=== PATIENT | female | born 1955 | race Caucasian/White ===

== ENCOUNTER 2018-05-02 13:49 | Outpatient (REF) | payer OTHER, SELFPAY ==
[2018-05-02 15:34] LABS: Hemoglobin A1C 9.4 % (4.5-6.2)
[2018-05-05 10:20] LABS: Hepatitis C Ab w Rflx HCV PCR Negative (NEGAT)
== END 2018-05-02 14:09 ==
LOC: NCHCN 13:49
PROVIDERS: PCP Nurse Practitioner Family; Visit Provider Family Medicine
DX: Z00.00 Encounter for general adult medical examination without abnormal findings (principal); E11.65 Type 2 diabetes mellitus with hyperglycemia; Z11.59 Encounter for screening for other viral diseases
CPT/HCPCS: 86803; 83036

== ENCOUNTER 2018-08-20 08:02 | Outpatient (REF) | payer OTHER, SELFPAY ==
[2018-08-20 13:00] LABS: HCT 35.5 % (36.0-46.0); HGB 11.5 g/dL (12.0-15.5); Mean Corp. HGB Concentration 32.4 g/dL (32.0-36.0); Mean Corpuscular Hemoglobin 25.6 pg (27.0-33.0); Mean Corpuscular Volume 79.1 fL (80-95); Platelet Count 196 x1000/uL (130-400); RBC 4.49 m/cumm (4.00-5.20); White Blood Cell Count 5.85 k/cumm (4.4-10.8)
[2018-08-20 13:07] LABS: BUN 20 mg/dL (7-18); CREATININE 0.89 mg/dL (0.55-1.02); Calcium 9.4 mg/dL (8.5-10.1); Chloride 101 mmol/L (98-107); Cholesterol 179 mg/dL (50-200); Glucose 246 mg/dL (70-100); HDL Cholesterol 45 mg/dL (40-60); LDL CHOLESTEROL 106 mg/dL (<100); Potassium 4.8 mmol/L (3.5-5.1); Sodium 138 mmol/L (136-145); Triglyceride 160 mg/dL (30-150)
[2018-08-20 13:17] LABS: Hemoglobin A1C 11.6 % (4.5-6.2)
== END 2018-08-20 08:22 ==
LOC: NCHCN 08:02
PROVIDERS: PCP Nurse Practitioner Family; Visit Provider Family Medicine
DX: E11.65 Type 2 diabetes mellitus with hyperglycemia (principal); I10 Essential (primary) hypertension; E78.5 Hyperlipidemia, unspecified
CPT/HCPCS: 80048; 80061; 83721; 85027; 83036

== ENCOUNTER 2018-09-26 17:22 | Outpatient (REF) | payer OTHER, SELFPAY ==
[2018-09-26 20:13] LABS: COMMENT (LAB VIEW ONLY) 158.93 mg/dL; Microalb ug/mg Crea 56.9 ug/mg Cr
== END 2018-09-26 17:42 ==
LOC: NCHCN 17:22
PROVIDERS: PCP Nurse Practitioner Family; Visit Provider Family Medicine
DX: E11.65 Type 2 diabetes mellitus with hyperglycemia (principal)
CPT/HCPCS: 82043; 82570

== ENCOUNTER 2018-11-13 01:49 | Outpatient (CLI) | payer OTHER, SELFPAY ==
--- NOTE | 2018-11-18 12:20 | DIABASSESS_ITS ---
DESCRIPTION: Vicki Botello presents for diabetes self management with a focus on getting blood sugars under better control and weight loss.? Last seen here 2014. MEDS:? 70/75 units AM/PM and insulin:carb at 5units cover 15 grams.She is injecting in her stomach. States she does have lumps where she injects. NUTRITION: Has given up pasta; seeking to add protein to her diet.? She has started writing down her food which has helped her in the past.? She is eating 60 grams carbohydrate servings at breakfast; and other meals.? She has not been eating vegetables. PHYSICAL ACTIVITY: She admits to limited physical activity secondary to cataplexy and narcolepsy with low energy. She also reports shortness of breath frequently. States she naps all day and does not sleep well at night.? She is working with the Sleep [facility].? CPAP helps her. MONITORING: States A1c 10ish and has been for some time.? States she monitors blood sugars 2-4 times a day. STRESS: admits to loneliness and possible depression.? Relates history at [facility] with sadness which she describes as ongoing, though recently better.? She also reports frustration with obtaining medication supplies. ASSESSMENT/INTERVENTION: Kelsey continues to have high blood sugars despite self- reported adherence to medication regimen. Discussed injection site and insulin administration. Discussed moving injection site to places she doesn't normally inject to increase effective absorption. Reviewed food record, portions, hunger/fullness. States she eats out of boredom. Discussed food options. Discussed CGM and link to insulin pump as a possible help for glycemic control and she voices enthusiasm.?? Discussed increasing activity.? She thinks linking a 10 minute walk after her meal may help her.? She reports feeling self conscious about exercising outside because of how people might tax investigator her.? In addition to walking after breakfast, discussed washing 1 thing after lunch as she is frustrated she is not doing any spring cleaning. She will be caring for a baby in 2 weeks and will be walking her then. PLAN: She will inject insulin in new abdominal areas with regular rotation increase physical activity after breakfast and lunch document food, insulin and blood sugars discuss with Dr. Kearns CGM/insulin pump consideration She is motivated to make changes.? We will f/u in 2 weeks. Individual MNT __2__ units billed TIME IN: 11 OUT: 1135 No DM group education series being offered at this time.
== END 2018-11-13 02:09 ==
PROVIDERS: PCP Nurse Practitioner Family; Visit Provider Dietitian, Registered
DX: E11.9 Type 2 diabetes mellitus without complications (principal); Z79.4 Long term (current) use of insulin; Z71.3 Dietary counseling and surveillance
CPT/HCPCS: 97802

== ENCOUNTER 2018-12-01 15:18 | Outpatient (CLI) | payer OTHER, SELFPAY ==
--- NOTE | 2018-12-03 09:57 | DIABASSESS_ITS ---
DESCRIPTION/ASSESSMENT: Vicki presents for diabetes self management with nutrition focus follow up. She has not been able to do the physical activity of walking 5 minutes a day and choosing one thing to clean a day. She states she did start the Keto diet as recommended by Monserrat Friend NP. Reviewed her food log and found she is eating sandwiches, pancakes, waffles, etc. The past few days she has been eating more salads, making her own high fat dressings, and is looking up 'keto' friendly main entree recipes. She admits she continues to sleep a lot. She gets up around 11:30-noon most days. She also has trouble walking unless it is even ground, however she can tip in her house. She does not do her basement stairs anymore for risk of falling. INTERVENTION: Reviewed food choices and carbohydrate intake in relation to insulin dosing and blood sugars. It is unclear if her basal insulin or her supper insulin dose is not effective causing hyperglycemia in the morning. It is evident she does need some insulin even if she is eating vegetables. Suggested she have 5 units mealtime insulin even if she does not have carbohydrate sources in her meal. In addition, suggested intensifying the insulin correction to 1 unit corrects 10mg/dl above 140mg/dl starting at 6 units at 140 as she has been doing. Discussed monitoring blood sugars at bedtime to see if supper dosing is effective. ACTION PLAN: Vicki will monitor blood sugars before bed x a few days and call results. She will use her new insulin correction scale and call if she becomes hypoglycemic. She wishes to follow up in 1 month. Individual MNT _2___ units billed TIME IN: 1300 OUT: 1340 for MNT and 10 minutes for insulin adjustment. No DM group education series being offered at this time.
== END 2018-12-01 15:38 ==
PROVIDERS: PCP Nurse Practitioner Family; Visit Provider Dietitian, Registered
DX: E11.9 Type 2 diabetes mellitus without complications (principal); Z79.4 Long term (current) use of insulin; Z71.3 Dietary counseling and surveillance
CPT/HCPCS: 97802

== ENCOUNTER 2018-12-31 12:08 | Outpatient (CLI) | payer OTHER, SELFPAY ==
--- NOTE | 2018-12-31 11:50 | DI.RAD_ITS ---
SYMPTOMS/DIAGNOSIS: PAIN, POPPING SENSATION RIGHT KNEE: Three views. Mild narrowing is seen in the medial femorotibial joint space. There is mild periarticular spurring present in the posterior patella and the medial femorotibial joint. There is an osseous density seen inferior to the patella, which may represent a loose body. There are vascular calcifications present in the soft tissues. IMPRESSION: 1. Mild degenerative changes of the right knee. 2. Question of a loose body.
== END 2018-12-31 12:28 ==
PROVIDERS: PCP Nurse Practitioner Family; Visit Provider Family Medicine
DX: M25.561 Pain in right knee (principal); M17.11 Unilateral primary osteoarthritis, right knee; M25.861 Other specified joint disorders, right knee
CPT/HCPCS: 73562

== ENCOUNTER → 2019-01-07 12:34 | Outpatient (BNVA) | payer OTHER, SELFPAY | PROVIDERS: PCP Nurse Practitioner Family; Referring Provider Family Medicine; Visit Provider Student in an Organized Health Care Education/Training Program | DX: M25.561 Pain in right knee (principal); M23.41 Loose body in knee, right knee; M25.461 Effusion, right knee | CPT/HCPCS: 20610; 99202; 99213; J1040 ==

== ENCOUNTER 2019-02-02 01:37 | Outpatient (CLI) | payer OTHER, SELFPAY ==
--- NOTE | 2019-02-02 12:04 | DI.MRI_ITS ---
SYMPTOMS/DIAGNOSIS: INTERNAL DERANGEMENT, RIGHT KNEE, M23.91, MEDIAL PAIN MRI OF THE RIGHT KNEE: Routine noncontrast examination was performed. The anterior cruciate and posterior cruciate ligaments are intact, as are both the medial and lateral collateral ligaments, extensor mechanism and medial and lateral retinaculum, in addition to the popliteus tendon. There is a tear of the posterior horn and body of the medial meniscus. The lateral meniscus is intact. There is thinning of the articular cartilage in the medial femorotibial joint space and the patellofemoral joint. Mild edema is seen in the proximal tibia. There is a linear area of decreased signal intensity paralleling the medial tibial plateau on the T2 weighted images. The findings raise the question of a nondisplaced fracture. Marrow signal is otherwise within normal limits. No findings to suggest avascular necrosis are seen. There is a small amount of fluid in the joint space. There is a 2.1 x 1.7 x 2.8 cm fluid collection in the posterior knee. There is mild edema seen in the soft tissues. The muscles show normal signal and size. IMPRESSION: 1. Findings of a tear of the body and posterior horn of the medial meniscus. 2. Findings suggestive of a nondisplaced fracture involving the medial aspect of the medial tibia. 3. Osteoarthritis of the knee.
== END 2019-02-02 01:57 ==
PROVIDERS: PCP Nurse Practitioner Family; Visit Provider Student in an Organized Health Care Education/Training Program
DX: M23.221 Derangement of posterior horn of medial meniscus due to old tear or injury, right knee (principal); M17.11 Unilateral primary osteoarthritis, right knee; R93.6 Abnormal findings on diagnostic imaging of limbs
CPT/HCPCS: 73721

== ENCOUNTER → 2019-02-18 12:39 | Outpatient (BNVA) | payer OTHER, SELFPAY | PROVIDERS: PCP Nurse Practitioner Family; Referring Provider Nurse Practitioner Family; Visit Provider Student in an Organized Health Care Education/Training Program | DX: S83.241D Other tear of medial meniscus, current injury, right knee, subsequent encounter (principal); X58.XXXD Exposure to other specified factors, subsequent encounter; E11.9 Type 2 diabetes mellitus without complications; I10 Essential (primary) hypertension; Z79.4 Long term (current) use of insulin | CPT/HCPCS: 99213 ==

== ENCOUNTER → 2019-03-04 08:56 | Outpatient (BNVA) | payer OTHER, SELFPAY | PROVIDERS: PCP Nurse Practitioner Family; Referring Provider Nurse Practitioner Family; Visit Provider Student in an Organized Health Care Education/Training Program | DX: S83.241A Other tear of medial meniscus, current injury, right knee, initial encounter (principal); X58.XXXA Exposure to other specified factors, initial encounter; E11.9 Type 2 diabetes mellitus without complications; Z79.4 Long term (current) use of insulin; I10 Essential (primary) hypertension | CPT/HCPCS: 99213; L1820 ==

== ENCOUNTER → 2019-04-03 08:10 | Outpatient (BNVA) | payer OTHER, SELFPAY | PROVIDERS: PCP Nurse Practitioner Family; Referring Provider Nurse Practitioner Family; Visit Provider Student in an Organized Health Care Education/Training Program | DX: S83.241A Other tear of medial meniscus, current injury, right knee, initial encounter (principal); X58.XXXA Exposure to other specified factors, initial encounter; M65.331 Trigger finger, right middle finger | CPT/HCPCS: 99214 ==

== ENCOUNTER 2019-05-21 00:49 | Outpatient (CLI) | payer OTHER, SELFPAY ==
--- NOTE | 2019-05-21 13:53 | DI.US_ITS ---
EXAM: US SOFT TISS ABD WALL/LOW BACK CLINICAL HISTORY: SWELLING OF BACK, R22.2, FIRM ASYMMETRIC SWELLING OF THE LEFT UPPER BACK,? LIPOMA. TECHNIQUE: Ultrasound performed using standard protocol. COMPARISON: No exams were available for comparison FINDINGS: Soft tissue ultrasound of the periscapular region was performed to evaluate a palpable mass. There is a large heterogeneous mass with internal apparent calcification and shadowing. Findings are indeterm inate, malignancy not excluded. Correlation with MRI recommended.
--- NOTE | 2019-05-21 14:40 | MERGE_ITS ---
*[facility]* *[facility]* [address] [place] [address] Date of study: 05/21/2019 Transthoracic Echocardiography M-mode, complete 2D, complete spectral Doppler, and color Doppler *STUDY CONCLUSIONS* Summary: 1. Left ventricle: The cavity size was normal. Systolic function was hyperdynamic. The estimated ejection fraction was 65-70%. Diastolic parameters were normal for age. There was no evidence of elevated ventricular filling pressure by Doppler parameters. 2. Mitral valve: There was mild regurgitation. 3. Right ventricle: The cavity size was normal. Wall thickness was normal. Systolic function was normal. 4. Atrial septum: No defect or patent foramen ovale was identified. 5. Pulmonary arteries: Pulmonary systolic pressure was in the range of 25mm Hg to 35mm Hg. 6. Inferior vena cava: The vessel was normal in size. The respirophasic diameter changes were in the normal range (greater than or equal to 50%), consistent with normal central venous pressure. *PATIENT PRESENTATION* Height: 162.6cm (64in ) S/D Pressure: 143 / 65 Weight: 86.6kg (190.6lb ) BSA: 2.01m^2 Test start time: 02:40 PM. Test stop time: 03:25 PM. CONSULTING Lorena Kearns Dana REFERRING Lorena Kearns PERFORMING [facility] [employer] Daphne Leslie *PROCEDURE DATA* Procedure information: This study was interpreted by [facility]. Pertinent images and digital data are archived for permanent storage and are available for subsequent review. Study status: Routine. Transthoracic echocardiography. M-mode, complete 2D, complete spectral Doppler, and color Doppler. A Transthoracic Echocardiogram was performed. Scanning was performed from the parasternal, apical, subcostal, and suprasternal notch acoustic windows. Images were obtained using an [employer] SC 2000 cardiac ultrasound machine. Image quality was good. Study completion: The patient tolerated the procedure well. History: PMH: Murmur. *CARDIAC ANATOMY* Left ventricle: The cavity size was normal. Systolic function was hyperdynamic. The estimated ejection fraction was 65-70%. The tissue Doppler parameters were abnormal. Diastolic parameters were normal for age. There was no evidence of elevated ventricular filling pressure by Doppler parameters. Aortic valve: Doppler: There was no stenosis. There was no significant regurgitation. VTI ratio of LVOT to aortic valve: 0.8. Valve area (VTI): 1.8cm^2. Indexed valve area (VTI): 0.9cm^2/m^2. Peak velocity ratio of LVOT to aortic valve: 0.74. Valve area (Vmax): 1.7cm^2. Indexed valve area (Vmax): 0.8cm^2/m^2. Mean velocity ratio of LVOT to aortic valve: 0.64. Valve area (Vmean): 1.5cm^2. Indexed valve area (Vmean): 0.7cm^2/m^2. Mean gradient (S): 10.1mm Hg. Peak gradient (S): 19.5mm Hg. Aorta: Aortic root: The aortic root was normal in size. Ascending aorta: The ascending aorta was normal in size. Mitral valve: Doppler: There was no evidence for stenosis. There was mild regurgitation. Valve area by pressure half-time: 2.6cm^2. Indexed valve area by pressure half-time: 1.3cm^2/m^2. Peak gradient (D): 3.4mm Hg. Left atrium: The atrium was normal in size. Atrial septum: No defect or patent foramen ovale was identified. Right ventricle: The cavity size was normal. Wall thickness was normal. Systolic function was normal. Pulmonic valve: Doppler: There was no evidence for stenosis. There was trivial regurgitation. Tricuspid valve: Doppler: There was mild regurgitation. Pulmonary artery: Poorly visualized. Pulmonary systolic pressure was in the range of 25mm Hg to 35mm Hg. Right atrium: The atrium was normal in size. Pericardium: There was no pericardial effusion. Systemic veins: Inferior vena cava: The vessel was normal in size. The respirophasic diameter changes were in the normal range (greater than or equal to 50%), consistent with normal central venous pressure. Measurements Left ventricle Value Reference LV ID, ED, PLAX 4.0 cm 3.5 - 6.0 LV ID, ES, PLAX 2.6 cm 2.1 - 4.0 LV PW thickness, ED, PLAX 1.1 cm LV end-diastolic volume, 1-p A2C 69 ml LV ejection fraction, 1-p A2C 69 % LV end-diastolic volume, 1-p A4C 80 ml LV ejection fraction, 1-p A4C 67 % LV e', lateral 0.089 m/sec LV E/e', lateral 10 LV e', medial 0.059 m/sec LV E/e', medial 16 LV e', average 0.074 m/sec LV E/e', average 12 Ventricular septum Value Reference IVS thickness, ED, PLAX 1.1 cm LVOT Value Reference LVOT ID, A-P 1.7 cm LVOT area 2.3 cm^2 LVOT peak velocity, S 1.64 m/sec LVOT mean velocity, S 0.96 m/sec LVOT VTI, S 35.0 cm LVOT peak gradient, S 10.7 mm Hg LVOT mean gradient, S 4.6 mm Hg Stroke volume (SV), LVOT DP 80 ml Stroke index (SV/bsa), LVOT DP 40 ml/m^2 Aortic valve Value Reference Aortic valve peak velocity, S 2.2 m/sec Aortic valve mean velocity, S 1.5 m/sec Aortic valve VTI, S 44.0 cm Aortic mean gradient, S 10.1 mm Hg Aortic peak gradient, S 19.5 mm Hg VTI ratio, LVOT/AV 0.8 Aortic valve area, VTI 1.8 cm^2 Velocity ratio, peak, LVOT/AV 0.74 Aortic valve area, peak velocity 1.7 cm^2 Velocity ratio, mean, LVOT/AV 0.64 Aortic valve area, mean velocity 1.5 cm^2 Aortic valve area/bsa, mean velocity 0.7 cm^2/m^2 Aorta Value Reference Aortic root ID, ED 2.5 cm Ascending aorta ID, A-P, S 2.9 cm Left atrium Value Reference LA ID, A-P, ES 4.3 cm LA ID/bsa, A-P 2.1 cm/m^2 <=2.2 LA volume, ES, 2-p 57 ml LA volume/bsa, ES, 2-p 28 ml/m^2 LA/aortic root ratio 1.75 Mitral valve Value Reference Mitral E-wave peak velocity 0.92 m/sec Mitral A-wave peak velocity 1.4 m/sec Mitral deceleration time (H) 289 ms 150 - 230 Mitral pressure half-time 84 ms Mitral peak gradient, D 3.4 mm Hg Mitral E/A ratio, peak 0.65 Mitral valve area, PHT, DP 2.6 cm^2 Tricuspid valve Value Reference Tricuspid regurg peak velocity 2.5 m/sec Tricuspid peak RV-RA gradient 25.6 mm Hg Right atrium Value Reference RA area, ES, A4C 13.9 cm^2 8.3 - 19.5 Legend: (L) and (H) marilynn values outside specified reference range. I have personally reviewed the images and have reviewed and edited the reported findings. Electronically signed by Chilango Kimble MD 05/21/2019 16:32
== END 2019-05-21 01:09 ==
PROVIDERS: PCP Family Medicine; Visit Provider Family Medicine
DX: R01.1 Cardiac murmur, unspecified (principal); I34.0 Nonrheumatic mitral (valve) insufficiency; R22.2 Localized swelling, mass and lump, trunk; I10 Essential (primary) hypertension
CPT/HCPCS: 93306; 76705

== ENCOUNTER 2019-06-04 00:57 | Outpatient (CLI) | payer OTHER, SELFPAY ==
[2019-06-04 09:20] LABS: CREATININE 0.97 mg/dL (0.55-1.02); Estimated GFR 58.19 (mL/min/1.73m2)
[2019-06-04] MEDS: Normal Saline Flush 10 ML SYR IVP (09:54)
[2019-06-04] MEDS: Gadoterate meglumine 20 ML VIAL 15 ML IVP (09:56)
--- NOTE | 2019-06-04 10:15 | DI.MRI_ITS ---
EXAM: MR CHEST WO/W CLINICAL HISTORY: LOCALIZED SWELLING OF BACK, R22.2. TECHNIQUE: Multiplanar multisequence MRI was performed. COMPARISON: No exams were available for comparison FINDINGS: MR examination was performed to evaluate palpable area of abnormality of the patient's left midthorac ic region posteriorly. Precontrast MRI multiplanar T1 and T2 fat sat show a rounded fairly well-circ umscribed predominantly lipomatous lesion measuring up to about 10 x 14 cm in diameter corresponding to the palpable abnormality. This lies in the subcutaneous fat. There is a central region of hetero geneous abnormal signal measuring up to about 7 x 2 cm in diameter on coronal imaging where it is mos t clearly seen. Postcontrast and pre contrast T1 fat sat imaging was also obtained and shows little or no enhancement of the lesion. The findings as described are consistent with a lipomatous mass of uncertain etiology, this could rep resent lipoma with area of cysts central necrosis but the possibility of liposarcoma would also have to be raised. A biopsy is recommended. No additional significant findings in the region surveyed. IMPRESSION: Predominantly lipomatous but indeterminate lesion of the left posterior thoracic subcutaneous fat, li avi with necrotic focus versus malignant neoplasm. Biopsy recommended for further evaluation.
== END 2019-06-04 01:17 ==
PROVIDERS: PCP Family Medicine; Visit Provider Family Medicine
DX: R22.2 Localized swelling, mass and lump, trunk (principal); D17.1 Benign lipomatous neoplasm of skin and subcutaneous tissue of trunk; Z13.89 Encounter for screening for other disorder
CPT/HCPCS: 71552; 82565

== ENCOUNTER 2019-06-08 01:02 | Outpatient (CLI) | payer OTHER, SELFPAY ==
--- NOTE | 2019-06-08 15:17 | DI.MAMMO_ITS ---
EXAM: MAMMO SCREENING CLINICAL HISTORY: SCREENING, Z12.31, PREVENTATIVE CARE, Z00.00 TECHNIQUE: Mammograms were interpreted according to the usual protocol including computer analysis w [employer] CAD system, tomosynthesis and C-view imaging. COMPARISON: Previous examinations including February 2018 FINDINGS: Breasts are of moderate density. There is asymmetric distribution of fibroglandular tissue with incr eased radiodensity in the upper outer quadrant of the left breast, unchanged from previous examinatio ns including February 2018. No new mass or clumped microcalcification seen. IMPRESSION: No specific evidence of malignancy at this time. Routine screening examinations are suggested at year ly intervals in this age group according to the ACS/ACR guidelines. Category 1, breast density catego ry B. BI-RADS Cat 1 - Negative Breast Density - Category B - Scattered areas of fibroglandular density
== END 2019-06-08 01:22 ==
PROVIDERS: PCP Family Medicine; Visit Provider Family Medicine
DX: Z12.31 Encounter for screening mammogram for malignant neoplasm of breast (principal)
CPT/HCPCS: 77063; 77067

== ENCOUNTER 2019-09-30 09:54 | Outpatient (REF) | payer OTHER, SELFPAY ==
[2019-09-30 19:31] LABS: HCT 34.2 % (36.0-46.0); HGB 10.8 g/dL (12.0-15.5); Mean Corp. HGB Concentration 31.6 g/dL (32.0-36.0); Mean Corpuscular Hemoglobin 25.8 pg (27.0-33.0); Mean Corpuscular Volume 81.6 fL (80-95); Mean Platelet Volume 12.6 fL (8.0-11.0); Platelet Count 261 x1000/uL (130-400); RBC 4.19 m/cumm (4.00-5.20); RBC Distribution Width 15.7 % (11.7-14.6); White Blood Cell Count 7.61 k/cumm (4.4-10.8)
[2019-09-30 19:49] LABS: Iron 70 ug/dL (50-170); Total Iron Binding Capacity 326 ug/dL (250-450); Transferrin Sat 21 % (15-50)
[2019-09-30 19:51] LABS: Hemoglobin A1C 8.7 % (3.8-5.6)
[2019-09-30 19:57] LABS: COMMENT (LAB VIEW ONLY) 124.37 mg/dL
[2019-09-30 19:59] LABS: Microalb ug/mg Crea 246.1 ug/mg Cr
[2019-09-30 20:01] LABS: ALT 42 U/L (14-59); AST 21 U/L (15-37); Albumin 3.9 g/dL (3.4-5.0); Alkaline Phosphatase 96 U/L (46-116); Anion Gap 13.9 mmol/L (3-11); BUN 33 mg/dL (7-18); Bilirubin, Total 0.6 mg/dL (0.2-1.0); CO2 21.1 mmol/L (21.0-32.0); CREATININE 1.19 mg/dL (0.55-1.02); Calcium 9.6 mg/dL (8.5-10.1); Chloride 105 mmol/L (98-107); Estimated GFR 45.96 (mL/min/1.73m2); Ferritin 33 ng/mL (8-252); Glucose 204 mg/dL (74-106); Potassium 4.5 mmol/L (3.5-5.1); Sodium 140 mmol/L (136-145); TSH (W/Ref FT4) 1.36 uIU/mL (0.36-3.74); Total Protein 7.6 g/dL (6.4-8.2)
[2019-10-02 13:02] LABS: IgA 307 mg/dL (85-499); Tissue Transglutaminase IgA <1.2 U/mL (<4.0)
== END 2019-09-30 10:14 ==
LOC: NCHCN 09:54
PROVIDERS: PCP Family Medicine; Visit Provider Family Medicine
DX: D50.9 Iron deficiency anemia, unspecified (principal); E11.65 Type 2 diabetes mellitus with hyperglycemia
CPT/HCPCS: 80053; 82784; 83516; 85027; 82043; 82570; 82728; 83036; 83540; 83550; 84443

== ENCOUNTER → 2019-10-02 09:26 | Outpatient (BNVA) | payer OTHER, SELFPAY | PROVIDERS: PCP Family Medicine; Referring Provider Family Medicine; Visit Provider Student in an Organized Health Care Education/Training Program | DX: S83.241D Other tear of medial meniscus, current injury, right knee, subsequent encounter (principal); X58.XXXD Exposure to other specified factors, subsequent encounter; M65.331 Trigger finger, right middle finger; E11.8 Type 2 diabetes mellitus with unspecified complications; Z79.4 Long term (current) use of insulin; I10 Essential (primary) hypertension | CPT/HCPCS: 99213 ==

== ENCOUNTER 2019-10-06 10:29 | Day surgery (SDC) | payer OTHER, SELFPAY ==
[2019-10-06] VITALS (7 sets, daily range): BP systolic 123–142; BP diastolic 41–74; PULSE 66–74; RESP 18–24; TEMP 36.1–36.6; O2SAT 95–100
--- NOTE | 2019-10-06 09:59 | W.PM.DSUDISC ---
Documented by User: Viridiana Hendricksxon 10/06/19 10:02 Discharge Plan Disposition Patient Disposition: HOME Condition: Good Discharge Details Reason For Visit: rt knee medial meniscus tear;rt MF trigger finger Attending Provider: Pk Melvin Primary Care Provider: Lorena Kearns Home Meds and New Rx's Prescriptions: New hydrocodone-acetaminophen 5-325 mg tablet 1 tab PO Q6H PRN (Reason: severe pain) Qty: 6 RF: 0 acetaminophen 500 mg tablet 500 mg PO Q6H PRN (Reason: pain) Qty: 60 RF: 2 ibuprofen 600 mg tablet 600 mg PO TID PRN (Reason: pain) Qty: 60 RF: 2 Continued metformin [Glucophage] 1,000 MG tablet 1,000 mg PO BID RF: 0 insulin aspart U-100 [Novolog Flexpen U-100 Insulin] 300 UNITS/3 ML insulin pen 20 units SQ TID RF: 0 rosuvastatin [Crestor] 40 MG tablet 40 mg PO QPM RF: 0 multivitamin [Daily Multi-Vitamin] 1 EACH tablet 1 tab PO DAILY AM RF: 0 citalopram [Celexa] 40 MG tablet 1 tab PO HS RF: 0 aspirin [Aspir-81] 81 MG tablet,delayed release (DR/EC) 81 mg PO HS RF: 0 Levemir Flexpen 100 UNIT/ML insulin pen 80 unit Sub-Q BID RF: 0 ibuprofen 200 MG capsule 600 mg PO TID PRN PRNRF: 0 esomeprazole magnesium [Nexium] 40 MG capsule,delayed release(DR/EC) 40 mg PO PRN PRNRF: 0 losartan 100 MG tablet 1 tab PO HS RF: 0 [place]-3S/Dha/Epa/Fish Oil [Fish Oil 1,000 mg Softgel] 1 EACH capsule 1 cap PO DAILY RF: 0 ibuprofen 600 MG tablet 600 mg PO Q6H PRN (Reason: Pain) Qty: 20 RF: 0 Discharge Instructions Stand Alone Forms: Olegario Knee Arthroscopy, Olegario Jefferson Finger Release Referrals: Pk Melvin MD [ [facility] STAFF PHYSICIAN] - Equipment/Supplies: Partial Weight Bearing Crutches Activity:: Elevate Remove Dressings/Wound Care:: 72 hours Shower/Bathe:: 72 hours Diet:: As Tolerated Discharge Orders Discharge Orders: Discharge Order (Routine); Ordered 10/06/19 Ordered By: Viridiana Hinds DS: Diagnosis Discharge Diagnosis (1) Tear of medial meniscus of right knee: Status: Acute (2) Trigger finger, right middle finger: Status: Chronic Documented by User: Pk Melvin MD 10/06/19 11:32 Discharge Plan Disposition Patient Disposition: HOME Condition: Good Discharge Details Reason For Visit: rt knee medial meniscus tear;rt MF trigger finger Attending Provider: Pk Melvin Primary Care Provider: Lorena Kearns Home Meds and New Rx's Prescriptions: New hydrocodone-acetaminophen 5-325 mg tablet 1 tab PO Q6H PRN (Reason: severe pain) Qty: 6 RF: 0 acetaminophen 500 mg tablet 500 mg PO Q6H PRN (Reason: pain) Qty: 60 RF: 2 ibuprofen 600 mg tablet 600 mg PO TID PRN (Reason: pain) Qty: 60 RF: 2 Continued metformin [Glucophage] 1,000 MG tablet 1,000 mg PO BID RF: 0 insulin aspart U-100 [Novolog Flexpen U-100 Insulin] 300 UNITS/3 ML insulin pen 20 units SQ TID RF: 0 rosuvastatin [Crestor] 40 MG tablet 40 mg PO QPM RF: 0 multivitamin [Daily Multi-Vitamin] 1 EACH tablet 1 tab PO DAILY AM RF: 0 citalopram [Celexa] 40 MG tablet 1 tab PO HS RF: 0 aspirin [Aspir-81] 81 MG tablet,delayed release (DR/EC) 81 mg PO HS RF: 0 Levemir Flexpen 100 UNIT/ML insulin pen 80 unit Sub-Q BID RF: 0 ibuprofen 200 MG capsule 600 mg PO TID PRN PRNRF: 0 esomeprazole magnesium [Nexium] 40 MG capsule,delayed release(DR/EC) 40 mg PO PRN PRNRF: 0 losartan 100 MG tablet 1 tab PO HS RF: 0 [place]-3S/Dha/Epa/Fish Oil [Fish Oil 1,000 mg Softgel] 1 EACH capsule 1 cap PO DAILY RF: 0 ibuprofen 600 MG tablet 600 mg PO Q6H PRN (Reason: Pain) Qty: 20 RF: 0 Discharge Instructions Stand Alone Forms: Olegario Knee Arthroscopy, Olegario Jefferson Finger Release Referrals: Pk Melvin MD [ [facility] STAFF PHYSICIAN] - Equipment/Supplies: Partial Weight Bearing Crutches Activity:: Elevate Remove Dressings/Wound Care:: 72 hours Shower/Bathe:: 72 hours Diet:: As Tolerated Discharge Orders Discharge Orders: Discharge Order (Routine); Ordered 10/06/19 Ordered By: Viridiana Hinds
[2019-10-06] MEDS: Lactated Ringers 1,000 ML 80 ML IV (11:33)
[2019-10-06] MEDS: ceFAZolin 2 GM/50 ML BAG IVPB (11:44)
[2019-10-06] MEDS: Sodium Bicarbonate 50 MEQ/50 ML VIAL (11:53)
[2019-10-06] MEDS: EPINEPHrine 30 MG/30 ML VIAL (12:10)
[2019-10-06] MEDS: Bupivacaine 0.5% Pres-Free 30 ML VIAL (12:30)
--- NOTE | 2019-10-06 14:45 | ROE_ITS ---
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 This was confirmed based on MRI and exam findings. Nonoperative measures were exhausted but disability and pain persisted. I discussed knee arthroscopy with meniscal intervention with the patient. I reviewed the risks of the procedure to include, but not limited to, bleeding, infection, pain, stiffness, damage to nerves or vessels, recurrence, blood clot. Despite these risks, the patient elected to proceed. Vicki has also has had a trigger finger of the middle finger. The catching, clicking, locking, and pain limited function. The diagnosis of trigger finger was evident. The symptoms had not responded to conservative measures. I discussed trigger finger release with Kelsey. I reviewed the risks of the procedure to include, but not limited to, bleeding, infection, pain, stiffness, incomplete release, damage to nerves or vessels, continued catching, recurrence. Despite these risks, the patient elected to proceed. Findings: The A1 ayan of the right middle finger was tightened and released. A diagnostic arthroscopy was performed with the following findings: Suprapatellar Pouch: Mild inflammatory changes, No loose bodies Medial Compartment: Complex medial meniscal tear, Intact meniscal root, significant signs of arthritis mostly of the femur with grade IV chondromalacia and grade I/II chondromalacia of the tibia, no loose bodies, peripheral osteophytes seen along the femur Notch: ACL and PCL were intact Lateral Compartment: No meniscal tear, intact meniscal root, no significant chondromalacia or signs of arthritis, no loose bodies Patellofemoral Compartment: Grade IV chondromalacia of the patella throughout its entirety, lateral patellar maltracking, loosely attached ossicle seen over the lateral aspect of the lateral patella Procedure Description: Kelsey was greeted in the preoperative holding area where the correct side was identified and marked. The consent was reviewed with the patient and signed. All questions were answered. Prophylactic antibiotics in the form of cefazolin were administered. She was taken back to the operating room. The patient was placed into the supine position on the operating room table with the right arm on an arm board. All bony prominences were well padded. No prophylactic antibiotics were administered since this was a clean, elective hand surgical case. The right arm was then prepped with Chloraprep and draped in a standard fashion with stockinette and extremity drape. A timeout to confirm correct identity, side and site, procedure, allergies, anesthesia, and medical concerns was performed. The surgical site was marked as a longitudinal incision directly over the A1 ayan of the involved digit. This was confirmed with palpation during finger flexion. This area, overlying the metacarpal head, was then anesthetized with 1% Lidocaine buffered with Sodium Bicarbonate. The patient tolerated this well and once the anesthetic had setup, the procedure began. A longitudinal incision was made through skin only, approximately 1cm. The deep tissues were dissected bluntly. Once the A1 ayan and flexor tendons were identified the soft tissue including neurovascular structures were retracted medially and laterally. There were no crossing structures over the A1 ayan. The proximal edge of the ayan was identified and the ayan was incised with tenotomy scissors. There was a release of the tendons once this was fully released. The tendons were then removed from the wound and inspected. Excess synovium was resected. The tendons were then returned and the patient was asked to move the finger into deep flexion and back to extension. There was no recreation of the pre- operative symptoms. The hand was then once more inspected for any A0 ayan or area of possible constriction. The wound was then irrigated and the skin was closed with a 4-0 Nylon. This was dressed with gauze and a Conform dressing. The back table was kept sterile and this draping was taken down. The right leg was then prepped with Chloraprep and draped in a standard fashion with stockinette and extremity drape. A timeout to confirm correct identity, side and site, procedure, allergies, anesthesia, and medical concerns was performed. The leg was placed into a pneumatic leg posadas, SPIDER2. A standard lateral portal was made at the lateral border of the patella tendon in line with the inferior pole of the patella, soft spot. The skin and deep tissue was incised sharply and the blunt trochar was inserted atraumatically. A diagnostic arthroscopy was performed and the findings are listed above. The suprapatellar pouch had no significant inflammatory change. The patellofemoral articulation showed severe arthritic change, grade IV chondromalacia of the patella, as well as lateral maltracking. There was also a loosely attached ossicle seen along the lateral retinaculum just lateral to the lateral border of the patella. The lateral gutter had no loose bodies but there was a peripheral osteophyte and the medial gutter had no loose bodies but a peripheral osteophyte of the femur. The knee was brought into some valgus stress in extension to open the medial compartment. A medial portal was made, localized by a spinal needle. The portal was created with an #11 blade through skin and capsule under direct visualization avoiding any meniscal injury. A probe was then inserted into the medial compartment. The medial compartment was fully inspected. The chondral surface of the tibia showed grade I/II chondromalacia and the surface of the femur showed grade IV chondromalacia. The medial meniscus had a complex tear at the level of the posterior horn extending towards the root with a large radial c omponent. After evaluation, the meniscus was debrided down to a stable base using a series of biters and arthroscopic lourdes. It was probed afterwards to confirm that the tear had been removed and the meniscus was stable. Cartilage surfaces were debrided of any flaps, leaving any intact fibers. The notch was then inspected which showed an intact ACL and an intact PCL. The leg was then brought into a figure of 4 position. The lateral compartment was fully inspected with the arthroscope and a probe. The chondral surface of the lateral femur showed no significant chondromalacia. The chondral surface of the lateral tibia showed no significant chondromalacia. The lateral meniscus had no meniscal tear. The arthroscope was brought back into the suprapatellar pouch and the leg was in full extension. The knee was thoroughly irrigated with the arthroscopic fluid on high flow and pressure. Inflow was stopped and excess fluid was removed. The wounds were closed with 4-0 Nylon. They were dressed with Xeroform, 4x4 gauze, ABD pad, Kerlix and an DEMETRIA wrap. A cryo-cuff was applied. The patient tolerated the procedure well and was returned to the Same Day Surgery area in a stable condition suffering no known complication.
== END 2019-10-06 14:35 | disposition home or self-care (01) ==
LOC: SUR 10:29
PROVIDERS: PCP Family Medicine; Visit Provider Student in an Organized Health Care Education/Training Program
PROC: (CPT 29870; principal; 2019-10-06 12:15)
PROC: (CPT 26055; 2019-10-06 12:15)
DX: S83.231A Complex tear of medial meniscus, current injury, right knee, initial encounter (principal); M65.331 Trigger finger, right middle finger; M94.261 Chondromalacia, right knee; M17.11 Unilateral primary osteoarthritis, right knee; E11.9 Type 2 diabetes mellitus without complications; I10 Essential (primary) hypertension; K21.9 Gastro-esophageal reflux disease without esophagitis; G47.33 Obstructive sleep apnea (adult) (pediatric); X58.XXXA Exposure to other specified factors, initial encounter
CPT/HCPCS: 29881; 26055; J0690; J1100; J1885; J2001; J2250; J2405; J2704

== ENCOUNTER 2019-10-07 02:45 | Outpatient (CLI) | payer OTHER, SELFPAY ==
--- NOTE | 2019-10-07 09:58 | PFT_ITS ---
PULMONARY FUNCTION TEST REPORT DATE OF SERVICE: October 07, 2019 REQUESTING PROVIDER: Lorena Kearns M.D. Spirometry shows no evidence of obstructive airways disease, no bronchodilator response. Lung volumes show no evidence of restriction. Diffusion capacity mildly reduced, even when corrected to alveolar volume, though it represents a slightly suboptimal patient effort. Airways resistance mildly elevated. IMPRESSION: No evidence of obstructive or restrictive lung disease, but there is mild diffusion defect. This represents a slightly suboptimal patient effort, but if it is true finding, underlying early developing interstitial lung disease or pulmonary hypertension should be further clinically investigated. When this study was compared to previous one from 06/07/06, the patient has a total of 560 cc's decline in FVC; FEV1 has declined by 490 cc's. Diffusion capacity also had a substantial decline. Clinical correlation therefore recommended. BREANNA/torrey D/
[2019-10-07] MEDS: Inhaler, Assist Device 1 EACH MC (13:59)
[2019-10-07] MEDS: Albuterol HFA 18 GM 200 PUFF INH IH (14:00)
== END 2019-10-07 03:05 ==
PROVIDERS: PCP Family Medicine; Visit Provider Family Medicine
DX: R06.00 Dyspnea, unspecified (principal); R05 Cough; Z87.891 Personal history of nicotine dependence
CPT/HCPCS: 94060; 94726; 94729

== ENCOUNTER 2019-10-09 03:37 | Outpatient (CLI) | payer OTHER, SELFPAY ==
--- NOTE | 2019-10-09 | DI.CT_ITS ---
EXAM: CT CHEST W CLINICAL HISTORY: DYSPNEA ON EXERTION R06.09, CHRONIC COUGH R05, TOBACCO USE, QUIT 2000 Z87.8 TECHNIQUE: Imaging Protocol: Axial computed tomography images with coronal and sagittal reformatted images were created and reviewed CONTRAST MATERIAL: Intravenous: Omnipaque 350 Contrast volume:70 mL contrast route:IV - COMPARISON: CHEST WITH CONTRAST from 12/16/2008 FINDINGS: Tracheobronchial tree: Patent where visualized. Mediastinum and Yamilex: No dominant adenopathy or fluid collection. Pulmonary parenchyma: No focal consolidation. Three noncalcified pulmonary nodules are present. The largest is in the left lower lobe anteriorly. It measures 0.5 cm in diameter (series 4, image 285). The other 2 lesions are seen on the right (series 4, image 185, and series 4, image 156). No archi tectural distortion. Pleura: No effusion or pneumothorax. Heart: The heart is not dilated. Moderate coronary artery calcifications are present. No significant pericardial effusion. Mitral valve calcification. Aorta: Thoracic aorta non-dilated. Atherosclerosis. Upper abdomen: Fatty infiltration of the liver. Lymph nodes: Within normal limits. Bones: Degenerative changes. IMPRESSION: 1. Three noncalcified pulmonary nodules less than 0.5 cm. Follow-up CT scan of the chest is recommen ded in 6-12 months at the least. Please correlate with patient's risk factors. 2. No acute pulmonary process. 3. Moderate coronary artery calcification. 4. Hepatic steatosis. DATA REPOSITORY: All CT scans at this facility are submitted to the National Radiology Data Registry (NRDR) Dose Index Registry (DIR) with the [employer] ([employer]). RADIATION OPTIMIZATION: All CT scans at this facility use at least one of these dose optimization te chniques: automated exposure control; mA and/or kV adjustment per patient size (includes targeted exa ms where dose is matched to clinical indication); or iterative reconstruction.
[2019-10-09] MEDS: Omnipaque 350 MG/ML 100 ML BTL IJ (10:03)
[2019-10-09] MEDS: Normal Saline - Diluent 50 ML VIAL IV (10:03)
== END 2019-10-09 03:57 ==
PROVIDERS: PCP Family Medicine; Visit Provider Family Medicine
DX: R06.00 Dyspnea, unspecified (principal); R05 Cough; Z87.891 Personal history of nicotine dependence; K76.0 Fatty (change of) liver, not elsewhere classified; R91.8 Other nonspecific abnormal finding of lung field
CPT/HCPCS: 71260; J3490

== ENCOUNTER 2019-10-09 08:49 | Outpatient (REF) | payer OTHER, SELFPAY ==
[2019-10-09 10:19] LABS: HCT 32.4 % (36.0-46.0); HGB 9.9 g/dL (12.0-15.5); Mean Corp. HGB Concentration 30.6 g/dL (32.0-36.0); Mean Corpuscular Hemoglobin 25.1 pg (27.0-33.0); Mean Platelet Volume 12.1 fL (8.0-11.0); Platelet Count 240 x1000/uL (130-400); RBC 3.95 m/cumm (4.00-5.20); RBC Distribution Width 15.6 % (11.7-14.6); White Blood Cell Count 6.12 k/cumm (4.4-10.8)
[2019-10-09 10:37] LABS: Anion Gap 14.1 mmol/L (3-11); BUN 28 mg/dL (7-18); CO2 20.9 mmol/L (21.0-32.0); CREATININE 1.03 mg/dL (0.55-1.02); Chloride 103 mmol/L (98-107); Ferritin 33 ng/mL (8-252); Glucose 179 mg/dL (74-106); Potassium 4.7 mmol/L (3.5-5.1); Sodium 138 mmol/L (136-145); Vitamin B12 357 pg/mL (193-986)
[2019-10-09 10:38] LABS: Folate > 20.0 ng/mL (8.6-20.0)
== END 2019-10-09 09:09 ==
LOC: NCHCN 08:49
PROVIDERS: PCP Family Medicine; Visit Provider Family Medicine
DX: D64.9 Anemia, unspecified (principal); E11.65 Type 2 diabetes mellitus with hyperglycemia
CPT/HCPCS: 80048; 85027; 82607; 82728; 82746

== ENCOUNTER 2019-10-15 00:27 | Outpatient (CLI) | payer OTHER, SELFPAY ==
--- NOTE | 2019-10-15 08:45 | DI.NM_ITS ---
APPROVED REPORT Exam: Pharmacologic Patient Location: Out-Patient Room/Bed: Stress Nurse: Jacki Kapadia RN BMI: 32.95 Baseline Rhythm: Sinus Rhythm Indications: Dyspnea. Medical History Medical History: Diabetes, Smoking, HTN, Hyperlipidemia, SOB, Obstructive sleep apnea, Obesity Cardiac Medications: Rosuvastatin/ Crestor, Aspirin, Allergies: Erythromycin. Cardiac Risk Factors: HTN, Hyperlipidemia, DM, FHX of CAD, SOB, Pretest Chest Pain Characteristics: Dyspnea Exercise History: Sedentary Physical Disabilities: Right knee pain. Recent right knee surgery. Lung Sounds: Clear to auscultation Heart Sounds: Regular Stress Test Details Test: Pharmacologic stress testing performed using 0.4 mg of regadenoson per 5 mL given IV over 10 s econds. Nuclear Acquisition: Rest Tc-99m/Stress Tc-99m 1 day Rest Isotope: Tc-99m Sestamibi. Dose: 11.5 Date: 10/15/2019 Injection Time: 0900 Stress Isotope: Tc-99m Sestamibi. Dose: 36.5 Date: 10/15/2019 Injection Time: 1020 HR Resting HR Supine: 71 bpm Max Heart Rate (APMHR): 158 bpm Target HR (85% APMHR): 134 bpm Max HR Achieved: 104 bpm % of APMHR: 65 Recovery HR: 89 bpm HR response to stress: Normal HR response to stress BP Resting BP Supine: 130/90 mmHg Max BP: 160/80 mmHg Recovery BP: 152/70 mmHg BP response to stress: Normal blood pressure response to stress. ECG Resting ECG: Sinus Rhythm Stress ECG: Sinus Rhythm ST Change: No significant ST segment changes Recovery ECG: Sinus Rhythm Recovery ST Change: No significant ST segment changes Clinical Stress Symptoms: SOB, nausea and chest pressure 2 minutes post lexiscan injection. Subsided by 5 megha cyn post lexiscan injection Exercise duration: 6 min33 sec Stress ECG Conclusion 1. The resting electrocardiogram was normal. Patient underwent pharmacologic stress 2. Blunted heart rate and blood pressure response to pharmacologic stress 3. Maximum heart rate was 65% of predicted heart rate for age 4. Electrocardiographically the test was nondiagnostic due to inadequate heart rate 5. No symptoms were elicited to suggest angina Protocol Used: Regadenoson Stress Test Summary STAGE HR BP Symptoms NOTES Supine 71 130/90 3 min post Lexiscan injection 94 160/80 6 min post Lexiscan injection 89 152/74 Symptoms subsided. 9 min post Lexiscan injection 12 min post Lexiscan injection 15 min post Lexiscan injection MPI Conclusion Normal myocardial perfusion, without evidence of prior infarction or additional ischemia Radiologist Interpretation Radiologist agrees with Operative Supervisor's Interpretation. Radiologist Interpretation by: Anna Macdonald MD Interpretation Date/Time: 10/16/2019 09:51:28
[2019-10-15] MEDS: Regadenoson 0.4 MG/5 ML SYR IVP (11:57)
== END 2019-10-15 00:47 ==
PROVIDERS: PCP Family Medicine; Visit Provider Family Medicine
DX: R06.09 Other forms of dyspnea (principal); I10 Essential (primary) hypertension; E11.9 Type 2 diabetes mellitus without complications; Z79.4 Long term (current) use of insulin; F17.210 Nicotine dependence, cigarettes, uncomplicated; G47.33 Obstructive sleep apnea (adult) (pediatric)
CPT/HCPCS: 78452; 93016; 93018; 93017; J2785

== ENCOUNTER → 2019-10-16 08:19 | Outpatient (BNVA) | payer OTHER, SELFPAY | PROVIDERS: PCP Family Medicine; Referring Provider Family Medicine; Visit Provider Student in an Organized Health Care Education/Training Program | DX: S83.241D Other tear of medial meniscus, current injury, right knee, subsequent encounter (principal); X58.XXXD Exposure to other specified factors, subsequent encounter; M65.331 Trigger finger, right middle finger; I10 Essential (primary) hypertension ==

== ENCOUNTER 2019-10-27 13:23 | Outpatient (REF) | payer OTHER, SELFPAY ==
[2019-10-27 14:15] LABS: HCT 35.7 % (36.0-46.0); Mean Corp. HGB Concentration 30.8 g/dL (32.0-36.0); Mean Corpuscular Hemoglobin 25.4 pg (27.0-33.0); Mean Corpuscular Volume 82.4 fL (80-95); Mean Platelet Volume 12.6 fL (8.0-11.0); Platelet Count 238 x1000/uL (130-400); RBC 4.33 m/cumm (4.00-5.20); RBC Distribution Width 15.4 % (11.7-14.6); White Blood Cell Count 6.09 k/cumm (4.4-10.8)
[2019-10-27 14:44] LABS: Ferritin 37 ng/mL (8-252); Vitamin B12 585 pg/mL (193-986)
== END 2019-10-27 13:43 ==
LOC: NCHCN 13:23
PROVIDERS: PCP Family Medicine; Visit Provider Family Medicine
DX: D64.9 Anemia, unspecified (principal)
CPT/HCPCS: 85027; 82607; 82728

== ENCOUNTER 2020-01-15 11:31 | Outpatient (REF) | payer OTHER, SELFPAY ==
[2020-01-15 18:32] LABS: HCT 37.8 % (36.0-46.0); HGB 11.8 g/dL (12.0-15.5); Mean Corp. HGB Concentration 31.2 g/dL (32.0-36.0); Mean Corpuscular Hemoglobin 25.5 pg (27.0-33.0); Mean Corpuscular Volume 81.8 fL (80-95); Mean Platelet Volume 12.7 fL (8.0-11.0); Platelet Count 256 x1000/uL (130-400); RBC 4.62 m/cumm (4.00-5.20); White Blood Cell Count 6.45 k/cumm (4.4-10.8)
[2020-01-15 18:54] LABS: Hemoglobin A1C 7.3 % (3.8-5.6)
[2020-01-15 18:56] LABS: Ferritin 38 ng/mL (8-252)
== END 2020-01-15 11:51 ==
LOC: NCHCN 11:31
PROVIDERS: PCP Family Medicine; Visit Provider Family Medicine
DX: D50.9 Iron deficiency anemia, unspecified (principal); I10 Essential (primary) hypertension; E11.65 Type 2 diabetes mellitus with hyperglycemia
CPT/HCPCS: 85027; 82728; 83036

== ENCOUNTER → 2020-02-22 08:44 | Outpatient (BNVA) | payer OTHER, SELFPAY | PROVIDERS: PCP Family Medicine; Referring Provider Family Medicine; Visit Provider Surgery | DX: K64.2 Third degree hemorrhoids (principal); E11.9 Type 2 diabetes mellitus without complications; Z79.4 Long term (current) use of insulin; I10 Essential (primary) hypertension | CPT/HCPCS: 99213 ==

== ENCOUNTER 2020-03-01 07:52 | Outpatient (CLI) | payer OTHER, SELFPAY ==
[2020-03-01 22:46] LABS: COVID-19 RT-PCR UVMMC Result Negative (Negative)
== END 2020-03-01 08:12 ==
PROVIDERS: PCP Family Medicine; Visit Provider Surgery
DX: Z03.818 Encounter for observation for suspected exposure to other biological agents ruled out (principal); Z01.818 Encounter for other preprocedural examination
CPT/HCPCS: U0003

== ENCOUNTER 2020-03-04 06:05 | Day surgery (SDC) | payer OTHER, SELFPAY ==
[2020-03-04 06:15] VITALS: BP 133/70; PULSE 69; RESP 22; TEMP 36.4; O2SAT 97
[2020-03-04] MEDS: Lactated Ringers 1,000 ML 80 ML IV (06:47)
--- NOTE | 2020-03-04 07:22 | W.PM.DSUDISC ---
Discharge Plan Disposition Patient Disposition: HOME Condition: Good Discharge Details Reason For Visit: Colonoscopy Attending Provider: Haley Orellana Primary Care Provider: Lorena Kearns Home Meds and New Rx's Prescriptions: Continued ferrous sulfate 325 mg (65 mg iron) tablet 325 mg PO BID RF: 0 cyanocobalamin (vitamin B-12) 1,000 mcg capsule 1,000 mcg PO DAILY RF: 0 Lantus Solostar U-100 Insulin 100 unit/mL (3 mL) insulin pen 80 unit SC BID RF: 0 Jardiance 10 mg tablet 10 mg PO DAILY RF: 0 valsartan 160 mg tablet 160 mg PO DAILY RF: 0 albuterol sulfate [ProAir HFA] 90 mcg/actuation HFA aerosol inhaler 2 puff IH Q6H PRNRF: 0 metformin [Glucophage] 1,000 MG tablet 1,000 mg PO BID RF: 0 insulin aspart U-100 [Novolog Flexpen U-100 Insulin] 300 UNITS/3 ML insulin pen 20 units SQ TID RF: 0 rosuvastatin [Crestor] 40 MG tablet 40 mg PO QPM RF: 0 multivitamin [Daily Multi-Vitamin] 1 EACH tablet 1 tab PO DAILY AM RF: 0 citalopram [Celexa] 40 MG tablet 1 tab PO HS RF: 0 aspirin [Aspir-81] 81 MG tablet,delayed release (DR/EC) 81 mg PO HS RF: 0 esomeprazole magnesium [Nexium] 40 MG capsule,delayed release(DR/EC) 40 mg PO PRN PRNRF: 0 losartan 100 MG tablet 1 tab PO HS RF: 0 acetaminophen 500 mg tablet 500 mg PO Q6H PRN (Reason: pain) Qty: 60 RF: 2 ibuprofen 600 mg tablet 600 mg PO TID PRN (Reason: pain) Qty: 60 RF: 2 Discharge Instructions Additional Instructions: Findings: One small polyp was removed. My office will contact you with biopsy results. Mild diverticulosis was present. Make sure to take in 30 grams of fiber daily. The tissue in the anal region is essentially a skin tag and could not be banded. This could be removed with a minor surgical procedure if desired. Follow up: Plan for a colonoscopy in 5 years. Please call if you develop: fevers >101.5 Nausea or Vomiting Abdominal pain that is not transient DAY SURGERY UNIT POST COLONOSCOPY INSTRUCTIONS 1. Because there will be medication in your system for the next 24 hours, you may feel a little sleepy. Your coordination will be affected. Therefore: a. Do not drive or operate dangerous equipment for 24 hours. b. Do not drink alcohol beverages for 24 hours (not even beer). c. Plan to go home and rest for the day. 2. Generally there are no restrictions on your activity after a day or so has gone by, but you may feel a bit fatigued for a few days. 3 After you arrive home you may have a light meal and return to a normal diet as you can tolerate it without feeling sick to your stomach. 4. After surgery, you may feel pain or discomfort. This should be only transient, but if it persists please contact your doctor. 5. If there are any questions regarding the findings of your procedure, please feel free to contact your doctor. 6. If you are unable to contact your doctor with a problem, contact the hospital at [phone]. 7. Continue all your regular medications unless directed otherwise. I understand the above instructions and have no questions. Signature of Patient or Responsible Adult Escort Date/Time Name of Responsible Adult Escort Signature of Nurse Date/Time Activity:: Activity as Tolerated Diet:: As Tolerated Discharge Orders Discharge Orders: Discharge Order (Routine); Ordered 03/04/20 Ordered By: Haley Orellana DS: Diagnosis Discharge Diagnosis (1) Colon polyp: Status: Acute (2) Diverticulosis: Status: Acute
--- NOTE | 2020-03-04 07:40 | BOWEL_PTH ---
PATIENT: Vicki Botello LOC: [facility] U#:[id number] AGE/SX: 64/F ROOM: RE03/04/[address]: Haley Orellana MD : [id number] BED: DIS: 03/04/2020 SPEC #: [id number] RECD: 03/04/20 12:20 STATUS: SIMBA REQ #: [id number] YESSICA: 03/04/20 07:[address]: Haley Orellana DEPT: Surgical Specimen RECD BY: Andria Pablo ENTERED: 03/04/20 12:20 SP TYPE: Bowel OTHR DR: Lorena Kearns Tissues: 1 - BIOPSY BOWEL Procedures: GROSS AND MICRO LEVEL 4 Comments: [id number]
--- NOTE | 2020-03-04 08:12 | W.COLOREPORT ---
Date of service: 03/04/20 Time of Service: 08:12 Colonoscopy Report Date of procedure: 03/04/20 Pre-op diagnosis general: Screening Post-op diagnosis procedure note: other (Hepatic flexure polyp, mild diverticulosis, perianal skin tag) Procedure: Colonoscopy with cold forceps polypectomy Surgeon: Haley Orellana Anesthesia proc note operative: MAC Disposition: same day Indications: Patient presents for routine screening colonoscopy. Her last one about 10 years ago was normal. She also has a possible prolapsing internal hemorrhoid. Procedure Description: The patient was placed in the left Gray position. Propofol was titrated to sedation. Digital rectal examination revealed an external hemorrhoidal skin tag that is not amenable to banding. There is also a large hypertrophied anal papilla. The scope was advanced to the cecum with some abdominal pressure required due to tortuosity. The ileocecal valve and appendiceal orifice were clearly identified. The prep was good. The scope was slowly withdrawn over the course of greater than 6 minutes with no abnormalities seen in the ascending colon. A diminutive polyp was removed with the cold forceps at the hepatic flexure. The transverse, descending, sigmoid colon or rectum were normal including on retroflexed view with the exception of mild sigmoid diverticulosis. The patient tolerated the procedure well and was stable to recovery. Plan for routine screening colonoscopy in 5 years or sooner if the polyp is adenomatous.
[2020-03-04 08:37] VITALS: BP 139/69; PULSE 57; RESP 18; TEMP 36.5; O2SAT 96
== END 2020-03-04 08:57 | disposition home or self-care (01) ==
PROVIDERS: PCP Family Medicine; Visit Provider Surgery
PROC: 0DJD8ZZ Inspection of Lower Intestinal Tract, Via Natural or Artificial Opening Endoscopic (ICD-10-PCS; CPT 45378; principal; 2020-03-04 07:30)
DX: Z12.11 Encounter for screening for malignant neoplasm of colon (principal); D12.3 Benign neoplasm of transverse colon; K57.30 Diverticulosis of large intestine without perforation or abscess without bleeding; K64.4 Residual hemorrhoidal skin tags; E11.9 Type 2 diabetes mellitus without complications; Z79.4 Long term (current) use of insulin; K21.9 Gastro-esophageal reflux disease without esophagitis; I10 Essential (primary) hypertension; G47.33 Obstructive sleep apnea (adult) (pediatric)
CPT/HCPCS: 45380; 88305; J2001; J2704

== ENCOUNTER 2020-07-07 10:10 | Outpatient (REF) | payer OTHER, SELFPAY ==
[2020-07-07 18:13] LABS: HCT 38.9 % (36.0-46.0); MCH 26.1 pg (27.0-33.0); MCHC 30.8 % (32.0-36.0); MCV 84.6 fL (80-95); MPV 12.4 fL (8.0-11.0); Platelet Count 244 10^3/uL (130-400); RDW 14.2 % (11.7-14.6); RDW-SD 43.5 fL; WBC 6.22 10^3/uL (4.4-10.8)
[2020-07-07 18:49] LABS: ALT 78 U/L (14-59); AST 41 U/L (15-37); Albumin 4.1 g/dL (3.4-5.0); Alkaline Phosphatase 85 U/L (46-116); BUN 22 mg/dL (7-18); Bilirubin, Total 0.5 mg/dL (0.2-1.0); CREATININE 0.93 mg/dL (0.55-1.02); Calcium 9.2 mg/dL (8.5-10.1); Calculated LDL 75 mg/dL (<100); Chloride 105 mmol/L (98-107); Cholesterol 157 mg/dL (<200); Ferritin 61 ng/mL (8-252); Glucose 132 mg/dL (74-106); HDL Cholesterol 42 mg/dL (40-60); Sodium 140 mmol/L (136-145); Total Protein 7.5 g/dL (6.4-8.2); Triglyceride 202 mg/dL (<150)
== END 2020-07-07 10:30 ==
LOC: NCHCN 10:10
PROVIDERS: PCP Family Medicine; Visit Provider Family Medicine
DX: E11.65 Type 2 diabetes mellitus with hyperglycemia (principal); E78.5 Hyperlipidemia, unspecified; D50.9 Iron deficiency anemia, unspecified; E53.8 Deficiency of other specified B group vitamins
CPT/HCPCS: 80053; 80061; 85027; 82728

== ENCOUNTER 2020-07-18 01:31 | Outpatient (CLI) | payer OTHER, SELFPAY ==
--- NOTE | 2020-07-18 | DI.MRI_ITS ---
EXAM: MR BRAIN WO CLINICAL HISTORY: ATAXIA,R27.0,UNEXPLAINED RECURRENT FALLS,R29.6. TECHNIQUE: Multiplanar multisequence MRI of the brain was performed. CONTRAST MATERIAL: IV Contrast: Noncontrast COMPARISON: CT HEAD WITHOUT CONTRAST from 10/27/2015 FINDINGS: VENTRICLES AND EXTRA AXIAL SPACES: Normal in size and morphology for the patient's age. HEMORRHAGE: None. CEREBRAL PARENCHYMA: No focus of restricted diffusion to suggest acute infarct. No space-occupying le harmeet identified. No white matter lesions. MIDLINE SHIFT: None. BRAINSTEM/CEREBELLUM: Normal. CALVARIUM: Normal. ENHANCEMENT: No suspicious enhancement identified. VISUALIZED PARANASAL SINUSES/MASTOIDS: Clear. OTHER FINDINGS: Orbits and pituitary unremarkable. Intact vascular flow voids. IMPRESSION: Unremarkable MRI of the brain. DATA REPOSITORY:
== END 2020-07-18 01:51 ==
PROVIDERS: PCP Family Medicine; Visit Provider Family Medicine
DX: R27.0 Ataxia, unspecified (principal); R29.6 Repeated falls
CPT/HCPCS: 70551

== ENCOUNTER 2020-08-02 10:48 | Outpatient (REF) | payer OTHER, SELFPAY ==
[2020-08-02 18:10] LABS: ALT 100 U/L (14-59); AST 59 U/L (15-37); Alkaline Phosphatase 86 U/L (46-116); Bilirubin, Direct 0.16 mg/dL (0.00-0.20); Bilirubin, Total 0.8 mg/dL (0.2-1.0); Total Protein 7.4 g/dL (6.4-8.2)
[2020-08-02 19:47] LABS: Vitamin B12 1138 pg/mL (193-986)
== END 2020-08-02 11:08 ==
LOC: NCHCN 10:48
PROVIDERS: PCP Family Medicine; Visit Provider Family Medicine
DX: E78.5 Hyperlipidemia, unspecified (principal)
CPT/HCPCS: 80076; 82607

== ENCOUNTER 2020-08-08 19:25 | Outpatient (REF) | payer OTHER, SELFPAY ==
[2020-08-10 09:00] LABS: HBs Antibody, Quant 17.1 mIU/mL (See Note); Hepatitis B Surface Ab Positive (See Note)
[2020-08-10 09:14] LABS: Hepatitis B Surface Ag Negative (Negative)
[2020-08-10 09:37] LABS: Hepatitis C Ab w Rflx HCV PCR Negative (Negative)
[2020-08-10 10:01] LABS: Hep B Core Antibody Negative (Negative)
[2020-08-10 10:36] LABS: Hep A Total Ab w Rflx IgM Positive (Negative)
[2020-08-10 11:44] LABS: Hep A Antibody IgM Negative (Negative)
== END 2020-08-08 19:45 ==
LOC: NCHCN 19:25
PROVIDERS: PCP Family Medicine; Visit Provider Family Medicine
DX: R79.89 Other specified abnormal findings of blood chemistry (principal); K76.0 Fatty (change of) liver, not elsewhere classified
CPT/HCPCS: 86704; 86706; 86709; 86803; 87340

== ENCOUNTER 2020-08-22 01:28 | Outpatient (CLI) | payer OTHER, SELFPAY ==
--- NOTE | 2020-08-22 14:15 | DI.MAMMO_ITS ---
EXAM: MG MAMMO SCREENING CLINICAL HISTORY: SCREENING, Z12.31. TECHNIQUE: Bilateral full field digital CC and MLO mammographic images were obtained with 3D tomosyn thesis and utilizing computer aided detection (CAD). COMPARISON: Prior mammograms dating back to 2010, the most recent being May 2019. FINDINGS: Small benign-appearing nodule laterally in the right breast is unchanged from prior studies and has t he appearance of benign lymph node. There are no spiculated masses nor malignant appearing microcalcification groups. Benign micro and ma crocalcifications are again noted in both breast. There is no significant architectural distortion n or skin thickening-retraction. IMPRESSION: Stable benign findings. No radiographic evidence of malignancy. BI-RADS Category 2 - Benign Findings Breast Density - Category B - Scattered areas of fibroglandular density Breast density Category C or D implies that the patient has dense breast tissue. Dense breast tissue can make it harder to find cancer on a mammogram. Dense breast tissue is also associated with an incr eased risk of breast cancer. This information about the result of the mammogram report was provided to the patient to raise their awareness. Use this report when you speak with the patient about their risks for breast cancer, which includes their family history. At that time, you may recommend additional screening tests (Ultrasoun d or MRI) as these tests may add significant information. A negative radiographic report should not delay biopsy if a dominant or clinically suspicious mass is present. Up to ten percent of cancers are not identified on mammography. A negative report may reinforce clinical impression. Adenosis and dense breasts may obscure an underlying neoplasm. False positive reports average 6 to 10%. Patient will receive a letter notifying them of these results.
== END 2020-08-22 01:48 ==
PROVIDERS: PCP Family Medicine; Visit Provider Family Medicine
DX: Z12.31 Encounter for screening mammogram for malignant neoplasm of breast (principal); R92.8 Other abnormal and inconclusive findings on diagnostic imaging of breast; R92.0 Mammographic microcalcification found on diagnostic imaging of breast; R92.1 Mammographic calcification found on diagnostic imaging of breast
CPT/HCPCS: 77063; 77067

== ENCOUNTER 2020-09-07 01:17 | Outpatient (CLI) | payer OTHER, SELFPAY ==
--- NOTE | 2020-09-07 | DI.US_ITS ---
EXAM: US ABDOMEN CLINICAL HISTORY: ELEVATED LFT'S,R79.89 TECHNIQUE: Ultrasound of complete upper abdomen performed using standard protocol. COMPARISON: US US SOFT TISS ABD WALL/LOW BACK from 05/21/[address] scan 10/09/2019 was reviewed FINDINGS: There is no ascites evident. LIVER: Liver is hyperechoic indicating steatosis. No discrete focal hepatic lesions identified. GALLBLADDER/BILIARY: There are no gallstones. No gallbladder wall edema nor pericholecystic fluid. The common hepatic duct isnot dilated, measuring 3-4mm at the level of donavan hepatis. PANCREAS: Pancreatic head and neck appear unremarkable as does the uncinate process. Part of the bod y and tail are not able to be seen due to overlying bowel gas. SPLEEN: The spleen is not enlarged and there are no intrasplenic lesions evident. KIDNEYS:Kidneys exhibit normal size with no evidence of solid mass, calculus, nor hydronephrosis. No cortical cysts evident. ABDOMINAL AORTA: There is no evidence of abdominal aortic aneurysm. IVC: Normal diameter where visualized. IMPRESSION: 1. No evidence of cholelithiasis nor dilatation of the biliary tree. 2. Hepatic steatosis. Correlation with appropriate hepatic blood work recommended. 3. There is no ascites. DATA REPOSITORY:
== END 2020-09-07 01:37 ==
PROVIDERS: PCP Family Medicine; Visit Provider Family Medicine
DX: K76.0 Fatty (change of) liver, not elsewhere classified (principal); R79.89 Other specified abnormal findings of blood chemistry
CPT/HCPCS: 76700

== ENCOUNTER 2020-09-22 21:10 | Outpatient (REF) | payer OTHER, SELFPAY ==
[2020-09-24 17:13] LABS: COVID-19 RT-PCR Result NEGATIVE (Negative)
== END 2020-09-22 21:30 ==
LOC: NCHCN 21:10
PROVIDERS: PCP Family Medicine; Visit Provider Physician Assistant Medical
DX: J06.9 Acute upper respiratory infection, unspecified (principal)
CPT/HCPCS: U0003

== ENCOUNTER 2020-09-30 19:52 | Outpatient (REF) | payer OTHER, SELFPAY ==
[2020-09-30 19:03] LABS: COMMENT (LAB VIEW ONLY) 40.67 mg/dL
== END 2020-09-30 19:53 | disposition home or self-care (01) ==
LOC: NCHCN 19:52
PROVIDERS: PCP Family Medicine; Visit Provider Family Medicine
DX: E11.9 Type 2 diabetes mellitus without complications (principal)
CPT/HCPCS: 82043; 82570

== ENCOUNTER 2020-12-30 17:47 | Outpatient (REF) | payer OTHER, SELFPAY ==
[2020-12-30 16:20] LABS: Hemoglobin A1C 7.1 % (<5.7)
== END 2020-12-30 17:48 | disposition home or self-care (01) ==
LOC: NCHCN 17:47
PROVIDERS: PCP Family Medicine; Visit Provider Family Medicine
DX: E11.9 Type 2 diabetes mellitus without complications (principal)
CPT/HCPCS: 83036

== ENCOUNTER 2021-02-08 16:27 | Outpatient (REF) | payer OTHER, SELFPAY ==
[2021-02-08 13:38] LABS: HCT 39.9 % (36.0-46.0); HGB 12.1 g/dL (11.2-15.7); MCH 24.9 pg (27.0-33.0); MCHC 30.3 % (32.0-36.0); MCV 82.3 fL (80-95); MPV 12.4 fL (8.0-11.0); Platelet Count 303 10^3/uL (130-400); RBC 4.85 10^6/uL (3.93-5.22); RDW 14.5 % (11.7-14.6); RDW-SD 43.8 fL; WBC 8.46 10^3/uL (4.4-10.8)
[2021-02-08 14:33] LABS: ALT 37 U/L (14-59); AST 23 U/L (15-37); Albumin 4.1 g/dL (3.4-5.0); Alkaline Phosphatase 88 U/L (46-116); Anion Gap 11.5 mmol/L (3-11); BUN 28 mg/dL (7-18); Bilirubin, Total 0.9 mg/dL (0.2-1.0); CO2 26.5 mmol/L (21.0-32.0); CREATININE 1.2 mg/dL (0.55-1.02); Calcium 9.8 mg/dL (8.5-10.1); Chloride 102 mmol/L (98-107); Estimated GFR 45.37 (mL/min/1.73m2); Ferritin 25 ng/mL (8-252); Glucose 202 mg/dL (74-106); Potassium 4.8 mmol/L (3.5-5.1); Sodium 140 mmol/L (136-145); TSH (W/Ref FT4) 1.28 uIU/mL (0.36-3.74); Total Protein 7.9 g/dL (6.4-8.2); Vitamin B12 1446 pg/mL (193-986)
== END 2021-02-08 16:28 | disposition home or self-care (01) ==
LOC: NCHCN 16:27
PROVIDERS: PCP Family Medicine; Visit Provider Family Medicine
DX: D50.9 Iron deficiency anemia, unspecified (principal); E53.8 Deficiency of other specified B group vitamins; R53.83 Other fatigue
CPT/HCPCS: 80053; 85027; 82607; 82728; 84443

== ENCOUNTER 2021-03-27 09:11 | Outpatient (REF) | payer OTHER, SELFPAY ==
[2021-03-27 22:39] LABS: Anion Gap 14.1 mmol/L (3-11); BUN 22 mg/dL (7-18); CO2 23.9 mmol/L (21.0-32.0); CREATININE 0.9 mg/dL (0.55-1.02); Calcium 9.5 mg/dL (8.5-10.1); Chloride 103 mmol/L (98-107); Ferritin 26 ng/mL (8-252); Glucose 153 mg/dL (74-106); Potassium 5.1 mmol/L (3.5-5.1); Sodium 141 mmol/L (136-145)
== END 2021-03-27 09:12 | disposition home or self-care (01) ==
LOC: NCHCN 09:11
PROVIDERS: PCP Family Medicine; Visit Provider Family Medicine
DX: I10 Essential (primary) hypertension (principal); D50.9 Iron deficiency anemia, unspecified
CPT/HCPCS: 80048; 82728

== ENCOUNTER 2021-05-03 17:15 | Outpatient (REF) | payer OTHER, SELFPAY ==
[2021-05-05 11:13] LABS: COVID-19 RT-PCR UVMMC Result Negative (Negative)
== END 2021-05-03 17:16 | disposition home or self-care (01) ==
LOC: NCHCN 17:15
PROVIDERS: PCP Family Medicine; Visit Provider Family Medicine
DX: Z20.822 Contact with and (suspected) exposure to COVID-19 (principal); R06.00 Dyspnea, unspecified; R53.83 Other fatigue
CPT/HCPCS: U0003

== ENCOUNTER 2021-05-10 01:34 | Outpatient (CLI) | payer OTHER, SELFPAY ==
--- NOTE | 2021-05-10 10:49 | DI.RAD_ITS ---
Exam(s) XR CHEST 2V PA LATERAL EXAM: XR CHEST 2V PA LATERAL CLINICAL HISTORY: DYSPNEA ON EXERTION, R06.09, FATIGUE, R53.83 TECHNIQUE: 2D digital imaging was performed. COMPARISON: CR CHEST 2 VIEWS PA,LAT from 08/05/2017 CR CHEST 2 VIEWS PA,LAT from 08/05/2017 FINDINGS: MEDIASTINUM: Normal. HEART: Normal. PULMONARY VASCULATURE: Normal. LUNGS: Clear. PLEURAL SPACE: No pleural effusion or pneumothorax. BONE:Within normal limits for the patient's age. OTHER FINDINGS:There is elevation of the right hemidiaphragm. IMPRESSION: No acute pulmonary findings. DATA REPOSITORY: RADIATION DOSE DELIVERED:
== END 2021-05-10 01:54 ==
PROVIDERS: PCP Family Medicine; Visit Provider Family Medicine
DX: R06.09 Other forms of dyspnea (principal); R53.83 Other fatigue
CPT/HCPCS: 71046

== ENCOUNTER 2021-05-10 11:11 | Outpatient (REF) | payer OTHER, SELFPAY ==
[2021-05-10 14:31] LABS: HCT 37.9 % (36.0-46.0); HGB 11.5 g/dL (11.2-15.7); MCH 24.8 pg (27.0-33.0); MCHC 30.3 % (32.0-36.0); MCV 81.7 fL (80-95); MPV 12.5 fL (8.0-11.0); Platelet Count 239 10^3/uL (130-400); RBC 4.64 10^6/uL (3.93-5.22); RDW 16.3 % (11.7-14.6); RDW-SD 48.1 fL; WBC 6.52 10^3/uL (4.4-10.8)
[2021-05-10 14:55] LABS: Ferritin 25 ng/mL (8-252)
== END 2021-05-10 11:12 | disposition home or self-care (01) ==
LOC: NCHCN 11:11
PROVIDERS: PCP Family Medicine; Visit Provider Family Medicine
DX: R06.09 Other forms of dyspnea (principal); R53.83 Other fatigue; D50.9 Iron deficiency anemia, unspecified
CPT/HCPCS: 85027; 82728

== ENCOUNTER 2021-05-10 11:48 | Outpatient (CLI) | payer OTHER, SELFPAY ==
--- NOTE | 2021-05-17 | DI.RAD_ITS ---
Exam(s) XR FOOT RT COMPLETE EXAM: XR FOOT RT COMPLETE CLINICAL HISTORY: RT FOOT PAIN M79.671, FELL TWISTED RT FOOT, PAIN OVER 5TH TOE. TECHNIQUE: 2D digital imaging was performed. COMPARISON: No exams were available for comparison FINDINGS: Hallux valgus noted. There is no evidence of obvious fracture or diastasis of the Lisfranc joint. However, there is a melchor y subtle transverse line in the base of the 5th metatarsal seen on the AP view only. This is not andrew dent on the oblique view. Possibly representing a very subtle nondisplaced fracture. No radiopaque foreign body. No osseous lesions nor erosions. Moderate size inferior calcaneal spur is noted. No lytic osseous lesions. IMPRESSION: Hallux valgus Very subtle transverse line seen in the base of the 5th metatarsal on 1 image only. Correlation with site of tenderness is recommended. This may indicate a very subtle nondisplaced transverse fracture at this level. DATA REPOSITORY: RADIATION DOSE DELIVERED:
== END 2021-05-10 12:08 ==
PROVIDERS: PCP Family Medicine; Visit Provider Family Medicine
DX: M79.671 Pain in right foot (principal); R93.6 Abnormal findings on diagnostic imaging of limbs
CPT/HCPCS: 73630

== ENCOUNTER 2021-06-08 01:35 | Outpatient (CLI) | payer MEDICARE, SELFPAY ==
--- NOTE | 2021-06-08 | DI.US_ITS ---
APPROVED REPORT EXAM: Comprehensive 2D, Doppler, and color-flow Echocardiogram Patient Location: Out-Patient Hand Touch Up Painter: Daphne Leslie RDCS (AE) Indications: BRAND, Fatigue Other Information Study Quality: Adequate Conclusion Normal left ventricular wall thickness and chamber size. Estimated ejection fraction is 55 to 60%. There are no segmental wall motion abnormalities Normal right ventricular size and systolic function Both atria are normal in size Aortic valve is sclerotic and trileaflet without stenosis or regurgitation Moderate mitral annular calcification. Trace mitral regurgitation Normal tricuspid valve with trace regurgitation. Normal estimated right ventricular systolic pressur e 24.5 mmHg Normal pulmonic valve with trace regurgitation Wall motion Left Ventricle The left ventricle is normal size. The left ventricular systolic function is normal. The left ventric ular ejection fraction is within the normal range. There is normal left ventricular wall thickness. T here is normal LV segmental wall motion. There is no ventricular septal defect visualized. LVEF is 55 -60%. Right Ventricle The right ventricle is normal size. The right ventricular systolic function is normal. The RVSP is 24 .5 mmHg. Atria The left atrium size is normal. The right atrium size is normal. The interatrial septum is intact wit h no evidence for an atrial septal defect. Aortic Valve Aortic valve is calcified. The Aortic valve is sclerotic. Aortic valve is trileaflet. No hemodynamica lly significant valvular aortic stenosis. No aortic regurgitation is present. Mitral Valve Moderate mitral annular calcification. No evidence of mitral valve stenosis. Trace mitral regurgitati on. Tricuspid Valve The tricuspid valve is normal in structure. There is no tricuspid valve stenosis. Trace tricuspid reg urgitation. Pulmonic Valve The pulmonary valve is normal in structure. There is no pulmonic valvular stenosis. Trace pulmonic re gurgitation. Great Vessels The aortic root is normal in size. The ascending aorta is normal in size. Aortic arch is not well vis ualized. IVC is normal in size and collapses >50% with inspiration. Pericardium There is no pericardial effusion. 2D Dimensions IVSD d PLAX 1.08 cm F: 0.6-1.0 LV Vol A2C d MOD 83.9 mL LVPW d PLAX 1.02 cm F: 0.6 - 1.0 LV Vol A4C d MOD 84.2 mL LVID d PLAX 4.61 cm F: 3.8 - 5.2 LA vol/ BSA A2C s A-L 25.5 mL/m2 LVDs 3.05 cm F: 2.2 - 3.5 LA vol/ BSA A4C s A-L 32.1 mL/m2 Ao Root d 2.43 cm F: 2.7 - 3.3 LA Vol/ BSA Biplane s A-L 29.7 mL/m2 RA Area A4C 12.21 cm2 LA Area A4C s MOD 19.58 cm2 RA Vol/ BSA A4C s A-L 14.1 mL/m2 LA Area A2C s MOD 18.15 cm2 Ao Asc Diam d 3.18 cm F: 2.3 - 3.1 LV EF A4C MOD 58.1 % LV EF Teichholz 61.5 % LV EF A2C MOD 59.3 % LVEF (Charles's) 58.46 % F: 54 - 74 LV EF Biplane MOD 58.5 % LV Volume 65.19 mL F: 46 - 106 SV 49.86 mL LV Volume Index 34.49 mL/m2 F: 29 - 61 SV Index 26.35 mL/m2 LV Vol Biplane MOD 85.3 mL FS 32.90 % M-Mode TAPSE 1.44 cm (M/F) >1.7 LV Diastology MV E' medial 0.066 (>0.07 m/s) E/A Ratio 0.7 LV E/e MED 13.30 (<14) MV E Vmax 0.89 (0.4-1.3 m/s) MV E' lateral 0.076 (>0.1 m/s) MV A Vmax 1.35 (0.4-1.3 m/s) LV E/e LAT 11.60 (<14) MV E/A Ratio 0.65 MV E/E' medial 13.33 MV E/E' lateral 11.62 Aortic Valve LVOT Area 2.98 cm2 AoV Area Vmax 1.87 cm2 LVOT Vmax 1.25 m/s AoV Area/ BSA (Vmax) 0.99 cm2/m2 LVOT Mean Lokesh. 0.77 m/s AYAKA Mean Lokesh. 1.81 cm2 LVOT Peak Grad 6.2 mmHg AYAKA Mean Lokesh. Index 0.96 cm2/m2 LVOT Mean Grad 2.8 mmHg LVOT VTI 0.266 m LVOT Diam s 1.90 cm AoV Vmax 1.99 m/s Velocity Ratio 0.62 AoV Mean Lokesh. 1.26 m/s AoV Peak Grad 15.8 mmHg LVOT SV 79.25 mL AoV Mean Grad 7.6 mmHg AoV VTI 0.379 m AoV Area VTI 2.09 cm2 AoV Area/ BSA (VTI) 1.10 cm/m2 Mitral Valve MV DT 370 (160-240 msec) MV PHT 107 msec MV Area PHT 2.05 cm2 MV VTI 0.356 m MV Area VTI 2.22 (4.0-6.0 cm2) Pulmonary Valve PV Vmax 1.23 (0.5-1.5 m/s) RVOT Peak Gr. 2.63 mmHg PV Peak Grad 6.0 mmHg RVOT Mean Gr. 1.20 mmHg PV Mean Grad 3.0 mmHg RVOT VTI 0.154 m PV VTI 0.228 m RVOT Vmax 0.81 m/s Tricuspid Valve TR Peak Grad 21.4 mmHg TR Vmax 2.32 m/s RA Pressure 3.00 mmHg RVSP (TR) 24.5 mmHg
== END 2021-06-08 01:55 ==
PROVIDERS: PCP Family Medicine; Visit Provider Family Medicine
DX: R06.09 Other forms of dyspnea (principal); R53.83 Other fatigue; I35.8 Other nonrheumatic aortic valve disorders
CPT/HCPCS: 93306

== ENCOUNTER 2021-06-16 16:03 | Emergency (ER) | payer MEDICARE, SELFPAY ==
[2021-06-16] VITALS (37 sets, daily range): BP systolic 114–150; BP diastolic 51–69; PULSE 79–104; RESP 16–31; TEMP 36.7; O2SAT 95–98
--- NOTE | 2021-06-16 16:00 | RT.EKG_ITS ---
APPROVED REPORT Exam: Resting ECG Reason for Exam: chest discomfort Patient Location: E HR:83 bpm ECG Measurements Heart Rate 83 AXIS AL 145 P 51 QRSd 87 QRS 33 QT 377 T 43 QTc 443 Conclusion Sinus rhythm...normal P axis, V-rate 60- 99
--- NOTE | 2021-06-16 16:30 | DI.CT_ITS ---
Exam(s) CT CHEST PE CTA EXAM: CT CHEST PE CTA CLINICAL HISTORY: cp/sob. TECHNIQUE: Imaging Protocol: Axial CT angiography was performed with multi-slice acquisition and mu lti-planar and/or 3D reconstructions. CONTRAST MATERIAL: Intravenous: Omnipaque 350 Contrast volume:80 ml COMPARISON: CR XR CHEST 2V PA LATERAL from 05/10/2021 CR XR CHEST 2V PA LATERAL from 05/10/2021 FINDINGS: Pulmonary Arteries: No evidence of filling defect to suggest pulmonary emboli. Tracheobronchial tree: Patent where visualized. Mediastinum and Yamilex: No dominant adenopathy or fluid collection. Pulmonary parenchyma: No consolidation or dominant measurable mass. Mild dependent changes. Pleura: No effusion or pneumothorax. Heart: The heart is not dilated. coronary artery calcifications are seen. Aorta: Thoracic aorta non-dilated. Mild atherosclerotic changes. Upper abdomen: Fatty liver. Bones: Unremarkable for age. IMPRESSION: No evidence of pulmonary embolism or other acute abnormality. RADIATION DOSE DELIVERED: 442.17mGy.cm Total DLP DATA REPOSITORY: All CT scans at this facility are submitted to the National Radiology Data Registry (NRDR) Dose Index Registry (DIR) with the [employer] (A[employer]). RADIATION OPTIMIZATION: All CT scans at this facility use at least one of these dose optimization te chniques: automated exposure control; mA and/or kV adjustment per patient size (includes targeted exa ms where dose is matched to clinical indication); or iterative reconstruction.
--- NOTE | 2021-06-16 16:33 | ED.GENADUL_ITS ---
Discharge Plan Disposition Patient Disposition: HOME Condition: Stable Discharge Details Clinical Impression: Chest pain, Dyspnea Primary Care Provider: Lorena Kearns ED Provider: Rusty Jackson Home Meds and New Rx's Prescriptions: Continued ferrous sulfate 325 mg (65 mg iron) tablet 325 mg PO BID RF: 0 cyanocobalamin (vitamin B-12) 1,000 mcg capsule 1,000 mcg PO DAILY RF: 0 Jardiance 10 mg tablet 10 mg PO DAILY RF: 0 valsartan 160 mg tablet 160 mg PO DAILY RF: 0 metformin [Glucophage] 1,000 MG tablet 1,000 mg PO BID RF: 0 insulin aspart U-100 [Novolog Flexpen U-100 Insulin] 300 UNITS/3 ML insulin pen 20 units SQ TID RF: 0 rosuvastatin [Crestor] 40 MG tablet 40 mg PO QPM RF: 0 multivitamin [Daily Multi-Vitamin] 1 EACH tablet 1 tab PO DAILY AM RF: 0 citalopram [Celexa] 40 MG tablet 1 tab PO HS RF: 0 aspirin [Aspir-81] 81 MG tablet,delayed release (DR/EC) 81 mg PO HS RF: 0 esomeprazole magnesium [Nexium] 40 MG capsule,delayed release(DR/EC) 40 mg PO DAILY RF: 0 losartan 100 MG tablet 1 tab PO HS RF: 0 valacyclovir 1 gram tablet 1,000 mg PO TID RF: 0 Levemir FlexTouch U-100 Insuln 100 unit/mL (3 mL) insulin pen 80 unit SUBCUT BID RF: 0 Victoza 3-Betito 0.6 mg/0.1 mL (18 mg/3 mL) pen injector 1.8 mg SUBCUT HS RF: 0 acetaminophen 500 mg tablet 500 mg PO Q6H PRN (Reason: pain) Qty: 60 RF: 2 ibuprofen 600 mg tablet 600 mg PO TID PRN (Reason: pain) Qty: 60 RF: 2 Discharge Instructions Instructions: Chest Pain (ED), Dyspnea (ED) Additional Instructions: Work-up in the ER does not reveal any obvious emergent process. It is unclear where your symptoms are coming from. For this reason, I cannot stress the importance of contacting your primary care provider on Saturday to discuss your ongoing symptoms and need for outpatient reevaluation, potential referral to cardiology and/or GI for further evaluation. Please watch for new or worsening symptoms and return to the ER for any concern Discharge Data Discharge Date/Time-TO BE ENTERED AT DEPARTURE: 06/16/21 20:59 Medical Decision Making This is a 66 year-old with a past medical history of hypertension, anxiety, depression, GERD, diabetes, presented to the ER today with URI-like symptoms for the past 4 days, cough, shortness of breath, sternal chest discomfort. Clinically she appears well, nontoxic, afebrile, lungs clear to auscultation, O2 sats 97% on room air. Will obtain cardiac work-up. Patient tells me she recently had a chest x-ray and echo, because of this I will obtain a chest CTA as opposed to obtaining D-dimer or chest x-ray. Patient is comfortable with this plan and has no additional questions or concerns at this time. Laboratory values reveal a white blood cell count of 7.29 hemoglobin 10.8 hematocrit 35.1 platelet count 229. Electrolytes unremarkable, creatinine 1.1 with a GFR of 50.01. Troponin less than 0.05, BNP 40 Initial laboratory values are abnormal process patient remains hemodynamic stable. Agreeable to awaiting her CTA and a delta troponin. CTA does not reveal any pulmonary embolus. Minimal dependent atelectasis present. Repeat troponin remains less than 0.05. Patient remains hemodynamically stable under my care. She appears well, toxic, speaking in full sentences, O2 sats are in the high 90s on room air, lungs are clear to auscultation. Rapid cardiac rule out unremarkable here in the ER and her CTA does not reveal any PE or pneumonia. Covid negative as well. Patient will treat her symptoms with [id number] medication and contact her primary care provider for her ongoing symptoms. Strict discharge and return precautions were provided. This documentation was generated using [employer] system, please disregard any oddities of phrase or misspellings. Medical Records Medical records reviewed: Yes I reviewed the patient's medical records. Imaging Data Radiologic Study: Attestation: I personally reviewed and interpreted this imaging study as follows: Imaging: CT Scan Radiologist's impression: PROCEDURE INFORMATION: Exam: CTA Chest With Contrast Exam date and time: 06/16/2021 16:43 Age: 66 years old Clinical indication: Other: Chest pain, SOB, TECHNIQUE: Imaging protocol: Computed tomographic angiography of the chest with contrast. 3D rendering (Not supervised by radiologist): MIP and/or 3D reconstructed images were created by the technologist. Radiation optimization: All CT scans at this facility use at least one of these dose optimization techniques: automated exposure control; mA and/or kV adjustment per patient size (includes targeted exams where dose is matched to clinical indication); or iterative reconstructi on. Contrast material: OMNIPAQUE 350; Contrast volume: 100 ml; Contrast route: INTRAVENOUS (IV); COMPARISON: CT CHEST W 10/09/2019 09:45 FINDINGS: Pulmonary arteries: No pulmonary emboli. Aorta: No aortic aneurysm. No aortic dissection. Lungs: A few scattered small pulmonary nodules are statistically benign. Follow- up as per institutional protocol. No airspace consolidation. Minimal dependent subs egmental atelectasis. Pleural spaces: No pneumothorax. No pleural effusion. Heart: Question mild enlargement of the left atrium similar to prior. Lymph nodes: No enlarged lymph nodes. Bones/joints: No acute fracture. Soft tissues: No suspicious lesions. ASHLEY KEEN Preliminary Radiology Report [employer] (QA) DISCREPANCY? If there is a discrepancy between the preliminary and final interpretation, please notify [facility] via [email or web address]. If you do not have access to our QA portal, call our QA team at [phone] CONFIDENTIALITY STATEMENT This report is intended only for the use of the referring physician, and only in accordance with law, If you received this in error, call [phone] Page 2 of 2 IMPRESSION: 1. No pulmonary emboli are seen. 2. Minimal dependent subsegmental atelectasis. 3. Incidental findings as described. Thank you for allowing us to participate in the care of your patient. Lab Data Lab results reviewed: Yes I reviewed the patient's lab results. Labs: Laboratory Tests Range/Units 06/16/21 06/16/21 06/16/21 16:25 16:25 16:44 WBC (4.4-10.8) 10^3/uL 7.29 RBC (3.93-5.22) 10^6/uL 4.31 Hgb (11.2-15.7) g/dL 10.8 L Hct (36.0-46.0) % 35.1 L MCV (80-95) fL 81.4 MCH (27.0-33.0) pg 25.1 L MCHC (32.0-36.0) % 30.8 L RDW (11.7-14.6) % 15.9 H Plt Count (130-400) 10^3/uL 229 MPV (8.0-11.0) fL 11.4 H Immature Gran % 0.4 Neutrophils % 60.5 Lymphocytes % 27.2 Monocytes % 9.7 Eosinophils % 1.8 Basophils % 0.4 Nucleated RBC % % 0 Absolute Neutrophils (1.2-6.7) 10^3/uL 4.41 Absolute Lymphocytes (1.2-3.4) 10^3/uL 1.98 Absolute Monocytes (0.1-0.8) 10^3/uL 0.71 Absolute Eosinophils (0.0-0.7) 10^3/uL 0.13 Absolute Basophils (0.0-0.2) 10^3/uL 0.03 Sodium (136-145) mmol/L 139 Potassium (3.5-5.1) mmol/L 4.4 Chloride (98-107) mmol/L 103 Carbon Dioxide (21.0-32.0) mmol/L 26.1 Anion Gap (3-11) mmol/L 9.9 BUN (7-18) mg/dL 24 H Creatinine (0.55-1.02) mg/dL 1.1 H Estimated GFR/1.73 m2 (mL/min/1.73m2) 50.01 Glucose (74-106) mg/dL 192 H Calcium (8.5-10.1) mg/dL 9.4 Magnesium (1.8-2.4) mg/dL 2.1 Total Bilirubin (0.2-1.0) mg/dL 0.6 AST (15-37) U/L 32 ALT (14-59) U/L 54 Alkaline Phosphatase (46-116) U/L 93 Troponin I (<0.06) ng/mL < 0.05 NT-Pro-B Natriuret Pep (<300) pg/mL 40 Total Protein (6.4-8.2) g/dL 8.0 Albumin (3.4-5.0) g/dL 3.9 COVID-19 Source Nasal/Nares SARS-CoV-2 (PCR) (Negative) Negative Range/Units 06/16/21 19:40 WBC (4.4-10.8) 10^3/uL RBC (3.93-5.22) 10^6/uL Hgb (11.2-15.7) g/dL Hct (36.0-46.0) % MCV (80-95) fL MCH (27.0-33.0) pg MCHC (32.0-36.0) % RDW (11.7-14.6) % Plt Count (130-400) 10^3/uL MPV (8.0-11.0) fL Immature Gran % Neutrophils % Lymphocytes % Monocytes % Eosinophils % Basophils % Nucleated RBC % % Absolute Neutrophils (1.2-6.7) 10^3/uL Absolute Lymphocytes (1.2-3.4) 10^3/uL Absolute Monocytes (0.1-0.8) 10^3/uL Absolute Eosinophils (0.0-0.7) 10^3/uL Absolute Basophils (0.0-0.2) 10^3/uL Sodium (136-145) mmol/L Potassium (3.5-5.1) mmol/L Chloride (98-107) mmol/L Carbon Dioxide (21.0-32.0) mmol/L Anion Gap (3-11) mmol/L BUN (7-18) mg/dL Creatinine (0.55-1.02) mg/dL Estimated GFR/1.73 m2 (mL/min/1.73m2) Glucose (74-106) mg/dL Calcium (8.5-10.1) mg/dL Magnesium (1.8-2.4) mg/dL Total Bilirubin (0.2-1.0) mg/dL AST (15-37) U/L ALT (14-59) U/L Alkaline Phosphatase (46-116) U/L Troponin I (<0.06) ng/mL < 0.05 NT-Pro-B Natriuret Pep (<300) pg/mL Total Protein (6.4-8.2) g/dL Albumin (3.4-5.0) g/dL COVID-19 Source SARS-CoV-2 (PCR) (Negative) ECG Data Attestation: I personally reviewed and interpreted this ECG (s) as follows: Interpretation: Please see official report by Dr. Cecy, sinus rhythm, ventricu lar rate of 83, no STEMI. HPI General Mode of arrival: ambulatory . Date/Time Provider Initiated Documentation: 06/16/21 16:32 . Limitations to Documentation: no limitations . Information obtained by: patient . HPI Narrative: Reports that she was diagnosed with shingles to her left chest wall last week, also developed chest congestion, shortness of breath, dry cough over the past 4 days. She has not been patient states that she was pulled back she states a couple of days ago she developed midsternal chest pain that is worse with coughing or palpation. She has a past history of hypertension, anxiety depression, diabetes, GERD. She is a former smoker. Patient later tells me that she has had worsening and ongoing shortness of breath over the past year or so, has been seen by her primary care provider, but has not had any clear source of why she is feeling the way she is she denies she is illness or contact other than her symptoms 4 days ago. Denies headache, neck pain, visual changes, radiation of the chest, abdominal pain nausea, vomiting change in bowel bladder function, pain or swelling in her legs. She has not taken any nosi-eho-jmvjnko medications. Related Data Home Medications Medication Instructions Recorded Confirmed aspirin [Aspir-81] 81 mg PO HS 11/18/12 06/16/21 citalopram [Celexa] 1 tab PO HS 11/18/12 06/16/21 insulin aspart U-100 [Novolog 20 units SQ TID 11/18/12 06/16/21 Flexpen U-100 Insulin] metformin [Glucophage] 1,000 mg PO BID 11/18/12 06/16/21 multivitamin [Daily Multi-Vitamin] 1 tab PO DAILY AM 11/18/12 06/16/21 rosuvastatin [Crestor] 40 mg PO QPM 11/18/12 06/16/21 esomeprazole magnesium [Nexium] 40 mg PO DAILY 09/03/16 06/16/21 losartan 1 tab PO HS 12/11/17 06/16/21 acetaminophen 500 mg PO Q6H PRN #60 tab 10/06/19 06/16/21 ibuprofen 600 mg PO TID PRN #60 tab 10/06/19 06/16/21 cyanocobalamin (vitamin B-12) 1,000 mcg PO DAILY 10/16/19 06/16/21 1,000 mcg capsule ferrous sulfate 325 mg (65 mg 325 mg PO BID 10/16/19 06/16/21 iron) tablet empagliflozin 10 mg tablet 10 mg PO DAILY 01/29/20 06/16/21 valsartan 160 mg tablet 160 mg PO DAILY 01/29/20 06/16/21 Levemir FlexTouch U-100 Insuln 80 unit SUBCUT BID 06/16/21 06/16/21 Victoza 3-Betito 1.8 mg SUBCUT HS 06/16/21 06/16/21 valacyclovir 1,000 mg PO TID 06/16/21 06/16/21 Previous Rx's Medication Instructions Recorded acetaminophen 500 mg PO Q6H PRN #60 tab 10/06/19 ibuprofen 600 mg PO TID PRN #60 tab 10/06/19 Allergies Allergy/AdvReac Type Severity Reaction Status Date / Time azithromycin Allergy Intermediate Tongue Unverified 03/04/20 06:16 swelling General Stated Complaint: Chest Pain KAMLESH: 2 Review of Systems Constitutional Constitutional: Denies fatigue, Denies fever(s) and Denies headache(s) Eyes Eyes: Denies change in vision ENT Ears, Nose, Mouth, and Throat: Denies headache(s) and Denies neck pain Cardiovascular Cardiovascular: Reports chest pain and Reports dyspnea Respiratory Respiratory: Reports cough and Reports dyspnea Gastrointestinal Gastrointestinal: Denies abdominal pain, Denies nausea and Denies vomiting Genitourinary Genitourinary: Denies dysuria Musculoskeletal Musculoskeletal: Denies back pain and Denies neck pain Integumentary/Breasts Skin/Breast: Denies rash Neurologic Neurologic: Denies headache(s) Endocrine Endocrine: Denies fatigue Hematologic/Lymphatic Hematologic/Lymphatic: Denies easy bleeding and Denies easy bruising [facility] Medical History Benign hypertension Chronic anxiety Depression Diabetes mellitus Gastroesophageal reflux disease Hyperlipidemia Hypertension Narcolepsy PTSD (post-traumatic stress disorder) Pt. denies this dx Retinopathy Sleep apnea does not use CPAP machine recently, due to ill-fitting mask Tubular adenoma of colon Surgical History History of carpal tunnel release History of esophagogastroduodenoscopy (EGD) History of hysterectomy Hx of arthroscopy of right knee Hx of laparoscopy Removed left ovary. Per pt, was to check for endometriosis. Hx of tubal ligation S/P excision of lipoma excision of lipoma on back Trigger Finger release LMF, LRF Social History Smoking/Tobacco Use Status: Former Tobacco Use Quit Date: 08/26/00 Smoking risk assessment performed?: Yes Alcohol Intake: current Alcohol Intake frequency: holidays/special occasions only Drug use: Never Substance use type: does not use Current gender identity: female Do you feel safe at home: Yes Do you feel safe in your relationship?: Yes Exam Const General: cooperative, healthy appearing, comfortable and no acute distress Orientation: alert, awake and oriented x3 HENMT Head: normal to inspection, normocephalic and atraumatic Face and sinus: normal facial exam Mouth: moist mucous membranes Eyes General: appearance normal, both eyes and all related structures Conjunctivae: conjunctivae normal Neck Neck: normal visual inspection, full ROM, trachea midline and supple Chest Chest: normal inspection of the chest Chest/axillae images: 1. Diffuse mild palpation without erythema ecchymosis or crepitus. Resp Effort & Inspection: normal respiratory effort and able to speak in complete sentences Auscultation: clear to auscultation bilaterally Cardio Rate: regular rate Rhythm: regular rhythm GI Palpation: soft, not firm, no guarding, no pulsatile masses and nontender Back/Spine/Pelvis Back: No back tenderness Skin Other: Shingles-like rash just below her dermatomal distribution. No secondary infection. Neuro General: patient alert, patient awake, moves all extremities and no focal motor deficits Cognition: normal cognition Speech: speech normal Gait: normal gait Sensory Exam: no sensory deficits noted Extrem General: normal to inspection, full ROM, capillary refill normal, no pedal edema and no calf tenderness Psych Appearance: grossly normal Mental Status: mental status grossly normal Course Vital Signs Vital signs: Vital Signs Temperature 36.7 C 06/16/21 16:14 Pulse 83 06/16/21 16:14 Respiratory Rate 20 06/16/21 16:14 Blood Pressure 114/64 06/16/21 16:14 Pulse Oximetry 97 06/16/21 16:14 Temperature 36.7 C 06/16/21 16:14 Temperature Source Skin 06/16/21 16:14 Pulse 83 06/16/21 16:14 Respiratory Rate 20 06/16/21 16:14 Blood Pressure 114/64 06/16/21 16:14 Blood Pressure Position Sitting 06/16/21 16:14 Pulse Oximetry 97 06/16/21 16:14 Oxygen Delivery Method Room Air 06/16/21 16:14 Oxygen Flow Rate 0 06/16/21 16:14 Pain Level 4 06/16/21 16:14
[2021-06-16 16:51] LABS: Source Nasal/Nares
[2021-06-16 17:04] LABS: Abs Immature Grans 0.03 10^3/uL (0.0-0.06); Absolute Basophil Count 0.03 10^3/uL (0.0-0.2); Absolute Eosinophil Count 0.13 10^3/uL (0.0-0.7); Absolute Lymphocyte Count 1.98 10^3/uL (1.2-3.4); Absolute Monocyte Count 0.71 10^3/uL (0.1-0.8); Absolute Neutrophil Count 4.41 10^3/uL (1.2-6.7); Basophils % 0.4; Eosinophils % 1.8; HCT 35.1 % (36.0-46.0); HGB 10.8 g/dL (11.2-15.7); Immature Grans % 0.4; Lymphocytes % 27.2; MCH 25.1 pg (27.0-33.0); MCHC 30.8 % (32.0-36.0); MCV 81.4 fL (80-95); MPV 11.4 fL (8.0-11.0); Monocytes % 9.7; Neutrophils % 60.5; Nucleated RBC 0 %; Platelet Count 229 10^3/uL (130-400); RBC 4.31 10^6/uL (3.93-5.22); RDW 15.9 % (11.7-14.6); RDW-SD 46.8 fL; WBC 7.29 10^3/uL (4.4-10.8)
[2021-06-16 17:28] LABS: ALT 54 U/L (14-59); AST 32 U/L (15-37); Albumin 3.9 g/dL (3.4-5.0); Alkaline Phosphatase 93 U/L (46-116); Anion Gap 9.9 mmol/L (3-11); BUN 24 mg/dL (7-18); Bilirubin, Total 0.6 mg/dL (0.2-1.0); CO2 26.1 mmol/L (21.0-32.0); CREATININE 1.1 mg/dL (0.55-1.02); Calcium 9.4 mg/dL (8.5-10.1); Chloride 103 mmol/L (98-107); Estimated GFR 50.01 (mL/min/1.73m2); Glucose 192 mg/dL (74-106); Magnesium 2.1 mg/dL (1.8-2.4); NT-proBNP 40 pg/mL (<300); Potassium 4.4 mmol/L (3.5-5.1); Sodium 139 mmol/L (136-145)
[2021-06-16 17:30] LABS: Troponin I < 0.05 ng/mL (<0.06)
[2021-06-16] MEDS: Omnipaque 350 MG/ML 100 ML BTL IJ (17:44)
[2021-06-16 17:58] LABS: COVID-19 PCR Negative (Negative)
[2021-06-16] MEDS: Normal Saline Flush 10 ML SYR IVP (17:59)
[2021-06-16] MEDS: Normal Saline - Diluent 50 ML VIAL IV (17:59)
--- NOTE | 2021-06-16 18:31 | DI.VRAD_ITS ---
PROCEDURE INFORMATION: Exam: CTA Chest With Contrast Exam date and time: 06/16/2021 16:43 Age: 66 years old Clinical indication: Other: Chest pain, SOB, TECHNIQUE: Imaging protocol: Computed tomographic angiography of the chest with contrast. 3D rendering (Not supervised by radiologist): MIP and/or 3D reconstructed images were created by the technologist. Radiation optimization: All CT scans at this facility use at least one of these dose optimization techniques: automated exposure control; mA and/or kV adjustment per patient size (includes targeted exams where dose is matched to clinical indication); or iterative reconstruction. Contrast material: OMNIPAQUE 350; Contrast volume: 100 ml; Contrast route: INTRAVENOUS (IV); COMPARISON: CT CHEST W 10/09/2019 09:45 FINDINGS: Pulmonary arteries: No pulmonary emboli. Aorta: No aortic aneurysm. No aortic dissection. Lungs: A few scattered small pulmonary nodules are statistically benign. Follow-up as per institutional protocol. No airspace consolidation. Minimal dependent subsegmental atelectasis. Pleural spaces: No pneumothorax. No pleural effusion. Heart: Question mild enlargement of the left atrium similar to prior. Lymph nodes: No enlarged lymph nodes. Bones/joints: No acute fracture. Soft tissues: No suspicious lesions. IMPRESSION: 1. No pulmonary emboli are seen. 2. Minimal dependent subsegmental atelectasis. 3. Incidental findings as described. Dictated and Authenticated by: Tatianna Law MD. Ordering:WIN Ojeda MD
[2021-06-16 20:09] LABS: Troponin I < 0.05 ng/mL (<0.06)
== END 2021-06-16 20:59 | disposition home or self-care (01) ==
PROVIDERS: Emergency Provider Physician Assistant; PCP Family Medicine
DX: R07.9 Chest pain, unspecified (principal); R06.00 Dyspnea, unspecified; R06.02 Shortness of breath; Z20.822 Contact with and (suspected) exposure to COVID-19
CPT/HCPCS: 36415; 71275; 80053; 87635; 93005; 99285; 83735; 83880; 84484; 85025; 93010; 99284; J3490

== ENCOUNTER → 2021-06-29 08:21 | Outpatient (BNVA) | payer MEDICARE, SELFPAY ==
--- NOTE | 2021-06-29 11:24 | W.ANESCON ---
General Date of Service Date of Service: 06/29/21 Reason for Consult Requesting Provider: Doris Foote How Consult Conducted:: Chart Review Reason for Consult:: Recurrent chest pain and dyspnea Consult Recommendation after Review:: Patient may proceed with her EGD here. Meds Allergies and Home Medications Allergies Allergy/AdvReac Type Severity Reaction Status Date / Time azithromycin Allergy Intermediate Tongue Unverified 06/29/21 08:22 swelling Home Medication Medication Instructions Recorded aspirin [Aspir-81] 81 mg PO HS 11/18/12 metformin [Glucophage] 1,000 mg PO BID 11/18/12 multivitamin [Daily Multi-Vitamin] 1 tab PO DAILY AM 11/18/12 rosuvastatin [Crestor] 40 mg PO QPM 11/18/12 esomeprazole magnesium [Nexium] 40 mg PO DAILY 09/03/16 acetaminophen 500 mg PO Q6H PRN #60 tab 10/06/19 ibuprofen 600 mg PO TID PRN #60 tab 10/06/19 cyanocobalamin (vitamin B-12) 1,000 mcg PO DAILY 10/16/19 1,000 mcg capsule ferrous sulfate 325 mg (65 mg 325 mg PO BID 10/16/19 iron) tablet valsartan 160 mg tablet 160 mg PO DAILY 01/29/20 Levemir FlexTouch U-100 Insuln 80 unit SUBCUT BID 06/16/21 Victoza 3-Betito 1.8 mg SUBCUT HS 06/16/21 valacyclovir 1,000 mg PO TID 06/16/21 ascorbic acid (vitamin C) 500 mg 500 mg PO cap 06/28/21 capsule citalopram 20 mg tablet 20 mg PO DAILY 06/28/21 empagliflozin 25 mg tablet 25 mg PO DAILY 06/28/21 insulin aspart U-100 100 unit/mL 8 - 12 unit SUBCUT TID ml 06/28/21 (3 mL) subcutaneous pen albuterol sulfate 90 mcg/actuation 2 puff INHALATION Q6H PRN 06/29/21 aerosol inhaler triamcinolone acetonide 0.1 % 1 applic TOPICAL DAILY 06/29/21 topical cream PFSH Active Problems Active Problems: Problem Status Onset Code Internal hemorrhoid K64.8 Colon polyp K63.5 Dyspnea R06.00 Diverticulosis K57.90 Chest pain R07.9 Screening for colon cancer Z12.11 Tear of medial meniscus of right knee S83.241A Trigger finger, right middle finger M65.331 Medical History Medical History (Updated 06/28/21 @ 12:46 by Radha Kessler RN) Anemia, iron deficiency Ataxia Benign hypertension Chest pain Chronic anxiety Colon polyp Depression Diabetes mellitus Diabetes mellitus, type II, insulin dependent Diabetic retinopathy Diverticulosis Dyspnea Dyspnea on exertion Fatigue Fatty infiltration of liver Foot pain, right Gastroesophageal reflux disease Hyperlipidemia Hypertension Internal hemorrhoid Microalbuminuria Narcolepsy YARELIS on CPAP PTSD (post-traumatic stress disorder) Pt. denies this dx Recurrent falls Retinopathy Shingles Sleep apnea does not use CPAP machine recently, due to ill-fitting mask Tubular adenoma of colon Urinary incontinence, mixed Vitamin B12 deficiency Surgical History Surgical History History of carpal tunnel release History of esophagogastroduodenoscopy (EGD) History of hysterectomy Hx of arthroscopy of right knee Hx of laparoscopy Removed left ovary. Per pt, was to check for endometriosis. Hx of tubal ligation S/P excision of lipoma excision of lipoma on back Trigger Finger release LMF, LRF Tobacco Smoking/Tobacco Use Status: Former Tobacco Use Alcohol Alcohol Intake: current Alcohol intake frequency: holidays/special occasions only Substance Use Substance use: Never Substance use type: does not use Vital Signs & Lab Results Point of Care Results Nursing Point of Care Results: No Data to Display Lab Results Blood Type / Crossmatch: No Data to Display Complete Blood Count: White Blood Count 7.29 10^3/uL (4.4-10.8) 06/16/21 16:25 06/16/21 Red Blood Count 4.31 10^6/uL (3.93-5.22) 06/16/21 16:25 06/16/21 Hemoglobin 10.8 g/dL (11.2-15.7) L 06/16/21 16:25 06/16/21 Hematocrit 35.1 % (36.0-46.0) L 06/16/21 16:25 06/16/21 Platelet Count 229 10^3/uL (130-400) 06/16/21 16:25 06/16/21 Complete Metabolic Panel: Sodium Level 139 mmol/L (136-145) 06/16/21 16:25 06/16/21 Potassium Level 4.4 mmol/L (3.5-5.1) 06/16/21 16:25 06/16/21 Chloride Level 103 mmol/L (98-107) 06/16/21 16:25 06/16/21 Carbon Dioxide Level 26.1 mmol/L (21.0-32.0) 06/16/21 16:25 06/16/21 Blood Urea Nitrogen 24 mg/dL (7-18) H 06/16/21 16:25 06/16/21 Creatinine 1.1 mg/dL (0.55-1.02) H 06/16/21 16:25 06/16/21 Estimated GFR/1.73 m2 50.01 (mL/min/1.73m2) 06/16/21 16:25 06/16/21 Magnesium Level 2.1 mg/dL (1.8-2.4) 06/16/21 16:25 06/16/21 Calcium Level 9.4 mg/dL (8.5-10.1) 06/16/21 16:25 06/16/21 Albumin 3.9 g/dL (3.4-5.0) 06/16/21 16:25 06/16/21 Glucose Level 192 mg/dL (74-106) H 06/16/21 16:25 06/16/21 Liver Function Panel: Alanine Aminotransferase (ALT/SGPT) 54 U/L (14-59) 06/16/21 16:25 06/16/21 Aspartate Amino Transf (AST/SGOT) 32 U/L (15-37) 06/16/21 16:25 06/16/21 Coagulation Panel: No Data to Display Cardiac Panel: Troponin I < 0.05 ng/mL (<0.06) 06/16/21 19:40 06/16/21 HN-Xyy-M-Type Natriuretic Peptide 40 pg/mL (<300) 06/16/21 16:25 06/16/21 Arterial Blood Gas: No Data to Display Venous Blood Gas: No Data to Display Pancreas Panel: No Data to Display Thyroid Panel: No Data to Display Infectious Disease: Coronavirus (COVID-19)(PCR) Negative (Negative) 06/16/21 16:44 06/16/21 Coronavirus 2019 Source Nasal/Nares 06/16/21 16:44 06/16/21 Blood Cultures: No Data to Display Toxicology Panel: No Data to Display Imaging and Studies Imaging and Studies EKG Summary: Conclusion Sinus rhythm...normal P axis, V-rate 60- 99 Stress Test Summary: Stress ECG Conclusion 1. The resting electrocardiogram was normal. Patient underwent pharmacologic stress 2. Blunted heart rate and blood pressure response to pharmacologic stress 3. Maximum heart rate was 65% of predicted heart rate for age 4. Electrocardiographically the test was nondiagnostic due to inadequate heart rate 5. No symptoms were elicited to suggest angina Echocardiogram Summary: Conclusion Normal left ventricular wall thickness and chamber size. Estimated ejection fraction is 55 to 60%. There are no segmental wall motion abnormalities Normal right ventricular size and systolic function Both atria are normal in size Aortic valve is sclerotic and trileaflet without stenosis or regurgitation Moderate mitral annular calcification. Trace mitral regurgitation Normal tricuspid valve with trace regurgitation. Normal estimated right ventricular systolic pressure 24.5 mmHg Normal pulmonic valve with trace regurgitation Pulmonary Function Summary: IMPRESSION: No evidence of obstructive or restrictive lung disease, but there is mild diffusion defect. This represents a slightly suboptimal patient effort, but if it is true finding, underlying early developing interstitial lung disease or pulmonary hypertension should be further clinically investigated. When this study was compared to previous one from 06/07/06, the patient has a total of 560 cc's decline in FVC; FEV1 has declined by 490 cc's. Diffusion capacity also had a substantial decline. Clinical correlation therefore recommended.
== END ==
PROVIDERS: PCP Family Medicine; Referring Provider Family Medicine; Visit Provider Physical Therapy Assistant
DX: K21.9 Gastro-esophageal reflux disease without esophagitis (principal); R06.02 Shortness of breath; E11.9 Type 2 diabetes mellitus without complications; I10 Essential (primary) hypertension
CPT/HCPCS: 99214

== ENCOUNTER 2021-06-29 13:58 | Outpatient (REF) | payer MEDICARE, SELFPAY ==
[2021-06-29 15:59] LABS: Anion Gap 14.1 mmol/L (3-11); BUN 22 mg/dL (7-18); CO2 23.9 mmol/L (21.0-32.0); CREATININE 0.9 mg/dL (0.55-1.02); Calcium 9.6 mg/dL (8.5-10.1); Chloride 103 mmol/L (98-107); Ferritin 32 ng/mL (8-252); Glucose 124 mg/dL (74-106); Potassium 4.4 mmol/L (3.5-5.1); Sodium 141 mmol/L (136-145)
[2021-06-29 19:07] LABS: Microalb ug/mg Crea 114.7 ug/mg Cr
[2021-06-30 14:25] LABS: HIV-1/2 Ag & Ab Screen Negative (Negative)
[2021-07-03 11:35] LABS: IgA 345 mg/dL (85-499); Interpretation (See Note); Tissue Transglutaminase IgA <1.2 U/mL (<4.0)
== END 2021-06-29 13:59 | disposition home or self-care (01) ==
LOC: NCHCN 13:58
PROVIDERS: PCP Family Medicine; Visit Provider Family Medicine
DX: R53.83 Other fatigue (principal); K21.9 Gastro-esophageal reflux disease without esophagitis; R06.09 Other forms of dyspnea; D50.9 Iron deficiency anemia, unspecified; Z11.4 Encounter for screening for human immunodeficiency virus [HIV]
CPT/HCPCS: 80048; 82784; 83516; 87389; 82043; 82570; 82728

== ENCOUNTER 2021-07-21 00:48 | Outpatient (RCR) | payer MEDICARE, SELFPAY ==
[2021-07-06] MEDS: Normal Saline Flush 10 ML SYR IVP (11:13)
[2021-07-06] MEDS: IRON SUCROSE COMPLEX 300 MG in Normal Saline 250 ML 176.667 MG IVPB (11:13)
[2021-07-13] MEDS: Normal Saline Flush 10 ML SYR IVP (10:58)
[2021-07-13] MEDS: IRON SUCROSE COMPLEX 300 MG in Normal Saline 250 ML 176.667 MG IVPB (11:11)
[2021-07-21] MEDS: Normal Saline Flush 10 ML SYR IVP (10:56)
[2021-07-21] MEDS: IRON SUCROSE COMPLEX 300 MG in Normal Saline 250 ML 176.667 MG IVPB (11:06)
== END 2021-07-25 23:59 | disposition home or self-care (01) ==
LOC: INF 00:48
PROVIDERS: PCP Family Medicine; Visit Provider Nurse Practitioner Acute Care
DX: D50.9 Iron deficiency anemia, unspecified (principal)
CPT/HCPCS: 96365; 96366; J1756

== ENCOUNTER 2021-08-23 00:04 | Outpatient (CLI) | payer MEDICARE, SELFPAY ==
--- NOTE | 2021-08-23 09:17 | DI.MAMMO_ITS ---
Exam(s) MAMMO SCREENING EXAM: MAMMO SCREENING CLINICAL HISTORY: SCREENING MAMMO FOR BREAST CANCER Z12.31. TECHNIQUE: Bilateral full field digital CC and MLO mammographic images were obtained with 3D tomosyn thesis and utilizing computer aided detection (CAD). COMPARISON: Prior mammograms dating back to 2011, the most recent being July 2020. FINDINGS: Asymmetric tissue seen posterolaterally in the left breast is unchanged from prior studies. There are no new spiculated masses nor malignant appearing microcalcification groups. There is no significant architectural distortion nor skin thickening-retraction. IMPRESSION: No radiographic evidence of malignancy. BI-RADS Category 1 - Negative Breast Density - Category B - Scattered areas of fibroglandular density Breast density Category C or D implies that the patient has dense breast tissue. Dense breast tissue can make it harder to find cancer on a mammogram. Dense breast tissue is also associated with an incr eased risk of breast cancer. This information about the result of the mammogram report was provided to the patient to raise their awareness. Use this report when you speak with the patient about their risks for breast cancer, which includes their family history. At that time, you may recommend additional screening tests (Ultrasoun d or MRI) as these tests may add significant information. A negative radiographic report should not delay biopsy if a dominant or clinically suspicious mass is present. Up to ten percent of cancers are not identified on mammography. A negative report may reinforce clinical impression. Adenosis and dense breasts may obscure an underlying neoplasm. False positive reports average 6 to 10%. Patient will receive a letter notifying them of these results.
== END 2021-08-23 00:24 ==
PROVIDERS: PCP Family Medicine; Visit Provider Family Medicine
DX: Z12.31 Encounter for screening mammogram for malignant neoplasm of breast (principal)
CPT/HCPCS: 77063; 77067

== ENCOUNTER 2021-08-30 16:16 | Outpatient (REF) | payer MEDICARE, SELFPAY ==
[2021-08-30 21:35] LABS: ESR 28 mm/hr (0-30)
[2021-09-01 14:16] LABS: ANA Interpretation Positive (Negative); ANA Titer Pattern 1:160 Speckled
[2021-09-05 13:17] LABS: dsDNA Ab, IgG <12.3 IU/mL (<30.0)
== END 2021-08-30 16:17 | disposition home or self-care (01) ==
LOC: LBN 16:16
PROVIDERS: PCP Family Medicine; Visit Provider Student in an Organized Health Care Education/Training Program
DX: R06.02 Shortness of breath (principal)
CPT/HCPCS: 85652; 86038; 86140; 86225

== ENCOUNTER 2021-09-04 04:47 | Outpatient (CLI) | payer MEDICARE, SELFPAY ==
[2021-09-04] MEDS: Albuterol HFA 18 GM 200 PUFF INH IH (15:17)
[2021-09-04] MEDS: Methacholine 100 MG VIAL IH (15:17)
[2021-09-04] MEDS: Inhaler, Assist Device 1 EACH MC (15:17)
--- NOTE | 2021-09-04 16:06 | W.PFT ---
Date of service: 09/04/21 Time of Service: 12:59 Pulmonary Function Test Result Requesting Provider Duchene Indications: Dyspnea Interpretation Spirometry: There is no airflow limitation. There is a reduced MIP and MEP Lung Volumes: Lung volumes are normal Diffusion Capacity: The diffusion is normal. Airway Pressure: Airways resistance is normal. Impression Reduced muscle pressures but otherwise normal PFT's. Note: When compared to 10/07/19, the spirometry is unchanged, however the TLC is increased, as is the diffusion. Clinical Correlation therefore is recommended.
--- NOTE | 2021-09-05 11:21 | W.PFT ---
Date of service: 09/04/21 Time of Service: 12:59 Pulmonary Function Test Result Requesting Provider Wesley Indications: Dyspnea Interpretation Spirometry: No airflow limitation at baseline. No significant reduction in FEV1 with administration of methacholine. Impression Negative methacholine challenge Clinical Correlation therefore is recommended.
== END 2021-09-04 04:48 | disposition home or self-care (01) ==
LOC: RT 04:47
PROVIDERS: PCP Family Medicine; Visit Provider Student in an Organized Health Care Education/Training Program
DX: R06.09 Other forms of dyspnea (principal); R94.2 Abnormal results of pulmonary function studies
CPT/HCPCS: 94060; 94070; 94726; 94729; 94010; J7674

== ENCOUNTER 2021-09-04 10:56 | Outpatient (REF) | payer MEDICARE, SELFPAY ==
[2021-09-04 15:07] LABS: HCT 40.4 % (36.0-46.0); HGB 12.6 g/dL (11.2-15.7); MCH 25.8 pg (27.0-33.0); MCHC 31.2 % (32.0-36.0); MCV 82.8 fL (80-95); MPV 11.6 fL (8.0-11.0); Platelet Count 277 10^3/uL (130-400); RBC 4.88 10^6/uL (3.93-5.22); RDW 15.5 % (11.7-14.6); RDW-SD 46.8 fL; WBC 7.51 10^3/uL (4.4-10.8)
[2021-09-04 17:37] LABS: Ferritin 210 ng/mL (8-252)
== END 2021-09-04 10:57 | disposition home or self-care (01) ==
LOC: NCHCN 10:56
PROVIDERS: PCP Family Medicine; Visit Provider Family Medicine
DX: D50.8 Other iron deficiency anemias (principal)
CPT/HCPCS: 85027; 82728

== ENCOUNTER 2021-09-08 15:22 | Outpatient (REF) | payer MEDICARE, SELFPAY ==
--- OUTSIDE RECORDS SUMMARY | 2021-09-08 15:25 | XMS_ITS ---
:1955 Author Care Team Providers Name Role Phone [facility] OTHER [phone] [facility] OTHER [phone] UMESH STEPHENS Primary Care Provider [phone] Allergies Code Code System Name Reaction Severity Status Onset 4053 RxNorm Erythromycin Base ? ? Active ? Medications Name Status Start Date Stop Date ? ? Adderall 20 mg tablet Completed 11/26/2014 12/26/2014 1 Tablet: tid - three times a day Byetta 10 mcg/dose(250 mcg/mL)2.4 mL subcutaneous pen injector C ompleted ? 04/11/2020 Inject 2.4 mL twice a day by subcutaneous route. Celexa Active ? Not available 40mg at bedtime Celexa 40 mg tablet Completed 06/26/2012 04/05/2017 1 Tablet: qhs - at bedtime Crestor Active ? Not available 40mg at bedtime Glucophage Active ? Not available 1000mg BID hydrochlorothiazide 25 mg tablet Completed 06/26/2012 01/14/2017 1 Tablet: qd - daily Lantus Solostar U-100 Insulin Active ? No t available Levemir FlexTouch U-100 Insuln Completed ? 0 04/11/2020 42units in AM, 65units in PM metformin 1,000 mg tablet Completed 06/26/20122016 1 Tablet: bid - twice daily methylphenidate 20 mg tablet Completed ? 1 (one) Tablet: qam & q afternoon modafinil 200 mg tablet Completed 12/04/2013 12/05/19 14 1 (one) Tablet: QAM & QNOON Nexium Active ? Not available 40mg daily Novolog Flexpen U-100 Insulin Active ? No t available 5units/sliding scale Nuvigil 250 mg tablet Completed 12/04/2013 12/09/2014 1 (one) Tablet: qam - every morning protriptyline 10 mg tablet Completed 10/26/201312/09 1 Tablet: bid - twice daily ramipril 10 mg capsule Completed 06/26/2012 7 1 Capsule: qd - daily Silenor 3 mg tablet Completed ? 05/07/2019 Take 1 PO QHS Vyvanse 70 mg capsule Completed 11/02/2013 11/02/2013 1 Capsule: qam - every morning zaleplon 10 mg capsule Completed ? 9 Take 1 PO QHS PRN Problems Name Status Onset Date Source ? Insomnia Active 05/01/2018 ? Type 2 Diabetes Mellitus without Active ? History Complication Depressive Disorder Active ? History Obstructive Sleep Apnea Syndrome Active ? History Cataplexy and Narcolepsy Active ? History Hypertensive Disorder Active ? History Gastroesophageal Reflux Disease Active ? History Hypersomnia with Sleep Apnea Active ? His tory Dyspnea Active ? History Falls Active ? History Procedures None recorded. Results Lab Results None recorded. Past Encounters 04/11/2020 Obstructive Sleep Apnea Syndrome; Insomn ia Riya Salgado [employer]: [address] [place] [id number], Ph. Social History Tobacco Smoking Status Former Smoker Notes: quit 18 years ago Vaccine List None recorded. Plan of Care Reminders Provider Appointments None ? ? recorded. Lab None ? ? recorded. Referral None ? ? recorded. Procedures None ? ? recorded. Surgeries None ? ? recorded. Imaging None ? ? recorded. Vitals 04/11/2020 09:30AM Office 30 Height Weight BMI Blood Pressure 163.83 cm 120/64 mm[Hg] 05/07/2019 01:15PM Office 30 Height Weight BMI Blood Pressure 163.83 cm 88.27 kg 32.9 kg/m2 118/74 mm[Hg] 11/03/2018 02:45PM Office 30 Height Weight BMI Blood Pressure 163.83 cm 88.27 kg 32.9 kg/m2 128/82 mm[Hg] 08/05/2018 01:15PM Office 30 Height Weight BMI Blood Pressure 163.83 cm 89.18 kg 33.2 kg/m2 148/80 mm[Hg] 06/02/2018 08:30AM Office 30 Height Weight BMI Blood Pressure 163.83 cm 88 kg 32.8 kg/m2 142/84 mm[Hg] 05/01/2018 11:30AM Office 30 Height Weight BMI Blood Pressure 163.83 cm 86.64 kg 32.3 kg/m2 124/62 mm[Hg] 04/05/2017 Height Weight Blood Pressure 162.56 cm 87.09 kg 140/60 mm[Hg] 01/14/2017 Height Weight Blood Pressure 162.56 cm 86.64 kg 140/78 mm[Hg] 07/26/2016 Height Weight Blood Pressure 162.56 cm 86.7 kg 128/72 mm[Hg] 06/07/2016 Height Weight Blood Pressure 162.56 cm 86.75 kg 128/72 mm[Hg] 12/15/2015 Height Weight Blood Pressure 162.56 cm 86.78 kg 126/76 mm[Hg] 10/28/2015 Height Weight Blood Pressure 162.56 cm 85.79 kg 124/72 mm[Hg] 12/09/2014 Height Weight Blood Pressure 162.56 cm 82.1 kg 128/60 mm[Hg] 07/07/2013 Height Weight Blood Pressure 162.56 cm 86.3 kg 122/74 mm[Hg]
--- OUTSIDE RECORDS SUMMARY | 2021-09-08 15:25 | XMS_ITS ---
:1955 Author Care Team Providers Name Role Phone SUE ESTEPHANIE Primary Care Provider [phone] SUE ESTEPHANIE Referring Provider [phone] Allergies Code Code System Name Reaction Severity Status Onset RxNorm Azithromycin ? ? Active ? Medications Name Status Start Date Stop Date ? ? Byetta Active ? Not available inject twice daily Celexa 40 mg tablet Active ? Not availabl e Take 1 tablet every day by oral route. Crestor 40 mg tablet Active ? Not availab le Take 1 tablet every day by oral route. Fish Oil 1,000 mg (120 mg-180 mg) capsule Active ? Not available Take 1 capsule every day by oral route. Glucophage 1,000 mg tablet Active ? Not a vailable Take 1 tablet twice a day by oral route. ibuprofen 200 mg tablet Active ? Not avai lable Take 3 tablets 3 times a day by oral route as needed. Levemir FlexTouch U-100 Insulin 100 unit/mL (3 mL) subcutaneous pen Active ? Not available 80 units every morning 65 units every evening losartan 100 mg tablet Active ? Not avail able Take 1 tablet every day by oral route. magnesium 400 mg (as magnesium oxide) capsule Active ? Not available Take 1 capsule twice a day by oral route. multivitamin Active ? Not available once daily Nexium 40 mg capsule,delayed release Active ? Not available Take 1 capsule every day by oral route. Novolog Flexpen U-100 Insulin aspart 100 unit/mL (3 mL) subcutan eous Active ? Not available Inject 12 units 3 times a day by subcutaneous route with meals. OneTouch Ultra Blue Test Strip Active ? N ot available test three times daily ProAir HFA 90 mcg/actuation aerosol inhaler Active ? Not available Inhale 2 puffs every 4 hours by inhalation route as needed. Problems Name Status Onset Date Source ? Type 2 Diabetes Mellitus Active 09/16/2018 ? Hyperlipidemia Active 09/16/2018 ? Iron Deficiency Anemia Active 09/16/2018 ? Chronic Anxiety Active 09/16/2018 ? Posttraumatic Stress Disorder Active 09/16/2018 ? Depressive Disorder Active 09/16/2018 ? Obstructive Sleep Apnea Syndrome Active 09/16/2018 ? Narcolepsy Active 09/16/2018 ? Hypertensive Disorder Active 09/16/2018 ? Gastroesophageal Reflux Disease Active 09/16/2018 ? Plantar Fasciitis Active 09/16/2018 ? Pain in Lower Limb Active 09/16/2018 ? Mixed Urinary Incontinence Active 09/16/2018 ? Pain in Right Heel Active 09/16/2018 ? Pain of Right Shoulder Joint Active 09/16/2018 ? Procedures Date Name Performed by ? ? Hysterectomy Information not avai lable Results Lab Results None recorded. Past Encounters None recorded. Social History Tobacco Smoking Status Former Smoker Vaccine List Vaccine Type Tdap 07/20/2015 Plan of Care Reminders Provider Appointments None ? ? recorded. Lab None ? ? recorded. Referral None ? ? recorded. Procedures None ? ? recorded. Surgeries None ? ? recorded. Imaging None ? ? recorded. Vitals Height Weight BMI Blood Pressure 162.56 cm 88.45 kg 33.5 kg/m2 140/60 mm[Hg]
[2021-09-22 17:09] LABS: Anti-EJ Ab Negative (Negative); Anti-Jo-1 Ab <20 Units (<20); Anti-Ku Ab Negative (Negative); Anti-MDA-5 Ab (CADM-140) <20 Units (<20); Anti-Mi-2-Ab Negative (Negative); Anti-NXP-2 (P140) Ab <20 Units (<20); Anti-OJ Ab Negative (Negative); Anti-PL-12 Ab Negative (Negative); Anti-PL-7 Ab Negative (Negative); Anti-PM/Scl-100 Ab <20 Units (<20); Anti-SRP Ab Negative (Negative); Anti-SS-A 52kD Ab, IgG <20 Units (<20); Anti-TIF-1gamma Ab <20 Units (<20); Anti-U1 RNP Ab <20 Units (<20); Anti-U2 RNP Ab Negative (Negative); Anti-U3 RNP (Fibrillarin) Negative (Negative)
== END 2021-09-08 15:23 | disposition home or self-care (01) ==
LOC: LBN 15:22
PROVIDERS: PCP Family Medicine; Visit Provider Student in an Organized Health Care Education/Training Program
DX: R06.02 Shortness of breath (principal)
CPT/HCPCS: 83516; 86235

== ENCOUNTER → 2021-09-19 13:47 | Outpatient (BNVA) | payer MEDICARE, SELFPAY | PROVIDERS: PCP Family Medicine; Referring Provider Student in an Organized Health Care Education/Training Program; Visit Provider Psychiatry & Neurology Neurology | DX: M62.81 Muscle weakness (generalized) (principal); G70.9 Myoneural disorder, unspecified; J99 Respiratory disorders in diseases classified elsewhere; I10 Essential (primary) hypertension; E11.9 Type 2 diabetes mellitus without complications | CPT/HCPCS: 99214 ==

== ENCOUNTER 2021-10-11 16:19 | Outpatient (REF) | payer MEDICARE, SELFPAY ==
[2021-10-11 18:02] LABS: Creatine Kinase 78 U/L (26-192)
== END 2021-10-11 16:20 | disposition home or self-care (01) ==
LOC: LBN 16:19
PROVIDERS: PCP Family Medicine; Visit Provider Psychiatry & Neurology Neurology
DX: G70.9 Myoneural disorder, unspecified (principal); J99 Respiratory disorders in diseases classified elsewhere; M62.81 Muscle weakness (generalized)
CPT/HCPCS: 82550; 83519

== ENCOUNTER 2021-11-30 13:49 | Emergency (ER) | payer MEDICARE, SELFPAY ==
[2021-11-30] VITALS (21 sets, daily range): BP systolic 96–122; BP diastolic 50–68; PULSE 63–81; RESP 16–25; TEMP 36.1; O2SAT 94–100
--- NOTE | 2021-11-30 14:15 | RT.EKG_ITS ---
APPROVED REPORT Exam: Resting ECG Reason for Exam: nausea Patient Location: E HR:69 bpm ECG Measurements Heart Rate 69 AXIS MA 141 P 56 QRSd 86 QRS 32 QT 394 T 47 QTc 423 Conclusion Sinus rhythm...normal P axis, V-rate 60- 99. Sinus. Normal axis. No STEMI. I have reviewed and interpreted ECG and agree with software generated interpretation.
[2021-11-30 14:39] LABS: Abs Immature Grans 0.02 10^3/uL (0.0-0.06); Absolute Basophil Count 0.01 10^3/uL (0.0-0.2); Absolute Eosinophil Count 0.08 10^3/uL (0.0-0.7); Absolute Monocyte Count 0.45 10^3/uL (0.1-0.8); Absolute Neutrophil Count 2.42 10^3/uL (1.2-6.7); BE (Venous) 1 mmol/L (-2-3); Basophils % 0.3; HCO3 (Venous) 27 mmol/L (23-28); HCT 38.4 % (36.0-46.0); HGB 11.8 g/dL (11.2-15.7); Immature Grans % 0.5; Lymphocytes % 25.1; MCHC 30.7 % (32.0-36.0); MCV 81.4 fL (80-95); MPV 11.3 fL (8.0-11.0); Monocytes % 11.3; Neutrophils % 60.8; Nucleated RBC 0 %; O2 Sat (Venous) 39 %; Platelet Count 244 10^3/uL (130-400); RBC 4.72 10^6/uL (3.93-5.22); RDW 14.7 % (11.7-14.6); RDW-SD 43.8 fL; TCO2 (Venous) 25 mmol/L (24-29); WBC 3.98 10^3/uL (4.4-10.8); pCO2 (Venous) 48 mmHg (41-51); pH (Venous) 7.35 (7.31-7.41); pO2 (Venous) 25 mmHg
[2021-11-30] MEDS: Normal Saline 1,000 ML 1000 ML IV (14:54)
[2021-11-30] MEDS: Ondansetron 4 MG/2 ML VIAL (14:55)
[2021-11-30 15:05] LABS: ALT 81 U/L (14-59); AST 68 U/L (15-37); Albumin 3.8 g/dL (3.4-5.0); Alkaline Phosphatase 86 U/L (46-116); Anion Gap 9.5 mmol/L (3-11); BUN 26 mg/dL (7-18); Bilirubin, Total 0.9 mg/dL (0.2-1.0); CO2 26.5 mmol/L (21.0-32.0); CREATININE 1.2 mg/dL (0.55-1.02); Calcium 9.6 mg/dL (8.5-10.1); Chloride 99 mmol/L (98-107); Estimated GFR 45.23 (mL/min/1.73m2); Glucose 171 mg/dL (74-106); Lipase 324 U/L (73-393); Magnesium 2.2 mg/dL (1.8-2.4); Potassium 4.3 mmol/L (3.5-5.1); Sodium 135 mmol/L (136-145); Total Protein 8.3 g/dL (6.4-8.2); Troponin I < 50 ng/L (<or=60)
--- NOTE | 2021-11-30 15:40 | ED.GENADUL_ITS ---
Discharge Plan Disposition Patient Disposition: HOME Condition: Stable Discharge Details Clinical Impression: Nausea and vomiting Primary Care Provider: Lorena Kearns ED Provider: Andria Rodrigues Home Meds and New Rx's Prescriptions: Continued cyanocobalamin (vitamin B-12) 1,000 mcg capsule 1,000 mcg PO DAILY 0RF zinc 50 mg tablet 50 mg PO DAILY 0RF magnesium oxide 400 mg magnesium tablet 400 mg PO DAILY 0RF valsartan 160 mg tablet 160 mg PO DAILY 0RF insulin aspart U-100 [Novolog Flexpen U-100 Insulin] 100 unit/mL (3 mL) insulin pen 8 - 12 unit subcut TID 0RF Jardiance 25 mg tablet 25 mg PO DAILY 0RF citalopram 20 mg tablet 20 mg PO DAILY 0RF ascorbic acid (vitamin C) 500 mg capsule 500 mg PO 0RF metformin [Glucophage] 1,000 MG tablet 1,000 mg PO BID 0RF rosuvastatin [Crestor] 40 MG tablet 40 mg PO QPM 0RF multivitamin [Daily Multi-Vitamin] 1 EACH tablet 1 tab PO DAILY AM 0RF aspirin [Aspir-81] 81 MG tablet,delayed release (DR/EC) 81 mg PO HS 0RF esomeprazole magnesium [Nexium] 40 MG capsule,delayed release(DR/EC) 40 mg PO DAILY 0RF valacyclovir 1 gram tablet 1,000 mg PO TID 0RF Levemir FlexTouch U-100 Insuln 100 unit/mL (3 mL) insulin pen 80 unit SUBCUT BID 0RF Victoza 3-Betito 0.6 mg/0.1 mL (18 mg/3 mL) pen injector 1.8 mg SUBCUT HS 0RF acetaminophen 500 mg tablet 500 mg PO Q6H PRN (Reason: pain) Qty: 60 2RF ibuprofen 600 mg tablet 600 mg PO TID PRN (Reason: pain) Qty: 60 2RF Discharge Instructions Instructions: Acute Nausea and Vomiting (ED) Additional Instructions: Take Zofran as needed for nausea and vomiting do not take longer for more than 3 days Please return with persistent vomiting, chest pain, shortness of breath, abdominal pain Clear liquid diet tonight and bland diet tomorrow as tolerated Discharge Data Discharge Date/Time-TO BE ENTERED AT DEPARTURE: 11/30/21 17:19 Medical Decision Making Patient does have a history of insulin-dependent diabetes, she is fully alert, oriented, and of decisional capacity She is feeling very much symptomatically improved and able to tolerate p.o. She does feel comfortable with discharge home and I think that this is reasonable She is alert, oriented, of decisional capacity, her diagnostic labs are reassuring and there is no evidence of diabetic ketoacidosis Her symptoms may be viral, there is a possibility she could be having a reaction to the shingles vaccine although this is less likely There is no evidence of anaphylaxis certainly on my assessment today She will have very low threshold to return to [facility] worsening complaints I did give her several tablets of ODT Zofran should she need this at home Medical Records Medical records reviewed: Yes I reviewed the patient's medical records. Lab Data Lab results reviewed: Yes I reviewed the patient's lab results. ECG Data Prior ECG tracings: available for review HPI General Date/Time Provider Initiated Documentation: 11/30/21 14:15 . HPI Narrative: This 66-year-old female with past medical history of depression, diabetes presents with report of nausea and vomiting. The started on Saturday. She received her shingles vaccine on Saturday she denies any prior reactions in the past. She did eat out on Saturday but denies known spoiled food exposure. She denies any known sick contacts. She denies any chest pain or cough. She denies any fever or chills. She denies any blood in her vomit vomitus. She states she has vomited approximately 19 times. She denies any associated diarrhea. She denies any abdominal tenderness. She denies any urinary symptoms. She denies any fever or chills. Related Data Home Medications Medication Instructions Recorded Confirmed aspirin 81 mg tablet,delayed 81 mg PO HS 11/18/12 11/30/21 release (Aspir-) metformin 1,000 mg tablet 1,000 mg PO BID 11/18/12 11/30/21 (Glucophage) multivitamin (Daily Multi-Vitamin) 1 tab PO DAILY AM 11/18/12 11/30/21 rosuvastatin 40 mg tablet (Crestor) 40 mg PO QPM 11/18/12 11/30/21 esomeprazole magnesium 40 mg 40 mg PO DAILY 09/03/16 11/30/21 capsule,delayed release (Nexium) acetaminophen 500 mg tablet 500 mg PO Q6H PRN #60 tab 10/06/19 11/30/21 ibuprofen 600 mg tablet 600 mg PO TID PRN #60 tab 10/06/19 11/30/21 cyanocobalamin (vitamin B-12) 1,000 mcg PO DAILY 10/16/19 11/30/21 1,000 mcg capsule valsartan 160 mg tablet 160 mg PO DAILY 01/29/20 11/30/21 insulin detemir U-100 100 unit/mL 80 unit SUBCUT BID 06/16/21 11/30/21 (3 mL) subcutaneous pen (Levemir FlexTouch U-100 Insulin) liraglutide 0.6 mg/0.1 mL (18 mg/3 1.8 mg SUBCUT HS 06/16/21 11/30/21 mL) subcutaneous pen injector (Victoza 3-Betito) valacyclovir 1 gram tablet 1,000 mg PO TID 06/16/21 11/30/21 ascorbic acid (vitamin C) 500 mg 500 mg PO cap 06/28/21 10/11/21 capsule citalopram 20 mg tablet 20 mg PO DAILY 06/28/21 11/30/21 empagliflozin 25 mg tablet 25 mg PO DAILY 06/28/21 11/30/21 (Jardiance) insulin aspart U-100 100 unit/mL 8 - 12 unit SUBCUT TID ml 06/28/21 11/30/21 (3 mL) subcutaneous pen (Novolog Flexpen U-100 Insulin aspart) magnesium oxide 400 mg PO DAILY 10/11/21 11/30/21 zinc 50 mg tablet 50 mg PO DAILY 10/11/21 11/30/21 Previous Rx's Medication Instructions Recorded acetaminophen 500 mg tablet 500 mg PO Q6H PRN #60 tab 10/06/19 ibuprofen 600 mg tablet 600 mg PO TID PRN #60 tab 10/06/19 Allergies Allergy/AdvReac Type Severity Reaction Status Date / Time azithromycin Allergy Intermediate Tongue Unverified 11/30/21 14:00 swelling General Stated Complaint: Nausea/Vomit/Diar KAMLESH: 3 Review of Systems All systems reviewed & are unremarkable except as noted in HPI and below PFSH All Active Problems (Updated 11/30/21 @ 16:17 by JENNIFER Eugene) Nausea and vomiting (Acute) Muscle weakness (Acute) Balance problem (Acute) Shortness of breath (Acute) Internal hemorrhoid (Acute) Colon polyp (Acute) Dyspnea (Acute) Diverticulosis (Acute) Chest pain (Acute) Screening for colon cancer (Acute) Tear of medial meniscus of right knee (Acute) Injected 01/07/2019 Trigger finger, right middle finger (Chronic) Medical History Anemia, iron deficiency Ataxia Benign hypertension Chronic anxiety Depression Diabetes mellitus Diabetes mellitus, type II, insulin dependent Diabetic retinopathy Dyspnea on exertion Fatigue Fatty infiltration of liver Foot pain, right Gastroesophageal reflux disease Hyperlipidemia Hypertension Microalbuminuria Narcolepsy YARELIS on CPAP PTSD (post-traumatic stress disorder) Pt. denies this dx Recurrent falls Retinopathy Shingles Sleep apnea does not use CPAP machine recently, due to ill-fitting mask Tubular adenoma of colon Urinary incontinence, mixed Vitamin B12 deficiency Surgical History History of carpal tunnel release History of esophagogastroduodenoscopy (EGD) History of hysterectomy Hx of arthroscopy of right knee Hx of laparoscopy Removed left ovary. Per pt, was to check for endometriosis. Hx of tubal ligation S/P excision of lipoma excision of lipoma on back Trigger Finger release LMF, LRF Family History Sister Cancer colon cancer age 74. Mother Heart disease Social History Smoking/Tobacco Use Status: Former Tobacco Use Quit Date: 08/26/00 Smoking risk assessment performed?: Yes Alcohol Intake: current Alcohol Intake frequency: holidays/special occasions only Drug use: Never Substance use type: does not use Number of Children: 2 current occupation: Disabled Current gender identity: female Do you feel safe at home: Yes Do you feel safe in your relationship?: Yes Exam Const General: cooperative, comfortable and no acute distress Orientation: alert and oriented x3 Eyes Sclera: sclerae normal Resp Effort & Inspection: normal respiratory effort Auscultation: clear to auscultation bilaterally Cardio Rate: regular rate Rhythm: regular rhythm GI Inspection: normal to inspection Other: No abdominal tenderness No CVA tenderness Skin General skin exam: no rashes or lesions noted Neuro General: patient alert and patient oriented x3 Extrem General: normal to inspection Course Vital Signs Vital signs: Vital Signs Temperature 36.1 C L 11/30/21 13:56 Pulse 77 11/30/21 13:56 Respiratory Rate 16 11/30/21 13:56 Blood Pressure 122/58 L 11/30/21 13:56 Pulse Oximetry 96 11/30/21 13:56 Temperature 36.1 C L 11/30/21 13:56 Temperature Source Temporal Artery Scan 11/30/21 13:56 Pulse 77 11/30/21 13:56 Respiratory Rate 16 11/30/21 13:56 Respiratory Effort 11/30/21 13:56 Blood Pressure 122/58 L 11/30/21 13:56 Blood Pressure Position Sitting 11/30/21 13:56 Pulse Oximetry 96 11/30/21 13:56 Oxygen Delivery Method Room Air 11/30/21 13:56 Oxygen Flow Rate 0 11/30/21 13:56 Pain Level 0 11/30/21 13:56 Lab/Test Results Lab/Test Results: Laboratory Tests Range/Units 11/30/21 11/30/21 11/30/21 14:18 14:30 14:30 WBC (4.4-10.8) 10^3/uL 3.98 L RBC (3.93-5.22) 10^6/uL 4.72 Hgb (11.2-15.7) g/dL 11.8 Hct (36.0-46.0) % 38.4 MCV (80-95) fL 81.4 MCH (27.0-33.0) pg 25.0 L MCHC (32.0-36.0) % 30.7 L RDW (11.7-14.6) % 14.7 H Plt Count (130-400) 10^3/uL 244 MPV (8.0-11.0) fL 11.3 H Immature Gran % 0.5 Neutrophils % 60.8 Lymphocytes % 25.1 Monocytes % 11.3 Eosinophils % 2.0 Basophils % 0.3 Nucleated RBC % % 0 Absolute Neutrophils (1.2-6.7) 10^3/uL 2.42 Absolute Lymphocytes (1.2-3.4) 10^3/uL 1.00 L Absolute Monocytes (0.1-0.8) 10^3/uL 0.45 Absolute Eosinophils (0.0-0.7) 10^3/uL 0.08 Absolute Basophils (0.0-0.2) 10^3/uL 0.01 VBG pH (7.31-7.41) 7.35 VBG pCO2 (41-51) mmHg 48 VBG pO2 mmHg 25 VBG HCO3 (23-28) mmol/L 27 VBG Total CO2 (24-29) mmol/L 25 VBG O2 Saturation % 39 VBG Base Excess (-2-3) mmol/L 1 Sodium (136-145) mmol/L 135 L Potassium (3.5-5.1) mmol/L 4.3 Chloride (98-107) mmol/L 99 Carbon Dioxide (21.0-32.0) mmol/L 26.5 Anion Gap (3-11) mmol/L 9.5 BUN (7-18) mg/dL 26 H Creatinine (0.55-1.02) mg/dL 1.2 H Estimated GFR/1.73 m2 (mL/min/1.73m2) 45.23 Glucose (74-106) mg/dL 171 H Calcium (8.5-10.1) mg/dL 9.6 Magnesium (1.8-2.4) mg/dL 2.2 Total Bilirubin (0.2-1.0) mg/dL 0.9 AST (15-37) U/L 68 H ALT (14-59) U/L 81 H Alkaline Phosphatase (46-116) U/L 86 Troponin I (<or=60) ng/L < 50 Total Protein (6.4-8.2) g/dL 8.3 H Albumin (3.4-5.0) g/dL 3.8 Lipase (73-393) U/L 324
[2021-11-30 16:08] LABS: Bilirubin Negative (Negative); Blood Negative (Negative); Clarity Clear (Clear); Glucose >=1000 mg/dL (Negative); Ketones Trace mg/dL (Negative); Leukocyte Esterase Negative (Negative); Nitrite Negative (Negative); Specific Gravity >= 1.030 (1.005-1.025); Urobilinogen 0.2 EU/dL (Up TO 0.2)
[2021-11-30 16:19] LABS: Bacteria Many HPF (Negative); C & S Indicated? No/Sq. Contamination; Casts Negative LPF (Negative); Crystals Negative HPF (Negative); Epithelial Cells Many HPF (Negative); Mucus Negative (Negative)
== END 2021-11-30 17:19 | disposition home or self-care (01) ==
PROVIDERS: Emergency Provider Physician Assistant; PCP Family Medicine
DX: R11.2 Nausea with vomiting, unspecified (principal)
CPT/HCPCS: 80053; 82805; 83690; 93005; 96361; 96374; 99284; 81003; 81015; 83735; 84484; 85025; 93010; 99283; J2405

== ENCOUNTER 2021-12-07 15:49 | Outpatient (REF) | payer MEDICARE, SELFPAY ==
[2021-12-07 18:38] LABS: ALT 46 U/L (14-59); AST 27 U/L (15-37); Albumin 3.9 g/dL (3.4-5.0); Alkaline Phosphatase 86 U/L (46-116); Anion Gap 10.6 mmol/L (3-11); BUN 19 mg/dL (7-18); Bilirubin, Total 0.6 mg/dL (0.2-1.0); CO2 26.4 mmol/L (21.0-32.0); CREATININE 0.9 mg/dL (0.55-1.02); Calcium 9.6 mg/dL (8.5-10.1); Chloride 105 mmol/L (98-107); Glucose 112 mg/dL (74-106); Potassium 4.7 mmol/L (3.5-5.1); Sodium 142 mmol/L (136-145); Total Protein 7.6 g/dL (6.4-8.2)
[2021-12-07 18:48] LABS: Abs Immature Grans 0.11 10^3/uL (0.0-0.06); Absolute Basophil Count 0.03 10^3/uL (0.0-0.2); Absolute Eosinophil Count 0.22 10^3/uL (0.0-0.7); Absolute Lymphocyte Count 2.34 10^3/uL (1.2-3.4); Absolute Monocyte Count 0.49 10^3/uL (0.1-0.8); Absolute Neutrophil Count 5.04 10^3/uL (1.2-6.7); Basophils % 0.4; Eosinophils % 2.7; HCT 36.4 % (36.0-46.0); HGB 10.7 g/dL (11.2-15.7); Immature Grans % 1.3; Lymphocytes % 28.4; MCH 24.4 pg (27.0-33.0); MCHC 29.4 % (32.0-36.0); MCV 83.1 fL (80-95); MPV 11.8 fL (8.0-11.0); Neutrophils % 61.2; Platelet Count 340 10^3/uL (130-400); RBC 4.38 10^6/uL (3.93-5.22); RDW 14.8 % (11.7-14.6); RDW-SD 44.9 fL; WBC 8.23 10^3/uL (4.4-10.8)
[2021-12-09 10:51] LABS: COVID-19 RT-PCR UVMMC Result Negative (Negative)
== END 2021-12-07 15:50 | disposition home or self-care (01) ==
LOC: LBN 15:49
PROVIDERS: PCP Family Medicine; Visit Provider Physician Assistant Medical
DX: B34.9 Viral infection, unspecified (principal); Z20.822 Contact with and (suspected) exposure to COVID-19
CPT/HCPCS: 80053; U0003; 85025

== ENCOUNTER 2021-12-15 10:44 | Outpatient (REF) | payer MEDICARE, SELFPAY ==
[2021-12-18 17:38] LABS: Calprotectin <50.0 mcg/g
== END 2021-12-15 10:45 | disposition home or self-care (01) ==
LOC: NCHCN 10:44
PROVIDERS: PCP Family Medicine; Visit Provider Family Medicine
DX: R19.7 Diarrhea, unspecified (principal)
CPT/HCPCS: 87329; 87493; 83993

== ENCOUNTER → 2022-01-08 08:28 | Outpatient (BNVA) | payer MEDICARE, SELFPAY | PROVIDERS: PCP Family Medicine; Referring Provider Family Medicine; Visit Provider Psychiatry & Neurology Neurology | DX: M62.81 Muscle weakness (generalized) (principal); E11.40 Type 2 diabetes mellitus with diabetic neuropathy, unspecified | CPT/HCPCS: 95885; 95910; 99214 ==

== ENCOUNTER 2022-05-01 14:11 | Emergency (ER) | payer MEDICARE, SELFPAY ==
[2022-05-01] VITALS (14 sets, daily range): BP systolic 98–137; BP diastolic 22–93; PULSE 69–88; RESP 14–23; TEMP 36.7; O2SAT 94–98
--- NOTE | 2022-05-01 14:15 | RT.EKG_ITS ---
APPROVED REPORT Exam: Resting ECG Reason for Exam: vertigo Patient Location: E HR:71 bpm ECG Measurements Heart Rate 71 AXIS NJ 142 P 58 QRSd 85 QRS 44 QT 383 T 58 QTc 416 Conclusion Sinus rhythm...normal P axis, V-rate 60- 99. Sinus. Normal axis. No STEMI. I have reviewed and interpreted ECG and agree with software generated interpretation.
--- NOTE | 2022-05-01 15:00 | ED.GENADUL_ITS ---
Discharge Plan Disposition Patient Disposition: HOME Condition: Serious Discharge Details Clinical Impression: Ataxic gait, Anemia Primary Care Provider: Lorena Kearns ED Provider: Andria Rodrigues Home Meds and New Rx's Prescriptions: Continued cyanocobalamin (vitamin B-12) 1,000 mcg capsule 1,000 mcg PO DAILY zinc 50 mg tablet 50 mg PO DAILY magnesium oxide 400 mg magnesium tablet 400 mg PO DAILY valsartan 160 mg tablet 160 mg PO DAILY insulin aspart U-100 [Novolog Flexpen U-100 Insulin] 100 unit/mL (3 mL) insulin pen 8 - 12 unit subcut TID Jardiance 25 mg tablet 25 mg PO DAILY citalopram 20 mg tablet 20 mg PO DAILY ascorbic acid (vitamin C) 500 mg capsule 500 mg PO metformin [Glucophage] 1,000 MG tablet 1,000 mg PO BID rosuvastatin [Crestor] 40 MG tablet 40 mg PO QPM multivitamin [Daily Multi-Vitamin] 1 EACH tablet 1 tab PO DAILY AM aspirin [Aspir-81] 81 MG tablet,delayed release (DR/EC) 81 mg PO HS esomeprazole magnesium [Nexium] 40 MG capsule,delayed release(DR/EC) 40 mg PO DAILY valacyclovir 1 gram tablet 1,000 mg PO TID Levemir FlexTouch U-100 Insuln 100 unit/mL (3 mL) insulin pen 80 unit SUBCUT BID acetaminophen 500 mg tablet 500 mg PO Q6H PRN (Reason: pain) Qty: 60 2RF ibuprofen 600 mg tablet 600 mg PO TID PRN (Reason: pain) Qty: 60 2RF Discharge Instructions Instructions: Anemia (ED) Additional Instructions: please follow-up with your doctor tomorrow im concerned that you need an MRI and should have this scheduled as soon as possible should your symptoms worsen or persistent, please return immediately Referrals: Lorena Kearns MD [Primary Care Provider] - Discharge Data Discharge Date/Time-TO BE ENTERED AT DEPARTURE: 05/01/22 21:02 Medical Decision Making <Jinny Elaine NP - Last Filed: 05/01/22 15:47> 66-year-old female presents to the ER with chief complaint of vertigo dizziness with staggering gait. Patient reports that she gets this frequently. She reports that she does take meclizine at home and she did take meclizine at 6 AM and 2 PM with little to no relief. She reports nausea no vomiting. Denies any recent head injuries denies any neck pain no chest pain shortness of breath no vomiting or diarrhea. Work-up ordered including CT of the head, labs urinalysis. 1 mg liter normal saline, Zofran and 0.5 of Ativan given. Care is to be handed off to oncoming provider JENNIFER Eugene pending labs and CT results. Medical Records Medical records reviewed: Yes I reviewed the patient's medical records. <JENNIFER Eugene - Last Filed: 05/01/22 23:37> 66-year-old female presents to the ER with chief complaint of vertigo dizziness with staggering gait. Patient reports that she gets this frequently. She reports that she does take meclizine at home and she did take meclizine at 6 AM and 2 PM with little to no relief. She reports nausea no vomiting. Denies any recent head injuries denies any neck pain no chest pain shortness of breath no vomiting or diarrhea. Work-up ordered including CT of the head, labs urinalysis. 1 mg liter normal saline, Zofran and 0.5 of Ativan given. Care is to be handed off to oncoming provider JENNIFER Eugene pending labs and CT results. Patient have ataxic/unsteady gait She has negative CTA and CT scan This was reviewed with hospitalist with request for admission, concern for cerebellar stroke, hospitalist discussed admission versus discharge home with close outpatient follow-up with patient and she at this time request outpatient assessment follow-up given she had symptoms for the past week. Her felt comfortable ambulating with her at home She will need outpatient MRI She is placed for follow-up within the next 24 hours and will need close outpatient MRI and reassessment Please see the hospitalist documentation HPI <Jinny Elaine NP - Last Filed: 05/01/22 15:47> General Mode of arrival: ambulatory . Date/Time Provider Initiated Documentation: 05/01/22 14:12 . Limitations to Documentation: no limitations . Information obtained by: patient, RN notes reviewed and old records reviewed . HPI Narrative: 66-year-old female presents to the ER with chief complaint of vertigo dizziness with staggering gait. Patient reports that she gets this frequently. She reports that she does take meclizine at home and she did take meclizine at 6 AM and 2 PM with little to no relief. She reports nausea no vomiting. Denies any recent head injuries denies any neck pain no chest pain shortness of breath no vomiting or diarrhea. Denies any dysuria or problems urinating. She does have a past medical history of narcolepsy, vitamin B12 deficiency, LEEP apnea, shingles, PTSD, hypertension, hyperlipidemia, GERD, type 2 diabetes Related Data Home Medications Medication Instructions Recorded Confirmed aspirin 81 mg tablet,delayed 81 mg PO HS 11/18/12 04/13/22 release (Aspir-) metformin 1,000 mg tablet 1,000 mg PO BID 11/18/12 04/13/22 (Glucophage) multivitamin (Daily Multi-Vitamin 1 tab PO DAILY AM 11/18/12 04/13/22 tablet) rosuvastatin 40 mg tablet (Crestor) 40 mg PO QPM 11/18/12 04/13/22 esomeprazole magnesium 40 mg 40 mg PO DAILY 09/03/16 04/13/22 capsule,delayed release (Nexium) acetaminophen 500 mg tablet 500 mg PO Q6H PRN pain #60 tabs 10/06/19 04/13/22 ibuprofen 600 mg tablet 600 mg PO TID PRN pain #60 tabs 10/06/19 04/13/22 cyanocobalamin (vitamin B-12) 1,000 mcg PO DAILY 10/16/19 04/13/22 1,000 mcg capsule valsartan 160 mg tablet 160 mg PO DAILY 01/29/20 04/13/22 insulin detemir U-100 100 unit/mL 80 unit subcut BID 06/16/21 04/13/22 (3 mL) subcutaneous pen (Levemir FlexTouch U-100 Insulin) valacyclovir 1 gram tablet 1,000 mg PO TID 06/16/21 04/13/22 ascorbic acid (vitamin C) 500 mg 500 mg PO 06/28/21 04/13/22 capsule citalopram 20 mg tablet 20 mg PO DAILY 06/28/21 04/13/22 empagliflozin 25 mg tablet 25 mg PO DAILY 06/28/21 04/13/22 (Jardiance) insulin aspart U-100 100 unit/mL 8 - 12 unit subcut TID 06/28/21 04/13/22 (3 mL) subcutaneous pen (Novolog Flexpen U-100 Insulin aspart) magnesium oxide 400 mg PO DAILY 10/11/21 04/13/22 zinc 50 mg tablet 50 mg PO DAILY 10/11/21 04/13/22 Previous Rx's Medication Instructions Recorded acetaminophen 500 mg tablet 500 mg PO Q6H PRN pain #60 tabs 10/06/19 ibuprofen 600 mg tablet 600 mg PO TID PRN pain #60 tabs 10/06/19 Allergies Allergy/AdvReac Type Severity Reaction Status Date / Time azithromycin Allergy Intermediate Tongue Verified 04/13/22 14:31 swelling General Stated Complaint: Dizzy/Sync KAMLESH: 3 Review of Systems <Jinny Elaine NP - Last Filed: 05/01/22 15:47> All systems reviewed & are unremarkable except as noted in HPI and below ENT Ears, Nose, Mouth, and Throat: Reports vertigo and Reports dizziness Musculoskeletal Musculoskeletal: Denies numbness Neurologic Neurologic: Reports vertigo, Reports dizziness and Denies numbness PFSH <Jinny Elaine NP - Last Filed: 05/01/22 15:47> All Active Problems (Updated 05/01/22 @ 20:10 by JENNIFER Eugene) Ataxic gait (Acute) Anemia (Chronic) Diabetic neuropathy (Acute) Muscle weakness (Acute) Balance problem (Acute) Shortness of breath (Acute) Internal hemorrhoid (Acute) Colon polyp (Acute) Dyspnea (Acute) Diverticulosis (Acute) Chest pain (Acute) Screening for colon cancer (Acute) Tear of medial meniscus of right knee (Acute) Injected 01/07/2019 Trigger finger, right middle finger (Chronic) Medical History Anemia, iron deficiency Ataxia Benign hypertension Chronic anxiety Depression Diabetes mellitus Diabetes mellitus, type II, insulin dependent Diabetic retinopathy Dyspnea on exertion Fatigue Fatty infiltration of liver Foot pain, right Gastroesophageal reflux disease Hyperlipidemia Hypertension Microalbuminuria Narcolepsy YARELIS on CPAP PTSD (post-traumatic stress disorder) Pt. denies this dx Recurrent falls Retinopathy Shingles Sleep apnea does not use CPAP machine recently, due to ill-fitting mask Tubular adenoma of colon Urinary incontinence, mixed Vitamin B12 deficiency Surgical History History of carpal tunnel release History of esophagogastroduodenoscopy (EGD) History of hysterectomy Hx of arthroscopy of right knee Hx of laparoscopy Removed left ovary. Per pt, was to check for endometriosis. Hx of tubal ligation S/P excision of lipoma excision of lipoma on back Trigger Finger release LMF, LRF Family History Sister Cancer colon cancer age 74. Mother Heart disease Social History Smoking/Tobacco Use Status: Former Tobacco Use Quit Date: 08/26/00 Smoking risk assessment performed?: Yes Alcohol Intake: current Alcohol Intake frequency: holidays/special occasions only Drug use: Never Substance use type: does not use Number of Children: 2 current occupation: Disabled Current gender identity: female Do you feel safe at home: Yes Do you feel safe in your relationship?: Yes Exam <Jinny Elaine NP - Last Filed: 05/01/22 15:47> Narrative Exam Narrative: Constitutional: Alert and oriented x3. Appears stated age. Normal body habitus. Head: Normocephalic, no trauma. Eyes: Pupils PERRL, Red reflex noted, EOM's intact. Eyelids symmetrical without lesions, discharge, or swelling. ENT: Left TM within normal limits, right TM cloudy external ear normal to inspection, no mastoid TTP, swelling, or erythema, Nasal turbinates WNL, no nasal discharge. Normal dentition, Posterior pharynx WNL, no exudate. Chest: RRR, Normal S1, S2, distal pulses intact. Resp: Lungs clear to auscultation bilaterally, no wheezes, rales, or rhonchi. Abdomen: Soft, non-distended, Normoactive bowel sounds all 4 quads. Musculoskeletal: Normal gait, 5/5 strength to all four extremities. Skin: No suspicious rashes or lesions. Capillary refill less than 2 sec. Neurologic: Cranial nerves II-XII intact. Alert and oriented x 3. Motor: No deficits noted. Sensory: Intact bilaterally all 4 extremities. Reflexes: DTR's intact bilaterally.. No pronator drift no facial droop shearing machine tender equal bilaterally. Hematologic/Lymphatic: No ecchymosis, no lymphadenopathy. <JENNIFER Eugene - Last Filed: 05/01/22 23:37> Const General: cooperative and comfortable Orientation: alert and oriented x3 Eyes Pupils: PERRL Other: Horizontal nystagmus Neck Other: no carotid bruit Resp Effort & Inspection: normal respiratory effort Auscultation: clear to auscultation bilaterally Cardio Rate: regular rate Rhythm: regular rhythm Other: distal pulses intact Skin General skin exam: no rashes or lesions noted Neuro General: patient alert and patient oriented x3 Cranial Nerves: CN's II-XI intact bilaterally and tongue midline Cognition: normal cognition Speech: speech normal Gait: wide-based Motor: strength 5/5 throughout and no pronator drift Sensory Exam: no sensory deficits noted Course <Jinny Elaine NP - Last Filed: 05/01/22 15:47> Vital Signs Vital signs: Vital Signs Temperature 36.7 C 05/01/22 14:31 Pulse 78 05/01/22 14:31 Respiratory Rate 18 05/01/22 14:31 Blood Pressure 114/55 L 05/01/22 14:31 Pulse Oximetry 98 05/01/22 14:31 Temperature 36.7 C 05/01/22 14:31 Temperature Source Oral 05/01/22 14:31 Pulse 78 05/01/22 14:31 Respiratory Rate 20 05/01/22 14:43 Respiratory Effort Non-Labored 05/01/22 14:43 Respiratory Depth Normal 05/01/22 14:43 Respiratory Pattern Normal 05/01/22 14:43 Blood Pressure 114/55 L 05/01/22 14:31 Blood Pressure Position Sitting 05/01/22 14:31 Pulse Oximetry 98 05/01/22 14:31 Oxygen Delivery Method Room Air 05/01/22 14:31 Oxygen Flow Rate 0 05/01/22 14:31 Pain Level 0 05/01/22 14:31 Sign Out <Jinny Elaine NP - Last Filed: 05/01/22 15:47> Sign Out Data: Sign Out Comment: Pending labs, CT head and re-evaluation. Hx of recurrent ve rtigo, Meclizine at home not working. Last updated by Jinny Elaine NP at 05/01/22 15:29 PAWSS <Jinny Elaine NP - Last Filed: 05/01/22 15:47> Have you Been Recently Intoxicated or Drunk Within the Last 30 days?: No Have you Ever Experienced Previous Episodes of Alcohol Withdrawal?: No Have you ever Experienced Withdrawal Seizures?: No Have you ever Experienced Delirium Tremens(DT)s?: No Have you ever undergone Alcohol Rehabilitation Treatment (i.e, inpt ot outpatient treatment programs)?: No Have you ever Experienced Blackouts?: No Have you ever Combined Alcohol with other Downers within the last 90 days?: No Have you ever Combined Alcohol with any other Substance of Abuse during the last 90 days?: No Evidence of Increased Autonomic Activity (i.e. HR>120, tremor, sweating, agitation, nausea)?: No Result: 0 <JENNIFER Eugene - Last Filed: 05/01/22 23:37> Result: 0
--- NOTE | 2022-05-01 15:00 | DI.CT_ITS ---
Exam(s) CT HEAD WO EXAM: CT HEAD WO CLINICAL HISTORY: Dizziness. TECHNIQUE: Imaging Protocol: Axial computed tomography images with coronal and sagittal reformatted images were created and reviewed COMPARISON: CT HEAD WITHOUT CONTRAST from 10/27/2015 FINDINGS: Ventricles and Extra axial spaces: Normal in size and morphology for the patient's age. Hemorrhage: None. Cerebral parenchyma: Normal. Midline shift: None. Brainstem/Cerebellum: Normal. Calvarium: Normal. Visualized Paranasal sinuses/Mastoids: Clear. Soft Tissues: Unremarkable. IMPRESSION: 1. No acute intracranial process. 2. Results of this exam have been verbally communicated with provider. RADIATION DOSE DELIVERED: 642.26mGy.cm Total DLP DATA REPOSITORY: All CT scans at this facility are submitted to the National Radiology Data Registry (NRDR) Dose Index Registry (DIR) with the [employer] ([employer]). RADIATION OPTIMIZATION: All CT scans at this facility use at least one of these dose optimization te chniques: automated exposure control; mA and/or kV adjustment per patient size (includes targeted exa ms where dose is matched to clinical indication); or iterative reconstruction.
[2022-05-01 15:31] LABS: Bilirubin Negative (Negative); Blood Trace-lysed (Negative); Clarity Clear (Clear); Glucose 500 mg/dL (Negative); Ketones Negative (Negative); Leukocyte Esterase Negative (Negative); Nitrite Negative (Negative); Urobilinogen 0.2 EU/dL (Up TO 0.2); pH 5.5 (5-8)
[2022-05-01 15:31] LABS: Abs Immature Grans 0.04 10^3/uL (0.0-0.06); Absolute Basophil Count 0.03 10^3/uL (0.0-0.2); Absolute Eosinophil Count 0.21 10^3/uL (0.0-0.7); Absolute Lymphocyte Count 2.43 10^3/uL (1.2-3.4); Absolute Monocyte Count 0.51 10^3/uL (0.1-0.8); Absolute Neutrophil Count 3.72 10^3/uL (1.2-6.7); Basophils % 0.4; HCT 28.4 % (36.0-46.0); HGB 8.4 g/dL (11.2-15.7); Immature Grans % 0.6; MCH 21.1 pg (27.0-33.0); MCHC 29.6 % (32.0-36.0); MCV 71 fL (80-95); MPV 12.1 fL (8.0-11.0); Monocytes % 7.3; Neutrophils % 53.7; Platelet Count 279 10^3/uL (130-400); RBC 3.99 10^6/uL (3.93-5.22); RDW 16.1 % (11.7-14.6); RDW-SD 41.5 fL; WBC 6.94 10^3/uL (4.4-10.8)
[2022-05-01] MEDS: Ondansetron 4 MG/2 ML VIAL IVP (15:32)
[2022-05-01] MEDS: LORazepam 20 MG/10 ML VIAL IVP (15:33)
[2022-05-01] MEDS: Normal Saline 1,000 ML 1000 ML IV (15:35)
[2022-05-01 15:45] LABS: Bacteria Few HPF (Negative); C & S Indicated? Yes; Casts 0-2 Hyaline LPF (Negative); Crystals Negative HPF (Negative); Epithelial Cells Moderate HPF (Negative); Mucus Negative (Negative); Other Cells Few Transitional (Negative); RBC 0-2 HPF (0-2)
[2022-05-01 15:57] LABS: ALT 23 U/L (14-59); AST 16 U/L (15-37); Albumin 3.7 g/dL (3.4-5.0); Alkaline Phosphatase 91 U/L (46-116); Anion Gap 10.8 mmol/L (3-11); BUN 29 mg/dL (7-18); Bilirubin, Total 0.6 mg/dL (0.2-1.0); CO2 23.2 mmol/L (21.0-32.0); CREATININE 1.2 mg/dL (0.55-1.02); Calcium 9.4 mg/dL (8.5-10.1); Chloride 107 mmol/L (98-107); Estimated GFR 50.55 (mL/min/1.73m2); Glucose 127 mg/dL (74-106); Magnesium 1.9 mg/dL (1.8-2.4); Potassium 4.4 mmol/L (3.5-5.1); Sodium 141 mmol/L (136-145); Troponin I < 50 ng/L (<or=60)
[2022-05-01 16:08] LABS: Anisocytosis 1+; Diff Comment RBC Morph Reviewed; Hypochromasia 2+; Microcytosis 3+; Polychromasia Present
[2022-05-01 16:09] LABS: Poikilocytes 1+
--- NOTE | 2022-05-01 17:45 | DI.CT_ITS ---
Exam(s) CT BRAIN NECK CTA EXAM: CT BRAIN NECK CTA CLINICAL HISTORY: dizziness, gait ataxia. TECHNIQUE: Imaging Protocol: Axial CT angiography was performed with multi-slice acquisition and mu lti-planar and/or 3D reconstructions. CONTRAST MATERIAL: Intravenous: Omnipaque 350 contrast volume:85 mL COMPARISON: CT HEAD WITHOUT CONTRAST from 10/27/[address] CHEST PE CTA from 06/16/[address] HEAD WO from 05/01/2022 FINDINGS: CT head w: Ventricles and Extra axial spaces: Normal in size and morphology for the patient's age. Hemorrhage: None. Cerebral parenchyma: No evidence of an acute territorial infarct. Midline shift: None. Brainstem/Cerebellum: Normal. Calvarium: Normal. Visualized Paranasal sinuses/Mastoids: Clear. Soft Tissues: Unremarkable. Enhancement: Unremarkable. CTA Neck W: Common Carotid: Right: No dissection, occlusion or significant stenosis. Left: No dissection, occlusion or significant stenosis. External Carotid: Right: No occlusion or significant stenosis. Left: No occlusion or significant stenosis. Internal Carotid: Right: No dissection, occlusion or significant stenosis. Left: No dissection, occlusion or significant stenosis. Vertebral Artery: Right: No dissection, occlusion or significant stenosis. Left: No dissection, occlusion or significant stenosis. Lung Apices: There is a 4 mm noncalcified pulmonary nodule in the right upper lobe. Bones: Within normal limits for the patient's age. There are degenerative changes seen in the cervica l and upper thoracic spine. Soft Tissues: Normal. Thyroid gland: Unremarkable. CTA Brain W: Internal Carotid Arteries: Mild atherosclerosis seen in the supraclinoid portion of the left internal carotid artery. Anterior Cerebral Arteries: Right: No aneurysm, occlusion or significant stenosis. Left: No aneurysm, occlusion or significant stenosis. Middle Cerebral Arteries: Right: No aneurysm, occlusion or significant stenosis. Left: No aneurysm, occlusion or significant stenosis. Posterior Cerebral Arteries: Right: No aneurysm, occlusion or significant stenosis. Left: No aneurysm, occlusion or significant stenosis. Vertebral Arteries: Right: No aneurysm, occlusion or significant stenosis. Left: No aneurysm, occlusion or significant stenosis. Basilar Artery: No aneurysm, occlusion or significant stenosis. IMPRESSION: 1. No large vessel occlusion or significant stenosis on the CT angiography of the head. 2. No acute intracranial process. 3. 4 mm noncalcified pulmonary nodule in the right upper lobe. For low risk patients, no routine fol low-up is required. For high risk patients, (history of smoking or other risk factors), a follow-up examination in 12 months may be warranted. (Alyse et al, 2017. Guidelines for Management of incid ental pulmonary nodules detected on CT images: From the Fleischner society). 4. No occlusion or significant stenosis on the CT angiography of the neck. RADIATION DOSE DELIVERED: 1,166.03mGy.cm Total DLP DATA REPOSITORY: All CT scans at this facility are submitted to the National Radiology Data Registry (NRDR) Dose Index Registry (DIR) with the [employer] (A[employer]). RADIATION OPTIMIZATION: All CT scans at this facility use at least one of these dose optimization te chniques: automated exposure control; mA and/or kV adjustment per patient size (includes targeted exa ms where dose is matched to clinical indication); or iterative reconstruction.
[2022-05-01 18:10] LABS: Iron 34 ug/dL (50-170); Total Iron Binding Capacity 363 ug/dL (250-450); Transferrin Sat 9 % (15-50)
[2022-05-01 18:13] LABS: Troponin I < 50 ng/L (<or=60)
[2022-05-01 18:24] LABS: Ferritin 6 ng/mL (8-252)
[2022-05-01] MEDS: Omnipaque 350 MG/ML 100 ML BTL IV (18:47)
[2022-05-01] MEDS: Normal Saline Flush 10 ML SYR IVP (18:48)
--- NOTE | 2022-05-01 19:10 | DI.VRAD_ITS ---
PROCEDURE INFORMATION: Exam: CTA Head With Contrast, Arteriography Exam date and time: 05/01/2022 6:38 PM Age: 66 years old Clinical indication: Other: Dizziness, gait ataxia TECHNIQUE: Imaging protocol: Computed tomographic angiography of the head with contrast. Exam focused on the arteries. 3D rendering (Not supervised by radiologist): MIP and/or 3D reconstructed images were created by the technologist. Radiation optimization: All CT scans at this facility use at least one of these dose optimization techniques: automated exposure control; mA and/or kV adjustment per patient size (includes targeted exams where dose is matched to clinical indication); or iterative reconstruction. Contrast material: OMNIPAQUE 350; Contrast volume: 85 ml; Contrast route: INTRAVENOUS (IV); COMPARISON: CT HEAD WO 05/01/2022 4:13 PM FINDINGS: ANTERIOR CIRCULATION: Right internal carotid artery: Unremarkable. Intracranial segment is patent with no significant stenosis. No aneurysm. Right middle cerebral artery: Unremarkable. No occlusion or significant stenosis. No aneurysm. Right anterior cerebral artery: Unremarkable. No occlusion or significant stenosis. No aneurysm. Left internal carotid artery: Unremarkable. Intracranial segment is patent with no significant stenosis. No aneurysm. Left middle cerebral artery: Unremarkable. No occlusion or significant stenosis. No aneurysm. Left anterior cerebral artery: Unremarkable. No occlusion or significant stenosis. No aneurysm. POSTERIOR CIRCULATION: Right vertebral artery: Unremarkable. No occlusion or significant stenosis. No aneurysm. Left vertebral artery: Unremarkable. No occlusion or significant stenosis. No aneurysm. Basilar artery: Unremarkable. No occlusion or significant stenosis. No aneurysm. Right posterior cerebral artery: Unremarkable. No occlusion or significant stenosis. No aneurysm. Left posterior cerebral artery: Unremarkable. No occlusion or significant stenosis. No aneurysm. IMPRESSION: No large vessel stenosis or occlusion detected involving the major branches of the anterior or posterior intracranial circulation. PROCEDURE INFORMATION: Exam: CTA Neck With Contrast Exam date and time: 05/01/2022 6:38 PM Age: 66 years old Clinical indication: Other: Dizziness, gait ataxia TECHNIQUE: Imaging protocol: Computed tomographic angiography of the neck with contrast. 3D rendering (Not supervised by radiologist): MIP and/or 3D reconstructed images were created by the technologist. Radiation optimization: All CT scans at this facility use at least one of these dose optimization techniques: automated exposure control; mA and/or kV adjustment per patient size (includes targeted exams where dose is matched to clinical indication); or iterative reconstruction. Contrast material: OMNIPAQUE 350; Contrast volume: 85 ml; Contrast route: INTRAVENOUS (IV); COMPARISON: CT CHEST PE CTA 06/16/2021 5:54 PM FINDINGS: Right common carotid artery: No stenosis. No dissection or occlusion. Right internal carotid artery: No stenosis of the extracranial segment. No dissection or occlusion. Right external carotid artery: No occlusion or stenosis of the origin. Left common carotid artery: No stenosis. No dissection or occlusion. Left internal carotid artery: No stenosis of the extracranial segment. No dissection or occlusion. Left external carotid artery: No occlusion or stenosis of the origin. Right vertebral artery: No stenosis. No dissection or occlusion. Left vertebral artery: No stenosis. No dissection or occlusion. Soft tissues: Normal. No significant soft tissue swelling. Bones/joints: No acute fracture. IMPRESSION: No evidence of 50% or greater stenosis involving the cervical segments of the right or left internal carotid arteries by NASCET criteria. REFERENCES: NASCET CRITERIA. The degree of stenosis in the cervical segment of the internal carotid artery is based on NASCET criteria. Normal is no stenosis. Mild is less than 50% stenosis. Moderate is 50-69% stenosis. Severe is 70% to 99% stenosis. Total occlusion is no detectable patent lumen. Dictated and Authenticated by: Son Negro MD. Ordering:ANUEL Ayers MD
[2022-05-01] MEDS: Meclizine 25 MG TAB PO (19:31)
[2022-05-01 19:37] LABS: Source Nasal/Nares
--- NOTE | 2022-05-01 20:06 | MCONE_ITS ---
Date of service: 05/01/22 Time of Service: 20:07 Assessment and Plan Assessment and plan (1) Ataxic gait: Status: Acute Assessment and plan: Vertigo. I think this is flare of her chronic vertigo, but cannot rule out central lesion (viz, small cerebellar stroke). A negative CT one week out is reassuring to a degree but MRI would be more sensitive. Given that the symptoms are a week old at this point and stable I think outpatient followup would be reasonable, and states he is confident he can manage as is. Patient is already on ASA, but I would not add second antiplatelet agent at this point given that I believe the relative preponderance of evidence is that this is flare of her chronic vertigo, as well as the issues regarding iron deficiency (see below). Would advise prompt f/u with PCP to arrange MRI. Regarding the iron deficiency anemia: GI bleed to be ruled out (note again heme negative per ER). ASA possible culprit but already on PPI. Would advise she continue this regimen for now given relative value of antiplatelet agent in setting of possible stroke, but should maintain PPI gastroprotection and have f/u for EGD/colo. I have communicated my findings and recommendations to ER. History of Present Illness History of Present Illness Chief Complaint: vertigo Narrative: 66 female with h/o intermittent vertigo, usually self treats with prn Meclizine and/or home Jorge maneuver. States she has been having a low grade spell of vertigo for past week, but unresponsive to above measures so she came in for evaluation. In ER findings of note for iron deficiency anemia with stool heme negative; negative head CT and head/neck CTA. Patient given Meclizine and Valium without effect and I was asked to evaluate for possible admission. COVID is negative. Again patient states she has been having spinning sensation, random and unrelated to position, with corresponding difficulty with balance, but no falling. Has a degree of chronic NESS but this is unchanged. No focal weakness or sensory changes, no visual changes or speech disturbance. No ear pain or D/C, no recent URI. Review of Systems Narrative: per HPI PFSH All Active Problems (Updated 05/01/22 @ 20:10 by JENNIFER Eugene) Ataxic gait (Acute) Anemia (Chronic) Diabetic neuropathy (Acute) Muscle weakness (Acute) Balance problem (Acute) Shortness of breath (Acute) Internal hemorrhoid (Acute) Colon polyp (Acute) Dyspnea (Acute) Diverticulosis (Acute) Chest pain (Acute) Screening for colon cancer (Acute) Tear of medial meniscus of right knee (Acute) Injected 01/07/2019 Trigger finger, right middle finger (Chronic) Medical History Anemia, iron deficiency Ataxia Benign hypertension Chronic anxiety Depression Diabetes mellitus Diabetes mellitus, type II, insulin dependent Diabetic retinopathy Dyspnea on exertion Fatigue Fatty infiltration of liver Foot pain, right Gastroesophageal reflux disease Hyperlipidemia Hypertension Microalbuminuria Narcolepsy YARELIS on CPAP PTSD (post-traumatic stress disorder) Pt. denies this dx Recurrent falls Retinopathy Shingles Sleep apnea does not use CPAP machine recently, due to ill-fitting mask Tubular adenoma of colon Urinary incontinence, mixed Vitamin B12 deficiency Surgical History History of carpal tunnel release History of esophagogastroduodenoscopy (EGD) History of hysterectomy Hx of arthroscopy of right knee Hx of laparoscopy Removed left ovary. Per pt, was to check for endometriosis. Hx of tubal ligation S/P excision of lipoma excision of lipoma on back Trigger Finger release LMF, LRF Family History Sister Cancer colon cancer age 74. Mother Heart disease Social History Smoking/Tobacco Use Status: Former Tobacco Use Quit Date: 08/26/00 Smoking risk assessment performed?: Yes Alcohol Intake: current Alcohol Intake frequency: holidays/special occasions only Drug use: Never Substance use type: does not use Number of Children: 2 current occupation: Disabled Current gender identity: female Do you feel safe at home: Yes Do you feel safe in your relationship?: Yes Exam Narrative Exam Narrative: 134/56, 67 (supine), 129/53, 82 standing, 36.7, 21, 98% RA. HEENT atraumatic, TM negative AU, Barany's negative AU; neck supple; lungs clear; heart RRR; abdomen soft and NT; extremities w/o edema; neuro Ox3, lucid, EOMI, PERRL, acuna full, no facial asymettry, tongue mid-line; motor 5/5, sensory intact light touch, FTN/HTS WNL, gait slightly wide based, slight unsteady but does not lurch or lean to either side Results Last Vital Signs Temp 36.7 C 05/01/22 14:31 Pulse 72 05/01/22 18:01 Resp 21 05/01/22 18:01 BP 109/93 H 05/01/22 18:01 Pulse Ox 98 05/01/22 18:01 Labs Result diagrams: 05/01/22 14:45 05/01/22 14:45 Labs: Laboratory Results - last 24 hr 05/01/22 05/01/22 05/01/22 14:45 14:45 14:45 WBC 6.94 RBC 3.99 Hgb 8.4 L Hct 28.4 L MCV 71 L MCH 21.1 L MCHC 29.6 L RDW 16.1 H Plt Count 279 MPV 12.1 H Immature Gran % 0.6 Neutrophils % 53.7 Lymphocytes % 35.0 Monocytes % 7.3 Eosinophils % 3.0 Basophils % 0.4 Nucleated RBC % 0.0 Absolute Neutrophils 3.72 Absolute Lymphocytes 2.43 Absolute Monocytes 0.51 Absolute Eosinophils 0.21 Absolute Basophils 0.03 RBC Morphology See Below Polychromasia Present Hypochromasia 2+ Poikilocytosis 1+ Anisocytosis 1+ Microcytosis 3+ Sodium 141 Potassium 4.4 Chloride 107 Carbon Dioxide 23.2 Anion Gap 10.8 BUN 29 H Creatinine 1.2 H Est GFR (CKD-EPI 2020) 50.55 Glucose 127 H Calcium 9.4 Magnesium 1.9 Iron TIBC Transferrin % Sat Ferritin 6 L Total Bilirubin 0.6 AST 16 ALT 23 Alkaline Phosphatase 91 Troponin I < 50 Total Protein 8.0 Albumin 3.7 Urine Color Urine Clarity Urine pH Ur Specific [place] Urine Protein Urine Ketones Urine Blood Urine Nitrite Urine Bilirubin Urine Urobilinogen Ur Leukocyte Esterase Urine RBC Urine WBC Ur Epithelial Cells Urine Crystals Urine Bacteria Urine Casts Urine Mucus Urine Other Ur Culture Indicated? Urine Glucose COVID-19 Source 05/01/22 05/01/22 05/01/22 14:45 15:17 17:30 WBC RBC Hgb Hct MCV MCH MCHC RDW Plt Count MPV Immature Gran % Neutrophils % Lymphocytes % Monocytes % Eosinophils % Basophils % Nucleated RBC % Absolute Neutrophils Absolute Lymphocytes Absolute Monocytes Absolute Eosinophils Absolute Basophils RBC Morphology Polychromasia Hypochromasia Poikilocytosis Anisocytosis Microcytosis Sodium Potassium Chloride Carbon Dioxide Anion Gap BUN Creatinine Est GFR (CKD-EPI 2020) Glucose Calcium Magnesium Iron 34 L TIBC 363 Transferrin % Sat 9 L Ferritin Total Bilirubin AST ALT Alkaline Phosphatase Troponin I < 50 Total Protein Albumin Urine Color Yellow Urine Clarity Clear Urine pH 5.5 Ur Specific [place] 1.020 Urine Protein 30 H Urine Ketones Negative Urine Blood Trace-lysed H Urine Nitrite Negative Urine Bilirubin Negative Urine Urobilinogen 0.2 Ur Leukocyte Esterase Negative Urine RBC 0-2 Urine WBC 10-20 H Ur Epithelial Cells Moderate Urine Crystals Negative Urine Bacteria Few Urine Casts 0-2 Hyaline Urine Mucus Negative Urine Other Few Transitional Ur Culture Indicated? Yes Urine Glucose 500 H COVID-19 Source 05/01/22 19:35 WBC RBC Hgb Hct MCV MCH MCHC RDW Plt Count MPV Immature Gran % Neutrophils % Lymphocytes % Monocytes % Eosinophils % Basophils % Nucleated RBC % Absolute Neutrophils Absolute Lymphocytes Absolute Monocytes Absolute Eosinophils Absolute Basophils RBC Morphology Polychromasia Hypochromasia Poikilocytosis Anisocytosis Microcytosis Sodium Potassium Chloride Carbon Dioxide Anion Gap BUN Creatinine Est GFR (CKD-EPI 2020) Glucose Calcium Magnesium Iron TIBC Transferrin % Sat Ferritin Total Bilirubin AST ALT Alkaline Phosphatase Troponin I Total Protein Albumin Urine Color Urine Clarity Urine pH Ur Specific [place] Urine Protein Urine Ketones Urine Blood Urine Nitrite Urine Bilirubin Urine Urobilinogen Ur Leukocyte Esterase Urine RBC Urine WBC Ur Epithelial Cells Urine Crystals Urine Bacteria Urine Casts Urine Mucus Urine Other Ur Culture Indicated? Urine Glucose COVID-19 Source Nasal/Nares
[2022-05-01 20:09] LABS: COVID-19 PCR Negative (Negative)
--- NOTE | 2022-05-02 08:58 | PDOC.ERCMACT ---
- If Service Date Differs Date of service: 05/02/22 Time of Service: 08:58 Care Management Activity Note Vicki is seen in the ED for anemia and an ataxic gait. At the request of ED provider, CM contacts Vicki's PCP's office ([facility]) to ensure Vicki has a scheduled follow up appointment. KARIN is advised by switchboard receptionist staff that Vicki has a follow up appointment to her ED visit scheduled on 05/09/2022.
== END 2022-05-01 21:02 | disposition home or self-care (01) ==
PROVIDERS: Registered Nurse Emergency; Emergency Provider Physician Assistant; PCP Family Medicine
DX: R26.0 Ataxic gait (principal); D64.9 Anemia, unspecified; R42 Dizziness and giddiness; I10 Essential (primary) hypertension; E11.9 Type 2 diabetes mellitus without complications; Z79.84 Long term (current) use of oral hypoglycemic drugs; Z79.82 Long term (current) use of aspirin; Z79.4 Long term (current) use of insulin; Z87.891 Personal history of nicotine dependence; Z20.822 Contact with and (suspected) exposure to COVID-19
CPT/HCPCS: 36415; 70496; 70498; 80053; 87077; 87635; 93005; 96361; 96374; 96375; 99283; 99285; 70450; 81003; 81015; 82728; 83540; 83550; 83735; 84484; 85025; 87086; 87186; 93010; J2405; J3490

== ENCOUNTER 2022-05-03 13:43 | Emergency (ER) | payer MEDICARE, SELFPAY ==
[2022-05-03 13:47] VITALS: BP 146/57; PULSE 71; RESP 20; TEMP 36.9; O2SAT 97
--- NOTE | 2022-05-03 14:00 | DI.MRI_ITS ---
Exam(s) MR BRAIN WO EXAM: MR BRAIN WO CLINICAL HISTORY: ataxia, vertigo TECHNIQUE: Multiplanar multisequence MRI of the brain was performed. COMPARISON: MR MR BRAIN WO from 07/18/[address] BRAIN NECK CTA from 05/01/2022 FINDINGS: VENTRICLES AND EXTRA AXIAL SPACES: Normal in size and morphology for the patient's age. MIDLINE SHIFT: None. CEREBRAL PARENCHYMA: No focus of restricted diffusion to suggest acute infarct. No space-occupying le harmeet identified. HEMORRHAGE: None. BRAINSTEM/CEREBELLUM: Normal. CALVARIUM: Normal. VISUALIZED PARANASAL SINUSES/MASTOIDS:Clear. [place]: Normal flow void. [place]: Unremarkable. OTHER FINDINGS: None. IMPRESSION: 1. Unremarkable MRI of the brain. 2. Results of this exam have been verbally communicated with provider. DATA REPOSITORY:
[2022-05-03 14:04] VITALS: RESP 16
--- NOTE | 2022-05-03 14:14 | ED.GENADUL_ITS ---
Discharge Plan Disposition Patient Disposition: STILL A PATIENT Condition: Stable Discharge Details Clinical Impression: Anemia, Ataxia Primary Care Provider: Lorena Kearns ED Provider: Rusty Jackson Home Meds and New Rx's Prescriptions: No Action cyanocobalamin (vitamin B-12) 1,000 mcg capsule 1,000 mcg PO DAILY zinc 50 mg tablet 50 mg PO DAILY magnesium oxide 400 mg magnesium tablet 400 mg PO DAILY valsartan 160 mg tablet 160 mg PO DAILY insulin aspart U-100 [Novolog Flexpen U-100 Insulin] 100 unit/mL (3 mL) insulin pen 8 - 12 unit subcut TID Jardiance 25 mg tablet 25 mg PO DAILY citalopram 20 mg tablet 20 mg PO DAILY ascorbic acid (vitamin C) 500 mg capsule 500 mg PO DAILY metformin [Glucophage] 1,000 MG tablet 1,000 mg PO BID rosuvastatin [Crestor] 40 MG tablet 40 mg PO QPM multivitamin [Daily Multi-Vitamin] 1 EACH tablet 1 tab PO DAILY AM aspirin [Aspir-81] 81 MG tablet,delayed release (DR/EC) 81 mg PO HS esomeprazole magnesium [Nexium] 40 MG capsule,delayed release(DR/EC) 40 mg PO DAILY valacyclovir 1 gram tablet 1,000 mg PO TID Levemir FlexTouch U-100 Insuln 100 unit/mL (3 mL) insulin pen 80 unit SUBCUT BID acetaminophen 500 mg tablet 500 mg PO Q6H PRN (Reason: pain) Qty: 60 2RF ibuprofen 600 mg tablet 600 mg PO TID PRN (Reason: pain) Qty: 60 2RF Medical Decision Making 66-year-old female who reports nearly 2-week history of ongoing vertigo-like sensation, room spinning sensation, feeling off balance, who was seen in our ER 2 days ago, initially recommended for admission and follow-up MRI, then subsequently discharged home with hopes of getting an MRI as an outpatient in the near future presents for ongoing similar symptoms and inability to obtain outpatient MRI. Clinically she appears well, nontoxic, neurologically intact. No glaring focal weaknesses. Patient was able to ambulate into exam room 8 on her own accord. She appears well, nontoxic, neurologically intact and hemodynamically stable. Will obtain routine screening laboratories and I have contacted MRI and we are able to get an MRI between 3 and 3:30 PM to hopefully rule out posterior CVA. Patient and are agreeable to the plan and have no additional questions or concerns. She does state she may have a hard time in the MRI machine. We will provide IV fluid, IV Valium, and p.o. meclizine White blood cell count of 6.64 hemoglobin 7.7 hematocrit 27.0, slightly decreased from her recent visit. Heme-negative rectal exam platelet count 259. Electrolytes unremarkable. BUN 23 creatinine 1.1 with a GFR of 56.11. LFTs unremarkable. Urinalysis unremarkable for infection Awaiting MRI Medical Records Medical records reviewed: Yes I reviewed the patient's medical records. Lab Data Lab results reviewed: Yes I reviewed the patient's lab results. Labs: Laboratory Tests Range/Units 05/03/22 05/03/22 05/03/22 14:20 14:20 14:59 WBC (4.4-10.8) 10^3/uL 6.64 RBC (3.93-5.22) 10^6/uL 3.71 L Hgb (11.2-15.7) g/dL 7.7 L Hct (36.0-46.0) % 27.0 L MCV (80-95) fL 73 L MCH (27.0-33.0) pg 20.8 L MCHC (32.0-36.0) % 28.5 L RDW (11.7-14.6) % 16.1 H Plt Count (130-400) 10^3/uL 259 MPV (8.0-11.0) fL 11.5 H Immature Gran % 0.9 Neutrophils % 58.4 Lymphocytes % 29.4 Monocytes % 7.4 Eosinophils % 3.3 Basophils % 0.6 Nucleated RBC % (0.0-0.3) % 0.0 Absolute Neutrophils (1.2-6.7) 10^3/uL 3.88 Absolute Lymphocytes (1.2-3.4) 10^3/uL 1.95 Absolute Monocytes (0.1-0.8) 10^3/uL 0.49 Absolute Eosinophils (0.0-0.7) 10^3/uL 0.22 Absolute Basophils (0.0-0.2) 10^3/uL 0.04 RBC Morphology See Below Microcytosis 2+ Sodium (136-145) mmol/L 139 Potassium (3.5-5.1) mmol/L 4.2 Chloride (98-107) mmol/L 104 Carbon Dioxide (21.0-32.0) mmol/L 24.1 Anion Gap (3-11) mmol/L 10.9 BUN (7-18) mg/dL 23 H Creatinine (0.55-1.02) mg/dL 1.1 H Est GFR (CKD-EPI 2020) (mL/min/1.73m2) 56.11 Glucose (74-106) mg/dL 192 H Calcium (8.5-10.1) mg/dL 9.3 Total Bilirubin (0.2-1.0) mg/dL 0.6 AST (15-37) U/L 17 ALT (14-59) U/L 23 Alkaline Phosphatase (46-116) U/L 86 Total Protein (6.4-8.2) g/dL 8.0 Albumin (3.4-5.0) g/dL 3.7 Urine Color (Yellow) Yellow Urine Clarity (Clear) Clear Urine pH (5-8) 5.5 Ur Specific [place] (1.005-1.025) 1.015 Urine Protein (Negative) mg/dL 30 H Urine Ketones (Negative) mg/dL Negative Urine Blood (Negative) Trace-intact H Urine Nitrite (Negative) Negative Urine Bilirubin (Negative) Negative Urine Urobilinogen (Up TO 0.2) EU/dL 0.2 Ur Leukocyte Esterase (Negative) Negative Urine Glucose (Negative) mg/dL 500 H HPI General Mode of arrival: ambulatory . Date/Time Provider Initiated Documentation: 05/03/22 13:44 . Limitations to Documentation: no limitations . Information obtained by: patient and family . HPI Narrative: This is a 66-year-old female, past medical history that includes iron deficiency anemia, ataxia, hypertension, anxiety, depression, diabetes, vertigo, who was seen in our ER on Saturday, negative CT CTA of the head, recommended admission, subsequently discharged pending outpatient MRI, presenting to the ER for ongoing vertigo-like symptoms that been going on for almost 2 weeks consistently. Patient states that she does have vertigo at baseline but this is worse and not improving with her meclizine. She denies headache, visual changes, chest pain, shortness of breath, abdominal pain, nausea, vomiting, numbness, tingling, weakness. Patient states that she is able to ambulate but feels off balance. She contacted the radiology department but was unable to help a MRI as an outpatient and unfortunately her PCP is out of the office. Related Data Home Medications Medication Instructions Recorded Confirmed aspirin 81 mg tablet,delayed 81 mg PO HS 11/18/12 05/03/22 release (Aspir-) metformin 1,000 mg tablet 1,000 mg PO BID 11/18/12 05/03/22 (Glucophage) multivitamin (Daily Multi-Vitamin 1 tab PO DAILY AM 11/18/12 05/03/22 tablet) rosuvastatin 40 mg tablet (Crestor) 40 mg PO QPM 11/18/12 05/03/22 esomeprazole magnesium 40 mg 40 mg PO DAILY 09/03/16 05/03/22 capsule,delayed release (Nexium) acetaminophen 500 mg tablet 500 mg PO Q6H PRN pain #60 tabs 10/06/19 05/03/22 ibuprofen 600 mg tablet 600 mg PO TID PRN pain #60 tabs 10/06/19 05/03/22 cyanocobalamin (vitamin B-12) 1,000 mcg PO DAILY 10/16/19 05/03/22 1,000 mcg capsule valsartan 160 mg tablet 160 mg PO DAILY 01/29/20 05/03/22 insulin detemir U-100 100 unit/mL 80 unit subcut BID 06/16/21 05/03/22 (3 mL) subcutaneous pen (Levemir FlexTouch U-100 Insulin) valacyclovir 1 gram tablet 1,000 mg PO TID 06/16/21 05/03/22 ascorbic acid (vitamin C) 500 mg 500 mg PO DAILY 06/28/21 05/03/22 capsule citalopram 20 mg tablet 20 mg PO DAILY 06/28/21 05/03/22 empagliflozin 25 mg tablet 25 mg PO DAILY 06/28/21 05/03/22 (Jardiance) insulin aspart U-100 100 unit/mL 8 - 12 unit subcut TID 06/28/21 05/03/22 (3 mL) subcutaneous pen (Novolog Flexpen U-100 Insulin aspart) magnesium oxide 400 mg PO DAILY 10/11/21 05/03/22 zinc 50 mg tablet 50 mg PO DAILY 10/11/21 05/03/22 Previous Rx's Medication Instructions Recorded acetaminophen 500 mg tablet 500 mg PO Q6H PRN pain #60 tabs 10/06/19 ibuprofen 600 mg tablet 600 mg PO TID PRN pain #60 tabs 10/06/19 Allergies Allergy/AdvReac Type Severity Reaction Status Date / Time azithromycin Allergy Intermediate Tongue Verified 05/03/22 13:50 swelling General Stated Complaint: Dizzy/Sync KAMLESH: 3 Review of Systems Constitutional Constitutional: Denies fever(s), Denies headache(s) and Denies weakness Eyes Eyes: Denies change in vision ENT Ears, Nose, Mouth, and Throat: Denies headache(s) and Denies neck pain Cardiovascular Cardiovascular: Denies chest pain and Denies dyspnea Respiratory Respiratory: Denies cough and Denies dyspnea Gastrointestinal Gastrointestinal: Denies abdominal pain, Reports nausea and Denies vomiting Genitourinary Genitourinary: Denies dysuria Musculoskeletal Musculoskeletal: Denies neck pain, Denies numbness, Denies stiffness and Denies tingling Integumentary/Breasts Skin/Breast: Denies rash Neurologic Neurologic: Denies headache(s), Denies numbness, Denies tingling and Denies weakness Hematologic/Lymphatic Hematologic/Lymphatic: Denies easy bleeding and Denies easy bruising PFSH All Active Problems (Updated 05/03/22 @ 15:02 by JENNIFER Capps) Anemia (Chronic) Ataxia (Acute) Ataxic gait (Acute) Anemia (Chronic) Diabetic neuropathy (Acute) Muscle weakness (Acute) Balance problem (Acute) Shortness of breath (Acute) Internal hemorrhoid (Acute) Colon polyp (Acute) Dyspnea (Acute) Diverticulosis (Acute) Chest pain (Acute) Screening for colon cancer (Acute) Tear of medial meniscus of right knee (Acute) Injected 01/07/2019 Trigger finger, right middle finger (Chronic) Medical History Anemia, iron deficiency Ataxia Benign hypertension Chronic anxiety Depression Diabetes mellitus Diabetes mellitus, type II, insulin dependent Diabetic retinopathy Dyspnea on exertion Fatigue Fatty infiltration of liver Foot pain, right Gastroesophageal reflux disease Hyperlipidemia Hypertension Microalbuminuria Narcolepsy YARELIS on CPAP PTSD (post-traumatic stress disorder) Pt. denies this dx Recurrent falls Retinopathy Shingles Sleep apnea does not use CPAP machine recently, due to ill-fitting mask Tubular adenoma of colon Urinary incontinence, mixed Vitamin B12 deficiency Surgical History History of carpal tunnel release History of esophagogastroduodenoscopy (EGD) History of hysterectomy Hx of arthroscopy of right knee Hx of laparoscopy Removed left ovary. Per pt, was to check for endometriosis. Hx of tubal ligation S/P excision of lipoma excision of lipoma on back Trigger Finger release LMF, LRF Family History Sister Cancer colon cancer age 74. Mother Heart disease Social History Smoking/Tobacco Use Status: Former Tobacco Use Quit Date: 08/26/00 Smoking risk assessment performed?: Yes Alcohol Intake: current Alcohol Intake frequency: holidays/special occasions only Drug use: Never Substance use type: does not use Number of Children: 2 current occupation: Disabled Current gender identity: female Do you feel safe at home: Yes Do you feel safe in your relationship?: Yes Exam Const General: cooperative, healthy appearing, comfortable and no acute distress Orientation: alert, awake and oriented x3 HENMT Head: normal to inspection, normocephalic and atraumatic Face and sinus: normal facial exam Mouth: moist mucous membranes Throat: posterior oropharynx normal Eyes General: appearance normal, both eyes and all related structures Conjunctivae: conjunctivae normal Other: Mild horizontal nystagmus Neck Neck: normal visual inspection, full ROM, trachea midline and supple Resp Effort & Inspection: normal respiratory effort and able to speak in complete sentences Auscultation: clear to auscultation bilaterally Cardio Rate: regular rate Rhythm: regular rhythm GI Palpation: soft and nontender Rectal Exam - female: normal sphincter tone, heme negative stool, hemorrhoids (External, nontender) and other (Female RN in room for examination) Skin General skin exam: no rashes or lesions noted Neuro General: patient alert, patient awake, patient oriented x3, moves all extremities and no focal motor deficits Cranial Nerves: CN's II-XI intact bilaterally Cognition: normal cognition Speech: speech normal Gait: ataxic (Minimally) Motor: muscle tone normal throughout, no movement abnormalities noted and no fasciculations Sensory Exam: no sensory deficits noted Extrem General: normal to inspection, full ROM and capillary refill normal Psych Appearance: grossly normal Mental Status: mental status grossly normal Course Vital Signs Vital signs: Vital Signs Temperature 36.9 C 05/03/22 13:47 Pulse 71 05/03/22 13:47 Respiratory Rate 20 05/03/22 13:47 Blood Pressure 146/57 H 05/03/22 13:47 Pulse Oximetry 97 05/03/22 13:47 Temperature 36.9 C 05/03/22 13:47 Temperature Source Temporal Artery Scan 05/03/22 13:47 Pulse 71 05/03/22 13:47 Respiratory Rate 16 05/03/22 14:04 Respiratory Effort Non-Labored 05/03/22 14:04 Respiratory Depth Normal 05/03/22 14:04 Respiratory Pattern Normal 05/03/22 14:04 Blood Pressure 146/57 H 05/03/22 13:47 Blood Pressure Position Sitting 05/03/22 13:47 Pulse Oximetry 97 05/03/22 13:47 Oxygen Delivery Method Room Air 05/03/22 13:47 Oxygen Flow Rate 0 05/03/22 13:47 Pain Level 0 05/03/22 13:47
[2022-05-03 14:27] LABS: Abs Immature Grans 0.06 10^3/uL (0.0-0.06); Absolute Basophil Count 0.04 10^3/uL (0.0-0.2); Absolute Eosinophil Count 0.22 10^3/uL (0.0-0.7); Absolute Lymphocyte Count 1.95 10^3/uL (1.2-3.4); Absolute Monocyte Count 0.49 10^3/uL (0.1-0.8); Absolute Neutrophil Count 3.88 10^3/uL (1.2-6.7); Basophils % 0.6; Eosinophils % 3.3; HGB 7.7 g/dL (11.2-15.7); Immature Grans % 0.9; Lymphocytes % 29.4; MCH 20.8 pg (27.0-33.0); MCHC 28.5 % (32.0-36.0); MCV 73 fL (80-95); MPV 11.5 fL (8.0-11.0); Monocytes % 7.4; Neutrophils % 58.4; Platelet Count 259 10^3/uL (130-400); RBC 3.71 10^6/uL (3.93-5.22); RDW 16.1 % (11.7-14.6); RDW-SD 41.8 fL; WBC 6.64 10^3/uL (4.4-10.8)
[2022-05-03] MEDS: diazePAM 10 MG/2 ML SYR 5 MG IVP (14:39)
[2022-05-03] MEDS: Meclizine 25 MG TAB PO (14:40)
[2022-05-03] MEDS: Normal Saline 1,000 ML 1000 ML IV (14:40)
[2022-05-03 14:42] LABS: ALT 23 U/L (14-59); AST 17 U/L (15-37); Albumin 3.7 g/dL (3.4-5.0); Alkaline Phosphatase 86 U/L (46-116); Anion Gap 10.9 mmol/L (3-11); BUN 23 mg/dL (7-18); Bilirubin, Total 0.6 mg/dL (0.2-1.0); CO2 24.1 mmol/L (21.0-32.0); CREATININE 1.1 mg/dL (0.55-1.02); Calcium 9.3 mg/dL (8.5-10.1); Chloride 104 mmol/L (98-107); Estimated GFR 56.11 (mL/min/1.73m2); Glucose 192 mg/dL (74-106); Potassium 4.2 mmol/L (3.5-5.1); Sodium 139 mmol/L (136-145)
[2022-05-03 14:45] LABS: Diff Comment RBC Morph Reviewed; Microcytosis 2+
--- NOTE | 2022-05-03 15:09 | NUR.NOTE ---
Nursing Note: Provider did rectal exam; hemoccult negative.
[2022-05-03 15:11] LABS: Bilirubin Negative (Negative); Blood Trace-intact (Negative); Clarity Clear (Clear); Glucose 500 mg/dL (Negative); Ketones Negative (Negative); Leukocyte Esterase Negative (Negative); Nitrite Negative (Negative); Specific Gravity 1.015 (1.005-1.025); Urobilinogen 0.2 EU/dL (Up TO 0.2); pH 5.5 (5-8)
[2022-05-03 15:21] LABS: Epithelial Cells Few HPF (Negative); RBC 0-2 HPF (0-2)
[2022-05-03 15:22] LABS: Bacteria Few HPF (Negative); C & S Indicated? Yes; Casts 0-2 Hyaline LPF (Negative); Crystals Negative HPF (Negative); Mucus Negative (Negative)
--- NOTE | 2022-05-03 17:05 | ED.PROG_ITS ---
Date of service: 05/03/22 Time of Service: 16:30 Medical Decision Making Care transition myself from Roly Jackson PA-C. Please see his initial note regarding history, presentation and exam. In brief, patient is a pleasant 66-year-old female, accompanied by her , with concern for intermittent, b rief vertigo as well as ataxia that began approximately 1 week ago. At the time I assumed care, labs had returned showing anemia with a hemoglobin of 7.7. Patient reports that she does have a history of iron deficiency anemia and last received iron transfusion in September. Has not been taking any further iron or any oral iron supplementation since then. However, she is not endorsing any lightheadedness or orthostatic symptoms. She has had an MRI for ataxia historically in 2019 and reports that her gait was similar at that time. States that she was evaluated by Dr. Vera Ricci at [facility] neurology who was concerned that she had weakness in her trunk. I not have access to these notes. Patient was seen here 2 days ago for the same. At that time, CT/CTA were normal. Both the at that time as well today, patient guaiac was negative. She does report that she has a sister who had colon cancer with similar presentation. Patient's last colonoscopy was in 2019. At the time I assumed care, MRI to evaluate for potential CVA or mass was pending. MRI reviewed by radiologist: VENTRICLES AND EXTRA AXIAL SPACES: Normal in size and morphology for the patient's age. MIDLINE SHIFT: None. CEREBRAL PARENCHYMA: No focus of restricted diffusion to suggest acute infarct. No space-occupying lesion identified. HEMORRHAGE: None. BRAINSTEM/CEREBELLUM: Normal. CALVARIUM: Normal.? VISUALIZED PARANASAL SINUSES/MASTOIDS:Clear. [place]: Normal flow void. PIT[place]ARY GL[place]: Unremarkable. OTHER FINDINGS: None. IMPRESSION: 1. Unremarkable MRI of the brain. 2. Results of this exam have been verbally communicated with provider. I ambulated the patient and she did stumble initially to the left tuner walking away from the patient's room, away from me and then returned back and went back towards her room, she was stumbling towards the right. Patient reported initially that her ataxia was only towards the left. She has not fallen at all with this, is able to catch herself or furniture walks. She reports that the vertigo she is experienced is not correlated with the ataxia and she did not have any episodes of this while we were walking. Patient denies any worsening paresthesias, she does have a history of diabetic neuropathy but reports that this has been stable. States that her A1c has been stable around 7. I did consider that anemia may be associated with a B12 def iciency in conjunction with her known iron deficiency anemia which could cause a neurologic manifestation. We will add on a B12 level. We will also tick and Lyme panel. I did discuss admission for her ataxia and patient prefers to be able to stay at home and feels safe doing so. Patient is ready to go home. She feels safe at home and her seems very supportive and able to help her. We did discuss general safety in the home. She is not taking stork stairs and stair doors are being shot. I did advise that she not drive. I advised that she begin the oral iron as she had been prev iously recommended, with colace. PT referral for her ataxia and previously diagnosed weakness. I encouraged hydration. As the patient's symptoms seem somewhat inconsistent, also considered conversion disorder although organic pathology certainly needs to be ruled out. See correlation with the patient's ataxic gait and her anemia, these seem to be 2 separate issues. I do feel that she needs further evaluation of her anemia although some of this may be associated with her cessation of her iron supplementation. We will call her back with B12 level as patient does not wish to stay for admission. I did encourage that she call her primary care in the morning for prompt follow-up, further recommendations and to schedule repeat laboratory evaluation. Strict return precautions were discussed. Patient is aware that she may return anytime for continued management and admission if indicated at that time. All of her questions and concerns were addressed and she is in agreement this plan. Call the patient and let her know B12 was within normal limits. Sign Out Sign Out Data: Sign Out Comment: Vertigo-like symptoms and anemia. Heme-negative rectal exam. Awaiting MRI. Last updated by Rusty Jackson PA at 05/03/22 15:21 Discharge Plan Disposition Patient Disposition: HOME Condition: Stable Discharge Details Clinical Impression: Anemia, Ataxia Primary Care Provider: Lorena Kearns ED Provider: Tashia Harkins Home Meds and New Rx's Prescriptions: Continued cyanocobalamin (vitamin B-12) 1,000 mcg capsule 1,000 mcg PO DAILY zinc 50 mg tablet 50 mg PO DAILY magnesium oxide 400 mg magnesium tablet 400 mg PO DAILY valsartan 160 mg tablet 160 mg PO DAILY insulin aspart U-100 [Novolog Flexpen U-100 Insulin] 100 unit/mL (3 mL) insulin pen 8 - 12 unit subcut TID Jardiance 25 mg tablet 25 mg PO DAILY citalopram 20 mg tablet 20 mg PO DAILY ascorbic acid (vitamin C) 500 mg capsule 500 mg PO DAILY metformin [Glucophage] 1,000 MG tablet 1,000 mg PO BID rosuvastatin [Crestor] 40 MG tablet 40 mg PO QPM multivitamin [Daily Multi-Vitamin] 1 EACH tablet 1 tab PO DAILY AM aspirin [Aspir-81] 81 MG tablet,delayed release (DR/EC) 81 mg PO HS esomeprazole magnesium [Nexium] 40 MG capsule,delayed release(DR/EC) 40 mg PO DAILY valacyclovir 1 gram tablet 1,000 mg PO TID Levemir FlexTouch U-100 Insuln 100 unit/mL (3 mL) insulin pen 80 unit SUBCUT BID acetaminophen 500 mg tablet 500 mg PO Q6H PRN (Reason: pain) Qty: 60 2RF ibuprofen 600 mg tablet 600 mg PO TID PRN (Reason: pain) Qty: 60 2RF Discharge Instructions Instructions: Anemia (ED) Additional Instructions: As we discussed, your MRI was reassuring here today with no evidence of stroke or mass. Your B12 level is pending. I will call you with the result this evening. Your tick and Lyme panel are pending, be sure to return 5 days. We will call you with any positive results. I am concerned with your difficulty walking and potential to fall. Please keep doors shut that go to stairs. Please continue with your furniture walking and ask for assistance when needed. As we discussed, you may always return if you are unsafe and need hospitalization. I have referred you to physical therapy to help with your gait and strengthening. I would also like for you to follow-up with neurology again, please call Dr. Kendall to schedule follow-up appointment, number listed below. Please do not drive with your difficulty walking and spinning sensation. Your anemia has gotten worse, please begin taking your iron supplementation again. You may also want to use stool softener such as Colace with this to help prevent any constipation. Please encourage hydration. If you develop fever/chills, worsening symptoms, feel unsafe at home or develop other new/worsening symptoms please seek care urgently once again. Otherwise, please call your primary care tomorrow to schedule follow-up soon as possible, you will need a repeat lab assessment. Stand Alone Forms: Physical Therapy Referral Referrals: Lorena Kearns MD [Primary Care Provider] - Azul Kendall MD [ [facility] STAFF PHYSICIAN] -
[2022-05-03 17:48] LABS: Vitamin B12 599 pg/mL (193-986)
[2022-05-07 10:43] LABS: Lyme Ab w Rflx to Lyme Confirm Negative (Negative)
[2022-05-07 17:33] LABS: Anaplasma phagocytophilum Negative (Negative); B. miyamotoi PCR Negative (Negative); Babesia divergens/MO-1 Negative (Negative); Babesia duncani Negative (Negative); Babesia microti Negative (Negative); Ehrlichia chaffeensis Negative (Negative); Ehrlichia ewingii/canis Negative (Negative); Ehrlichia muris eauclairensis Negative (Negative)
== END 2022-05-03 17:58 | disposition home or self-care (01) ==
PROVIDERS: Physician Assistant; Emergency Provider Physician Assistant; PCP Family Medicine
DX: D64.9 Anemia, unspecified (principal); R27.0 Ataxia, unspecified; I10 Essential (primary) hypertension; E11.9 Type 2 diabetes mellitus without complications; Z79.84 Long term (current) use of oral hypoglycemic drugs; Z79.82 Long term (current) use of aspirin; Z79.4 Long term (current) use of insulin; Z87.891 Personal history of nicotine dependence
CPT/HCPCS: 36415; 36416; 80053; 82962; 87077; 87798; 96361; 96374; 99284; 70551; 81003; 81015; 82607; 85025; 86618; 87086; 87186; J3360

== ENCOUNTER → 2022-05-09 13:06 | Outpatient (BNVA) | payer MEDICARE, SELFPAY | PROVIDERS: PCP Family Medicine; Referring Provider Family Medicine; Visit Provider Surgery | DX: K21.9 Gastro-esophageal reflux disease without esophagitis (principal); Z86.010 Personal history of colon polyps; Z98.890 Other specified postprocedural states; D64.9 Anemia, unspecified | CPT/HCPCS: 99215 ==

== ENCOUNTER 2022-05-24 10:45 | Outpatient (RCR) | payer MEDICARE, SELFPAY ==
[2022-05-09 10:43] LABS: Abs Immature Grans 0.07 10^3/uL (0.0-0.06); Absolute Basophil Count 0.03 10^3/uL (0.0-0.2); Absolute Eosinophil Count 0.24 10^3/uL (0.0-0.7); Absolute Lymphocyte Count 2.01 10^3/uL (1.2-3.4); Absolute Monocyte Count 0.52 10^3/uL (0.1-0.8); Basophils % 0.4; HCT 27.1 % (36.0-46.0); HGB 7.7 g/dL (11.2-15.7); Immature Grans % 0.9; Lymphocytes % 25.5; MCHC 28.4 % (32.0-36.0); MCV 74 fL (80-95); MPV 11.5 fL (8.0-11.0); Monocytes % 6.6; Neutrophils % 63.6; Platelet Count 316 10^3/uL (130-400); RBC 3.66 10^6/uL (3.93-5.22); RDW 17.9 % (11.7-14.6); RDW-SD 43.9 fL; WBC 7.87 10^3/uL (4.4-10.8)
[2022-05-09 10:56] LABS: Diff Comment RBC Morph Reviewed; Microcytosis 2+
[2022-05-09] MEDS: Normal Saline Flush 10 ML SYR IVP (11:09)
[2022-05-09] MEDS: IRON SUCROSE COMPLEX 300 MG in Normal Saline 250 ML 176.667 MG IVPB (11:09)
[2022-05-09 11:23] LABS: Ferritin 9 ng/mL (8-252)
[2022-05-10 16:08] LABS: Fructosamine 314 mcmol/L (200 - 285)
[2022-05-17] MEDS: IRON SUCROSE COMPLEX 300 MG in Normal Saline 250 ML 176.667 MG IVPB (10:53)
[2022-05-17] MEDS: Normal Saline Flush 10 ML SYR IVP (12:56)
[2022-05-24] MEDS: Normal Saline Flush 10 ML SYR IVP (10:28)
[2022-05-24] MEDS: IRON SUCROSE COMPLEX 300 MG in Normal Saline 250 ML 176.667 MG IVPB (10:32)
[2022-05-24 10:37] LABS: HCT 31.4 % (36.0-46.0); MCH 23.3 pg (27.0-33.0); MCHC 28.7 % (32.0-36.0); MCV 81 fL (80-95); MPV 11.5 fL (8.0-11.0); RBC 3.86 10^6/uL (3.93-5.22); RDW-SD 70.1 fL; WBC 6.75 10^3/uL (4.4-10.8)
[2022-05-24 10:57] LABS: Hemoglobin A1C 6.6 % (<5.7)
[2022-05-24 11:00] LABS: Platelet Count 326 10^3/uL (130-400); RDW 24.8 % (11.7-14.6)
[2022-05-24 11:12] LABS: Ferritin 150 ng/mL (8-252); Magnesium 1.9 mg/dL (1.8-2.4)
[2022-05-26 12:54] LABS: Fructosamine 307 mcmol/L (200 - 285)
== END 2022-05-25 23:59 | disposition home or self-care (01) ==
LOC: INF 10:45
PROVIDERS: PCP Family Medicine; Visit Provider Internal Medicine
DX: E11.9 Type 2 diabetes mellitus without complications (principal); R11.0 Nausea; R06.09 Other forms of dyspnea; D50.9 Iron deficiency anemia, unspecified; R53.83 Other fatigue
CPT/HCPCS: 36415; 85027; 96365; 96366; 99215; 82728; 82985; 83036; 83735; 85025; J1756

== ENCOUNTER → 2022-05-28 10:14 | Outpatient (BNVA) | payer MEDICARE, SELFPAY | PROVIDERS: PCP Family Medicine; Referring Provider Family Medicine; Visit Provider Psychiatry & Neurology Neurology | DX: M62.81 Muscle weakness (generalized) (principal); E11.40 Type 2 diabetes mellitus with diabetic neuropathy, unspecified; R26.89 Other abnormalities of gait and mobility | CPT/HCPCS: 99214 ==

== ENCOUNTER 2022-05-31 13:50 | Outpatient (REF) | payer MEDICARE, SELFPAY ==
[2022-06-02 10:46] LABS: COVID-19 RT-PCR UVMMC Result Negative (Negative)
== END 2022-05-31 13:51 | disposition home or self-care (01) ==
LOC: LBN 13:50
PROVIDERS: PCP Family Medicine; Visit Provider Family Medicine
DX: Z20.822 Contact with and (suspected) exposure to COVID-19 (principal); J06.9 Acute upper respiratory infection, unspecified
CPT/HCPCS: U0003

== ENCOUNTER 2022-06-08 16:11 | Outpatient (REF) | payer MEDICARE, SELFPAY ==
[2022-06-08 19:45] LABS: Iron 32 ug/dL (50-170); Total Iron Binding Capacity 289 ug/dL (250-450); Transferrin Sat 11 % (15-50)
[2022-06-08 19:53] LABS: HCT 30.2 % (36.0-46.0); HGB 8.8 g/dL (11.2-15.7); MCH 23.9 pg (27.0-33.0); MCHC 29.1 % (32.0-36.0); MCV 82 fL (80-95); MPV 12.2 fL (8.0-11.0); Platelet Count 333 10^3/uL (130-400); RBC 3.68 10^6/uL (3.93-5.22); RDW 23.3 % (11.7-14.6); RDW-SD 68.3 fL; WBC 11.43 10^3/uL (4.4-10.8)
[2022-06-08 19:57] LABS: Ferritin 110 ng/mL (8-252)
== END 2022-06-08 16:12 | disposition home or self-care (01) ==
LOC: NCHCN 16:11
PROVIDERS: PCP Family Medicine; Visit Provider Family Medicine
DX: D50.9 Iron deficiency anemia, unspecified (principal)
CPT/HCPCS: 85027; 82728; 83540; 83550

== ENCOUNTER → 2022-06-18 13:01 | Outpatient (CLI) | payer MEDICARE, SELFPAY ==
--- NOTE | 2022-06-18 14:34 | DI.RAD_ITS ---
Exam(s) XR CHEST 2V PA LATERAL EXAM: XR CHEST 2V PA LATERAL CLINICAL HISTORY: COUGH, R05.8 TECHNIQUE: 2D digital imaging was performed. COMPARISON: No exams were available for comparison FINDINGS: HEART: Normal size. Aorta: PULMONARY VASCULATURE: Normal. LUNGS: Clear. PLEURAL SPACE: No pleural effusion or pneumothorax. BONE:Unremarkable for age. IMPRESSION: No acute abnormality. DATA REPOSITORY: RADIATION DOSE DELIVERED:
== END ==
PROVIDERS: PCP Family Medicine; Visit Provider Family Medicine
DX: R05.8 Other specified cough (principal)
CPT/HCPCS: 71046

== ENCOUNTER 2022-06-29 16:38 | Outpatient (REF) | payer MEDICARE, SELFPAY ==
[2022-06-29 16:37] LABS: HCT 30.2 % (36.0-46.0); HGB 8.9 g/dL (11.2-15.7); MCH 24.7 pg (27.0-33.0); MCHC 29.5 % (32.0-36.0); MCV 84 fL (80-95); MPV 12.7 fL (8.0-11.0); Platelet Count 337 10^3/uL (130-400); RBC 3.61 10^6/uL (3.93-5.22); RDW 20.5 % (11.7-14.6); RDW-SD 63.1 fL; WBC 6.74 10^3/uL (4.4-10.8)
[2022-06-29 16:51] LABS: Hemoglobin A1C 6.3 % (<5.7)
[2022-06-29 17:17] LABS: Ferritin 45 ng/mL (8-252)
[2022-07-03 14:54] LABS: Fructosamine 297 mcmol/L (200 - 285)
== END 2022-06-29 16:39 | disposition home or self-care (01) ==
LOC: NCHCN 16:38
PROVIDERS: PCP Family Medicine; Visit Provider Family Medicine
DX: D50.9 Iron deficiency anemia, unspecified (principal)
CPT/HCPCS: 85027; 82728; 82985; 83036

== ENCOUNTER 2022-07-05 18:24 | Outpatient (REF) | payer MEDICARE, SELFPAY | END 2022-07-05 18:25 | disposition home or self-care (01) | LOC: NCHCN 18:24 | PROVIDERS: PCP Family Medicine; Visit Provider Family Medicine | DX: R05.8 Other specified cough (principal) | CPT/HCPCS: 87070; 87205 ==

== ENCOUNTER 2022-07-25 15:32 | Outpatient (REF) | payer MEDICARE, SELFPAY ==
[2022-07-25 16:09] LABS: HCT 33.6 % (36.0-46.0); HGB 9.8 g/dL (11.2-15.7); MCH 24.3 pg (27.0-33.0); MCHC 29.2 % (32.0-36.0); MCV 83 fL (80-95); MPV 12.3 fL (8.0-11.0); Platelet Count 290 10^3/uL (130-400); RBC 4.03 10^6/uL (3.93-5.22); RDW 16.7 % (11.7-14.6); RDW-SD 49.7 fL; WBC 7.06 10^3/uL (4.4-10.8)
[2022-07-25 16:34] LABS: Anion Gap 10.3 mmol/L (3-11); BUN 29 mg/dL (7-18); CO2 24.7 mmol/L (21.0-32.0); CREATININE 0.9 mg/dL (0.55-1.02); Calcium 9.7 mg/dL (8.5-10.1); Chloride 102 mmol/L (98-107); Estimated GFR 70.95 (mL/min/1.73m2); Ferritin 28 ng/mL (8-252); Glucose 180 mg/dL (74-106); Potassium 4.4 mmol/L (3.5-5.1); Sodium 137 mmol/L (136-145)
== END 2022-07-25 15:33 | disposition home or self-care (01) ==
LOC: NCHCN 15:32
PROVIDERS: PCP Family Medicine; Visit Provider Family Medicine
DX: D50.9 Iron deficiency anemia, unspecified (principal)
CPT/HCPCS: 80048; 85027; 82728

== ENCOUNTER 2022-07-31 06:14 | Day surgery (SDC) | payer MEDICARE, SELFPAY ==
--- NOTE | 2022-07-30 21:29 | W.PM.DSUDISC ---
Date of service: 07/31/22 Time of Service: 07:46 Discharge Plan Disposition Patient Disposition: HOME Condition: Good Discharge Details Reason For Visit: EGD Attending Provider: Vin Gonzalez Primary Care Provider: Lorena Kearns Home Meds and New Rx's Prescriptions: Continued zinc 50 mg tablet 50 mg PO DAILY polyethylene glycol 3350 17 gram/dose powder 238 g PO ONCE Qty: 238 0RF Rx Instructions: take per colonoscopy instructions bisacodyl [Dulcolax (bisacodyl)] 5 mg tablet,delayed release (DR/EC) 5 mg PO ONCE Qty: 4 0RF Rx Instructions: take per colonoscopy instructions [place] Saline 0.65 % aerosol,spray 2 spray intranasal QHS PRN (Reason: dry nasal passages) Qty: 50 12RF valsartan 160 mg tablet 160 mg PO HS insulin aspart U-100 [Novolog Flexpen U-100 Insulin] 100 unit/mL (3 mL) insulin pen 8 - 12 unit subcut TID Jardiance 25 mg tablet 25 mg PO DAILY citalopram 20 mg tablet 20 mg PO HS ascorbic acid (vitamin C) 500 mg capsule 500 mg PO DAILY ondansetron 4 mg tablet,disintegrating 4 mg PO Q4H albuterol sulfate [ProAir HFA] 90 mcg/actuation HFA aerosol inhaler 2 puff inhalation Q6H PRN ferrous sulfate 325 mg (65 mg iron) tablet 325 mg PO BID triamcinolone acetonide 0.1 % cream 1 applic topical BID metformin [Glucophage] 1,000 MG tablet 1,000 mg PO BID rosuvastatin [Crestor] 40 MG tablet 40 mg PO QPM aspirin [Aspir-81] 81 MG tablet,delayed release (DR/EC) 81 mg PO HS esomeprazole magnesium [Nexium] 40 MG capsule,delayed release(DR/EC) 40 mg PO DAILY Levemir FlexTouch U-100 Insuln 100 unit/mL (3 mL) insulin pen 80 unit SUBCUT BID acetaminophen 500 mg tablet 500 mg PO Q6H PRN (Reason: pain) Qty: 60 2RF ibuprofen 600 mg tablet 600 mg PO TID PRN (Reason: pain) Qty: 60 2RF Discharge Instructions Instructions: Upper Endoscopy (GEN) Additional Instructions: 1. If tolerated, consume a soft, low fiber diet for 1-2 days. [address] Do not drive, drink alcohol, operate machinery, make critical decisions, or do activities that require coordination or balance for 24 hours. 3. You may experience a sore throat for 24 to 48 hours. You may use throat lozenges or gargle with warm salt water to relieve the discomfort. 4. Because air was put into your stomach during the procedure, you may experience some belching. 5. Go directly to the emergency room if you notice any of the following: Develop chills (warm to touch), or if you have a thermometer and your temperature is above 101 Difficulty breathing or difficultly swallowing Persistent vomiting Severe abdominal pain, other than gas cramps Severe chest pain Black, tarry stools Any bleeding ? exceeding one tablespoon 6. Call your physician if the site where your intravenous was started becomes red, swollen, painful, and warm to touch. 7. Your physician has reviewed your pre-procedure medications. Please continue to take those medications as previously ordered. You will be given specific information/education regarding any changes to your medications before leaving. Activity:: Activity as Tolerated Activity:: Activity as Tolerated DS: Diagnosis Discharge Diagnosis (1) Anemia, iron deficiency: Asessment and Plan: There is no source of upper gastrointestinal hemorrhage on your EGD.
--- NOTE | 2022-07-30 21:31 | W.PREOPHP ---
Assessment and Plan Assessment and plan (1) Anemia, iron deficiency: Assessment and plan: EGD today History of Present Illness History of Present Illness Chief Complaint: Anemia Narrative: She is 66 years old and was first diagnosed with an iron deficiency anemia approximately 2 years ago.? At that time, she underwent a colonoscopy that revealed an adenomatous polyp.? Otherwise, the colonoscopy was negative.? Subsequently, she was recommended to follow-up with an EGD.? Although she was seen in consultation for that, and plans were made to proceed with EGD, it appears that that test never occurred.? She is unable to recall the details of that, and why she never went through with the upper endoscopy.? She does seem to recall having undergone 1 in the distant past, but no records of that are available to me at this time.? Otherwise, her review of systems is most significant for fatigue, shortness of breath, and difficulty with walking.? I suspect the fatigue and shortness of breath are related to her anemia, as she has no other real compelling source of pulmonary dysfunction.? Furthermore, she tells me that the symptoms seem to be exacerbated by her recent recrudescence of the anemia.? She denies melena or hematochezia.? She tells me that she does have a family history of colorectal disease.? She believes that her sister might have a colon cancer.? She tells me she underwent surgery with removal of 4 inches of her large intestine. Since her visit to the office, her anemia has improved a little bit, but she still remains iron deficient. PFSH All Active Problems Cough (Acute) Diabetic neuropathy (Acute) Muscle weakness (Acute) Balance problem (Acute) Shortness of breath (Acute) Internal hemorrhoid (Acute) Colon polyp (Acute) Dyspnea (Acute) Diverticulosis (Acute) Chest pain (Acute) Screening for colon cancer (Acute) Tear of medial meniscus of right knee (Acute) Injected 01/07/2019 Trigger finger, right middle finger (Chronic) Medical History Anemia, iron deficiency Ataxia Benign hypertension Chronic anxiety Depression Diabetes mellitus Diabetes mellitus, type II, insulin dependent Diabetic retinopathy Dyspnea on exertion Fatigue Fatty infiltration of liver Foot pain, right Gastroesophageal reflux disease Hyperlipidemia Hypertension Microalbuminuria Narcolepsy Nausea YARELIS on CPAP PTSD (post-traumatic stress disorder) Pt. denies this dx Recurrent falls Retinopathy Shingles Sleep apnea does not use CPAP machine recently, due to ill-fitting mask Tension headache Tubular adenoma of colon Urinary incontinence, mixed Vitamin B12 deficiency Surgical History History of carpal tunnel release History of esophagogastroduodenoscopy (EGD) History of hysterectomy Hx of arthroscopy of right knee Hx of laparoscopy Removed left ovary. Per pt, was to check for endometriosis. Hx of tubal ligation S/P excision of lipoma excision of lipoma on back Trigger Finger release LMF, LRF Family History Sister Cancer colon cancer age 74. Abdominal aortic aneurysm Mother Heart disease Social History Smoking/Tobacco Use Status: Former Tobacco Use Quit Date: 08/26/00 Smoking risk assessment performed?: Yes Alcohol Intake: current Alcohol Intake frequency: holidays/special occasions only Drug use: Never Substance use type: does not use Number of Children: 2 current occupation: Disabled Current gender identity: female Do you feel safe at home: Yes Do you feel safe in your relationship?: Yes Meds Allergies and Home Medications Allergies Allergy/AdvReac Type Severity Reaction Status Date / Time azithromycin Allergy Intermediate Tongue Verified 07/31/22 06:49 swelling Home Medications Medication Instructions Recorded Confirmed Type aspirin 81 mg tablet,delayed 81 mg PO HS 11/18/12 07/31/22 History release (Aspir-) metformin 1,000 mg tablet 1,000 mg PO BID 11/18/12 07/31/22 History (Glucophage) rosuvastatin 40 mg tablet (Crestor) 40 mg PO QPM 11/18/12 07/31/22 History esomeprazole magnesium 40 mg 40 mg PO DAILY 09/03/16 07/31/22 History capsule,delayed release (Nexium) acetaminophen 500 mg tablet 500 mg PO Q6H PRN pain #60 tabs 10/06/19 07/31/22 Rx ibuprofen 600 mg tablet 600 mg PO TID PRN pain #60 tabs 10/06/19 07/31/22 Rx valsartan 160 mg tablet 160 mg PO HS 01/29/20 07/31/22 History insulin detemir U-100 100 unit/mL 80 unit subcut BID 06/16/21 07/31/22 History (3 mL) subcutaneous pen (Levemir FlexTouch U-100 Insulin) ascorbic acid (vitamin C) 500 mg 500 mg PO DAILY 06/28/21 07/31/22 History capsule citalopram 20 mg tablet 20 mg PO HS 06/28/21 07/31/22 History empagliflozin 25 mg tablet 25 mg PO DAILY 06/28/21 07/31/22 History (Jardiance) insulin aspart U-100 100 unit/mL 8 - 12 unit subcut TID 06/28/21 07/31/22 History (3 mL) subcutaneous pen (Novolog Flexpen U-100 Insulin aspart) zinc 50 mg tablet 50 mg PO DAILY 10/11/21 07/31/22 History bisacodyl 5 mg tablet,delayed 5 mg PO ONCE colonscopy bowel prep 05/09/22 07/25/22 Rx release (Dulcolax (bisacodyl)) #4 tabs polyethylene glycol 3350 17 238 g PO ONCE colonoscopy prep 05/09/22 07/25/22 Rx gram/dose oral powder #238 grams albuterol sulfate 90 mcg/actuation 2 puff inhalation Q6H PRN 05/24/22 07/31/22 History aerosol inhaler (ProAir HFA) ferrous sulfate 325 mg (65 mg 325 mg PO BID 05/24/22 07/31/22 History iron) tablet ondansetron 4 mg disintegrating 4 mg PO Q4H 05/24/22 07/31/22 History tablet triamcinolone acetonide 0.1 % 1 applic topical BID 05/24/22 07/31/22 History topical cream sodium chloride 0.65 % nasal spray 2 spray intranasal QHS PRN dry 07/25/22 07/31/22 Rx aerosol ([place] Saline) nasal passages #50 mL Exam Const General: cooperative, healthy appearing and comfortable Orientation: awake and oriented x3 Eyes General: appearance normal, both eyes and all related structures Conjunctivae: conjunctivae normal Sclera: sclerae normal Resp Effort & Inspection: normal respiratory effort and able to speak in complete sentences Auscultation: clear to auscultation bilaterally Cardio Jugular venous pressure: no JVD Rate: regular rate Rhythm: regular rhythm Heart Sounds: S1 normal and S2 normal GI Inspection: non-distended Palpation: soft, no guarding, no hernias and nontender Auscultation: normal bowel sounds Skin General skin exam: normal turgor Neuro General: patient alert, patient awake and patient oriented x3 Cognition: normal cognition Extrem Right lower extremity: no edema Left lower extremity: no edema
--- NOTE | 2022-07-30 21:34 | ENDO_ITS ---
Date of service: 07/31/22 Time of Service: 07:47 Endoscopy Report DATE OF PROCEDURE: 07/31/22 PRE-OP DIAGNOSIS: Iron deficiency anemia POST-OP DIAGNOSIS: same PROCEDURE: EGD SURGEON: Vin Gonzalez ANESTHESIA TYPE: General:No Airway ESTIMATED BLOOD LOSS: 10 PATHOLOGY: other (Duodenum, gastric antrum, gastric body, esophagus) COMPLICATIONS: None DISPOSITION: same day INDICATIONS: Jacki is a 67-year-old woman with iron deficiency anemia. PROCEDURE START TIME: 07:27 PROCEDURE END TIME: 07:36 FINDINGS: Normal esophagus, stomach, and duodenum PROCEDURE DESCRIPTION: After the initiation of monitored anesthetic care, and with the assistance of a bite block, I advanced a standard gastroscope through the mouth past the hypopharynx and into the esophagus.? Under the direct vision of the scope, I advanced down the esophagus into the stomach.? Once I entered the stomach, I per formed a brief inspection, followed by retroflexion towards the gastric cardia.? This appeared normal.? After that, I gently advanced the scope around the incisura angularis and examined the pylorus.? This also appeared normal.? Next, I advanced the scope through the pylorus into the duodenum.? The mucosa was pink and healthy appearing.? There were no abnormalities.? I was able to visualize bile draining into the duodenum through the ampulla Vater. I perform random biopsies of the duodenum. ?Next, I began retracting the endoscope.? Once the scope was back in the stomach, I examined all the portions of the stomach once again. It all appeared normal. I did random biopsies of the gastric antrum and body. Next, I desufflated the stomach and brought the scope up into the esophagus. The GE junction was normal-appearing. This was at 38 cm. ?Finally, I withdrew the scope along the length of the esophagus taking great care to examine the entirety of the mucosa.? I did not appreciate any abnormalities.
--- NOTE | 2022-07-31 06:25 | ANES.PREOP_ITS ---
General Info Date of Service Date Performed: 07/31/22 Height: 5 ft 4 in Weight: 87.99 kg Body Mass Index (BMI): 33.3 Surgical Procedure: Operation Date: 07/31/22 07:35 Proposed Procedure Side Surgeon p Gastroscopy Vin Gonzalez MD Meds Allergies and Home Medications Allergies Allergy/AdvReac Type Severity Reaction Status Date / Time azithromycin Allergy Intermediate Tongue Verified 07/31/22 06:49 swelling Home Medication Medication Instructions Recorded aspirin 81 mg tablet,delayed 81 mg PO HS 11/18/12 release (Aspir-) metformin 1,000 mg tablet 1,000 mg PO BID 11/18/12 (Glucophage) rosuvastatin 40 mg tablet (Crestor) 40 mg PO QPM 11/18/12 esomeprazole magnesium 40 mg 40 mg PO DAILY 09/03/16 capsule,delayed release (Nexium) acetaminophen 500 mg tablet 500 mg PO Q6H PRN pain #60 tabs 10/06/19 ibuprofen 600 mg tablet 600 mg PO TID PRN pain #60 tabs 10/06/19 valsartan 160 mg tablet 160 mg PO HS 01/29/20 insulin detemir U-100 100 unit/mL 80 unit subcut BID 06/16/21 (3 mL) subcutaneous pen (Levemir FlexTouch U-100 Insulin) ascorbic acid (vitamin C) 500 mg 500 mg PO DAILY 06/28/21 capsule citalopram 20 mg tablet 20 mg PO HS 06/28/21 empagliflozin 25 mg tablet 25 mg PO DAILY 06/28/21 (Jardiance) insulin aspart U-100 100 unit/mL 8 - 12 unit subcut TID 06/28/21 (3 mL) subcutaneous pen (Novolog Flexpen U-100 Insulin aspart) zinc 50 mg tablet 50 mg PO DAILY 10/11/21 bisacodyl 5 mg tablet,delayed 5 mg PO ONCE colonscopy bowel prep 05/09/22 release (Dulcolax (bisacodyl)) #4 tabs polyethylene glycol 3350 17 238 g PO ONCE colonoscopy prep 05/09/22 gram/dose oral powder #238 grams albuterol sulfate 90 mcg/actuation 2 puff inhalation Q6H PRN 05/24/22 aerosol inhaler (ProAir HFA) ferrous sulfate 325 mg (65 mg 325 mg PO BID 05/24/22 iron) tablet ondansetron 4 mg disintegrating 4 mg PO Q4H 05/24/22 tablet triamcinolone acetonide 0.1 % 1 applic topical BID 05/24/22 topical cream sodium chloride 0.65 % nasal spray 2 spray intranasal QHS PRN dry 07/25/22 aerosol ([place] Saline) nasal passages #50 mL Current Visit Medications: Current Medications Generic Name Dose Route Start Last Admin Trade Name Freq PRN Reason Stop Dose Admin Hyoscyamine Sulfate 0.125 mg 07/30/22 21:34 Hyoscyamine 0.125 Mg Sl/Oral/Chew SL DIRECTED PRN Ringer's Solution 1,000 mls @ 80 mls/hr 07/31/22 06:00 IV 08/29/22 23:59 [facility] IV Miscellaneous Supplies 1 each 07/31/22 06:00 Iv Access IV 08/29/22 23:59 DIRECTED VERO Ondansetron HCl 4 mg 07/30/22 21:34 Ondansetron 4 Mg/2 Ml Vial IVP Q4H PRN PRN Nausea / Vomiting Sodium Chloride 0 ml 07/31/22 06:00 Normal Saline Flush 10 Ml Syr IV 08/29/22 23:59 PRN PRN Sodium Chloride 0 ml 07/31/22 06:00 Normal Saline 10 Ml Vial IJ 08/29/22 23:59 DIRECTED PRN Sterile Water 0 ml 07/31/22 06:00 Water,Injection,Sterile 10 Ml Vial IJ 08/29/22 23:59 DIRECTED PRN PFSH Active Problems Active Problems: Problem Status Onset Code Cough R05.9 Diabetic neuropathy E11.40 Muscle weakness M62.81 Balance problem R26.89 Shortness of breath R06.02 Internal hemorrhoid K64.8 Colon polyp K63.5 Dyspnea R06.00 Diverticulosis K57.90 Chest pain R07.9 Screening for colon cancer Z12.11 Tear of medial meniscus of right knee S83.241A Trigger finger, right middle finger M65.331 Medical History Medical History Anemia, iron deficiency Ataxia Benign hypertension Chronic anxiety Depression Diabetes mellitus Diabetes mellitus, type II, insulin dependent Diabetic retinopathy Dyspnea on exertion Fatigue Fatty infiltration of liver Foot pain, right Gastroesophageal reflux disease Hyperlipidemia Hypertension Microalbuminuria Narcolepsy Nausea YARELIS on CPAP PTSD (post-traumatic stress disorder) Pt. denies this dx Recurrent falls Retinopathy Shingles Sleep apnea does not use CPAP machine recently, due to ill-fitting mask Tension headache Tubular adenoma of colon Urinary incontinence, mixed Vitamin B12 deficiency Medical History Comments:: postnasal drip at night causes coughing in morning Surgical History Surgical History History of carpal tunnel release History of esophagogastroduodenoscopy (EGD) History of hysterectomy Hx of arthroscopy of right knee Hx of laparoscopy Removed left ovary. Per pt, was to check for endometriosis. Hx of tubal ligation S/P excision of lipoma excision of lipoma on back Trigger Finger release LMF, LRF Tobacco Smoking/Tobacco Use Status: Former Tobacco Use Alcohol Alcohol Intake: current Alcohol intake frequency: holidays/special occasions onl y Substance Use Substance use: Never Substance use type: does not use Vital Signs and Lab Results Vital Signs Most Recent Vital Signs in EMR: Temp Pulse Resp BP Pulse Ox 36.7 C 76 18 131/70 98 07/31/22 06:49 07/31/22 06:49 07/31/22 06:49 07/31/22 06:49 07/31/22 06:49 Lab Results Blood Type / Crossmatch: No Data to Display Complete Blood Count: White Blood Count 7.06 10^3/uL (4.4-10.8) 07/25/22 12:10 Red Blood Count 4.03 10^6/uL (3.93-5.22) 07/25/22 12:10 Hemoglobin 9.8 g/dL (11.2-15.7) L 07/25/22 12:10 Hematocrit 33.6 % (36.0-46.0) L 07/25/22 12:10 Platelet Count 290 10^3/uL (130-400) 07/25/22 12:10 Complete Metabolic Panel: Sodium 137 mmol/L (136-145) 07/25/22 12:10 Potassium 4.4 mmol/L (3.5-5.1) 07/25/22 12:10 Chloride 102 mmol/L (98-107) 07/25/22 12:10 Carbon Dioxide 24.7 mmol/L (21.0-32.0) 07/25/22 12:10 BUN 29 mg/dL (7-18) H 07/25/22 12:10 Creatinine 0.9 mg/dL (0.55-1.02) 07/25/22 12:10 Est GFR (CKD-EPI 2020) 70.95 (mL/min/1.73m2) 07/25/22 12:10 Calcium 9.7 mg/dL (8.5-10.1) 07/25/22 12:10 Glucose 180 mg/dL (74-106) H 07/25/22 12:10 Liver Function Panel: No Data to Display Coagulation Panel: No Data to Display Cardiac Panel: No Data to Display Arterial Blood Gas: No Data to Display Venous Blood Gas: No Data to Display Pancreas Panel: No Data to Display Thyroid Panel: No Data to Display Infectious Disease: No Data to Display Blood Cultures: No Data to Display Toxicology Panel: No Data to Display Imaging and Studies Imaging and Studies Study information below may be from another EMR and interpreted by another provider. Please see original notes in EMR for more complete details. EKG Summary: 05/17: Sinus rhythm Stress Test Summary: 2020: 1. The resting electrocardiogram was normal. Patient underwent pharmacologic stress 2. Blunted heart rate and blood pressure response to pharmacologic stress 3. Maximum heart rate was 65% of predicted heart rate for age 4. Electrocardiographically the test was nondiagnostic due to inadequate heart rate 5. No symptoms were elicited to suggest angina Echocardiogram Summary: 06/15: Normal left ventricular wall thickness and chamber size. Estimated ejection fraction is 55 to 60%. There are no segmental wall motion abnormalities Normal right ventricular size and systolic function Both atria are normal in size Aortic valve is sclerotic and trileaflet without stenosis or regurgitation Moderate mitral annular calcification. Trace mitral regurgitation Normal tricuspid valve with trace regurgitation. Normal estimated right ventricular systolic pressure 24.5 mmHg Normal pulmonic valve with trace regurgitation Pulmonary Function Summary: 09/16: no evidence of obstructive or restrictive lung disease, but there is mild diffusion defect. This represents a slightly suboptimal patient effort, but if it is true finding, underlying early developing interstitial lung disease or pulmonary hypertension should be further clinically investigated. When this study was compared to previous one from 06/07/06, the patient has a total of 560 cc's decline in FVC; FEV1 has declined by 490 cc's. Diffusion capacity also had a substantial decline. Clinical correlation therefore recommended. Anesthesia Assessment and Plan Anesthesia History Personal History: No History of Anesthesia Complications Family History: No Family History of Anesthesia Complications Exercise Tolerance Exercise Tolerance: Metabolic Equivalents>4 Cardiac & Pulmonary Exam Cardiac Exam: Normal S1/S2 Heart Sounds Pulmonary Exam: Clear Bilateral Breath Sounds Implantable Cardiac Device Does patient have a Pacemaker or an ICD?: No Airway Exam Known Difficult Airway: No Mallampati Class: 2 Mouth Opening: Narrow (< 3cm) Thyromental Distance: Greater than 3 cm Neck Range of Motion: Full ROM Neck Circumference: Normal Teeth Condition: Edentulous ASA Classification ASA Score: ASA 3 Emergency Case?: No NPO Status NPO Status: NPO Clears >2 hours, Solids >8 hours Anesthesia Plan Resuscitation Status: Full Code Anesthesia Technique: General Anesthesia Airway Planned: Natural Airway Monitors Used: Standard Monitors Preoperative Comments:: 67 yo female for EGD. Sig PMHx: dizzyness/nausea, anemia, neuropathy, DM, YARELIS, anxiety/depression, HTN, GERD Previous Anes: mac 3 grade 1, easy mask - after poorly sealing LMA4. last colo, prop, no issues.
[2022-07-31 06:49] VITALS: BP 131/70; PULSE 76; RESP 18; TEMP 36.7; O2SAT 98
[2022-07-31] MEDS: Lactated Ringers 1,000 ML 80 ML IV (07:00)
[2022-07-31 07:06] VITALS: BMI 33.3
--- NOTE | 2022-07-31 07:30 | STOM_PTH ---
PATIENT: Vicki Botello LOC: [facility] U#:[id number] AGE/SX: 67/F ROOM: RE07/31/[address]: Vin Gonzalez MD : 1955 BED: DIS: 07/31/2022 SPEC #: [id number] RECD: 07/31/22 12:35 STATUS: SIMBA REQ #: [id number] YESSICA: 07/31/22 07:[address]: Vin Gonzalez DEPT: Surgical Specimen RECD BY: Andria Pablo ENTERED: 07/31/22 12:36 SP TYPE: STOMACH OTHR DR: Lorena Kearns Tissues: 1 - BIOPSY BOWEL 2 - STOMACH BIOPSY 3 - STOMACH BIOPSY 4 - ESOPHAGUS BIOPSY Procedures: GROSS AND MICRO LEVEL 4 Comments: [id number]
[2022-07-31 07:43] VITALS: BP 105/59; PULSE 84; RESP 18; TEMP 36.8; O2SAT 98
--- NOTE | 2022-07-31 07:54 | W.ANESPOSTOP ---
Postoperative Evaluation Date, Time and Location Date Performed: 07/31/22 Time Performed: 07:54 Patient Location: Day Surgery Unit Vital Signs Most Recent Imported Vital Signs: Most Recent Vital Signs Temp Pulse Resp BP Pulse Ox 36.8 C 84 18 105/59 L 98 07/31/22 07:43 07/31/22 07:43 07/31/22 07:43 07/31/22 07:43 07/31/22 07:43 Pain Score Most Recent Pain Score: Most Recent Pain Score Pain Level 0 07/31/22 07:43 Assessment Mental Status: Awake (Alert & Oriented to Patient Baseline) Airway and Respiratory Function: Patent airway with normal (patient baseline) respiratory exam Cardiovascular Function: Hemodynamically Stable Hydration Status: Adequately Hydrated Nausea & Vomiting: No Nausea or Vomiting Pain: Pt. Denies Any Pain Peripheral Nerve Block: Patient did not receive a nerve block
[2022-07-31 08:18] VITALS: BP 131/64; PULSE 67; RESP 18; TEMP 36.1; O2SAT 98
== END 2022-07-31 08:34 | disposition home or self-care (01) ==
LOC: SUR 06:14
PROVIDERS: PCP Family Medicine; Visit Provider Surgery
PROC: 0DJ68ZZ Inspection of Stomach, Via Natural or Artificial Opening Endoscopic (ICD-10-PCS; CPT 43235; principal; 2022-07-31 07:30)
DX: D50.9 Iron deficiency anemia, unspecified (principal); K22.89 Other specified disease of esophagus
CPT/HCPCS: 43239; 88305

== ENCOUNTER 2022-08-22 02:09 | Outpatient (RCR) | payer MEDICARE, SELFPAY ==
[2022-08-08] MEDS: Normal Saline Flush 10 ML SYR IVP (10:34)
[2022-08-08] MEDS: IRON SUCROSE COMPLEX 300 MG in Normal Saline 250 ML 176.667 MG IVPB (10:41)
[2022-08-15] MEDS: Normal Saline Flush 10 ML SYR IVP (10:49)
[2022-08-15] MEDS: IRON SUCROSE COMPLEX 300 MG in Normal Saline 250 ML 176.667 MG IVPB (10:55)
[2022-08-22] MEDS: Normal Saline Flush 10 ML SYR IVP (10:49)
[2022-08-22] MEDS: IRON SUCROSE COMPLEX 300 MG in Normal Saline 250 ML 176.667 MG IVPB (10:49)
== END 2022-08-25 23:59 | disposition home or self-care (01) ==
LOC: INF 02:09
PROVIDERS: PCP Family Medicine; Visit Provider Internal Medicine
DX: D50.9 Iron deficiency anemia, unspecified (principal)
CPT/HCPCS: 96365; 96366; J1756

== ENCOUNTER 2022-09-18 19:39 | Outpatient (REF) | payer MEDICARE, SELFPAY ==
[2022-09-18 17:48] LABS: HCT 34.3 % (36.0-46.0); HGB 10.1 g/dL (11.2-15.7); MCH 24.8 pg (27.0-33.0); MCHC 29.4 % (32.0-36.0); MCV 84 fL (80-95); MPV 13.4 fL (8.0-11.0); Platelet Count 405 10^3/uL (130-400); RBC 4.08 10^6/uL (3.93-5.22); RDW 16.8 % (11.7-14.6); WBC 14.57 10^3/uL (4.4-10.8)
[2022-09-18 18:46] LABS: Ferritin 110 ng/mL (8-252)
[2022-09-18 20:49] LABS: Hemoglobin A1C 7.5 % (<5.7)
== END 2022-09-18 19:40 | disposition home or self-care (01) ==
LOC: NCHCN 19:39
PROVIDERS: PCP Family Medicine; Visit Provider Family Medicine
DX: D50.9 Iron deficiency anemia, unspecified (principal); E11.9 Type 2 diabetes mellitus without complications
CPT/HCPCS: 85027; 82728; 83036

== ENCOUNTER 2022-09-21 00:41 | Outpatient (CLI) | payer MEDICARE, SELFPAY ==
--- NOTE | 2022-09-21 08:30 | DI.MAMMO_ITS ---
Exam(s) MAMMO SCREENING EXAM: MAMMO SCREENING CLINICAL HISTORY: SCREENING, Z12.31 TECHNIQUE: Bilateral full field digital CC and MLO mammographic images were obtained with 3D tomosyn thesis and utilizing computer aided detection (CAD). COMPARISON: Available for comparison. FINDINGS: Masses/Architectural Distortion: None seen. There has been no change in the asymmetric breast tissue in the upper outer quadrant of the left breast. Microcalcifications: No suspicious pleomorphic-type are seen. Skin Thickening/Nipple Retraction: None. IMPRESSION: 1. No significant interval change with no specific features of malignancy noted. 2. Unless there is more urgent need, screening mammography is recommended, as per [employer] guidelines. BI-RADS Category 2 - Benign Findings Breast Density - Category B - Scattered areas of fibroglandular density Breast density category C or D implies that the patient has dense breast tissue. Dense breast tissue is very common and is not abnormal but dense breast tissue can make it harder to find cancer on a ma mmogram. Also, dense breast tissue may increase their breast cancer risk. This information about the result of the mammogram report was provided to the patient to raise their awareness. Use this report when you speak with the patient about their risks for breast cancer, which includes their family hist ory. At that time, you may recommend for more screening tests (Ultrasound or MRI) as they might be us eful based on their risk. A negative radiographic report should not delay biopsy if a dominant or clinically suspicious mass is present. Up to ten percent of cancers are not identified on mammography. A negative report may reinforce clinical impression. Adenosis and dense breasts may obscure an underlying neoplasm. False positive reports average 6 to 10%. Patient will receive a letter notifying them of these results.
== END 2022-09-21 01:01 ==
LOC: DI 00:41
PROVIDERS: PCP Family Medicine; Visit Provider Family Medicine
DX: Z12.31 Encounter for screening mammogram for malignant neoplasm of breast (principal)
CPT/HCPCS: 77063; 77067

== ENCOUNTER 2022-09-21 16:43 | Outpatient (REF) | payer MEDICARE, SELFPAY ==
[2022-09-21 18:45] LABS: COMMENT (LAB VIEW ONLY) 53.13 mg/dL; Microalb ug/mg Crea 316.4 ug/mg Cr
== END 2022-09-21 16:44 | disposition home or self-care (01) ==
LOC: NCHCN 16:43
PROVIDERS: PCP Family Medicine; Visit Provider Family Medicine
DX: E11.9 Type 2 diabetes mellitus without complications (principal)
CPT/HCPCS: 82043; 82570

== ENCOUNTER 2022-09-28 00:35 | Outpatient (CLI) | payer MEDICARE, SELFPAY ==
--- NOTE | 2022-09-28 10:55 | DI.DEXA_ITS ---
Exam(s) XR DEXA BONE DENSITY W/WO INGRID EXAM: XR DEXA BONE DENSITY W/WO INGRID CLINICAL HISTORY: MENOPAUSAL, Z78.0 TECHNIQUE: Routine DEXA evaluation of the lumbar spine, hip, or forearm. COMPARISON: No exams were available for comparison FINDINGS: Performed on a Hologic unit. Lateral image: No compression fracture evident. Lumbar Spine total T-score: -0.5 Hip total T-score:1.3 Independent reading at the level of the femoral neck yields T-score of 1.5 Forearm total T-score: -0.1 IMPRESSION: Bone mineral density measures in the normal range. Fracture risk is low. Note: Any spine fracture indicates 5x risk for subsequent spine fracture and 2x risk for subsequent h ip fracture. World Health Organization criteria for BMD interpretation classify patients: Normal...... T- Score at or above -1.0 Osteopenic... T- Score between -1.0 and -2.5 Osteoporosis... T-Score at or below -2.5
== END 2022-09-28 00:55 ==
LOC: DI 00:36
PROVIDERS: PCP Family Medicine; Visit Provider Family Medicine
DX: Z78.0 Asymptomatic menopausal state (principal); Z13.820 Encounter for screening for osteoporosis
CPT/HCPCS: 77080

== ENCOUNTER 2022-10-02 02:25 | Outpatient (CLI) | payer MEDICARE, SELFPAY ==
--- NOTE | 2022-10-02 14:00 | DI.US_ITS ---
APPROVED REPORT EXAM: Comprehensive 2D, Doppler, and color-flow Echocardiogram Patient Location: Out-Patient Senior Quality Control Inspector: Daphne Leslie RDCS (AE) Indications: Systolic heart murmur, dyspnea on exertion Other Information Study Quality: Adequate Conclusion Normal left ventricular wall thickness and chamber size. Estimated ejection fraction is 65%. Wall m otion is normal Normal right ventricular size and systolic function Both atria are normal in size The aortic valve is mildly sclerotic without stenosis or regurgitation Moderate mitral annular calcification. Mild mitral regurgitation Normal tricuspid valve with mild regurgitation. Estimated right ventricular systolic pressure is 20 mmHg Wall motion Left Ventricle The left ventricle is normal size. The left ventricular systolic function is normal. The left ventric ular ejection fraction is within the normal range. There is normal left ventricular wall thickness. T here is normal LV segmental wall motion. There is no ventricular septal defect visualized. LVEF is 65 %. Right Ventricle The right ventricle is normal size. The right ventricular systolic function is normal. The RVSP is 19 .9 mmHg. Atria The left atrium size is normal. The right atrium size is normal. The interatrial septum is intact wit h no evidence for an atrial septal defect. Aortic Valve The Aortic valve is mildly sclerotic. There is no aortic valvular stenosis. No aortic regurgitation i s present. Mitral Valve Moderate mitral annular calcification. No evidence of mitral valve stenosis. Mild mitral regurgitatio n. Tricuspid Valve The tricuspid valve is normal in structure. There is no tricuspid valve stenosis. Mild tricuspid regu rgitation. Pulmonic Valve The pulmonary valve is normal in structure. There is no pulmonic valvular stenosis. Trace to mild pul karolyn regurgitation. Great Vessels The aortic root is normal in size. The ascending aorta is normal in size. Aortic arch is not well vis ualized. IVC is normal in size and collapses >50% with inspiration. Pericardium There is no pericardial effusion. 2D Dimensions IVSD d PLAX 1.08 cm F: 0.6-1.0 LV Vol A2C d MOD 80.0 mL LVPW d PLAX 1.05 cm F: 0.6 - 1.0 LV Vol A4C d MOD 99.1 mL LVID d PLAX 4.24 cm F: 3.8 - 5.2 LA vol/ BSA A2C s A-L 31.7 mL/m2 LVDs 2.75 cm F: 2.2 - 3.5 LA vol/ BSA A4C s A-L 26.6 mL/m2 Ao Root d 2.60 cm F: 2.7 - 3.3 LA Vol/ BSA Biplane s A-L 29.9 mL/m2 RA Area A4C 10.47 cm2 LA Area A4C s MOD 18.42 cm2 RA Vol/ BSA A4C s A-L 11.2 mL/m2 LA Area A2C s MOD 20.70 cm2 Ao Asc Diam d 2.92 cm F: 2.3 - 3.1 LV EF A4C MOD 65.5 % LV EF Teichholz 63.9 % LV EF A2C MOD 68.4 % LVEF (Charles's) 67.27 % F: 54 - 74 LV EF Biplane MOD 67.3 % LV Volume 69.45 mL F: 46 - 106 SV 61.13 mL LV Volume Index 36.74 mL/m2 F: 29 - 61 SV Index 32.30 mL/m2 LV Vol Biplane MOD 90.9 mL FS 34.40 % M-Mode TAPSE 1.84 cm (M/F) >1.7 LV Diastology MV E' medial 0.050 (>0.07 m/s) E/A Ratio 0.5 LV E/e MED 16.10 (<14) MV E Vmax 0.80 (0.4-1.3 m/s) MV E' lateral 0.093 (>0.1 m/s) MV A Vmax 1.50 (0.4-1.3 m/s) LV E/e LAT 8.65 (<14) MV E/A Ratio 0.54 MV E/E' medial 16.14 MV E/E' lateral 8.66 Aortic Valve LVOT Area 3.31 cm2 AoV Area Vmax 2.11 cm2 LVOT Vmax 1.60 m/s AoV Area/ BSA (Vmax) 1.11 cm2/m2 LVOT Mean Lokesh. 0.98 m/s AYAKA Mean Lokesh. 1.96 cm2 LVOT Peak Grad 10.3 mmHg AYAKA Mean Lokesh. Index 1.03 cm2/m2 LVOT Mean Grad 4.8 mmHg LVOT VTI 0.306 m LVOT Diam s 2.05 cm AoV Vmax 2.52 m/s Velocity Ratio 0.63 AoV Mean Lokesh. 1.66 m/s AoV Peak Grad 25.3 mmHg LVOT SV 101.00 mL AoV Mean Grad 12.7 mmHg AoV VTI 0.460 m AoV Area VTI 2.20 cm2 AoV Area/ BSA (VTI) 1.16 cm/m2 Mitral Valve MV DT 385 (160-240 msec) MV PHT 112 msec MV Area PHT 1.97 cm2 MV VTI 0.423 m MV Area VTI 2.39 (4.0-6.0 cm2) Pulmonary Valve PV Vmax 1.30 (0.5-1.5 m/s) RVOT Peak Gr. 4.20 mmHg PV Peak Grad 6.7 mmHg RVOT Mean Gr. 1.90 mmHg PV Mean Grad 3.5 mmHg RVOT VTI 0.184 m PV VTI 0.261 m RVOT Vmax 1.02 m/s Tricuspid Valve TR Peak Grad 16.8 mmHg TR Vmax 2.05 m/s RA Pressure 3.00 mmHg RVSP (TR) 19.9 mmHg
== END 2022-10-02 02:45 ==
LOC: DI 02:25
PROVIDERS: PCP Family Medicine; Visit Provider Family Medicine
DX: R06.09 Other forms of dyspnea (principal)
CPT/HCPCS: 93306

== ENCOUNTER 2022-12-06 10:41 | Emergency (ER) | payer MEDICARE, SELFPAY ==
[2022-12-06 11:02] VITALS: BP 97/57; PULSE 79; RESP 16; TEMP 36.9; O2SAT 96
--- NOTE | 2022-12-06 11:16 | DI.CT_ITS ---
Exam(s) CT ABDOMEN PELVIS W EXAM: CT ABDOMEN PELVIS W CLINICAL HISTORY: RLQ abd Pain. TECHNIQUE: Imaging Protocol: Axial computed tomography images with coronal and sagittal reformatted images were created and reviewed CONTRAST MATERIAL: Intravenous: Omnipaque 350 Contrast volume:100 ml Oral: no COMPARISON: CT CT BRAIN NECK CTA from 05/01/2022 FINDINGS: Exam mildly limited by patient motion. ABDOMEN: Lung Bases: Normal where visualized. Mitral annular calcifications. Liver: Normal density. No measurable mass. Gallbladder and biliary tract: No radiodense calculus or dilation. Pancreas: Normal density, no abnormal calcifications or inflammatory process. Spleen: Normal. Kidneys: Normal size, contour and axis. No radiodense stones or obstructive uropathy. No suspicious m asses seen. Adrenal glands: No masses seen. Abdominal Aorta: Severe atherosclerotic changes with narrowing of the luminal diameter of the lower a bdominal aorta hands proximal iliac arteries. Soft tissues: Anterior abdominal wall edema likely injection sites. PELVIS: Bladder: Nearly empty. No gross wall thickening. No calculi.No focal mass. Bowel: Mild sigmoid diverticulosis. No evidence of diverticulitis. No obstruction. No bowel wall thickening. Appendix normal. Peritoneal cavity: No ascites, collection or mesenteric inflammatory response. Bones: Within normal limits for age. Reproductive organs: Within normal limits. Lymph nodes: Unremarkable. Impression: No acute abnormality in the abdomen and pelvis. RADIATION DOSE DELIVERED: 994.61mGy.cm Total DLP DATA REPOSITORY: All CT scans at this facility are submitted to the National Radiology Data Registry (NRDR) Dose Index Registry (DIR) with the [employer] (ACR). RADIATION OPTIMIZATION: All CT scans at this facility use at least one of these dose optimization te chniques: automated exposure control; mA and/or kV adjustment per patient size (includes targeted exa ms where dose is matched to clinical indication); or iterative reconstruction.
--- NOTE | 2022-12-06 11:17 | ED.GENADUL_ITS ---
Discharge Plan Disposition Patient Disposition: Home Discharge Details Clinical Impression: Abdominal pain Primary Care Provider: Lorena Kearns ED Provider: Jinny Elaine Home Meds and New Rx's Prescriptions: Continued zinc 50 mg tablet 50 mg PO DAILY polyethylene glycol 3350 17 gram/dose powder 238 g PO ONCE Qty: 238 0RF Rx Instructions: take per colonoscopy instructions bisacodyl [Dulcolax (bisacodyl)] 5 mg tablet,delayed release (DR/EC) 5 mg PO ONCE Qty: 4 0RF Rx Instructions: take per colonoscopy instructions [place] Saline 0.65 % aerosol,spray 2 spray intranasal QHS PRN (Reason: dry nasal passages) Qty: 50 12RF valsartan 160 mg tablet 160 mg PO HS insulin aspart U-100 [Novolog FlexPen U-100 Insulin] 100 unit/mL (3 mL) insulin pen 8 - 12 unit subcut TID Jardiance 25 mg tablet 25 mg PO DAILY citalopram 20 mg tablet 20 mg PO HS ascorbic acid (vitamin C) 500 mg capsule 500 mg PO DAILY ondansetron 4 mg tablet,disintegrating 4 mg PO Q4H albuterol sulfate [ProAir HFA] 90 mcg/actuation HFA aerosol inhaler 2 puff inhalation Q6H PRN ferrous sulfate 325 mg (65 mg iron) tablet 325 mg PO BID triamcinolone acetonide 0.1 % cream 1 applic topical BID metformin [Glucophage] 1,000 MG tablet 1,000 mg PO BID rosuvastatin [Crestor] 40 MG tablet 40 mg PO QPM aspirin [Aspir-81] 81 MG tablet,delayed release (DR/EC) 81 mg PO HS esomeprazole magnesium [Nexium] 40 MG capsule,delayed release(DR/EC) 40 mg PO DAILY Levemir FlexTouch U-100 Insuln 100 unit/mL (3 mL) insulin pen 80 unit SUBCUT BID acetaminophen 500 mg tablet 500 mg PO Q6H PRN (Reason: pain) Qty: 60 2RF ibuprofen 600 mg tablet 600 mg PO TID PRN (Reason: pain) Qty: 60 2RF Discharge Instructions Instructions: Abdominal Pain (ED) Additional Instructions: You may take some MiraLAX when you get home to see if this improves her pain. At this time the CT does not show any evidence of appendicitis or infection. No evidence of kidney stones or urinary tract infection. Follow up with primary care provider in 3-5 days. Return to ED sooner if any worsening or concerns. Increase oral fluids. Referrals: Lorena Kearns MD [Primary Care Provider] - 5 days Discharge Data Discharge Date/Time-TO BE ENTERED AT DEPARTURE: 12/06/22 14:45 Medical Decision Making 67-year-old female presents to the ER with a chief complaint of right lower quadrant abdominal pain that began last night. She describes the pain as sharp stabbing associated with nausea vomiting. She was sent here from urgent care for further eval. She was given 4 mg of Zofran ODT prior to arrival. She does have a past surgical history of a total hysterectomy, denies any diarrhea or problems urinating Work-up ordered including CBC CMP, lipase urinalysis CT abdomen pelvis rule out appendectomy versus kidney stone. CBC largely within normal limits, no leukocytosis or left shift, BUN 26 cr eatinine 1.2 GFR is 50 glucose 121 lipase within normal limits, urine protein 100 urine glucose 500. No evidence of UTI. CT shows no evidence of appendicitis. There is some diverticulosis but no evidence of diverticulitis. She does have some severe atherosclerotic changes of the lower abdominal aorta. Will discuss CT results with patient and strict return instructions. This text was generated using [employer] dictation system, please disregard any oddities of phrase or misspellings. Imaging Data Radiologic Study: Imaging: CT Scan Radiologist's impression: COMPARISON: CT CT BRAIN NECK CTA from 05/01/2022 FINDINGS: Exam mildly limited by patient motion. ABDOMEN: Lung Bases: Normal where visualized. Mitral annular calcifications. Liver: Normal density. No measurable mass. Gallbladder and biliary tract: No radiodense calculus or dilation. Pancreas: Normal density, no abnormal calcifications or inflammatory process. Spleen: Normal. Kidneys: Normal size, contour and axis. No radiodense stones or obstructive uropathy. No suspicious masses seen. Adrenal glands: No masses seen. Abdominal Aorta: Severe atherosclerotic changes with narrowing of the luminal diameter of the lower abdominal aorta hands proximal iliac arteries. Soft tissues: Anterior abdominal wall edema likely injection sites. PELVIS: Bladder: Nearly empty. No gross wall thickening. No calculi.No focal mass. Bowel: Mild sigmoid diverticulosis. No evidence of diverticulitis. No obstruction. No bowel wall thickening. Appendix normal. Peritoneal cavity: No ascites, collection or mesenteric inflammatory response. Bones: Within normal limits for age. Reproductive organs: Within normal limits. Lymph nodes: Unremarkable. Impression: No acute abnormality in the abdomen and pelvis. HPI General Mode of arrival: ambulatory . Date/Time Provider Initiated Documentation: 12/06/22 11:14 . Limitations to Documentation: no limitations . Information obtained by: patient, RN/MD, RN notes reviewed and old records reviewed . HPI Narrative: 67-year-old female presents to the ER with a chief complaint of right lower quadrant abdominal pain that began last night. She describes the pain as sharp stabbing associated with nausea vomiting. She was sent here from urgent care for further eval. She was given 4 mg of Zofran ODT prior to arrival. She does have a past surgical history of a total hysterectomy, denies any diarrhea or pr oblems urinating. She is also type II diabetic, anemia, diverticulosis, colon polyp GERD, hyperlipidemia hypertension Related Data Home Medications Medication Instructions Recorded Confirmed aspirin 81 mg tablet,delayed 81 mg PO HS 11/18/12 07/31/22 release (Aspir-) metformin 1,000 mg tablet 1,000 mg PO BID 11/18/12 07/31/22 (Glucophage) rosuvastatin 40 mg tablet (Crestor) 40 mg PO QPM 11/18/12 07/31/22 esomeprazole magnesium 40 mg 40 mg PO DAILY 09/03/16 07/31/22 capsule,delayed release (Nexium) acetaminophen 500 mg tablet 500 mg PO Q6H PRN pain #60 tabs 10/06/19 07/31/22 ibuprofen 600 mg tablet 600 mg PO TID PRN pain #60 tabs 10/06/19 07/31/22 valsartan 160 mg tablet 160 mg PO HS 01/29/20 07/31/22 insulin detemir U-100 100 unit/mL 80 unit subcut BID 06/16/21 07/31/22 (3 mL) subcutaneous pen (Levemir FlexTouch U-100 Insulin) ascorbic acid (vitamin C) 500 mg 500 mg PO DAILY 06/28/21 07/31/22 capsule citalopram 20 mg tablet 20 mg PO HS 06/28/21 07/31/22 empagliflozin 25 mg tablet 25 mg PO DAILY 06/28/21 07/31/22 (Jardiance) insulin aspart U-100 100 unit/mL 8 - 12 unit subcut TID 06/28/21 07/31/22 (3 mL) subcutaneous pen (Novolog FlexPen U-100 Insulin aspart) zinc 50 mg tablet 50 mg PO DAILY 10/11/21 07/31/22 bisacodyl 5 mg tablet,delayed 5 mg PO ONCE colonscopy bowel prep 05/09/22 07/25/22 release (Dulcolax (bisacodyl)) #4 tabs polyethylene glycol 3350 17 238 g PO ONCE colonoscopy prep 05/09/22 07/25/22 gram/dose oral powder #238 grams albuterol sulfate 90 mcg/actuation 2 puff inhalation Q6H PRN 05/24/22 07/31/22 aerosol inhaler (ProAir HFA) ferrous sulfate 325 mg (65 mg 325 mg PO BID 05/24/22 07/31/22 iron) tablet ondansetron 4 mg disintegrating 4 mg PO Q4H 05/24/22 07/31/22 tablet triamcinolone acetonide 0.1 % 1 applic topical BID 05/24/22 07/31/22 topical cream sodium chloride 0.65 % nasal spray 2 spray intranasal QHS PRN dry 07/25/22 07/31/22 aerosol ([place] Saline) nasal passages #50 mL Previous Rx's Medication Instructions Recorded acetaminophen 500 mg tablet 500 mg PO Q6H PRN pain #60 tabs 10/06/19 ibuprofen 600 mg tablet 600 mg PO TID PRN pain #60 tabs 10/06/19 bisacodyl 5 mg tablet,delayed 5 mg PO ONCE colonscopy bowel prep 05/09/22 release (Dulcolax (bisacodyl)) #4 tabs polyethylene glycol 3350 17 238 g PO ONCE colonoscopy prep 05/09/22 gram/dose oral powder #238 grams sodium chloride 0.65 % nasal spray 2 spray intranasal QHS PRN dry 07/25/22 aerosol ([place] Saline) nasal passages #50 mL Allergies Allergy/AdvReac Type Severity Reaction Status Date / Time azithromycin Allergy Intermediate Tongue Verified 07/31/22 06:49 swelling General Stated Complaint: Abd Prob KAMLESH: 3 Review of Systems All systems reviewed & are unremarkable except as noted in HPI and below Gastrointestinal Gastrointestinal: Reports abdominal pain, Reports nausea and Reports vomiting PFSH All Active Problems (Updated 12/06/22 @ 14:19 by Jinny Elaine NP) Abdominal pain (Acute) Cough (Acute) Diabetic neuropathy (Acute) Muscle weakness (Acute) Balance problem (Acute) Shortness of breath (Acute) Internal hemorrhoid (Acute) Colon polyp (Acute) Dyspnea (Acute) Diverticulosis (Acute) Chest pain (Acute) Screening for colon cancer (Acute) Tear of medial meniscus of right knee (Acute) Injected 01/07/2019 Trigger finger, right middle finger (Chronic) Medical History Anemia, iron deficiency Ataxia Benign hypertension Chronic anxiety Depression Diabetes mellitus Diabetes mellitus, type II, insulin dependent Diabetic retinopathy Dyspnea on exertion Fatigue Fatty infiltration of liver Foot pain, right Gastroesophageal reflux disease Hyperlipidemia Hypertension Microalbuminuria Narcolepsy Nausea YARELIS on CPAP PTSD (post-traumatic stress disorder) Pt. denies this dx Recurrent falls Retinopathy Shingles Sleep apnea does not use CPAP machine recently, due to ill-fitting mask Tension headache Tubular adenoma of colon Urinary incontinence, mixed Vitamin B12 deficiency Surgical History History of carpal tunnel release History of esophagogastroduodenoscopy (EGD) History of hysterectomy Hx of arthroscopy of right knee Hx of laparoscopy Removed left ovary. Per pt, was to check for endometriosis. Hx of tubal ligation S/P excision of lipoma excision of lipoma on back Trigger Finger release LMF, LRF Family History Sister Cancer colon cancer age 74. Abdominal aortic aneurysm Mother Heart disease Social History Smoking/Tobacco Use Status: Former Tobacco Use Quit Date: 08/26/00 Smoking risk assessment performed?: Yes Alcohol Intake: current Alcohol Intake frequency: holidays/special occasions only Drug use: Never Substance use type: does not use Number of Children: 2 current occupation: Disabled Current gender identity: female Do you feel safe at home: Yes Do you feel safe in your relationship?: Yes Exam Narrative Exam Narrative: Constitutional: Alert and oriented x3. Appears stated age. Normal body habitus. Head: Normocephalic, no trauma. Eyes: Pupils PERRL, Red reflex noted, EOM's intact. Eyelids symmetrical without lesions, discharge, or swelling. ENT: Bilateral TM's WNL, External ear normal to inspection, no mastoid TTP, swelling, or erythema, Nasal turbinates WNL, no nasal discharge. Normal dentition, Posterior pharynx WNL, no exudate. Chest: RRR, Normal S1, S2, distal pulses intact. Resp: Lungs clear to auscultation bilaterally, no wheezes, rales, or rhonchi. Abdomen: Soft, non-distended, Normoactive bowel sounds all 4 quads. Musculoskeletal: Normal gait, 5/5 strength to all four extremities. Skin: No suspicious rashes or lesions. Capillary refill less than 2 sec. Neurologic: Cranial nerves II-XII intact. Alert and oriented x 3. Motor: No deficits noted. Sensory: Intact bilaterally all 4 extremities. Reflexes: DTR's intact bilaterally.. Hematologic/Lymphatic: No ecchymosis, no lymphadenopathy. Course Vital Signs Vital signs: Vital Signs Temperature 36.9 C 12/06/22 11:02 Pulse 79 12/06/22 11:02 Respiratory Rate 16 12/06/22 11:02 Blood Pressure 97/57 L 12/06/22 11:02 Pulse Oximetry 96 12/06/22 11:02 Temperature 36.9 C 12/06/22 11:02 Temperature Source Skin 12/06/22 11:02 Pulse 79 12/06/22 11:02 Respiratory Rate 16 12/06/22 11:02 Blood Pressure 97/57 L 12/06/22 11:02 Blood Pressure Position Sitting 12/06/22 11:02 Pulse Oximetry 96 12/06/22 11:02 Oxygen Delivery Method Room Air 12/06/22 11:02 Oxygen Flow Rate 0 12/06/22 11:02 Pain Level 0 12/06/22 11:02 Comment feels sleepy - denies dizziness/lightheadedness 12/06/22 11:02
[2022-12-06 12:04] VITALS: BP 101/54; PULSE 72; O2SAT 95
[2022-12-06 12:10] LABS: Abs Immature Grans 0.03 10^3/uL (0.0-0.06); Absolute Basophil Count 0.04 10^3/uL (0.0-0.2); Absolute Lymphocyte Count 1.53 10^3/uL (1.2-3.4); Absolute Monocyte Count 0.46 10^3/uL (0.1-0.8); Absolute Neutrophil Count 5.44 10^3/uL (1.2-6.7); Basophils % 0.5; Eosinophils % 1.3; HCT 34.7 % (36.0-46.0); HGB 10.7 g/dL (11.2-15.7); Immature Grans % 0.4; Lymphocytes % 20.1; MCH 24.9 pg (27.0-33.0); MCHC 30.8 % (32.0-36.0); MCV 81 fL (80-95); MPV 11.8 fL (8.0-11.0); Monocytes % 6.1; Neutrophils % 71.6; Platelet Count 302 10^3/uL (130-400); RBC 4.29 10^6/uL (3.93-5.22); RDW 15.2 % (11.7-14.6); RDW-SD 44.5 fL
[2022-12-06 12:25] LABS: ALT 27 U/L (14-59); AST 16 U/L (15-37); Alkaline Phosphatase 72 U/L (46-116); Anion Gap 5.8 mmol/L (3-11); BUN 26 mg/dL (7-18); Bilirubin, Total 0.7 mg/dL (0.2-1.0); CO2 26.2 mmol/L (21.0-32.0); CREATININE 1.2 mg/dL (0.55-1.02); Calcium 9.9 mg/dL (8.5-10.1); Chloride 107 mmol/L (98-107); Estimated GFR 50.23 (mL/min/1.73m2); Glucose 121 mg/dL (74-106); Lipase 69 U/L (16-77); Magnesium 2.4 mg/dL (1.8-2.4); Potassium 4.8 mmol/L (3.5-5.1); Sodium 139 mmol/L (136-145); Total Protein 8.1 g/dL (6.4-8.2)
[2022-12-06 12:31] VITALS: BP 102/38; PULSE 72; O2SAT 95
[2022-12-06 13:01] VITALS: BP 108/49; PULSE 78; O2SAT 95
[2022-12-06 13:52] LABS: Bilirubin Negative (Negative); Blood Negative (Negative); Clarity Clear (Clear); Glucose 500 mg/dL (Negative); Ketones Negative (Negative); Leukocyte Esterase Negative (Negative); Nitrite Negative (Negative); Specific Gravity 1.025 (1.005-1.025); Urobilinogen 0.2 mg/dL (Up to 0.2)
[2022-12-06] MEDS: Normal Saline - Diluent 50 ML VIAL IJ (13:52)
[2022-12-06] MEDS: Omnipaque 350 MG/ML 500 ML BTL-Imaging package 100 ML IJ (13:53)
[2022-12-06 14:00] LABS: Epithelial Cells Rare HPF (Negative); Other Cells Negative (Negative); RBC Negative HPF (0-2)
[2022-12-06 14:01] LABS: Bacteria Few HPF (Negative); C & S Indicated? No; Casts Negative LPF (Negative); Crystals Negative HPF (Negative); Mucus Trace (Negative)
[2022-12-06] MEDS: Normal Saline 1,000 ML 1000 ML IV (14:11)
== END 2022-12-06 14:45 | disposition home or self-care (01) ==
PROVIDERS: Emergency Provider Registered Nurse Emergency; PCP Family Medicine
DX: K57.30 Diverticulosis of large intestine without perforation or abscess without bleeding (principal); I70.0 Atherosclerosis of aorta; E11.319 Type 2 diabetes mellitus with unspecified diabetic retinopathy without macular edema; I10 Essential (primary) hypertension; Z90.710 Acquired absence of both cervix and uterus; Z79.84 Long term (current) use of oral hypoglycemic drugs; Z79.82 Long term (current) use of aspirin; Z79.4 Long term (current) use of insulin
CPT/HCPCS: 80053; 83690; 96360; 99285; 74177; 81003; 81015; 83735; 85025; 99284

== ENCOUNTER 2022-12-10 14:09 | Outpatient (REF) | payer MEDICARE, SELFPAY ==
[2022-12-10 19:59] LABS: Hemoglobin A1C 7.4 % (<5.7)
[2022-12-10 20:20] LABS: Ferritin 32 ng/mL (8-252); TSH (W/Ref FT4) 0.83 uIU/mL (0.36-3.74)
== END 2022-12-10 14:10 | disposition home or self-care (01) ==
LOC: NCHCN 14:09
PROVIDERS: PCP Family Medicine; Visit Provider Family Medicine
DX: D50.9 Iron deficiency anemia, unspecified (principal); E11.9 Type 2 diabetes mellitus without complications; R11.0 Nausea; Z79.4 Long term (current) use of insulin
CPT/HCPCS: 82728; 83036; 84443

== ENCOUNTER → 2023-01-02 10:28 | Outpatient (BNVA) | payer MEDICARE, SELFPAY | PROVIDERS: PCP Family Medicine; Referring Provider Family Medicine; Visit Provider Physical Therapy Assistant | DX: D64.9 Anemia, unspecified (principal) | CPT/HCPCS: 99213 ==

== ENCOUNTER 2023-01-07 08:44 | Day surgery (SDC) | payer MEDICARE, SELFPAY ==
--- NOTE | 2023-01-06 20:18 | W.PM.DSUDISC ---
Date of service: 01/07/23 Time of Service: 11:38 Discharge Plan Disposition Patient Disposition: Home Condition: Good Discharge Details Reason For Visit: Colonoscopy Attending Provider: Vin Gonzalez Primary Care Provider: Lorena Kearns Home Meds and New Rx's Prescriptions: Continued zinc 50 mg tablet 50 mg PO DAILY [place] Saline 0.65 % aerosol,spray 2 spray intranasal QHS PRN (Reason: dry nasal passages) Qty: 50 12RF citalopram 20 mg tablet 20 mg PO HS ascorbic acid (vitamin C) 500 mg capsule 500 mg PO DAILY ondansetron 4 mg tablet,disintegrating 4 mg PO Q4H albuterol sulfate [ProAir HFA] 90 mcg/actuation HFA aerosol inhaler 2 puff inhalation Q6H PRN ferrous sulfate 325 mg (65 mg iron) tablet 325 mg PO BID triamcinolone acetonide 0.1 % cream 1 applic topical BID bupropion HCl [Wellbutrin SR] 100 mg tablet sustained-release 12 hr 100 mg PO BID Patient Comments: 01/04/23 Pt has not started Ozempic 0.25 mg or 0.5 mg(2 mg/1.5 mL) pen injector 1 mg subcut QWEEK Rx Instructions: for 4 weeks valsartan 160 mg tablet 320 mg PO HS prednisone 10 mg tablet 10 mg PO DAILY Rx Instructions: for 5 dyas Humalog U-100 Insulin 100 unit/mL cartridge See Rx Instructions .ROUTE .COMPLEX Rx Instructions: 8-12 units TID Jardiance 25 mg tablet 25 mg PO DAILY Dulera 200-5 mcg/actuation HFA aerosol inhaler 2 puff inhalation BID PRN multivitamin Tablet 1 tab PO DAILY vitamin B complex [B Complex-Vitamin B12] Tablet 1 tab PO DAILY metformin [Glucophage] 1,000 MG tablet 1,000 mg PO BID rosuvastatin [Crestor] 40 MG tablet 40 mg PO QPM aspirin [Aspir-81] 81 MG tablet,delayed release (DR/EC) 81 mg PO HS esomeprazole magnesium [Nexium] 40 MG capsule,delayed release(DR/EC) 40 mg PO DAILY Levemir FlexTouch U100 Insulin 100 unit/mL (3 mL) insulin pen 45 unit SUBCUT BID acetaminophen 500 mg tablet 500 mg PO Q6H PRN (Reason: pain) Qty: 60 2RF ibuprofen 600 mg tablet 600 mg PO TID PRN (Reason: pain) Qty: 60 2RF Discharge Instructions Additional Instructions: Jacki, I was able to complete your colonoscopy today without any difficulty. You do have some diverticulosis, which can be a source of blood loss. I did not see any obvious bleeding, or signs of recent bleeding during the colonoscopy. I also found a mass right at the top of your anal canal, and the beginning of your rectum. It in an area that would be most consistent with a hemorrhoid, although the appearance of it is a little out of the ordinary for simple hemorrhoid. I did remove this. And I will send it to the pathologist to see exactly what it is. I will be in touch when I have the results. If you experience any anal discomfort over the next day or so, I would encourage you to try some [id number] treatments for hemorrhoids for the next few days. 1. If tolerated, consume a soft, low fiber diet for 1-2 days. 2[address] Do not drive, drink alcohol, operate machinery, make critical decisions, or do activities that require coordination or balance for 24 hours. 3. Because air was put into your colon during the procedure, expelling air from your rectum (passing gas or farting) is normal. 4. You may not have a bowel movement for 1-3 days because of the colonoscopy prep. This is normal. 5. Go directly to the emergency room if you notice any of the following: Develop chills (warm to touch), or if you have a thermometer and your temperature is above 101 Difficulty breathing or difficultly swallowing Persistent vomiting Severe abdominal pain, other than gas cramps Severe chest pain Black, tarry stools Any bleeding ? exceeding one tablespoon 6. Call your physician if the site where your intravenous was started becomes red, swollen, painful, and warm to touch. 7. Your physician has reviewed your pre-procedure medications. Please continue to take those medications as previously ordered. You will be given specific information/education regarding any changes to your medications before leaving. Activity:: Activity as Tolerated Diet:: As Tolerated Discharge Orders Discharge Orders: Discharge Order (Routine); Ordered 01/06/23 Ordered By: Vin Gonzalez DS: Diagnosis Discharge Diagnosis (1) Anemia: Status: Inactive Asessment and Plan: Follow-up on pathology report
--- NOTE | 2023-01-06 20:20 | COLE_ITS ---
Date of service: 01/07/23 Time of Service: 11:37 Colonoscopy Report Date of procedure: 01/07/23 Pre-op diagnosis general: Iron deficiency anemia Post-op diagnosis procedure note: other (Diverticulosis, rectal mass) Procedure: Colonoscopy with rectal polyp removal Surgeon: Vin Gonzalez Anesthesia Type: General:No Airway Estimated blood loss (mL): 5 Pathology: other (Rectal mass, biopsies of rectal mass) Complications: None Disposition: same day Indications: Vicki is a 67 year old woman with iron deficiency anemia. Prep: Miralax/Dulcolax Procedure Start Time: 10:56 Procedure End Time: 11:29 Retraction Time: 19 Findings: Rectal mass Procedure Description: After the induction of monitored anesthetic care, and with the patient in left lateral decubitus position, I began by performing an external anorectal exam.? Perineum and skin were normal, as was the anal verge.? There is a fibrosed external skin tag that was present on the previous exam..? Next, I performed a digital rectal exam.? there is a palpable mass at the uppermost portion of the anal column.? Next, I advanced a colonoscope into the rectal vault.? I performed retroflexion.? The mass is seen arising from the top of the anal column, right at the base of the rectum. It is approximately 2.5 cm in its greatest dimension.? Based on the location, I would expect it to be an internal hemorrhoid, however the color and character of are a little out of the ordinary. I attempted snare polypectomy, but the base of it seemed to thick to pass a cauterized snare. Therefore, I performed cold forceps biopsies. There was minimal bleeding. using insufflation, I then advanced the colonoscope beyond the rectal folds and into the sigmoid colon before advancing towards the cecum.? The quality of the prep was excellent. There was some occasional sigmoid divertic ulosis. There was no stigmata of recent bleeding.? The scope was noted to be in the cecum by identification of the ileocecal valve and appendiceal orifice.? I then began withdrawing the colonoscope using repeated irrigation as necessary for full evaluation of the colonic mucosa. ?Once the scope was withdrawn to the level of the rectum, great care was taken to examine portions of the rectal folds.? I then withdrew the colonoscope, and used a lit anoscope to examine the previously mentioned rectal mass. It was arising from the right anal sidewall, above the dentate line. I was able to prolapse this externally. Again, the base did seem consistent with a hemorrhoid, but the overlying mucosa was smooth and well demarcated and defined. There was no ulceration. Using a combination of energized snare, as well as sharp excision with a scalpel, I divided the base of the lesion, and labeled with this a rectal polyp. the findings and instructions were shared with the patient prior to discharge.
[2023-01-07 09:15] VITALS: BP 127/82; PULSE 67; RESP 16; TEMP 35.5; O2SAT 98
[2023-01-07] MEDS: Lactated Ringers 1,000 ML 80 ML IV (09:52)
--- NOTE | 2023-01-07 10:18 | W.ANESPRE ---
General Info Date of Service Date Performed: 01/07/23 Height: 5 ft 4 in Weight: 80.6 kg Body Mass Index (BMI): 30.4 Surgical Procedure: Operation Date: 01/07/23 10:50 Proposed Procedure Side Surgeon kasey Gonzalez MD Meds Allergies and Home Medications Allergies Allergy/AdvReac Type Severity Reaction Status Date / Time azithromycin Allergy Intermediate Tongue Verified 01/07/23 09:20 swelling Home Medication Medication Instructions Recorded aspirin 81 mg tablet,delayed 81 mg PO HS 11/18/12 release (Aspir-) metformin 1,000 mg tablet 1,000 mg PO BID 11/18/12 (Glucophage) rosuvastatin 40 mg tablet (Crestor) 40 mg PO QPM 11/18/12 esomeprazole magnesium 40 mg 40 mg PO DAILY 09/03/16 capsule,delayed release (Nexium) acetaminophen 500 mg tablet 500 mg PO Q6H PRN pain #60 tabs 10/06/19 ibuprofen 600 mg tablet 600 mg PO TID PRN pain #60 tabs 10/06/19 insulin detemir U-100 100 unit/mL 45 unit subcut BID 06/16/21 (3 mL) subcutaneous pen (Levemir FlexTouch U-100 Insulin) ascorbic acid (vitamin C) 500 mg 500 mg PO DAILY 06/28/21 capsule citalopram 20 mg tablet 20 mg PO HS 06/28/21 zinc 50 mg tablet 50 mg PO DAILY 10/11/21 albuterol sulfate 90 mcg/actuation 2 puff inhalation Q6H PRN 05/24/22 aerosol inhaler (ProAir HFA) ferrous sulfate 325 mg (65 mg 325 mg PO BID 05/24/22 iron) tablet ondansetron 4 mg disintegrating 4 mg PO Q4H 05/24/22 tablet triamcinolone acetonide 0.1 % 1 applic topical BID 05/24/22 topical cream sodium chloride 0.65 % nasal spray 2 spray intranasal QHS PRN dry 07/25/22 aerosol ([place] Saline) nasal passages #50 mL bupropion HCl 100 mg tablet,12 hr 100 mg PO BID 12/28/22 sustained-release (Wellbutrin SR) empagliflozin 25 mg tablet 25 mg PO DAILY 12/28/22 (Jardiance) insulin lispro 100 unit/mL See Rx Instructions .Route .COMPLEX 12/28/22 subcutaneous cartridge (Humalog U-100 Insulin) mometasone-formoterol HFA 200 2 puff inhalation BID PRN 12/28/22 mcg-5 mcg/actuation aerosol inhaler (Dulera) multivitamin 1 tab PO DAILY 12/28/22 prednisone 10 mg tablet 10 mg PO DAILY 12/28/22 semaglutide 0.25 mg or 0.5 mg (2 1 mg subcut QWEEK 12/28/22 mg/1.5 mL) subcutaneous pen injector (Ozempic) valsartan 160 mg tablet 320 mg PO HS 12/28/22 vitamin B complex (B 1 tab PO DAILY 12/28/22 Complex-Vitamin B12 tablet) Current Visit Medications: Current Medications Generic Name Dose Route Start Last Admin Trade Name Freq PRN Reason Stop Dose Admin Hyoscyamine Sulfate 0.125 mg 01/06/23 20:21 Hyoscyamine 0.125 Mg Sl/Oral/Chew SL 02/05/23 20:20 DIRECTED PRN Ringer's Solution 1,000 mls @ 80 mls/hr 01/07/23 06:00 01/07/23 09:52 IV 02/03/23 23:59 80 mls/hr INFUSION VERO Administration IV Miscellaneous Supplies 1 each 01/07/23 06:00 Iv Access IV 02/03/23 23:59 DIRECTED VERO Ondansetron HCl 4 mg 01/06/23 20:21 Ondansetron 4 Mg/2 Ml Vial IVP 02/05/23 20:20 Q4H PRN PRN Nausea / Vomiting Sodium Chloride 0 ml 01/07/23 06:00 Normal Saline Flush 10 Ml Syr IV 02/03/23 23:59 PRN PRN Sodium Chloride 0 ml 01/07/23 06:00 Normal Saline 10 Ml Vial IJ 02/03/23 23:59 DIRECTED PRN Sterile Water 0 ml 01/07/23 06:00 Water,Injection,Sterile 10 Ml Vial IJ 02/03/23 23:59 DIRECTED PRN PFSH Active Problems Active Problems: Problem Status Onset Code Vomiting R11.10 Iron deficiency E61.1 Cough R05.9 Diabetic neuropathy E11.40 Muscle weakness M62.81 Balance problem R26.89 Shortness of breath R06.02 Internal hemorrhoid K64.8 Colon polyp K63.5 Dyspnea R06.00 Diverticulosis K57.90 Chest pain R07.9 Screening for colon cancer Z12.11 Tear of medial meniscus of right knee S83.241A Trigger finger, right middle finger M65.331 Medical History Medical History Anemia, iron deficiency Ataxia Benign hypertension Chronic anxiety Depression Diabetes mellitus Diabetes mellitus, type II, insulin dependent Diabetic retinopathy Dyspnea on exertion Family history of colon cancer sister age 74 Fatigue Fatty infiltration of liver Foot pain, right Gastroesophageal reflux disease Hyperlipidemia Hypertension Microalbuminuria Mitral valve regurgitation Per Dr. Kearns note mild present since 2009 Narcolepsy Nausea YARELIS on CPAP PTSD (post-traumatic stress disorder) Pt. denies this dx Recurrent falls Retinopathy Shingles Sleep apnea does not use CPAP machine recently, due to ill-fitting mask Tension headache Tubular adenoma of colon Urinary incontinence, mixed Vitamin B12 deficiency Medical History Comments:: postnasal drip at night causes coughing in morning Surgical History Surgical History History of carpal tunnel release History of esophagogastroduodenoscopy (EGD) History of hysterectomy Hx of arthroscopy of right knee Hx of laparoscopy Removed left ovary. Per pt, was to check for endometriosis. Hx of tubal ligation S/P excision of lipoma excision of lipoma on back Trigger Finger release LMF, LRF Tobacco Smoking/Tobacco Use Status: Former Tobacco Use Alcohol Alcohol Intake: current Alcohol intake frequency: holidays/special occasions only Substance Use Substance use: Never Substance use type: does not use Vital Signs and Lab Results Vital Signs Most Recent Vital Signs in EMR: Most Recent Vital Signs Temp Pulse Resp BP Pulse Ox 35.5 C L 67 16 127/82 98 01/07/23 09:15 01/07/23 09:15 01/07/23 09:15 01/07/23 09:15 01/07/23 09:15 Lab Results Blood Type / Crossmatch: No Data to Display Complete Blood Count: No Data to Display Complete Metabolic Panel: Hemoglobin A1c 7.4 % (<5.7) H 12/10/22 13:58 Liver Function Panel: No Data to Display Coagulation Panel: No Data to Display Cardiac Panel: No Data to Display Arterial Blood Gas: No Data to Display Venous Blood Gas: No Data to Display Pancreas Panel: No Data to Display Thyroid Panel: Thyroid Stimulating Hormone (TSH) 0.83 uIU/mL (0.36-3.74) 12/10/22 13:58 Infectious Disease: No Data to Display Blood Cultures: No Data to Display Toxicology Panel: No Data to Display Imaging and Studies Imaging and Studies Study information below may be from another EMR and interpreted by another provider. Please see original notes in EMR for more complete details. EKG Summary: 05/17: Sinus rhythm Stress Test Summary: 2020: 1. The resting electrocardiogram was normal. Patient underwent pharmacologic stress 2. Blunted heart rate and blood pressure response to pharmacologic stress 3. Maximum heart rate was 65% of predicted heart rate for age 4. Electrocardiographically the test was nondiagnostic due to inadequate heart rate 5. No symptoms were elicited to suggest angina Echocardiogram Summary: 06/15: Normal left ventricular wall thickness and chamber size. Estimated ejection fraction is 55 to 60%. There are no segmental wall motion abnormalities Normal right ventricular size and systolic function Both atria are normal in size Aortic valve is sclerotic and trileaflet without stenosis or regurgitation Moderate mitral annular calcification. Trace mitral regurgitation Normal tricuspid valve with trace regurgitation. Normal estimated right ventricular systolic pressure 24.5 mmHg Normal pulmonic valve with trace regurgitation Pulmonary Function Summary: 09/16: no evidence of obstructive or restrictive lung disease, but there is mild diffusion defect. This represents a slightly suboptimal patient effort, but if it is true finding, underlying early developing interstitial lung disease or pulmonary hypertension should be further clinically investigated. When this study was compared to previous one from 06/07/06, the patient has a total of 560 cc's decline in FVC; FEV1 has declined by 490 cc's. Diffusion capacity also had a substantial decline. Clinical correlation therefore recommended. Anesthesia Assessment and Plan Anesthesia History Personal History: No History of Anesthesia Complications Family History: No Family History of Anesthesia Complications Exercise Tolerance Exercise Tolerance: Metabolic Equivalents>4 Pertinent Negatives Pertinent Negatives: No Symptoms of GERD, No Major Cardiovascular Symptoms or Complaints and No Major Pulmonary Symptoms or Complaints Cardiac & Pulmonary Exam Cardiac Exam: Normal S1/S2 Heart Sounds Pulmonary Exam: Clear Bilateral Breath Sounds Implantable Cardiac Device Does patient have a Pacemaker or an ICD?: No Airway Exam Known Difficult Airway: No Mallampati Class: 2 Mouth Opening: Narrow (< 3cm) Thyromental Distance: Greater than 3 cm Neck Range of Motion: Full ROM Neck Circumference: Normal Teeth Condition: Removable Dentures/Plates Upper, Removable Dentures/Plates Lower and Edentulous ASA Classification ASA Score: ASA 3 Emergency Case?: No NPO Status NPO Status: NPO Clears >2 hours, Solids >8 hours Anesthesia Plan Resuscitation Status: Full Code Anesthesia Technique: General Anesthesia Airway Planned: Natural Airway Monitors Used: Standard Monitors
[2023-01-07 10:50] VITALS: BMI 30.4
--- NOTE | 2023-01-07 11:00 | BOWEL_PTH ---
PATIENT: Vicki Botello LOC: [facility] U#:[id number] AGE/SX: 67/F ROOM: RE01/07/[address]: Vin Gonzalez MD : [id number] BED: DIS: 01/07/2023 SPEC #: [id number] RECD: 01/07/23 13:12 STATUS: SIMBA REQ #: [id number] YESSICA: 01/07/23 11:[address]: Vin Gonzalez DEPT: Surgical Specimen RECD BY: Andria Pablo ENTERED: 01/07/23 13:13 SP TYPE: Bowel OTHR DR: Lorena Kearns Tissues: 1 - BIOPSY BOWEL Procedures: GROSS AND MICRO LEVEL 4 Comments: [id number]
[2023-01-07 11:35] VITALS: BP 90/51; PULSE 76; RESP 16; TEMP 36.5; O2SAT 97
[2023-01-07 11:48] VITALS: BP 95/54; PULSE 65; RESP 18; TEMP 36.6; O2SAT 96
[2023-01-07 12:06] VITALS: BP 111/49; PULSE 64; RESP 18; TEMP 36.6; O2SAT 98
--- NOTE | 2023-01-07 12:55 | W.ANESPOSTOP ---
Postoperative Evaluation Date, Time and Location Date Performed: 01/07/23 Time Performed: 12:05 Patient Location: Day Surgery Unit Vital Signs Most Recent Imported Vital Signs: Most Recent Vital Signs Temp Pulse Resp BP Pulse Ox 36.6 C 64 18 111/49 L 98 01/07/23 12:06 01/07/23 12:06 01/07/23 12:06 01/07/23 12:06 01/07/23 12:06 Pain Score Most Recent Pain Score: Most Recent Pain Score Pain Level 0 01/07/23 12:06 Assessment Mental Status: Awake (Alert & Oriented to Patient Baseline) Airway and Respiratory Function: Patent airway with normal (patient baseline) respiratory exam Cardiovascular Function: Hemodynamically Stable Hydration Status: Adequately Hydrated Nausea & Vomiting: No Nausea or Vomiting Pain: Pt. Denies Any Pain Peripheral Nerve Block: Patient did not receive a nerve block
== END 2023-01-07 12:17 | disposition home or self-care (01) ==
PROVIDERS: PCP Family Medicine; Visit Provider Surgery
PROC: 0DJD8ZZ Inspection of Lower Intestinal Tract, Via Natural or Artificial Opening Endoscopic (ICD-10-PCS; CPT 45378; principal; 2023-01-07 10:45)
DX: D50.9 Iron deficiency anemia, unspecified (principal); K62.89 Other specified diseases of anus and rectum; K57.30 Diverticulosis of large intestine without perforation or abscess without bleeding; I10 Essential (primary) hypertension; E11.9 Type 2 diabetes mellitus without complications; Z79.4 Long term (current) use of insulin
CPT/HCPCS: 45385; 88305; J2704

== ENCOUNTER → 2023-01-08 10:16 | Outpatient (BNVA) | payer MEDICARE, SELFPAY | PROVIDERS: PCP Family Medicine; Referring Provider Family Medicine; Visit Provider Physical Therapy Assistant | DX: K64.8 Other hemorrhoids (principal); K63.5 Polyp of colon | CPT/HCPCS: 99214 ==

== ENCOUNTER 2023-02-01 12:37 | Outpatient (REF) | payer MEDICARE, SELFPAY ==
[2023-02-01 15:28] LABS: HCT 35.5 % (36.0-46.0); HGB 10.7 g/dL (11.2-15.7); MCH 24.4 pg (27.0-33.0); MCHC 30.1 % (32.0-36.0); MCV 81 fL (80-95); MPV 12.5 fL (8.0-11.0); Platelet Count 253 10^3/uL (130-400); RBC 4.38 10^6/uL (3.93-5.22); RDW 15.8 % (11.7-14.6); RDW-SD 46.2 fL; WBC 5.43 10^3/uL (4.4-10.8)
[2023-02-01 16:00] LABS: Hemoglobin A1C 7.5 % (<5.7)
[2023-02-01 16:03] LABS: Anion Gap 7.1 mmol/L (3-11); BUN 29 mg/dL (7-18); CO2 27.9 mmol/L (21.0-32.0); CREATININE 0.9 mg/dL (0.55-1.02); Calcium 9.3 mg/dL (8.5-10.1); Chloride 107 mmol/L (98-107); Estimated GFR 70.95 (mL/min/1.73m2); Ferritin 22 ng/mL (8-252); Glucose 151 mg/dL (74-106); Potassium 4.9 mmol/L (3.5-5.1); Sodium 142 mmol/L (136-145)
== END 2023-02-01 12:38 | disposition home or self-care (01) ==
LOC: NCHCN 12:37
PROVIDERS: PCP Family Medicine; Visit Provider Family Medicine
DX: E11.9 Type 2 diabetes mellitus without complications (principal); K76.0 Fatty (change of) liver, not elsewhere classified; D50.9 Iron deficiency anemia, unspecified
CPT/HCPCS: 80048; 85027; 82728; 83036

== ENCOUNTER 2023-03-13 10:44 | Outpatient (REF) | payer MEDICARE, SELFPAY ==
[2023-03-13 16:47] LABS: HCT 34.1 % (36.0-46.0); HGB 10.7 g/dL (11.2-15.7); MCH 25.1 pg (27.0-33.0); MCHC 31.4 % (32.0-36.0); MCV 80 fL (80-95); MPV 12.6 fL (8.0-11.0); Platelet Count 267 10^3/uL (130-400); RBC 4.26 10^6/uL (3.93-5.22); RDW 16.8 % (11.7-14.6); RDW-SD 48.1 fL
[2023-03-13 17:18] LABS: Ferritin 22 ng/mL (8-252)
== END 2023-03-13 10:45 | disposition home or self-care (01) ==
LOC: NCHCN 10:44
PROVIDERS: PCP Family Medicine; Visit Provider Family Medicine
DX: D50.9 Iron deficiency anemia, unspecified (principal)
CPT/HCPCS: 85027; 82728

== ENCOUNTER 2023-04-15 15:41 | Outpatient (CLI) | payer MEDICARE, SELFPAY ==
--- NOTE | 2023-04-15 15:30 | DI.RAD_ITS ---
Exam(s) XR KNEE RT 3V AP,LAT,SHASTA EXAM: XR KNEE RT 3V AP,LAT,SHASTA CLINICAL HISTORY: L knee pain. TECHNIQUE: 2D digital imaging was performed. COMPARISON: No exams were available for comparison FINDINGS: 3 views No evidence of fracture although there does appear to be a moderate size joint effusion in the suprap atellar bursa, seen on the lateral view. There are moderate-advanced degenerative changes in the medial compartment with advanced narrowing an d marginal osteophytes of the medial compartment noted. Relative preservation of height of the later al compartment is noted. Moderate degenerative change in the patellofemoral compartment noted. IMPRESSION: Degenerative changes in the medial patellofemoral compartments. Joint effusion. There is also a calcified loose body in the posterior aspect of the intercondylar fo ssa, best seen on the AP view.. DATA REPOSITORY: RADIATION DOSE DELIVERED:
== END 2023-04-15 15:42 | disposition home or self-care (01) ==
LOC: DIORS 15:41
PROVIDERS: PCP Family Medicine; Referring Provider Family Medicine; Visit Provider Student in an Organized Health Care Education/Training Program
DX: M17.11 Unilateral primary osteoarthritis, right knee
CPT/HCPCS: 20610; 73562; 99213; J1040

== ENCOUNTER 2023-04-17 18:25 | Outpatient (REF) | payer MEDICARE, SELFPAY ==
[2023-04-17 21:40] LABS: HCT 32.2 % (36.0-46.0); MCH 25.5 pg (27.0-33.0); MCHC 31.1 % (32.0-36.0); MCV 82 fL (80-95); Platelet Count 290 10^3/uL (130-400); RBC 3.92 10^6/uL (3.93-5.22); RDW 16.5 % (11.7-14.6); RDW-SD 49.1 fL; WBC 11.37 10^3/uL (4.4-10.8)
[2023-04-17 21:52] LABS: Hemoglobin A1C 7.4 % (<5.7)
[2023-04-17 22:05] LABS: Ferritin 17 ng/mL (8-252)
== END 2023-04-17 18:26 | disposition home or self-care (01) ==
LOC: NCHCN 18:25
PROVIDERS: PCP Family Medicine; Visit Provider Family Medicine
DX: D50.9 Iron deficiency anemia, unspecified (principal); E11.9 Type 2 diabetes mellitus without complications
CPT/HCPCS: 85027; 82728; 83036

== ENCOUNTER 2023-04-25 01:24 | Outpatient (RCR) | payer MEDICARE, SELFPAY ==
[2023-04-25] MEDS: Normal Saline Flush 10 ML SYR IVP (09:21)
[2023-04-25] MEDS: IRON SUCROSE COMPLEX 300 MG in Normal Saline 250 ML 176.667 MG IVPB (09:35)
== END 2023-04-25 23:59 | disposition home or self-care (01) ==
LOC: INF 01:24
PROVIDERS: PCP Family Medicine; Visit Provider Nurse Practitioner Family
DX: D64.9 Anemia, unspecified (principal)
CPT/HCPCS: 96365; 96366; J1756

== ENCOUNTER 2023-05-08 02:41 | Outpatient (RCR) | payer MEDICARE, SELFPAY ==
[2023-05-02] MEDS: Normal Saline Flush 10 ML SYR IVP (09:28)
[2023-05-02] MEDS: IRON SUCROSE COMPLEX 300 MG in Normal Saline 250 ML 176.667 MG IVPB (09:28)
[2023-05-08] MEDS: Normal Saline Flush 10 ML SYR IVP (09:27)
[2023-05-08] MEDS: IRON SUCROSE COMPLEX 300 MG in Normal Saline 250 ML 176.667 MG IVPB (09:27)
== END 2023-05-25 23:59 | disposition home or self-care (01) ==
LOC: INF 02:41
PROVIDERS: PCP Family Medicine; Visit Provider Nurse Practitioner Family
DX: D50.9 Iron deficiency anemia, unspecified (principal)
CPT/HCPCS: 96365; 96366; J1756

== ENCOUNTER → 2023-06-10 14:51 | Outpatient (BNVA) | payer MEDICARE, SELFPAY | PROVIDERS: PCP Family Medicine; Referring Provider Family Medicine; Visit Provider Student in an Organized Health Care Education/Training Program | DX: M17.11 Unilateral primary osteoarthritis, right knee (principal); M76.892 Other specified enthesopathies of left lower limb, excluding foot; M76.891 Other specified enthesopathies of right lower limb, excluding foot | CPT/HCPCS: 99213 ==

== ENCOUNTER 2023-06-14 18:43 | Outpatient (REF) | payer MEDICARE, SELFPAY ==
[2023-06-14 16:13] LABS: MCH 26.2 pg (27.0-33.0); MCHC 31.4 % (32.0-36.0); MCV 83 fL (80-95); MPV 12.7 fL (8.0-11.0); Platelet Count 266 10^3/uL (130-400); RDW-SD 45.8 fL; WBC 5.71 10^3/uL (4.4-10.8)
[2023-06-14 16:41] LABS: Ferritin 109 ng/mL (8-252)
[2023-06-14 16:50] LABS: Iron 62 ug/dL (50-170); Total Iron Binding Capacity 298 ug/dL (250-450); Transferrin Sat 21 % (15-50)
== END 2023-06-14 18:44 | disposition home or self-care (01) ==
LOC: NCHCN 18:43
PROVIDERS: PCP Family Medicine; Visit Provider Family Medicine
DX: K92.2 Gastrointestinal hemorrhage, unspecified (principal)
CPT/HCPCS: 85027; 82728; 83540; 83550

== ENCOUNTER 2023-06-26 21:15 | Outpatient (REF) | payer MEDICARE, SELFPAY ==
[2023-06-26 20:52] LABS: Source Nasal/Nares
[2023-06-26 22:20] LABS: COVID-19 PCR POSITIVE (Negative)
== END 2023-06-26 21:16 | disposition home or self-care (01) ==
LOC: LBN 21:15
PROVIDERS: PCP Family Medicine; Visit Provider Physician Assistant Medical
DX: J02.9 Acute pharyngitis, unspecified (principal); Z11.52 Encounter for screening for COVID-19
CPT/HCPCS: 87635; 87070

== ENCOUNTER → 2023-07-15 13:50 | Outpatient (BNVA) | payer MEDICARE, SELFPAY | PROVIDERS: PCP Family Medicine; Referring Provider Family Medicine; Visit Provider Student in an Organized Health Care Education/Training Program | DX: M17.11 Unilateral primary osteoarthritis, right knee (principal) | CPT/HCPCS: 99213 ==

== ENCOUNTER 2023-07-24 14:23 | Outpatient (REF) | payer MEDICARE, SELFPAY ==
[2023-07-24 14:57] LABS: Abs Immature Grans 0.04 10^3/uL (0.0-0.06); Absolute Basophil Count 0.04 10^3/uL (0.0-0.2); Absolute Eosinophil Count 0.22 10^3/uL (0.0-0.7); Absolute Lymphocyte Count 2.25 10^3/uL (1.2-3.4); Absolute Monocyte Count 0.48 10^3/uL (0.1-0.8); Absolute Neutrophil Count 4.04 10^3/uL (1.2-6.7); Basophils % 0.6; Eosinophils % 3.1; HCT 35.2 % (36.0-46.0); HGB 10.9 g/dL (11.2-15.7); Immature Grans % 0.6; Lymphocytes % 31.8; MCH 25.3 pg (27.0-33.0); MCV 82 fL (80-95); MPV 11.7 fL (8.0-11.0); Monocytes % 6.8; Neutrophils % 57.1; Platelet Count 298 10^3/uL (130-400); RBC 4.31 10^6/uL (3.93-5.22); RDW 15.4 % (11.7-14.6); RDW-SD 45.2 fL; WBC 7.07 10^3/uL (4.4-10.8)
[2023-07-24 15:20] LABS: TSH (W/Ref FT4) 0.96 uIU/mL (0.36-3.74)
== END 2023-07-24 14:24 | disposition home or self-care (01) ==
LOC: LBN 14:23
PROVIDERS: PCP Family Medicine; Visit Provider Physician Assistant Medical
DX: R53.83 Other fatigue (principal)
CPT/HCPCS: 84443; 85025

== ENCOUNTER 2023-09-06 19:05 | Outpatient (REF) | payer MEDICARE, SELFPAY ==
[2023-09-06 19:42] LABS: HCT 35.1 % (36.0-46.0); HGB 10.5 g/dL (11.2-15.7); MCH 24.9 pg (27.0-33.0); MCHC 29.9 % (32.0-36.0); MCV 83 fL (80-95); MPV 12.4 fL (8.0-11.0); Platelet Count 286 10^3/uL (130-400); RBC 4.21 10^6/uL (3.93-5.22); RDW 15.3 % (11.7-14.6); RDW-SD 46.3 fL; WBC 4.24 10^3/uL (4.4-10.8)
[2023-09-06 21:33] LABS: Hemoglobin A1C 6.7 % (<5.7)
== END 2023-09-06 19:06 | disposition home or self-care (01) ==
LOC: NCHCN 19:05
PROVIDERS: PCP Family Medicine; Visit Provider Family Medicine
DX: D50.9 Iron deficiency anemia, unspecified (principal); E11.9 Type 2 diabetes mellitus without complications
CPT/HCPCS: 85027; 82728; 83036; 83540; 83550

== ENCOUNTER 2023-09-16 16:17 | Outpatient (REF) | payer MEDICARE, SELFPAY ==
[2023-09-16 18:21] LABS: Iron 34 ug/dL (50-170); Total Iron Binding Capacity 293 ug/dL (250-450); Transferrin Sat 12 % (15-50)
[2023-09-16 18:33] LABS: Ferritin 33 ng/mL (8-252)
== END 2023-09-16 16:18 | disposition home or self-care (01) ==
LOC: NCHCN 16:17
PROVIDERS: PCP Family Medicine; Visit Provider Family Medicine
DX: D50.9 Iron deficiency anemia, unspecified (principal)
CPT/HCPCS: 82728; 83540; 83550

== ENCOUNTER 2023-09-19 11:51 | Emergency (ER) | payer MEDICARE, SELFPAY ==
[2023-09-19] VITALS (87 sets, daily range): BP systolic 105–145; BP diastolic 43–98; PULSE 64–87; RESP 13–28; TEMP 36.4; O2SAT 85–99
--- NOTE | 2023-09-19 11:45 | RT.EKG_ITS ---
APPROVED REPORT Exam: Resting ECG Reason for Exam: chest pain Patient Location: E HR:65 bpm ECG Measurements Heart Rate 65 AXIS KS 145 P 68 QRSd 83 QRS 55 QT 404 T 48 QTc 420 Conclusion Sinus rhythm...normal P axis, V-rate 60- 99
--- NOTE | 2023-09-19 12:18 | ED.GENADUL_ITS ---
HPI General Mode of arrival: ambulatory . Date/Time Provider Initiated Documentation: 09/19/23 11:59 . Limitations to Documentation: no limitations . Information obtained by: patient . HPI Narrative: 68yo female with multiple medical problems including diabetes, hypertension, hyperlipidemia, family history of heart disease, presents with chief complaint of chest discomfort. Patient notes dull chest discomfort that has been coming in waves intermittently since onset last night around 3 AM. Pain is localized to her left chest and left axilla. She has associated nausea and associated dizziness. No leg swelling or calf pain. Related Data Home Medications Medication Instructions Recorded Confirmed metformin 1,000 mg tablet 1,000 mg PO BID 11/18/12 09/19/23 (Glucophage) rosuvastatin 40 mg tablet (Crestor) 40 mg PO QPM 11/18/12 09/19/23 esomeprazole magnesium 40 mg 40 mg PO DAILY 09/03/16 09/19/23 capsule,delayed release (Nexium) ascorbic acid (vitamin C) 500 mg 500 mg PO DAILY 06/28/21 09/19/23 capsule citalopram 20 mg tablet 20 mg PO HS 06/28/21 09/19/23 zinc 50 mg tablet 50 mg PO DAILY 10/11/21 09/19/23 ferrous sulfate 325 mg (65 mg 325 mg PO BID 05/24/22 09/19/23 iron) tablet ondansetron 4 mg disintegrating 4 mg PO Q4H 05/24/22 09/19/23 tablet sodium chloride 0.65 % nasal spray 2 spray intranasal QHS PRN dry 07/25/22 09/19/23 aerosol (Dinosaur Saline) nasal passages #50 mL semaglutide 0.25 mg or 0.5 mg (2 1 mg subcut QWEEK 12/28/22 09/19/23 mg/1.5 mL) subcutaneous pen injector (Ozempic) valsartan 160 mg tablet 320 mg PO HS 12/28/22 09/19/23 vitamin B complex (B 1 tab PO DAILY 12/28/22 09/19/23 Complex-Vitamin B12 tablet) psyllium husk 0.4 gram capsule 0.4 g PO BID constipation #28 caps 01/11/23 09/19/23 (Fiber (psyllium husk)) insulin detemir U-100 100 unit/mL 75 unit subcut BID 06/10/23 07/15/23 (3 mL) subcutaneous pen (Levemir FlexTouch U-100 Insulin) canagliflozin 100 mg tablet 100 mg PO DAILY 07/15/23 09/19/23 (Invokana) albuterol sulfate 90 mcg/actuation 2 puff inhalation Q4H PRN 09/19/23 09/19/23 aerosol inhaler insulin degludec 200 unit/mL (3 150 unit subcut DAILY 09/19/23 09/19/23 mL) subcutaneous pen (Tresiba FlexTouch U-200 insulin) insulin lispro 100 unit/mL subcut 09/19/23 subcutaneous pen (Humalog KwikPen (U-100) Insulin) Previous Rx's Medication Instructions Recorded sodium chloride 0.65 % nasal spray 2 spray intranasal QHS PRN dry 07/25/22 aerosol (Dinosaur Saline) nasal passages #50 mL psyllium husk 0.4 gram capsule 0.4 g PO BID constipation #28 caps 01/11/23 (Fiber (psyllium husk)) Allergies Allergy/AdvReac Type Severity Reaction Status Date / Time azithromycin Allergy Intermediate Tongue Verified 09/19/23 12:53 swelling General Stated Complaint: Chest Pain KAMLESH: 3 Review of Systems All systems reviewed & are unremarkable except as noted in HPI and below Constitutional Constitutional: Denies fever(s) Cardiovascular Cardiovascular: Reports chest pain Exam Const General: cooperative and no acute distress HENMT Mouth: moist mucous membranes Eyes Conjunctivae: normal conjunctivae Sclera: normal sclerae Neck Neck: trachea midline and supple Resp Auscultation: clear to auscultation bilaterally, no rales, no rhonchi and no wheezes Cardio Rate: regular rate and not tachycardic Rhythm: regular rhythm GI Palpation: soft, not firm, no guarding, no masses, not rigid and nontender Skin General skin exam: no rashes or lesions noted Neuro General: patient alert, patient awake, patient oriented x3 and tone normal Extrem General: no calf tenderness and no edema Psych Appearance: grossly normal Mental Status: mental status grossly normal Speech and Movement: speech and movement normal Course Vital Signs Vital signs: Vital Signs Temperature 36.4 C 09/19/23 11:54 Pulse 69 09/19/23 11:54 Respiratory Rate 18 09/19/23 11:54 Blood Pressure 134/76 09/19/23 11:54 Pulse Oximetry 94 09/19/23 11:54 Temperature 36.4 C 09/19/23 11:54 Temperature Source Oral 09/19/23 11:54 Pulse 69 09/19/23 11:54 Respiratory Rate 18 09/19/23 11:54 Respiratory Effort Normal, Non-Labored 09/19/23 12:09 Blood Pressure 134/76 09/19/23 11:54 Blood Pressure Position Sitting 09/19/23 11:54 Pulse Oximetry 94 09/19/23 11:54 Oxygen Delivery Method Room Air 09/19/23 11:54 Oxygen Flow Rate 0 09/19/23 11:54 Medical Decision Making 1220 --68-year-old female with history of hypertension, diabetes, hyperlipidemia, family history for heart disease, here with intermittent chest pain since onset at 3 AM. Concern for ACS. EKG was reviewed and interpreted by me: Please report, sinus rhythm, no STEMI. -- Initial labs reviewed and troponin negative. Patient has stable anemia with hemoglobin 10.4. Electrolytes within normal limits. Patient is low risk for pulmonary embolism and D-dimer negative. 1630 --patient reassessed: She notes continued intermittent discomfort left chest to axilla. There is no rash in the area. No axillary lymphadenopathy. Delta troponin negative. Chest x-ray was reviewed and interpreted radiology: No acute findings. All results were discussed with the patient. We discussed treatment recommendations at this point including hospitalization given risk factors for serial enzymes versus discharge with close outpatient follow-up and patient provided informed refusal of hospitalization. She request discharge and understands importance of timely follow-up. Disposition decision was made weighing the risks and benefits of hospitalization versus outpatient treatment, the risk for further decompensation, and the patient's wishes. The patient was stable and requested discharge. Prior to discharge, my usual and customary return precautions were reviewed with the patient - this included follow-up instructions and reason to return to the emergency department if condition worsens, does not improve as expected, or other new concerns arise. Quality:SDOH Health Related Social Needs: No Data to Display PFSH All Active Problems (Updated 09/19/23 @ 16:09 by Kwaku Denton MD) Chest pain (Acute) Post-acute sequelae of COVID-19 (PASC) (Acute) Hip abductor tendinitis (Acute) Primary osteoarthritis of right knee (Acute) Steroid injection: 04/15/2023 Vomiting (Acute) Iron deficiency (Acute) Cough (Acute) Diabetic neuropathy (Acute) Muscle weakness (Acute) Balance problem (Acute) Shortness of breath (Acute) Internal hemorrhoid (Acute) Colon polyp (Acute) Dyspnea (Acute) Diverticulosis (Acute) Chest pain (Acute) Screening for colon cancer (Acute) Tear of medial meniscus of right knee (Acute) Injected 01/07/2019 Trigger finger, right middle finger (Chronic) Medical History Fibroepithelial polyp (~12/2022) Family history of colon cancer sister age 74 Mitral valve regurgitation Per Dr. Kearns note mild present since 2009 Tension headache Nausea Urinary incontinence, mixed YARELIS on CPAP Vitamin B12 deficiency Diabetic retinopathy Microalbuminuria Diabetes mellitus, type II, insulin dependent Recurrent falls Ataxia Fatty infiltration of liver Fatigue Dyspnea on exertion Foot pain, right Shingles Anemia, iron deficiency Tubular adenoma of colon Chronic anxiety PTSD (post-traumatic stress disorder) Pt. denies this dx Hypertension Sleep apnea does not use CPAP machine recently, due to ill-fitting mask Gastroesophageal reflux disease Retinopathy Hyperlipidemia Depression Benign hypertension Diabetes mellitus Narcolepsy Surgical History History of colonoscopy (~12/2022) Hx of arthroscopy of right knee Hx of laparoscopy Removed left ovary. Per pt, was to check for endometriosis. Hx of tubal ligation History of esophagogastroduodenoscopy (EGD) S/P excision of lipoma excision of lipoma on back History of hysterectomy History of carpal tunnel release Trigger Finger release LMF, LRF Family History Sister Cancer colon cancer age 74. Abdominal aortic aneurysm Mother Heart disease Social History Smoking/Tobacco Use Status: Former Tobacco Use Quit Date: 08/26/00 Smoking risk assessment performed?: Yes Alcohol Intake: current Alcohol Intake frequency: holidays/special occasions only Drug use: Never Substance use type: does not use Number of Children: 2 current occupation: Disabled Current gender identity: female Do you feel safe at home: Yes Do you feel safe in your relationship?: Yes Discharge Plan Disposition Patient Disposition: Home Condition: Stable Discharge Details Clinical Impression: Chest pain Primary Care Provider: Lorena Kearns ED Provider: Kwaku Denton Home Meds and New Rx's Prescriptions: Continued zinc 50 mg tablet 50 mg PO DAILY Dinosaur Saline 0.65 % aerosol,spray 2 spray intranasal QHS PRN (Reason: dry nasal passages) Qty: 50 12RF Invokana 100 mg tablet 100 mg PO DAILY citalopram 20 mg tablet 20 mg PO HS ascorbic acid (vitamin C) 500 mg capsule 500 mg PO DAILY ondansetron 4 mg tablet,disintegrating 4 mg PO Q4H ferrous sulfate 325 mg (65 mg iron) tablet 325 mg PO BID Ozempic 0.25 mg or 0.5 mg(2 mg/1.5 mL) pen injector 1 mg subcut QWEEK Rx Instructions: for 4 weeks valsartan 160 mg tablet 320 mg PO HS vitamin B complex [B Complex-Vitamin B12] Tablet 1 tab PO DAILY psyllium husk [Fiber (psyllium husk)] 0.4 gram capsule 0.4 g PO BID Qty: 28 0RF Rx Instructions: Take 1 tablet by mouth in the morning, and 1 tablet by mouth in the evening metformin [Glucophage] 1,000 MG tablet 1,000 mg PO BID rosuvastatin [Crestor] 40 MG tablet 40 mg PO QPM esomeprazole magnesium [Nexium] 40 MG capsule,delayed release(DR/EC) 40 mg PO DAILY Levemir FlexTouch U100 Insulin 100 unit/mL (3 mL) insulin pen 75 unit SUBCUT BID albuterol sulfate 90 mcg/actuation HFA aerosol inhaler 2 puff INHALATION Q4H PRN Patient Comments: INHALE 2 PUFFS BY MOUTH EVERY 4 TO 6 HOURS NEEDED FOR 14 DAYS insulin lispro [Humalog KwikPen Insulin] 100 unit/mL insulin pen SUBCUT Patient Comments: Inject 20-30 unit subcutaneously three times a day DX:[id number] insulin degludec [Tresiba FlexTouch U-200] 200 unit/mL (3 mL) insulin pen 150 unit SUBCUT DAILY Discharge Instructions Instructions: Chest Pain (ED) Additional Instructions: Please contact your primary care physician to arrange follow-up. Cardiac blood levels were normal today. It is recommended you have follow-up outpatient stress testing performed as soon as possible. Please discuss this with your doctor tomorrow. Call 911 or return to the ER immediately for any worsening or new concerning symptoms. Referrals: Lorena Kearns MD [Primary Care Provider] -
[2023-09-19 12:24] LABS: Abs Immature Grans 0.03 10^3/uL (0.0-0.06); Absolute Basophil Count 0.03 10^3/uL (0.0-0.2); Absolute Eosinophil Count 0.13 10^3/uL (0.0-0.7); Absolute Lymphocyte Count 2.01 10^3/uL (1.2-3.4); Absolute Monocyte Count 0.57 10^3/uL (0.1-0.8); Absolute Neutrophil Count 5.75 10^3/uL (1.2-6.7); Basophils % 0.4; Eosinophils % 1.5; HCT 33.7 % (36.0-46.0); HGB 10.4 g/dL (11.2-15.7); Immature Grans % 0.4; Lymphocytes % 23.6; MCH 24.9 pg (27.0-33.0); MCHC 30.9 % (32.0-36.0); MCV 81 fL (80-95); MPV 11.1 fL (8.0-11.0); Monocytes % 6.7; Neutrophils % 67.4; Platelet Count 300 10^3/uL (130-400); RBC 4.17 10^6/uL (3.93-5.22); RDW 15.2 % (11.7-14.6); RDW-SD 43.8 fL; WBC 8.52 10^3/uL (4.4-10.8)
[2023-09-19 12:51] LABS: ALT 25 U/L (14-59); AST 14 U/L (15-37); Alkaline Phosphatase 83 U/L (46-116); Anion Gap 10.2 mmol/L (3-11); BUN 30 mg/dL (7-18); Bilirubin, Total 0.8 mg/dL (0.2-1.0); CO2 24.8 mmol/L (21.0-32.0); CREATININE 0.9 mg/dL (0.55-1.02); Calcium 10.1 mg/dL (8.5-10.1); Chloride 105 mmol/L (98-107); Estimated GFR 70.51 (mL/min/1.73m2); Glucose 116 mg/dL (74-106); Magnesium 1.9 mg/dL (1.8-2.4); Potassium 4.4 mmol/L (3.5-5.1); Sodium 140 mmol/L (136-145); Total Protein 8.2 g/dL (6.4-8.2); Troponin I < 50 ng/L (< or =60)
[2023-09-19 12:53] LABS: D-Dimer 303 ng/mlFEU (<500)
[2023-09-19 15:28] LABS: Troponin I < 50 ng/L (< or =60)
--- NOTE | 2023-09-19 16:00 | DI.RAD_ITS ---
Exam(s) XR PORTABLE CHEST AP EXAM: XR PORTABLE CHEST AP CLINICAL HISTORY: chest pain TECHNIQUE: 2D digital imaging was performed. COMPARISON: CR XR CHEST 2V PA LATERAL from 06/18/2022 FINDINGS: LUNGS: Clear. No pleural abnormality seen. HEART: Normal size. AORTA: Normal diameter. BONES: Unremarkable for age. Soft tissues: Unremarkable. IMPRESSION: No acute findings. DATA REPOSITORY: RADIATION DOSE DELIVERED:
== END 2023-09-19 16:41 | disposition home or self-care (01) ==
PROVIDERS: Emergency Provider Student in an Organized Health Care Education/Training Program; PCP Family Medicine
DX: R07.9 Chest pain, unspecified (principal); I10 Essential (primary) hypertension; E78.5 Hyperlipidemia, unspecified; E11.319 Type 2 diabetes mellitus with unspecified diabetic retinopathy without macular edema; Z82.49 Family history of ischemic heart disease and other diseases of the circulatory system; Z79.4 Long term (current) use of insulin; Z79.84 Long term (current) use of oral hypoglycemic drugs; Z79.85 Long-term (current) use of injectable non-insulin antidiabetic drugs; Z87.891 Personal history of nicotine dependence
CPT/HCPCS: 80053; 93005; 99285; 71045; 83735; 84484; 85025; 85379; 93010; 99284

== ENCOUNTER → 2023-09-24 14:59 | Outpatient (CLI) | payer MEDICARE, SELFPAY ==
--- NOTE | 2023-09-24 | DI.MAMMO_ITS ---
Exam(s) MAMMO SCREENING EXAM: MAMMO SCREENING CLINICAL HISTORY: SCREENING, Z12.31. TECHNIQUE: Bilateral full field digital CC and MLO mammographic images were obtained with 3D tomosyn thesis and utilizing computer aided detection (CAD). COMPARISON: Prior mammograms were reviewed. FINDINGS: There has been no significant change in the appearance and distribution of the fibroglandular tissue. Asymmetric tissue laterally in left breast is unchanged from prior mammograms There are no new spiculated masses nor malignant appearing microcalcification groups. There is no significant architectural distortion nor skin thickening-retraction. IMPRESSION: No radiographic evidence of malignancy. BI-RADS Category 1 - Negative Breast Density - Category B - Scattered areas of fibroglandular density Breast density Category C or D implies that the patient has dense breast tissue. Dense breast tissue can make it harder to find cancer on a mammogram. Dense breast tissue is also associated with an incr eased risk of breast cancer. This information about the result of the mammogram report was provided to the patient to raise their awareness. Use this report when you speak with the patient about their risks for breast cancer, which includes their family history. At that time, you may recommend additional screening tests (Ultrasoun d or MRI) as these tests may add significant information. A negative radiographic report should not delay biopsy if a dominant or clinically suspicious mass is present. Up to ten percent of cancers are not identified on mammography. A negative report may reinforce clinical impression. Adenosis and dense breasts may obscure an underlying neoplasm. False positive reports average 6 to 10%. Patient will receive a letter notifying them of these results.
== END ==
PROVIDERS: PCP Family Medicine; Visit Provider Family Medicine
DX: Z12.31 Encounter for screening mammogram for malignant neoplasm of breast (principal)
CPT/HCPCS: 77063; 77067

== ENCOUNTER → 2023-10-01 01:02 | Outpatient (CLI) | payer MEDICARE, SELFPAY ==
--- NOTE | 2023-10-01 | DI.NM_ITS ---
APPROVED REPORT Exam: Pharmacologic Patient Location: Out-Patient Room/Bed: Stress Nurse: Millicent Salazar RN Ordering Provider:UMESH STEPHENS, Contact Number: [phone] BMI: 30.72 Baseline Rhythm: Sinus Rhythm Indications: Chest pain Medical History Medical History: Diabetic neuropathy, mitral valve regurgitation, YARELIS on CPAP, ataxia, reccurent fall s, DMT2, BRAND, PTSD, GERD, HTN, depression Cardiac Medications: Albuterol sulfate, canagliflozin, citalopram, nexium, ferrous sulfate, tresebia, flex touch, levemir, humalog, metformin, zofran, crestor, ozempic, valsartan Allergies: Azithromycin Cardiac Risk Factors: Family hx, HTN, HLD, diabetes, asthma, former smoker Previous Cardiac Procedures: None Pretest Chest Pain Characteristics: None Exercise History: Sedentary Physical Disabilities: Right knee Lung Sounds: Clear to auscultation Heart Sounds: Regular Stress Test Details Test: Pharmacologic stress testing performed using 0.4 mg of regadenoson per 5 mL given IV over 10 s econds. Reason for pharmacologic stress test: Right knee pain. Nuclear Acquisition: Rest Tc-99m/Stress Tc-99m 1 day Rest Isotope: Tc-99m Sestamibi. Dose: 10.0 Date: 10/01/2023 Injection Time: 0930 Stress Isotope: Tc-99m Sestamibi. Dose: 30.0 Date: 10/01/2023 Injection Time: 1104 HR Resting HR Supine: 73 bpm Max Heart Rate (APMHR): 154.869940 bpm Target HR (85% APMHR): 130.682953 bpm Max HR Achieved: 106 bpm % of APMHR: 68.83 Recovery HR: 82 bpm BP Resting BP Supine: 118/62 mmHg Max BP: 130/68 mmHg Recovery BP: 124/58 mmHg ECG Resting ECG: Sinus Rhythm Ectopy: None Stress ECG: Sinus Tachycardia ST Change: Nondiagnostic low heart rate Arrhythmia: None Recovery ECG: Sinus Rhythm Recovery ST Change: Nondiagnostic low heart rate Recovery Arrhythmia: None Clinical Stress Symptoms: Mild SOB Angina Score: None Rate Pressure Product: [id number] Stress ECG Conclusion 1. Normal clinical,HR,BP and ecg responses 2. Nuclear findings reported separately Stress Test Summary STAGE HR BP SpO2 Symptoms NOTES Supine 73 118/62 99 1 min post Lexiscan injection 98 130/68 96 3 min post Lexiscan injection 96 122/52 98 6 min post Lexiscan injection 82 124/58 MPI Conclusion Normal myocardial perfusion, no ischemia or infarct Normal LV function, EF 58%. Radiologist Interpretation Radiologist agrees with Chief Diversity Officer's Interpretation. Radiologist Interpretation by: Anna Macdonald MD Interpretation Date/Time: 10/02/2023 14:08:47
[2023-10-01] MEDS: Regadenoson 0.4 MG/5 ML SYR IVP (11:23)
== END ==
PROVIDERS: PCP Family Medicine; Visit Provider Family Medicine
DX: R07.9 Chest pain, unspecified (principal)
CPT/HCPCS: 78452; 93016; 93018; 93017; J2785

== ENCOUNTER 2023-10-03 07:51 | Observation (INO) | payer MEDICARE, SELFPAY ==
[2023-10-03] VITALS (13 sets, daily range): BP systolic 112–136; BP diastolic 40–75; PULSE 62–78; RESP 13–24; TEMP 35.5–36.6; O2SAT 93–99; BMI 30.7
--- NOTE | 2023-10-03 08:08 | W.ED.GENAD ---
HPI General Date/Time Provider Initiated Documentation: 10/03/23 07:54. HPI Narrative: 68 year-old female presents to ED today by POV/ambulating with a chief complaint of severe abdominal pain, diffuse, comes and goes with onset around 0500 today. Quality described as diarrhea, then a tiny amount of stool this morning, no radiation to hematemesis, melena/hematochezia, fever, endorses nausea without vomiting, denies chest pain, shortness of breath, recent URI or antibiotic exposure. Severity is described as 06/04. Palliating factors include nothing specific. Provoking factors include nothing specific. Patient not anticoagulated. Related Data Home Medications Medication Instructions Recorded Confirmed metformin 1,000 mg tablet 1,000 mg PO BID 11/18/12 09/19/23 (Glucophage) rosuvastatin 40 mg tablet (Crestor) 40 mg PO QPM 11/18/12 09/19/23 esomeprazole magnesium 40 mg 40 mg PO DAILY 09/03/16 09/19/23 capsule,delayed release (Nexium) ascorbic acid (vitamin C) 500 mg 500 mg PO DAILY 06/28/21 09/19/23 capsule citalopram 20 mg tablet 20 mg PO HS 06/28/21 09/19/23 zinc 50 mg tablet 50 mg PO DAILY 10/11/21 09/19/23 ferrous sulfate 325 mg (65 mg 325 mg PO BID 05/24/22 09/19/23 iron) tablet ondansetron 4 mg disintegrating 4 mg PO Q4H 05/24/22 09/19/23 tablet sodium chloride 0.65 % nasal spray 2 spray intranasal QHS PRN dry 07/25/22 09/19/23 aerosol ([place] Saline) nasal passages #50 mL semaglutide 0.25 mg or 0.5 mg (2 1 mg subcut QWEEK 12/28/22 09/19/23 mg/1.5 mL) subcutaneous pen injector (Ozempic) valsartan 160 mg tablet 320 mg PO HS 12/28/22 09/19/23 vitamin B complex (B 1 tab PO DAILY 12/28/22 09/19/23 Complex-Vitamin B12 tablet) psyllium husk 0.4 gram capsule 0.4 g PO BID constipation #28 caps 01/11/23 09/19/23 (Fiber (psyllium husk)) insulin detemir U-100 100 unit/mL 75 unit subcut BID 06/10/23 07/15/23 (3 mL) subcutaneous pen (Levemir FlexTouch U-100 Insulin) canagliflozin 100 mg tablet 100 mg PO DAILY 07/15/23 09/19/23 (Invokana) albuterol sulfate 90 mcg/actuation 2 puff inhalation Q4H PRN 09/19/23 09/19/23 aerosol inhaler insulin degludec 200 unit/mL (3 150 unit subcut DAILY 09/19/23 09/19/23 mL) subcutaneous pen (Tresiba FlexTouch U-200 insulin) insulin lispro 100 unit/mL subcut 09/19/23 subcutaneous pen (Humalog KwikPen (U-100) Insulin) Previous Rx's Medication Instructions Recorded sodium chloride 0.65 % nasal spray 2 spray intranasal QHS PRN dry 07/25/22 aerosol ([place] Saline) nasal passages #50 mL psyllium husk 0.4 gram capsule 0.4 g PO BID constipation #28 caps 01/11/23 (Fiber (psyllium husk)) Allergies Allergy/AdvReac Type Severity Reaction Status Date / Time azithromycin Allergy Intermediate Tongue Verified 09/19/23 12:53 swelling General Stated Complaint: Abd Prob KAMLESH: 3 Review of Systems All systems reviewed & are unremarkable except as noted in HPI and below Exam Narrative Exam Narrative: GENERAL APPEARANCE: Well-nourished, non-toxic, awake and alert, atraumatic, no acute distress. SKIN: Warm, pink, dry, intact, without rashes/lesions/ulcerations. HEAD: Normocephalic, atraumatic, normal hair distribution for gender/age. EYES: Pupils PERRLA, EOMs intact without nystagmus, normal conjunctiva, no exudates on lids/lashes. ENT: Nares patent, no circumoral cyanosis, no facial swelling NECK: Supple, trachea midline, painless cervical ROM. LUNGS/CHEST: Lungs CTA bilaterally- no rhonchi/rales/wheezes diffusely, non-labored respirations, normal A/P diameter, symmetrical expansion, no chest wall deformity HEART (CV/PV): Regular rate and rhythm without murmur, no peripheral edema, no JVD. ABDOMEN: Soft, non-distended, no guarding, exquisite tenderness central abdomen, +Rovsing's, pain out of proportion to exam. MSK: Normal ROM, no swelling/deformity to bilateral UEs or LEs, moving all extremities without weakness, no cyanosis, spine midline without tenderness, normal curvature. NEURO: Mental Status AAOx4 - alert to person, place, time, events No facial droop, no forehead involvement. Motor: No focal weakness - strength 5/5 in bilateral UEs and LEs, proximal and distal, symmetric. Sensory: sensation intact to light touch globally. Gait normal: patient ambulated without ataxia into ED room. PSYCH: euthymic, cooperative, pleasant, appropriate speech Course Vital Signs Vital signs: Vital Signs Temperature 36.2 C L 10/03/23 07:59 Pulse 78 10/03/23 07:59 Respiratory Rate 18 10/03/23 07:59 Blood Pressure 132/57 L 10/03/23 07:59 Pulse Oximetry 96 10/03/23 07:59 Temperature 36.2 C L 10/03/23 07:59 Temperature Source Skin 10/03/23 07:59 Pulse 78 10/03/23 07:59 Respiratory Rate 18 10/03/23 07:59 Respiratory Effort Normal 10/03/23 08:06 Blood Pressure 132/57 L 10/03/23 07:59 Blood Pressure Position Sitting 10/03/23 07:59 Pulse Oximetry 96 10/03/23 07:59 Oxygen Delivery Method Room Air 10/03/23 07:59 Oxygen Flow Rate 0 10/03/23 07:59 Pain Level 8 10/03/23 07:59 Medical Decision Making This dictation utilizes [id number] dictation software and may contain unedited grammatical errors. 68 y/o F presents to ED today with a chief complaint of severe abdominal pain starting at 0500- nausea without vomiting, did have diarrhea prior then a very small stool this morning, states is passing gas in ED, denies fever, chest pain, shortness of breath. Patients' medical history: MVR, tension headache, YARELIS on CPAP, diabetic retinopathy, type 2 diabetes mellitus, ataxia, recurrent falls, iron deficiency anemia, hypertension, GERD, history of tubal ligation, history of hysterectomy, history of diverticulosis. Family and social history: noncontributory. Pertinent exam findings / vital signs include exquisite tenderness to abdomen out of proportion to exam, vitals stable, afebrile, benign cardiopulmonary exam. Differential / pathologies of concern include gastroenteritis, bowel ischemia, diverticulitis, SBO, appendicitis, biliary cholangiitis, perforated viscous. Diagnostic studies of: -CBC, CMP, Lactate, Lipase, UA, EKG, CRP/ESR, Trop I Procalcitonin, CT ABD/Pelvis w Contrast. -no elevated WBCs -mild elev lipase -UA sample not given prior to admit -Lactate neg, less suspicion for bowel ischemia -Procalcitonin neg, unlikely sepsis -EKG performed for QTc check, no signs of QT prolongation, reasonable for anti-emetics -CT shows early cecal volvulus, admit to surgery Interventions of: -IVF, Zofran, Tylenol/Toradol. ED Course/Assessment/Plan: 68-year-old female presented with severe abdominal pain sudden onset coming in waves like labor pains, started at 5 AM. Labs are unremarkable for signs of bowel ischemia and there is no evidence for sepsis, her CT does show an early cecal volvulus, her exam did improve and she did endorse passing flatus in the ED exam room but I did consult with surgery Dr. Gonzalez who admitted the patient for observation as this could be a dynamic process and may return. Findings not consistent with perforated viscus or sepsis. Disposition of Cecal Volvulus. Patient verbalized understanding of the plan and return to ED criteria and engaged in shared decision making. Medical Records Medical records reviewed: Yes I reviewed the patient's medical records. Imaging Data Radiologic Study: Imaging: CT Scan Radiologist's impression: EXAM: CT ABDOMEN PELVIS W CLINICAL HISTORY: epigastric tenderness. TECHNIQUE: Imaging Protocol: Axial computed tomography images with coronal and sagittal reformatted images were created and reviewed CONTRAST MATERIAL: Intravenous: Omnipaque 350 Contrast volume:100 ml Oral: yes / no COMPARISON: CT CT ABDOMEN PELVIS W from 12/06/2022 FINDINGS: ABDOMEN and PELVIS: Lung Bases: No acute findings. Liver: Normal density. No measurable mass. Gallbladder and biliary tract: No radiodense calculus or dilation. Pancreas: Normal density. No abnormal calcifications or inflammatory process. No evidence of mass. Spleen: Normal. Kidneys: Normal size, contour and axis. No radiodense stones. No obstructive uropathy. No suspicious masses seen. Adrenal glands: No masses seen. Vasculature: Abdominal aorta non-dilated. Atherosclerotic changes. Soft tissues: Edema in the anterior subcutaneous fat again noted. This appears somewhat more extensive in compared the previous exam. Bladder: No gross wall thickening. No calculi.No focal mass. Bowel: The cecum is now oriented superiorly, projecting into the right upper quadrant. Previously was located in the pelvis. This could indicate an early volvulus. The cecum is mildly dilated compared to the rest of the colon, measuring 8.5 cm. It is partially air filled. No bowel wall thickening. Appendix normal. Mild sigmoid diverticulosis. Peritoneal cavity: Trace amount of fluid in the right paracolic gutter. No focal collection or mesenteric inflammatory response. Bones: Unremarkable for age. Reproductive organs: Status post hysterectomy. Lymph nodes: Unremarkable. IMPRESSION:: Findings suspicious for early cecal volvulus. Findings called to Michelle Samuel, ER provider. Lab Data Lab results reviewed: Yes I reviewed the patient's lab results. Labs: Laboratory Tests Range/Units 10/03/23 08:16 WBC (4.4-10.8) 10^3/uL 8.87 RBC (3.93-5.22) 10^6/uL 3.99 Hgb (11.2-15.7) g/dL 9.9 L Hct (36.0-46.0) % 32.2 L MCV (80-95) fL 81 MCH (27.0-33.0) pg 24.8 L MCHC (32.0-36.0) % 30.7 L RDW (11.7-14.6) % 15.2 H Plt Count (130-400) 10^3/uL 272 MPV (8.0-11.0) fL 11.5 H Immature Gran % 0.3 Neutrophils % 71.0 Lymphocytes % 21.1 Monocytes % 6.1 Eosinophils % 1.0 Basophils % 0.5 Nucleated RBC % (0.0-0.3) % 0.0 Absolute Neutrophils (1.2-6.7) 10^3/uL 6.30 Absolute Lymphocytes (1.2-3.4) 10^3/uL 1.87 Absolute Monocytes (0.1-0.8) 10^3/uL 0.54 Absolute Eosinophils (0.0-0.7) 10^3/uL 0.09 Absolute Basophils (0.0-0.2) 10^3/uL 0.04 ESR (0-30) mm/hr 19 VBG Lactate (0.6-1.4) mmol/L 1.4 Sodium (136-145) mmol/L 142 Potassium (3.5-5.1) mmol/L 4.1 Chloride (98-107) mmol/L 106 Carbon Dioxide (21.0-32.0) mmol/L 23.0 Anion Gap (3-11) mmol/L 13.0 H BUN (7-18) mg/dL 26 H Creatinine (0.55-1.02) mg/dL 0.9 Est GFR (CKD-EPI 2020) (mL/min/1.73m2) 70.51 Glucose (74-106) mg/dL 123 H Calcium (8.5-10.1) mg/dL 9.8 Magnesium (1.8-2.4) mg/dL 1.8 Total Bilirubin (0.2-1.0) mg/dL 0.7 AST (15-37) U/L 14 L ALT (14-59) U/L 23 Alkaline Phosphatase (46-116) U/L 74 Troponin I (< or =60) ng/L < 50 C-Reactive Protein (<or=0.5) mg/dL < 0.50 Total Protein (6.4-8.2) g/dL 7.9 Albumin (3.4-5.0) g/dL 3.9 Lipase (16-77) U/L 90 H Procalcitonin ng/mL < 0.1 Quality:SDOH Health Related Social Needs: No Data to Display PFSH All Active Problems (Updated 10/03/23 @ 14:18 by JENNIFER Mcdowell) Cecal volvulus (Acute) Cecal volvulus (Acute) Chest pain (Acute) Post-acute sequelae of COVID-19 (PASC) (Acute) Hip abductor tendinitis (Acute) Primary osteoarthritis of right knee (Acute) Steroid injection: 04/15/2023 Vomiting (Acute) Iron deficiency (Acute) Cough (Acute) Diabetic neuropathy (Acute) Muscle weakness (Acute) Balance problem (Acute) Shortness of breath (Acute) Internal hemorrhoid (Acute) Colon polyp (Acute) Dyspnea (Acute) Diverticulosis (Acute) Chest pain (Acute) Screening for colon cancer (Acute) Tear of medial meniscus of right knee (Acute) Injected 01/07/2019 Trigger finger, right middle finger (Chronic) Medical History Fibroepithelial polyp (~12/2022) Family history of colon cancer sister age 74 Mitral valve regurgitation Per Dr. Kearns note mild present since 2009 Tension headache Nausea Urinary incontinence, mixed YARELIS on CPAP Vitamin B12 deficiency Diabetic retinopathy Microalbuminuria Diabetes mellitus, type II, insulin dependent Recurrent falls Ataxia Fatty infiltration of liver Fatigue Dyspnea on exertion Foot pain, right Shingles Anemia, iron deficiency Tubular adenoma of colon Chronic anxiety PTSD (post-traumatic stress disorder) Pt. denies this dx Hypertension Sleep apnea does not use CPAP machine recently, due to ill-fitting mask Gastroesophageal reflux disease Retinopathy Hyperlipidemia Depression Benign hypertension Diabetes mellitus Narcolepsy Surgical History History of colonoscopy (~12/2022) Hx of arthroscopy of right knee Hx of laparoscopy Removed left ovary. Per pt, was to check for endometriosis. Hx of tubal ligation History of esophagogastroduodenoscopy (EGD) S/P excision of lipoma excision of lipoma on back History of hysterectomy History of carpal tunnel release Trigger Finger release LMF, LRF Family History Sister Cancer colon cancer age 74. Abdominal aortic aneurysm Mother Heart disease Social History Smoking/Tobacco Use Status: Former Tobacco Use Quit Date: 08/26/00 Smoking risk assessment performed?: Yes Alcohol Intake: current Alcohol Intake frequency: holidays/special occasions only Drug use: Never Substance use type: does not use Number of Children: 2 current occupation: Disabled Current gender identity: female Do you feel safe at home: Yes Do you feel safe in your relationship?: Yes Discharge Plan Disposition Patient Disposition: Admit to [facility] Condition: Stable Discharge Details Clinical Impression: Cecal volvulus Admit Date/Time: 10/03/23 11:10 Admit Provider: Vin Gonzalez Attending Provider: Vin Gonzalez Primary Care Provider: Lorena Kearns ED Provider: Corby Samuel
--- NOTE | 2023-10-03 08:15 | RT.EKG_ITS ---
APPROVED REPORT Exam: Resting ECG Reason for Exam: epigastric pain Patient Location: E HR:66 bpm ECG Measurements Heart Rate 66 AXIS VA 157 P 65 QRSd 87 QRS 64 QT 413 T 59 QTc 433 Conclusion Sinus rhythm...normal P axis, V-rate 60- 99
[2023-10-03 08:30] LABS: Lactate 1.4 mmol/L (0.6-1.4)
[2023-10-03] MEDS: ACETAMINOPHEN 1,000 MG/100 ML BTL 400 MG IVPB (08:30)
[2023-10-03 08:31] LABS: Abs Immature Grans 0.03 10^3/uL (0.0-0.06); Absolute Basophil Count 0.04 10^3/uL (0.0-0.2); Absolute Eosinophil Count 0.09 10^3/uL (0.0-0.7); Absolute Lymphocyte Count 1.87 10^3/uL (1.2-3.4); Absolute Monocyte Count 0.54 10^3/uL (0.1-0.8); Basophils % 0.5; HCT 32.2 % (36.0-46.0); HGB 9.9 g/dL (11.2-15.7); Immature Grans % 0.3; Lymphocytes % 21.1; MCH 24.8 pg (27.0-33.0); MCHC 30.7 % (32.0-36.0); MCV 81 fL (80-95); MPV 11.5 fL (8.0-11.0); Monocytes % 6.1; Platelet Count 272 10^3/uL (130-400); RBC 3.99 10^6/uL (3.93-5.22); RDW 15.2 % (11.7-14.6); RDW-SD 44.3 fL; WBC 8.87 10^3/uL (4.4-10.8)
[2023-10-03] MEDS: Lactated Ringers 1,000 ML 1000 ML IV (08:31)
[2023-10-03] MEDS: Ketorolac 15 MG/ML VIAL IVP (08:31)
[2023-10-03] MEDS: Ondansetron 4 MG/2 ML VIAL IVP (08:32)
[2023-10-03 08:34] LABS: ESR 19 mm/hr (0-30)
[2023-10-03 08:51] LABS: ALT 23 U/L (14-59); AST 14 U/L (15-37); Albumin 3.9 g/dL (3.4-5.0); Alkaline Phosphatase 74 U/L (46-116); BUN 26 mg/dL (7-18); Bilirubin, Total 0.7 mg/dL (0.2-1.0); CREATININE 0.9 mg/dL (0.55-1.02); Calcium 9.8 mg/dL (8.5-10.1); Chloride 106 mmol/L (98-107); Estimated GFR 70.51 (mL/min/1.73m2); Glucose 123 mg/dL (74-106); Lipase 90 U/L (16-77); Magnesium 1.8 mg/dL (1.8-2.4); Potassium 4.1 mmol/L (3.5-5.1); Sodium 142 mmol/L (136-145); Total Protein 7.9 g/dL (6.4-8.2); Troponin I < 50 ng/L (< or =60)
[2023-10-03 08:52] LABS: C-Reactive Protein < 0.50 mg/dL (<or=0.5)
[2023-10-03 09:13] LABS: Procalcitonin < 0.1 ng/mL
[2023-10-03] MEDS: Normal Saline - Diluent 50 ML VIAL IJ (09:14)
[2023-10-03] MEDS: Omnipaque 350 MG/ML 500 ML BTL-Imaging package 100 ML IJ (09:15)
--- NOTE | 2023-10-03 09:18 | DI.CT_ITS ---
Exam(s) CT ABDOMEN PELVIS W EXAM: CT ABDOMEN PELVIS W CLINICAL HISTORY: epigastric tenderness. TECHNIQUE: Imaging Protocol: Axial computed tomography images with coronal and sagittal reformatted images were created and reviewed CONTRAST MATERIAL: Intravenous: Omnipaque 350 Contrast volume:100 ml Oral: yes / no COMPARISON: CT CT ABDOMEN PELVIS W from 12/06/2022 FINDINGS: ABDOMEN and PELVIS: Lung Bases: No acute findings. Liver: Normal density. No measurable mass. Gallbladder and biliary tract: No radiodense calculus or dilation. Pancreas: Normal density. No abnormal calcifications or inflammatory process. No evidence of mass. Spleen: Normal. Kidneys: Normal size, contour and axis. No radiodense stones. No obstructive uropathy. No suspicious masses seen. Adrenal glands: No masses seen. Vasculature: Abdominal aorta non-dilated. Atherosclerotic changes. Soft tissues: Edema in the anterior subcutaneous fat again noted. This appears somewhat more extensi ve in compared the previous exam. Bladder: No gross wall thickening. No calculi.No focal mass. Bowel: The cecum is now oriented superiorly, projecting into the right upper quadrant. Previously wa s located in the pelvis. This could indicate an early volvulus. The cecum is mildly dilated compare d to the rest of the colon, measuring 8.5 cm. It is partially air filled. No bowel wall thickening. Appendix normal. Mild sigmoid diverticulosis. Peritoneal cavity: Trace amount of fluid in the right paracolic gutter. No focal collection or mesen teric inflammatory response. Bones: Unremarkable for age. Reproductive organs: Status post hysterectomy. Lymph nodes: Unremarkable. IMPRESSION:: Findings suspicious for early cecal volvulus. Findings called to Michelle Samuel ER provider. RADIATION DOSE DELIVERED: 939.65mGy.cm Total DLP DATA REPOSITORY: All CT scans at this facility are submitted to the National Radiology Data Registry (NRDR) Dose Index Registry (DIR) with the [employer] ([employer]). RADIATION OPTIMIZATION: All CT scans at this facility use at least one of these dose optimization te chniques: automated exposure control; mA and/or kV adjustment per patient size (includes targeted exa ms where dose is matched to clinical indication); or iterative reconstruction.
[2023-10-03] MEDS: Glucose Oral Gel 15 GM/37.5 GM TUBE (11:11)
--- NOTE | 2023-10-03 11:11 | HPE_ITS ---
Date of service: 10/03/23 Time of Service: 11:11 Assessment and Plan Assessment and plan (1) Cecal volvulus: Status: Acute Assessment and plan: The CT scan certainly appears most consistent with a cecal volvulus. History and physical exam fits with this as well. Her vital signs at this point are reassuring, but the increasing pain through the later part of this morning is concerning. At this point, I think surgical exploration is the most reasonable course of action, and I would plan for right hemicolectomy for definitive treatment of cecal volvulus. I explained the nature of the operation, as well as the potential risks and anticipated recovery. I think she has a good understanding of this. She was able to provide informed consent, and we will make arrangements to get a room available soon as possible. History of Present Illness History of Present Illness Chief Complaint: Abdominal pain Narrative: Jacki is 68 years old. She noticed some mild abdominal discomfort last night, that was mostly on the right side. She did not think much of it. Maybe she felt a little bit bloated. She was able to sleep through most of the night, but sometime around 4 5 AM she was awoken from sleep with sharp stabbing right-sided abdominal pain. She described it as similar to labor pains. She did not have much appetite, but she also denied any discrete nausea or vomiting. She came to the emergency department, and underwent a CT scan of the abdomen and pelvis that demonstrated a cecal volvulus. Past surgical history is most significant for tubal ligation and hysterectomy. Review of Systems Constitutional Constitutional: Denies body ache(s), Denies chills, Denies difficulty sleeping, Denies fever(s) and Reports poor appetite Eyes Eyes: Reports system reviewed and no additional complaints, except as documented ENT Ears, Nose, Mouth, and Throat: Reports system reviewed and no additional complaints, except as documented Cardiovascular Cardiovascular: Denies chest pain and Denies dyspnea Respiratory Respiratory: Denies chest congestion, Denies cough and Denies dyspnea Gastrointestinal Gastrointestinal: Reports abdominal pain, Reports bloating, Denies change in stool character and Denies vomiting Genitourinary Genitourinary: Reports system reviewed and no additional complaints, except as documented Musculoskeletal Musculoskeletal: Reports system reviewed and no additional complaints, except as documented Neurologic Neurologic: Reports system reviewed and no additional complaints, except as documented Psychiatric Psychiatric: Reports system reviewed and no additional complaints, except as documented Hematologic/Lymphatic Hematologic/Lymphatic: Denies easy bleeding and Denies easy bruising PFSH All Active Problems (Updated 10/03/23 @ 12:29 by Vin Gonzalez MD) Cecal volvulus (Acute) Chest pain (Acute) Post-acute sequelae of COVID-19 (PASC) (Acute) Hip abductor tendinitis (Acute) Primary osteoarthritis of right knee (Acute) Steroid injection: 04/15/2023 Vomiting (Acute) Iron deficiency (Acute) Cough (Acute) Diabetic neuropathy (Acute) Muscle weakness (Acute) Balance problem (Acute) Shortness of breath (Acute) Internal hemorrhoid (Acute) Colon polyp (Acute) Dyspnea (Acute) Diverticulosis (Acute) Chest pain (Acute) Screening for colon cancer (Acute) Tear of medial meniscus of right knee (Acute) Injected 01/07/2019 Trigger finger, right middle finger (Chronic) Medical History Fibroepithelial polyp (~12/2022) Family history of colon cancer sister age 74 Mitral valve regurgitation Per Dr. Kearns note mild present since 2009 Tension headache Nausea Urinary incontinence, mixed YARELIS on CPAP Vitamin B12 deficiency Diabetic retinopathy Microalbuminuria Diabetes mellitus, type II, insulin dependent Recurrent falls Ataxia Fatty infiltration of liver Fatigue Dyspnea on exertion Foot pain, right Shingles Anemia, iron deficiency Tubular adenoma of colon Chronic anxiety PTSD (post-traumatic stress disorder) Pt. denies this dx Hypertension Sleep apnea does not use CPAP machine recently, due to ill-fitting mask Gastroesophageal reflux disease Retinopathy Hyperlipidemia Depression Benign hypertension Diabetes mellitus Narcolepsy Surgical History History of colonoscopy (~12/2022) Hx of arthroscopy of right knee Hx of laparoscopy Removed left ovary. Per pt, was to check for endometriosis. Hx of tubal ligation History of esophagogastroduodenoscopy (EGD) S/P excision of lipoma excision of lipoma on back History of hysterectomy History of carpal tunnel release Trigger Finger release LMF, LRF Family History Sister Cancer colon cancer age 74. Abdominal aortic aneurysm Mother Heart disease Social History Smoking/Tobacco Use Status: Former Tobacco Use Quit Date: 08/26/00 Smoking risk assessment performed?: Yes Alcohol Intake: current Alcohol Intake frequency: holidays/special occasions only Drug use: Never Substance use type: does not use Number of Children: 2 current occupation: Disabled Current gender identity: female Do you feel safe at home: Yes Do you feel safe in your relationship?: Yes Meds Allergies and Home Medications Allergies Allergy/AdvReac Type Severity Reaction Status Date / Time azithromycin Allergy Intermediate Tongue Verified 09/19/23 12:53 swelling Home Medications Medication Instructions Recorded Confirmed Type metformin 1,000 mg tablet 1,000 mg PO BID 11/18/12 09/19/23 History (Glucophage) rosuvastatin 40 mg tablet (Crestor) 40 mg PO QPM 11/18/12 09/19/23 History esomeprazole magnesium 40 mg 40 mg PO DAILY 09/03/16 09/19/23 History capsule,delayed release (Nexium) ascorbic acid (vitamin C) 500 mg 500 mg PO DAILY 06/28/21 09/19/23 History capsule citalopram 20 mg tablet 20 mg PO HS 06/28/21 09/19/23 History zinc 50 mg tablet 50 mg PO DAILY 10/11/21 09/19/23 History ferrous sulfate 325 mg (65 mg 325 mg PO BID 05/24/22 09/19/23 History iron) tablet ondansetron 4 mg disintegrating 4 mg PO Q4H 05/24/22 09/19/23 History tablet sodium chloride 0.65 % nasal spray 2 spray intranasal QHS PRN dry 07/25/22 09/19/23 Rx aerosol ([place] Saline) nasal passages #50 mL semaglutide 0.25 mg or 0.5 mg (2 1 mg subcut QWEEK 12/28/22 09/19/23 History mg/1.5 mL) subcutaneous pen injector (Ozempic) valsartan 160 mg tablet 320 mg PO HS 12/28/22 09/19/23 History vitamin B complex (B 1 tab PO DAILY 12/28/22 09/19/23 History Complex-Vitamin B12 tablet) psyllium husk 0.4 gram capsule 0.4 g PO BID constipation #28 caps 01/11/23 09/19/23 Rx (Fiber (psyllium husk)) insulin detemir U-100 100 unit/mL 75 unit subcut BID 06/10/23 07/15/23 History (3 mL) subcutaneous pen (Levemir FlexTouch U-100 Insulin) canagliflozin 100 mg tablet 100 mg PO DAILY 07/15/23 09/19/23 History (Invokana) albuterol sulfate 90 mcg/actuation 2 puff inhalation Q4H PRN 09/19/23 09/19/23 History aerosol inhaler insulin degludec 200 unit/mL (3 150 unit subcut DAILY 09/19/23 09/19/23 History mL) subcutaneous pen (Tresiba FlexTouch U-200 insulin) insulin lispro 100 unit/mL subcut 09/19/23 History subcutaneous pen (Humalog KwikPen (U-100) Insulin) Exam Const General: cooperative and comfortable Nutritional Appearance: average body habitus Orientation: alert, awake and oriented x3 HENMT Head: normal to inspection Neck Neck: normal visual inspection, full ROM and no lymphadenopathy Resp Auscultation: clear to auscultation bilaterally Cardio Rate: regular rate Rhythm: regular rhythm GI Inspection: normal to inspection Palpation: soft, no guarding, no hernias and tender (Right abdominal) Percussion: tympanic to percussion Skin General skin exam: no rashes or lesions noted Neuro General: patient alert, patient awake and patient oriented x3 Extrem Right lower extremity: no cyanosis and no edema Left lower extremity: no cyanosis and no edema Results Labs 10/03/23 08:16 10/03/23 08:16 Labs: Laboratory Results - last 24 hr 10/03/23 08:16 WBC 8.87 RBC 3.99 Hgb 9.9 L Hct 32.2 L MCV 81 MCH 24.8 L MCHC 30.7 L RDW 15.2 H Plt Count 272 MPV 11.5 H Immature Gran % 0.3 Neutrophils % 71.0 Lymphocytes % 21.1 Monocytes % 6.1 Eosinophils % 1.0 Basophils % 0.5 Nucleated RBC % 0.0 Absolute Neutrophils 6.30 Absolute Lymphocytes 1.87 Absolute Monocytes 0.54 Absolute Eosinophils 0.09 Absolute Basophils 0.04 ESR 19 VBG Lactate 1.4 Sodium 142 Potassium 4.1 Chloride 106 Carbon Dioxide 23.0 Anion Gap 13.0 H BUN 26 H Creatinine 0.9 Est GFR (CKD-EPI 2020) 70.51 Glucose 123 H Calcium 9.8 Magnesium 1.8 Total Bilirubin 0.7 AST 14 L ALT 23 Alkaline Phosphatase 74 Troponin I < 50 C-Reactive Protein < 0.50 Total Protein 7.9 Albumin 3.9 Lipase 90 H Procalcitonin < 0.1 Last Vital Signs Temp 97.2 F L 10/03/23 07:59 Pulse 78 10/03/23 07:59 Resp 18 10/03/23 07:59 BP 132/57 L 10/03/23 07:59 Pulse Ox 96 10/03/23 07:59 Time Spent Time spent with Patient: <40 minutes Time was spent: preparing to see the patient(eg.review tests), ordering medications,tests, procedures, referring, communicating with other health care team assistant, indepentently interpreting results, counseling the patient and care coordination
--- NOTE | 2023-10-03 12:59 | W.ANESPRE ---
General Info Date of Service Date Performed: 10/03/23 Height: 5 ft 4 in Weight: 81.193 kg Body Mass Index (BMI): 30.7 Surgical Procedure: Operation Date: 10/03/23 14:05 Proposed Procedure Side Surgeon p Hemicolectomy Laparoscopic Right Vin Gonzalez MD Meds Allergies and Home Medications Allergies Allergy/AdvReac Type Severity Reaction Status Date / Time azithromycin Allergy Intermediate Tongue Verified 09/19/23 12:53 swelling Home Medication Medication Instructions Recorded metformin 1,000 mg tablet 1,000 mg PO BID 11/18/12 (Glucophage) rosuvastatin 40 mg tablet (Crestor) 40 mg PO QPM 11/18/12 esomeprazole magnesium 40 mg 40 mg PO DAILY 09/03/16 capsule,delayed release (Nexium) ascorbic acid (vitamin C) 500 mg 500 mg PO DAILY 06/28/21 capsule citalopram 20 mg tablet 20 mg PO HS 06/28/21 zinc 50 mg tablet 50 mg PO DAILY 10/11/21 ferrous sulfate 325 mg (65 mg 325 mg PO BID 05/24/22 iron) tablet ondansetron 4 mg disintegrating 4 mg PO Q4H 05/24/22 tablet sodium chloride 0.65 % nasal spray 2 spray intranasal QHS PRN dry 07/25/22 aerosol ([place] Saline) nasal passages #50 mL semaglutide 0.25 mg or 0.5 mg (2 1 mg subcut QWEEK 12/28/22 mg/1.5 mL) subcutaneous pen injector (Ozempic) valsartan 160 mg tablet 320 mg PO HS 12/28/22 vitamin B complex (B 1 tab PO DAILY 12/28/22 Complex-Vitamin B12 tablet) psyllium husk 0.4 gram capsule 0.4 g PO BID constipation #28 caps 01/11/23 (Fiber (psyllium husk)) insulin detemir U-100 100 unit/mL 75 unit subcut BID 06/10/23 (3 mL) subcutaneous pen (Levemir FlexTouch U-100 Insulin) canagliflozin 100 mg tablet 100 mg PO DAILY 07/15/23 (Invokana) albuterol sulfate 90 mcg/actuation 2 puff inhalation Q4H PRN 09/19/23 aerosol inhaler insulin degludec 200 unit/mL (3 150 unit subcut DAILY 09/19/23 mL) subcutaneous pen (Tresiba FlexTouch U-200 insulin) insulin lispro 100 unit/mL subcut 09/19/23 subcutaneous pen (Humalog KwikPen (U-100) Insulin) Current Visit Medications: Current Medications Generic Name Dose Route Start Last Admin Trade Name Freq PRN Reason Stop Dose Admin Acetaminophen 1,000 mg 10/03/23 12:37 Acetaminophen 500 Mg Tab PO Q8H [facility] Citalopram Hydrobromide 20 mg 10/03/23 22:00 Citalopram 20 Mg Tab PO HS [facility] Dextrose 0 gm 10/03/23 12:37 Glucose Oral Gel 15 Gm/37.5 Gm Tube PO DIRECTED PRN Dextrose/Water 0 gm 10/03/23 12:37 Dextrose 50%-Water 25 Gm/50 Ml Syr IVP DIRECTED PRN Enoxaparin Sodium 40 mg 10/03/23 12:37 Enoxaparin 40 Mg/0.4 Ml Syr SC Q24H [facility] Esomeprazole Magnesium 40 mg 10/04/23 08:30 Esomeprazole 40 Mg Capcr PO DAILY [facility] Ferrous Sulfate 325 mg 10/03/23 20:00 Ferrous Sulfate 325 Mg Tab PO BID [facility] Ringer's Solution 1,000 mls @ 75 mls/hr 10/03/23 12:37 IV INFUSION [facility] IV Miscellaneous Supplies 1 each 10/03/23 12:37 Iv Access IV DIRECTED [facility] Insulin Aspart 0 units 10/03/23 12:37 Insulin Aspart 300 Units/3 Ml Pen SC 0800,1200,1700 [facility] Protocol Morphine Sulfate 2 mg 10/03/23 12:37 Morphine 2 Mg/Ml Syr IVP Q1H PRN PRN Non-Formulary Medication 40 mg 10/03/23 20:00 Rosuvastatin [Crestor] PO QPM [facility] Non-Formulary Medication 320 mg 10/03/23 22:00 Valsartan PO HS [facility] Ondansetron HCl 4 mg 10/03/23 12:37 Ondansetron 4 Mg/2 Ml Vial IVP Q4H PRN PRN Sodium Chloride 0 ml 10/03/23 12:37 Normal Saline Flush 10 Ml Syr IVP PRN PRN Sodium Chloride 0 ml 10/03/23 20:00 Normal Saline Flush 10 Ml Syr IVP BID [facility] Sodium Chloride 0 ml 10/03/23 12:37 Normal Saline 10 Ml Vial IJ DIRECTED PRN PFSH Active Problems Active Problems: Problem Status Onset Code Cecal volvulus K56.2 Chest pain R07.9 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 Hip abductor tendinitis M76.899 Primary osteoarthritis of right knee M17.11 Vomiting R11.10 Iron deficiency E61.1 Cough R05.9 Diabetic neuropathy E11.40 Muscle weakness M62.81 Balance problem R26.89 Shortness of breath R06.02 Internal hemorrhoid K64.8 Colon polyp K63.5 Dyspnea R06.00 Diverticulosis K57.90 Chest pain R07.9 Screening for colon cancer Z12.11 Tear of medial meniscus of right knee S83.241A Trigger finger, right middle finger M65.331 Medical History Medical History Fibroepithelial polyp (~12/2022) Family history of colon cancer sister age 74 Mitral valve regurgitation Per Dr. Stephens note mild present since 2009 Tension headache Nausea Urinary incontinence, mixed YARELIS on CPAP Vitamin B12 deficiency Diabetic retinopathy Microalbuminuria Diabetes mellitus, type II, insulin dependent Recurrent falls Ataxia Fatty infiltration of liver Fatigue Dyspnea on exertion Foot pain, right Shingles Anemia, iron deficiency Tubular adenoma of colon Chronic anxiety PTSD (post-traumatic stress disorder) Pt. denies this dx Hypertension Sleep apnea does not use CPAP machine recently, due to ill-fitting mask Gastroesophageal reflux disease Retinopathy Hyperlipidemia Depression Benign hypertension Diabetes mellitus Narcolepsy Medical History Comments:: postnasal drip at night causes coughing in morning Surgical History Surgical History History of colonoscopy (~12/2022) Hx of arthroscopy of right knee Hx of laparoscopy Removed left ovary. Per pt, was to check for endometriosis. Hx of tubal ligation History of esophagogastroduodenoscopy (EGD) S/P excision of lipoma excision of lipoma on back History of hysterectomy History of carpal tunnel release Trigger Finger release LMF, LRF Tobacco Smoking/Tobacco Use Status: Former Tobacco Use Alcohol Alcohol Intake: current Alcohol intake frequency: holidays/special occasions only Substance Use Substance use: Never Substance use type: does not use Vital Signs and Lab Results Vital Signs Most Recent Vital Signs in EMR: Most Recent Vital Signs Temp Pulse Resp BP Pulse Ox 36.1 C L 67 18 120/67 95 10/03/23 12:46 10/03/23 12:46 10/03/23 12:46 10/03/23 12:46 10/03/23 12:46 Point of Care Results Point of Care Results: Finger Stick Blood Glucose 85 10/03/23 11:11 Lab Results 10/03/23 08:16 10/03/23 08:16 Blood Type / Crossmatch: No Data to Display Complete Blood Count: White Blood Count 8.87 10^3/uL (4.4-10.8) 10/03/23 08:16 Red Blood Count 3.99 10^6/uL (3.93-5.22) 10/03/23 08:16 Hemoglobin 9.9 g/dL (11.2-15.7) L 10/03/23 08:16 Hematocrit 32.2 % (36.0-46.0) L 10/03/23 08:16 Platelet Count 272 10^3/uL (130-400) 10/03/23 08:16 Venous Blood Lactate 1.4 mmol/L (0.6-1.4) 10/03/23 08:16 Complete Metabolic Panel: Sodium 142 mmol/L (136-145) 10/03/23 08:16 Potassium 4.1 mmol/L (3.5-5.1) 10/03/23 08:16 Chloride 106 mmol/L (98-107) 10/03/23 08:16 Carbon Dioxide 23.0 mmol/L (21.0-32.0) 10/03/23 08:16 BUN 26 mg/dL (7-18) H 10/03/23 08:16 Creatinine 0.9 mg/dL (0.55-1.02) 10/03/23 08:16 Est GFR (CKD-EPI 2020) 70.51 (mL/min/1.73m2) 10/03/23 08:16 Magnesium 1.8 mg/dL (1.8-2.4) 10/03/23 08:16 Calcium 9.8 mg/dL (8.5-10.1) 10/03/23 08:16 Albumin 3.9 g/dL (3.4-5.0) 10/03/23 08:16 Glucose 123 mg/dL (74-106) H 10/03/23 08:16 Hemoglobin A1c 6.7 % (<5.7) H 09/06/23 11:45 C-Reactive Protein < 0.50 mg/dL (<or=0.5) 10/03/23 08:16 Liver Function Panel: Alanine Aminotransferase (ALT/SGPT) 23 U/L (14-59) 10/03/23 08:16 Aspartate Amino Transf (AST/SGOT) 14 U/L (15-37) L 10/03/23 08:16 Coagulation Panel: D-Dimer 303 ng/mlFEU (<500) 09/19/23 12:05 Cardiac Panel: Troponin I < 50 ng/L (< or =60) 10/03/23 Arterial Blood Gas: No Data to Display Venous Blood Gas: No Data to Display Pancreas Panel: Lipase 90 U/L (16-77) H 10/03/23 08:16 Thyroid Panel: No Data to Display Infectious Disease: No Data to Display Blood Cultures: No Data to Display Toxicology Panel: No Data to Display Imaging and Studies Imaging and Studies Study information below may be from another EMR and interpreted by another provider. Please see original notes in EMR for more complete details. EKG Summary: 05/17: Sinus rhythm Stress Test Summary: 2020: 1. The resting electrocardiogram was normal. Patient underwent pharmacologic stress 2. Blunted heart rate and blood pressure response to pharmacologic stress 3. Maximum heart rate was 65% of predicted heart rate for age 4. Electrocardiographically the test was nondiagnostic due to inadequate heart rate 5. No symptoms were elicited to suggest angina Patient Name: Vicki Botello Unit #: [id number] Loc: Ordering Provider: Lorena Stephens M.D. Status: [facility] Primary Care Provider: Lorena Stephens M.D. Date of Exam: 10/01/23 Sex: F Admission Date: 10/01/23 : 1955 Age: 68 APPROVED REPORT Exam: Pharmacologic Patient Location: Out-Patient Room/Bed: Stress Nurse: Millicent Salazar RN Ordering Provider:LORENA STEPHENS, Contact Number: [phone] BMI: 30.72 Baseline Rhythm: Sinus Rhythm Indications: Chest pain Medical History Medical History: Diabetic neuropathy, mitral valve regurgitation, YARELIS on CPAP, ataxia, reccurent falls, DMT2, BRAND, PTSD, GERD, HTN, depression Cardiac Medications: Albuterol sulfate, canagliflozin, citalopram, nexium, ferrous sulfate, tresebia, flex touch, levemir, humalog, metformin, zofran, crestor, ozempic, valsartan Allergies: Azithromycin Cardiac Risk Factors: Family hx, HTN, HLD, diabetes, asthma, former smoker Previous Cardiac Procedures: None Pretest Chest Pain Characteristics: None Exercise History: Sedentary Physical Disabilities: Right knee Lung Sounds: Clear to auscultation Heart Sounds: Regular Stress Test Details Test: Pharmacologic stress testing performed using 0.4 mg of regadenoson per 5 mL given IV over 10 seconds. Reason for pharmacologic stress test: Right knee pain. Nuclear Acquisition: Rest Tc-99m/Stress Tc-99m 1 day Rest Isotope: Tc-99m Sestamibi. Dose: 10.0 Date: 10/01/2023 Injection Time: 0930 Stress Isotope: Tc-99m Sestamibi. Dose: 30.0 Date: 10/01/2023 Injection Time: 1104 HR Resting HR Supine: 73 bpmMax Heart Rate (APMHR): 154.160167 bpm Target HR (85% APMHR): 130.919725 bpm Max HR Achieved: 106 bpm % of APMHR: 68.83 Recovery HR: 82 bpm BP Resting BP Supine: 118/62 mmHg Max BP: 130/68 mmHg Recovery BP: 124/58 mmHg ECG Resting ECG: Sinus Rhythm Ectopy: None Stress ECG: Sinus Tachycardia ST Change: Nondiagnostic low heart rate Arrhythmia: None Recovery ECG: Sinus Rhythm Recovery ST Change: Nondiagnostic low heart rate Recovery Arrhythmia: None Clinical Stress Symptoms: Mild SOB Angina Score: None Rate Pressure Product: 55144 Stress ECG Conclusion 1. Normal clinical,HR,BP and ecg responses 2. Nuclear findings reported separately Stress Test Summary [id number] 1 min post Lexiscan [id number] 3 min post Lexiscan [id number] 6 min post Lexiscan [id number] MPI Conclusion Normal myocardial perfusion, no ischemia or infarct Normal LV function, EF 58%. Radiologist Interpretation Radiologist agrees with Information Delivery Analyst's Interpretation. Radiologist Interpretation by: Anna Macdonald MD Interpretation Date/Time: 10/02/2023 14:08:47 Ordered By: Lorena Stephens M.D. CC: Marin Mejía M.D. Dictated By: Marin Mejía M.D. 10/01/23 1137 <Electronically signed by Marin Mejía M.D. in OV> 10/03/23 0830 Transcribed By: Marin Mejía MD 10/01/23 9910 This is privileged, confidential information intended only for the provider named. Any use or distribution by any person other than this provider is strictly prohibited. If you receive this report in error, please notify us immediately at [phone] and return the original report to us at the address above. Thank-you. Echocardiogram Summary: 06/15: Normal left ventricular wall thickness and chamber size. Estimated ejection fraction is 55 to 60%. There are no segmental wall motion abnormalities Normal right ventricular size and systolic function Both atria are normal in size Aortic valve is sclerotic and trileaflet without stenosis or regurgitation Moderate mitral annular calcification. Trace mitral regurgitation Normal tricuspid valve with trace regurgitation. Normal estimated right ventricular systolic pressure 24.5 mmHg Normal pulmonic valve with trace regurgitation Pulmonary Function Summary: 09/16: no evidence of obstructive or restrictive lung disease, but there is mild diffusion defect. This represents a slightly suboptimal patient effort, but if it is true finding, underlying early developing interstitial lung disease or pulmonary hypertension should be further clinically investigated. When this study was compared to previous one from 06/07/06, the patient has a total of 560 cc's decline in FVC; FEV1 has declined by 490 cc's. Diffusion capacity also had a substantial decline. Clinical correlation therefore recommended. Anesthesia Assessment and Plan Anesthesia History Personal History: No History of Anesthesia Complications Family History: No Family History of Anesthesia Complications Exercise Tolerance Exercise Tolerance: Metabolic Equivalents<4 Pertinent Negatives Pertinent Negatives: No History of CVA/TIA Cardiac & Pulmonary Exam Cardiac Exam: Heart Murmur Present (appreciated in past) Pulmonary Exam: Clear Bilateral Breath Sounds Implantable Cardiac Device Does patient have a Pacemaker or an ICD?: No Airway Exam Known Difficult Airway: No Mallampati Class: 3 Mouth Opening: Narrow (< 3cm) Thyromental Distance: Greater than 3 cm Neck Range of Motion: Full ROM Neck Circumference: Normal Teeth Condition: Removable Dentures/Plates Upper, Removable Dentures/Plates Lower and Edentulous ASA Classification ASA Score: ASA 3 Emergency Case?: Yes NPO Status NPO Status: Full Stomach Anesthesia Plan Resuscitation Status: Full Code Anesthesia Technique: General Anesthesia Airway Planned: Endotracheal Tube Monitors Used: Standard Monitors, Arterial Line (if necessary), Central Line (if necessary) and SedLine
[2023-10-03] MEDS: Lactated Ringers 1,000 ML 75 ML IV (13:39)
[2023-10-03] MEDS: ceFAZolin 2 GM/50 ML BAG IVPB (14:02)
--- NOTE | 2023-10-03 14:30 | W.ANESVAS ---
Midline Placement Date Performed: 10/03/23 Procedure Time: 13:50 Requesting Provider: Vin Gonzalez Procedure Location: Operating Room Sedation Given (Indicate Dose Given): No Sedation given Patient Mental Status: Performed under general anesthesia Sterility: Hand Hygiene, Surgical Cap, Surgical Mask, Sterile Gloves, Sterile Drape/Sheet and Chlorhexidine Laterality: Left Insertion Site: Basilic Midline Device: PowerGlide Pro 18G Catheter Length: 10 cm Midline Procedure Procedure: Vessel accessed with catheter over needle, Guidewire placed with ease, Catheter placed without resistance and Guidewire removed Dressing: Tegaderm Applied and Statlock Applied Blood Return: Present Flushes: Easily Ultrasound: Sterile probe cover and gel used Ultrasound Image Saved?: Yes Number of Attempts (See previous attempts in note section): 1 Procedure Tolerated: No Complications and Patient tolerated well Procedure Outcome: Successful Performed By: Eddie Castellanos Other (not listed above): juan howard assisted
[2023-10-03] MEDS: DEXTROSE 5%-LACTATED RINGERS 1,000 ML 30 ML IV (15:03)
[2023-10-03] MEDS: Bupivacaine LIPOSOME/PF 133 MG/10 ML VIAL IJ (15:35)
[2023-10-03] MEDS: Bupivacaine 0.5% Pres-Free 30 ML VIAL (15:35)
--- NOTE | 2023-10-03 15:53 | ROE_ITS ---
Date of service: 10/03/23 Time of Service: 15:53 Operative Note Operative Note DATE OF PROCEDURE: 10/03/23 PRE-OP DIAGNOSIS: Cecal volvulus POST-OP DIAGNOSIS: other (Adhesive bowel obstruction) PROCEDURE: Laparoscopic lysis of adhesions SURGEON: Vin Gonzalez EVENT SPECIALIST FOOD DEMONSTRATOR: Bev [place] ANESTHESIA TYPE: Local By Surgeon and General:No Airway Refer to Anesthesia Record ESTIMATED BLOOD LOSS: 25 PATHOLOGY: none sent COMPLICATIONS: None Patient was transported to: PACU Patient's condition: stable Indications: Jacki is a 68-year-old woman with acute onset of abdominal discomfort last night that increased dramatically this morning. She came to the emergency department and underwent a CAT scan of the abdomen and pelvis. Findings of that seemed consistent with a cecal volvulus. She had ongoing abdominal pain, and we decided to proceed to the operating room for laparoscopic right hemicolectomy. Findings: Right lower quadrant adhesive band compressing and twisting the cecum Procedure Description: After the induction of general endotracheal anesthesia, a Tinajero urinary catheter was inserted in the usual fashion. Next, the anterior abdominal wall was prepped and draped in the usual fashion. I anesthetized the skin above the umbilicus. I made an incision above the umbilicus in the midline, and dissected down to the fascia. I incised the fascia sharply, then, under the direct vision of a laparoscope, using an optical viewing port, I entered the peritoneal cavity with a 5 mm port. The peritoneum was then insufflated, and the camera was reintroduced. The underlying small bowel was healthy appearing, with no evidence of any trauma from entry. Next, I placed a 5 mm port in the suprapubic position as well as 1 in the left lower quadrant after instillation of local anesthetic. The patient was put in some Trendelenburg positioning with the left side down. I turned my attention to the right lower quadrant. It was immediately evident that there was a dense adhesive band tethering some greater omentum down to the right lower quadrant. This was pulled across the main portion of the cecal body causing it to twist on itself. This band was divided with the LigaSure, and the cecum immediately dilated, and started peristalsis. Next, greater omentum was retracted cephalad around the midportion of the transverse colon. The hepatic flexure was largely normal-appearing. The ascending colon was a little bit redundant, and the cecum was quite large, but I did not see any evidence of direct cecal volvulus. I traced the tenia back towards the base of the cecum. The appendix was tethered a little bit laterally, and some adhesions were divided with the LigaSure freeing it up. I tried to identify the terminal ileum, but it was pulled downward towards the right lower quadrant. Therefore, I turned my attention to the small bowel, and began examining it in a hand overhand fashion towards the terminal ileum. The most distal portion of the small bowel was adhered to some of the pelvis and the right lower quadrant. Careful dissection was used to free some filmy adhesions, and mobilize the terminal ileum more towards the midline. Again, with the assistance of the LigaSure, some more adhesions were divided which allowed the terminal ileum to pull more medial back towards its normal anatomic position. This helped orient the cecum with less torsion across the ascending colon. At this point, it was quite clear that the pathology here was not really consistent with a true cecal volvulus, rather distortion of normal cecal and ascending colon anatomy because of adhesions. With all of this mobilized, I felt the safest thing to do was to terminate the operation. This would spare her the possible morbidity associated with a right hemicolectomy, and a new anastomosis. Small amount of fluid was irrigated clean, and the bowel was all laid back in its normal anatomic position. Greater omentum was pulled downward restoring normal transverse colon anatomy. Next, I removed the 5 mm port from the suprapubic and the left lower quadrant under the vision of the laparoscope. There was no bleeding. The midline supraumbilical port was then removed, and the fascia was closed with a [id number] 0 Vicryl suture. Skin and subcutaneous tissues were closed with absorbable sutures, and Band-Aids were applied before the Tinajero catheter was removed and the patient was allowed to wake from anesthesia and transferred to the recovery unit.
--- NOTE | 2023-10-03 16:27 | W.ANESPOSTOP ---
Postoperative Evaluation Date, Time and Location Date Performed: 10/03/23 Time Performed: 16:22 Patient Location: PACU Vital Signs Most Recent Imported Vital Signs: Most Recent Vital Signs Temp Pulse Resp BP Pulse Ox 36.6 C 71 24 120/54 L 98 10/03/23 16:20 10/03/23 16:20 10/03/23 16:20 10/03/23 16:20 10/03/23 16:20 Pain Score Most Recent Pain Score: Most Recent Pain Score Pain Level 0 10/03/23 16:20 Assessment Mental Status: Arousable with meaningful communication Airway and Respiratory Function: Patent airway with normal (patient baseline) respiratory exam Cardiovascular Function: Hemodynamically Stable Hydration Status: Adequately Hydrated Nausea & Vomiting: No Nausea or Vomiting Pain: Pt. Denies Any Pain Peripheral Nerve Block: Patient did not receive a nerve block
[2023-10-03] MEDS: Enoxaparin 40 MG/0.4 ML SYR SC (18:29)
[2023-10-03] MEDS: Rosuvastatin 10 MG TAB 40 MG PO (19:54)
[2023-10-03] MEDS: Ferrous Sulfate 325 MG TAB PO (19:54)
--- NOTE | 2023-10-03 21:31 | RESPIRATORY ---
RT seen pt. for YARELIS diagnosis. Pt. advised RT that she has not been using her CPAP machine for months which it's DME is [facility] due to mask issues, waiting to get new appropriate mask then again begin to reuse it. Pt. refused to use hospital CPAP machine, PT. adviced RT she will be okay without it.
[2023-10-03] MEDS: Valsartan 80 MG TAB 320 MG PO (22:34)
[2023-10-03] MEDS: Citalopram 20 MG TAB PO (22:34)
[2023-10-04 05:45] VITALS: BP 116/69; PULSE 60; RESP 18; TEMP 36.7; O2SAT 97
[2023-10-04 07:40] LABS: Abs Immature Grans 0.04 10^3/uL (0.0-0.06); Absolute Basophil Count 0.01 10^3/uL (0.0-0.2); Absolute Lymphocyte Count 1.01 10^3/uL (1.2-3.4); Absolute Monocyte Count 0.35 10^3/uL (0.1-0.8); Absolute Neutrophil Count 7.33 10^3/uL (1.2-6.7); Basophils % 0.1; HCT 28.5 % (36.0-46.0); HGB 8.9 g/dL (11.2-15.7); Immature Grans % 0.5; Lymphocytes % 11.6; MCH 25.2 pg (27.0-33.0); MCHC 31.2 % (32.0-36.0); MCV 81 fL (80-95); MPV 12.7 fL (8.0-11.0); Neutrophils % 83.8; Platelet Count 231 10^3/uL (130-400); RBC 3.53 10^6/uL (3.93-5.22); RDW 14.9 % (11.7-14.6); RDW-SD 43.4 fL; WBC 8.74 10^3/uL (4.4-10.8)
[2023-10-04 07:53] LABS: Anion Gap 11.9 mmol/L (3-11); BUN 20 mg/dL (7-18); CO2 24.1 mmol/L (21.0-32.0); CREATININE 0.9 mg/dL (0.55-1.02); Calcium 9.2 mg/dL (8.5-10.1); Chloride 106 mmol/L (98-107); Estimated GFR 70.51 (mL/min/1.73m2); Glucose 115 mg/dL (74-106); Potassium 4.1 mmol/L (3.5-5.1); Sodium 142 mmol/L (136-145)
[2023-10-04 08:25] VITALS: BP 107/56; PULSE 82; RESP 17; TEMP 36.8; O2SAT 94
[2023-10-04] MEDS: Ferrous Sulfate 325 MG TAB PO (08:30)
[2023-10-04] MEDS: Esomeprazole 40 MG CAPCR PO (08:30)
--- NOTE | 2023-10-04 10:11 | W.PM.PROGNOT ---
Date of Service Date of service: 10/04/23 Time of Service: 10:11 Assessment and Plan Assessment and plan (1) Cecal volvulus: Status: Ruled-out Assessment and plan: POD #1 s/p laparoscopic lysis of adhesions tolerating regular diet denies having any pain encouraged activity as tolerated Incentive spirometer. D/C home Subjective Subjective Interval history since last seen: Patient reports she is feeling great this morning. She states she would never know that she had surgery yesterday. She tolerated breakfast well without any issues. Exam Const General: cooperative, healthy appearing and comfortable Orientation: alert and oriented x3 Resp Effort & Inspection: normal respiratory effort, no audible wheezes and no cough GI Inspection: normal to inspection and non-distended Palpation: soft, not firm, no guarding and nontender Objective Last Vital Signs Temp 36.8 C 10/04/23 08:25 Pulse 82 10/04/23 08:25 Resp 17 10/04/23 08:25 BP 107/56 L 10/04/23 08:25 Pulse Ox 94 10/04/23 08:25 Laboratory Results - last 24 hr 10/04/23 06:09 WBC 8.74 RBC 3.53 L Hgb 8.9 L Hct 28.5 L MCV 81 MCH 25.2 L MCHC 31.2 L RDW 14.9 H Plt Count 231 MPV 12.7 H Immature Gran % 0.5 Neutrophils % 83.8 Lymphocytes % 11.6 Monocytes % 4.0 Eosinophils % 0.0 Basophils % 0.1 Nucleated RBC % 0.0 Absolute Neutrophils 7.33 H Absolute Lymphocytes 1.01 L Absolute Monocytes 0.35 Absolute Eosinophils 0.00 Absolute Basophils 0.01 Sodium 142 Potassium 4.1 Chloride 106 Carbon Dioxide 24.1 Anion Gap 11.9 H BUN 20 H Creatinine 0.9 Est GFR (CKD-EPI 2020) 70.51 Glucose 115 H Calcium 9.2 Time Spent with Patient Time Spent with Patient: <25 minutes Time was spent: preparing to see the patient(eg.review tests), obtaining and/or reviewing separately otained hiistory and counseling the patient
--- NOTE | 2023-10-04 10:25 | W.PM.DS.N ---
Date of service: 10/04/23 Time of Service: 10:25 DS: Diagnosis Discharge Diagnosis (1) Cecal volvulus: Status: Ruled-out Discharge Plan Disposition Patient Disposition: Home Condition: Stable Condition: Good Discharge Details Reason For Visit: Cecal Volvulus Admit Date/Time: 10/03/23 11:10 Admit Provider: Vin Gonzalez Attending Provider: Vin Gonzalez [facility]: 68 y/o female admitted for exploratory laparoscopy with lysis of adhesions. Patient tolerated the procedure well and had resolution of all her abdominal complaints. She is tolerating activity OOB and following a regular diet. D/C home She may return to work this weekend. Home Meds and New Rx's Prescriptions: Continued zinc 50 mg tablet 50 mg PO DAILY [place] Saline 0.65 % aerosol,spray 2 spray intranasal QHS PRN (Reason: dry nasal passages) Qty: 50 12RF Invokana 100 mg tablet 100 mg PO DAILY citalopram 20 mg tablet 20 mg PO HS ascorbic acid (vitamin C) 500 mg capsule 500 mg PO DAILY ondansetron 4 mg tablet,disintegrating 4 mg PO Q4H ferrous sulfate 325 mg (65 mg iron) tablet 325 mg PO BID Ozempic 0.25 mg or 0.5 mg(2 mg/1.5 mL) pen injector 1 mg subcut QWEEK Rx Instructions: for 4 weeks valsartan 160 mg tablet 320 mg PO HS vitamin B complex [B Complex-Vitamin B12] Tablet 1 tab PO DAILY psyllium husk [Fiber (psyllium husk)] 0.4 gram capsule 0.4 g PO BID Qty: 28 0RF Rx Instructions: Take 1 tablet by mouth in the morning, and 1 tablet by mouth in the evening metformin [Glucophage] 1,000 MG tablet 1,000 mg PO BID rosuvastatin [Crestor] 40 MG tablet 40 mg PO QPM esomeprazole magnesium [Nexium] 40 MG capsule,delayed release(DR/EC) 40 mg PO DAILY Levemir FlexTouch U100 Insulin 100 unit/mL (3 mL) insulin pen 75 unit SUBCUT BID albuterol sulfate 90 mcg/actuation HFA aerosol inhaler 2 puff INHALATION Q4H PRN Patient Comments: INHALE 2 PUFFS BY MOUTH EVERY 4 TO 6 HOURS NEEDED FOR 14 DAYS insulin lispro [Humalog KwikPen Insulin] 100 unit/mL insulin pen SUBCUT Patient Comments: Inject 20-30 unit subcutaneously three times a day DX:E11.9 insulin degludec [Tresiba FlexTouch U-200] 200 unit/mL (3 mL) insulin pen 150 unit SUBCUT DAILY Discharge Instructions Instructions: Gastroenteritis (ED) Additional Instructions: You were seen in the emergency department for your nausea and vomiting and diarrhea, your labs showed no signs of severe dehydration, your ultrasound of your right upper quadrant of your abdomen was normal, you had a mildly elevated lipase which can be due to mild dehydration. Your markers of sepsis were negative and your urine shows no UTI or signs of renal pathology. You likely have a stomach virus or gastroenteritis which should get better in a couple days, try to stay well-hydrated taking small sips of fluids and trying to maintain nutrition. I am sending you home with some antinausea tablets to go. Please return to the ED for failure to improve, inability to maintain hydration & nutrition, fever, worsening abdominal pain. Stand Alone Forms: Nursing Discharge Form Referrals: Lorena Kearns MD [Primary Care Provider] - 10/18/23 9:30 am Vin Gonzalez MD [ [facility] STAFF PHYSICIAN] - (2 week follow up ) Discharge Orders Discharge Orders: Discharge Order (Routine); Ordered 10/04/23 Ordered By: Doris Foote DS: Summary Time Spent with Patient providing and/or coordinating discharge services: Less than 30 minutes Status at Discharge Functional status at discharge: independent ambulation Overall status at discharge: patient is back to baseline Mental Status: mental status grossly normal Speech and Movement: speech and movement normal Mood: congruent mood Affect: normal affect Quality:SDOH Health Related Social Needs: No Data to Display Exam Const General: cooperative, healthy appearing and comfortable Orientation: alert and oriented x3 Resp Effort & Inspection: normal respiratory effort, no audible wheezes and no cough GI Inspection: normal to inspection and non-distended Palpation: soft, not firm, no guarding and nontender Psych Mental Status: mental status grossly normal Speech and Movement: speech and movement normal Mood: congruent mood Affect: normal affect DS: Data Vitals/I&O Vitals and I&O: Vital Signs Temperature 36.8 C 10/04/23 08:25 Temperature Source Tympanic 10/04/23 08:25 Pulse 82 10/04/23 08:25 Pulse Rhythm Regular 10/04/23 08:30 Respiratory Rate 17 10/04/23 08:25 Respiratory Effort Normal 10/04/23 08:30 Respiratory Depth Normal 10/04/23 08:30 Respiratory Pattern Normal 10/04/23 08:30 Blood Pressure 107/56 L 10/04/23 08:25 Blood Pressure Position Sitting 10/03/23 07:59 Pulse Oximetry 94 10/04/23 08:25 Respiratory End-tidal CO2 36 10/03/23 16:20 Oxygen Delivery Method Room Air 10/04/23 08:25 Oxygen Flow Rate 0 10/04/23 08:25 Pain Level 0 10/04/23 08:25 Intake & Output 10/03/23 10/04/23 10/04/23 18:59 06:59 18:59 Intake Total 1974.5 / 2194.5 220 / 2194.5 240 / 240 Output Total 225 / 225 200 / 200 Balance 1749.5 / 1968.5 220 / 1969.5 40 / 40 Weight 81.193 kg Intake: IV 1973.5 / 1973.5 Oral 220 / 220 240 / 240 Output: Urine 200 / 200 200 / 200 Estimated Blood Loss 25 / Other: Urine Color Yellow Yellow Yellow Urine Appearance Clear Clear Clear Urine Odor None None Comment pt is up independently Emesis Description None Voiding Methods Toilet Toilet Toilet Data Completed and Pending Labs on day of discharge: Labs from last 24 hours 10/04/23 06:09 WBC 8.74 RBC 3.53 L Hgb 8.9 L Hct 28.5 L MCV 81 MCH 25.2 L MCHC 31.2 L RDW 14.9 H Plt Count 231 MPV 12.7 H Immature Gran % 0.5 Neutrophils % 83.8 Lymphocytes % 11.6 Monocytes % 4.0 Eosinophils % 0.0 Basophils % 0.1 Nucleated RBC % 0.0 Absolute Neutrophils 7.33 H Absolute Lymphocytes 1.01 L Absolute Monocytes 0.35 Absolute Eosinophils 0.00 Absolute Basophils 0.01 Sodium 142 Potassium 4.1 Chloride 106 Carbon Dioxide 24.1 Anion Gap 11.9 H BUN 20 H Creatinine 0.9 Est GFR (CKD-EPI 2020) 70.51 Glucose 115 H Calcium 9.2 PFSH All Active Problems (Updated 10/04/23 @ 10:32 by LUZ BEAVERS) Cecal volvulus (Acute) Chest pain (Acute) Post-acute sequelae of COVID-19 (PASC) (Acute) Hip abductor tendinitis (Acute) Primary osteoarthritis of right knee (Acute) Steroid injection: 04/15/2023 Vomiting (Acute) Iron deficiency (Acute) Cough (Acute) Diabetic neuropathy (Acute) Muscle weakness (Acute) Balance problem (Acute) Shortness of breath (Acute) Internal hemorrhoid (Acute) Colon polyp (Acute) Dyspnea (Acute) Diverticulosis (Acute) Chest pain (Acute) Screening for colon cancer (Acute) Tear of medial meniscus of right knee (Acute) Injected 01/07/2019 Trigger finger, right middle finger (Chronic) Medical History (Updated 10/04/23 @ 10:32 by LUZ BEAVERS) Cecal volvulus Fibroepithelial polyp (~12/2022) Family history of colon cancer sister age 74 Mitral valve regurgitation Per Dr. Kearns note mild present since 2009 Tension headache Nausea Urinary incontinence, mixed YARELIS on CPAP Vitamin B12 deficiency Diabetic retinopathy Microalbuminuria Diabetes mellitus, type II, insulin dependent Recurrent falls Ataxia Fatty infiltration of liver Fatigue Dyspnea on exertion Foot pain, right Shingles Anemia, iron deficiency Tubular adenoma of colon Chronic anxiety PTSD (post-traumatic stress disorder) Pt. denies this dx Hypertension Sleep apnea does not use CPAP machine recently, due to ill-fitting mask Gastroesophageal reflux disease Retinopathy Hyperlipidemia Depression Benign hypertension Diabetes mellitus Narcolepsy Surgical History History of colonoscopy (~12/2022) Hx of arthroscopy of right knee Hx of laparoscopy Removed left ovary. Per pt, was to check for endometriosis. Hx of tubal ligation History of esophagogastroduodenoscopy (EGD) S/P excision of lipoma excision of lipoma on back History of hysterectomy History of carpal tunnel release Trigger Finger release LMF, LRF Family History Sister Cancer colon cancer age 74. Abdominal aortic aneurysm Mother Heart disease Social History Smoking/Tobacco Use Status: Former Tobacco Use Quit Date: 08/26/00 Smoking risk assessment performed?: Yes Alcohol Intake: current Alcohol Intake frequency: holidays/special occasions only Drug use: Never Substance use type: does not use Housing: house Number of Children: 2 current occupation: Disabled Current gender identity: female Do you feel safe at home: Yes Do you feel safe in your relationship?: Yes Time Spent with Patient Time Spent with Patient: <45 minutes Time was spent: preparing to see the patient(eg.review tests), obtaining and/or reviewing separately otained hiistory and counseling the patient
== END 2023-10-04 13:46 | disposition home or self-care (01) ==
LOC: ER 12:19 → MS 12:26
PROVIDERS: Admitting Provider Surgery; Emergency Provider Physician Assistant; PCP Family Medicine; Visit Provider Surgery
PROC: (CPT 44180; principal; 2023-10-03 13:45)
DX: K56.50 Intestinal adhesions [bands], unspecified as to partial versus complete obstruction (principal); Z79.84 Long term (current) use of oral hypoglycemic drugs; Z79.4 Long term (current) use of insulin; M17.11 Unilateral primary osteoarthritis, right knee; E11.40 Type 2 diabetes mellitus with diabetic neuropathy, unspecified; K64.8 Other hemorrhoids; Z80.0 Family history of malignant neoplasm of digestive organs; I34.0 Nonrheumatic mitral (valve) insufficiency; G47.33 Obstructive sleep apnea (adult) (pediatric); E53.8 Deficiency of other specified B group vitamins; N39.46 Mixed incontinence; E11.319 Type 2 diabetes mellitus with unspecified diabetic retinopathy without macular edema; K76.0 Fatty (change of) liver, not elsewhere classified; F41.8 Other specified anxiety disorders; K21.9 Gastro-esophageal reflux disease without esophagitis; E78.5 Hyperlipidemia, unspecified; F32.A Depression, unspecified; I10 Essential (primary) hypertension; D50.9 Iron deficiency anemia, unspecified
CPT/HCPCS: 44180; 36416; 80048; 80053; 82962; 83690; 84145; 85652; 93005; 96365; 96366; 96372; 96375; 99221; 99222; 99238; 99285; J1650; 74177; 83605; 83735; 84484; 85025; 86140; 93010; C9290; G0378; J0131; J0665; J0690; J1100; J1815; J1885; J2001; J2371; J2405; J2704

== ENCOUNTER 2023-10-10 04:09 | Outpatient (CLI) | payer MEDICARE, SELFPAY ==
[2023-10-10 14:32] LABS: HCT 33.7 % (36.0-46.0); HGB 10.4 g/dL (11.2-15.7); MCH 25.2 pg (27.0-33.0); MCHC 30.9 % (32.0-36.0); MCV 82 fL (80-95); MPV 11.7 fL (8.0-11.0); Platelet Count 320 10^3/uL (130-400); RBC 4.13 10^6/uL (3.93-5.22); RDW 15.1 % (11.7-14.6); RDW-SD 44.7 fL; WBC 8.75 10^3/uL (4.4-10.8)
[2023-10-10 15:16] LABS: Anion Gap 12.7 mmol/L (3-11); BUN 23 mg/dL (7-18); CO2 25.3 mmol/L (21.0-32.0); Calcium 10.2 mg/dL (8.5-10.1); Chloride 106 mmol/L (98-107); Estimated GFR 62.13 (mL/min/1.73m2); Glucose 140 mg/dL (74-106); Potassium 4.4 mmol/L (3.5-5.1); Sodium 144 mmol/L (136-145)
== END 2023-10-10 04:10 | disposition home or self-care (01) ==
LOC: LBO 04:09
PROVIDERS: PCP Family Medicine; Visit Provider Student in an Organized Health Care Education/Training Program
DX: Z01.818 Encounter for other preprocedural examination
CPT/HCPCS: 36415; 80048; 85027

== ENCOUNTER 2023-10-10 13:54 | Outpatient (CLI) | payer MEDICARE, SELFPAY ==
--- NOTE | 2023-10-10 13:00 | DI.RAD_ITS ---
Exam(s) XR KNEE RT 1V XR STANDING ALIGNMENT EXAM: XR STANDING ALIGNMENT CLINICAL HISTORY: right knee DJD. TECHNIQUE: 2D digital imaging was performed. Standing AP views were performed from the pelvis throu gh the ankles. Lateral view right knee. COMPARISON: CR XR KNEE RT 3V AP,LAT,SHASTA from 04/15/2023 CR XR KNEE RT 1V from 10/10/2023 FINDINGS: BONES: No acute fracture is present. No bony destructive lesion is seen. Leg length discrepancy: JOINTS: Knees: Severe narrowing medial femoral tibial joint space of the right knee with prominent pe riarticular spurring. Mild varus angulation. Mild degenerative changes of the left knee. The ankle joints are unremarkable. The hip joints are unremarkable. SOFT TISSUE: Normal. IMPRESSION: Severe degenerative changes of the medial femoral tibial joint space of the right knee. . No significant leg length discrepancy. DATA REPOSITORY: RADIATION DOSE DELIVERED:
== END 2023-10-10 13:55 | disposition home or self-care (01) ==
LOC: DIORS 13:55
PROVIDERS: PCP Family Medicine; Referring Provider Family Medicine; Visit Provider Physician Assistant
DX: M17.11 Unilateral primary osteoarthritis, right knee (principal); Z01.818 Encounter for other preprocedural examination
CPT/HCPCS: 73560; 77073

== ENCOUNTER → 2023-10-16 13:12 | Outpatient (BNVA) | payer MEDICARE, SELFPAY | PROVIDERS: PCP Family Medicine; Referring Provider Family Medicine; Visit Provider Surgery | DX: Z48.815 Encounter for surgical aftercare following surgery on the digestive system (principal); K56.2 Volvulus ==

== ENCOUNTER 2023-10-22 08:38 | Day surgery (SDC) | payer MEDICARE, SELFPAY ==
[2023-10-22] VITALS (11 sets, daily range): BP systolic 107–165; BP diastolic 34–86; PULSE 68–84; RESP 13–27; TEMP 36.2–36.8; O2SAT 93–97; BMI 31.4
--- NOTE | 2023-10-22 07:34 | PDOC.DSDIS_ITS ---
Date of service: 10/22/23 Time of Service: 07:34 Discharge Plan Disposition Patient Disposition: Home Condition: Good Discharge Details Reason For Visit: R TKR Attending Provider: Pk Melvin Primary Care Provider: Lorena Kearns Home Meds and New Rx's Prescriptions: New acetaminophen 500 mg tablet 1,000 mg PO TID Qty: 90 3RF aspirin 81 mg tablet,delayed release (DR/EC) 81 mg PO BID Qty: 60 0RF celecoxib 200 mg capsule 200 mg PO BID Qty: 60 0RF dexamethasone 4 mg tablet 4 mg PO DAILY Qty: 2 0RF gabapentin 300 mg capsule 300 mg PO QHS Qty: 14 0RF pantoprazole 40 mg tablet,delayed release (DR/EC) 40 mg PO DAILY Qty: 30 0RF oxycodone 5 mg tablet 5 mg PO Q4H MDD 6 tabs PRN (Reason: pain) Qty: 20 0RF Continued zinc 50 mg tablet 50 mg PO DAILY [place] Saline 0.65 % aerosol,spray 2 spray intranasal QHS PRN (Reason: dry nasal passages) Qty: 50 12RF Invokana 100 mg tablet 100 mg PO DAILY citalopram 20 mg tablet 20 mg PO HS ascorbic acid (vitamin C) 500 mg capsule 500 mg PO DAILY ondansetron 4 mg tablet,disintegrating 4 mg PO Q4H ferrous sulfate 325 mg (65 mg iron) tablet 325 mg PO BID Ozempic 0.25 mg or 0.5 mg(2 mg/1.5 mL) pen injector 1 mg subcut QWEEK Rx Instructions: for 4 weeks valsartan 160 mg tablet 320 mg PO HS vitamin B complex [B Complex-Vitamin B12] Tablet 1 tab PO DAILY psyllium husk [Fiber (psyllium husk)] 0.4 gram capsule 0.4 g PO BID Qty: 28 0RF Rx Instructions: Take 1 tablet by mouth in the morning, and 1 tablet by mouth in the evening metformin [Glucophage] 1,000 MG tablet 1,000 mg PO BID rosuvastatin [Crestor] 40 MG tablet 40 mg PO QPM esomeprazole magnesium [Nexium] 40 MG capsule,delayed release(DR/EC) 40 mg PO DAILY albuterol sulfate 90 mcg/actuation HFA aerosol inhaler 2 puff INHALATION Q4H PRN Patient Comments: INHALE 2 PUFFS BY MOUTH EVERY 4 TO 6 HOURS NEEDED FOR 14 DAYS insulin lispro [Humalog KwikPen Insulin] 100 unit/mL insulin pen SUBCUT Patient Comments: Inject 20-30 unit subcutaneously three times a day DX:E11.9 insulin degludec [Tresiba FlexTouch U-200] 200 unit/mL (3 mL) insulin pen 150 unit SUBCUT DAILY Discharge Instructions Additional Instructions: Total Knee Discharge Instructions Activity: The most important activity is to walk and to work on gentle motion (both flexion and extension). You should try to take short walks a few times a day. It is important that when resting you work on keeping the knee straight. Avoid putting a pillow behind the knee as this will encourage flexion. Work on range of motion exercises as provided by Physical Therapy. - Start outpatient physical therapy within 2 weeks. - You should wear the VLADIMIR hose on both legs for 2 weeks. You may remove these at night. You may also use any compression sock in place of the VLADIMIR hose. - Utilize [employer] to review exercises, see videos on exercises and obtain basic information pertaining to your surgery and your recovery. Dressing: Remove the Rubio wrap by 2 days after your surgery and put on the VLADIMIR stocking given to you from the hospital. Keep the surgical dressing (underneath the RUBIO wrap) in place for at least one week. After the first week it may be removed and replaced with light gauze and tape or nothing. The wound and dressing may get wet after 3 days but avoid soaking the dressing or otherwise it will need to be changed. Many people prefer covering the dressing with cling wrap (saran wrap) to minimize it from getting soaked. If it gets wet, just pat dry. If it starts to peel off then it will need to be changed. Medications: - You should take Tylenol and anti-inflammatory Celebrex as your primary pain control medications. If the Celebrex is too expensive or not covered, please call the office for another alternative (Advil/Ibuprofen or Naproxen/Aleve) - You have been prescribed a stronger pain medication Oxycodone for breakthrough pain, take as needed as prescribed. - You have also been prescribed a stomach acid reduction agent Pantoprozole to help reduce stomach acid and reflux. - You have been prescribed Gabapentin to take at night for restlessness and nerve pain. - You will be taking Aspirin 81mg twice a day for DVT prevention unless in structed otherwise. - You have also been prescribed Decadron to take to control post-operative nausea and pain. You will start this tomorrow. - If you have constipation you should take Colace or Miralax (both [id number]). It takes most people 3-4 days to have a bowel movement. Follow-up: 2 weeks If you have any acute concerns or questions, please do not hesitate to contact the office at [phone]. You may contact Dr. Melvin with any questions after hours through the hospital at [phone] or on his cell phone at [phone]. Stand Alone Forms: Anesthesia Discharge Inst., Earl[place].Nerve Block Instructions, Delano Son (DSU) Referrals: Pk Melvin MD [ [facility] STAFF PHYSICIAN] - 11/04/23 1:45 pm Equipment/Supplies: Walker Activity:: Activity as Tolerated Shower/Bathe:: 72 hours Diet:: As Tolerated Discharge Orders Discharge Orders: Discharge Order (Routine); Ordered 10/22/23 Ordered By: Pk Melvin DS: Diagnosis Discharge Diagnosis (1) Primary osteoarthritis of right knee: Status: Chronic
[2023-10-22] MEDS: Gabapentin 300 MG CAP PO (09:16)
[2023-10-22] MEDS: Acetaminophen 500 MG TAB 1000 MG PO (09:16)
[2023-10-22] MEDS: Celecoxib 200 MG CAP 400 MG PO (09:16)
[2023-10-22] MEDS: Lactated Ringers 1,000 ML 80 ML IV (09:19)
--- NOTE | 2023-10-22 10:06 | W.ANESPRE ---
General Info Date of Service Date Performed: 10/22/23 Height: 5 ft 4 in Weight: 83.1 kg Body Mass Index (BMI): 31.4 Surgical Procedure: Operation Date: 10/22/23 11:10 Proposed Procedure Side Surgeon p Knee Total Arthroplasty, Cementless CR Right Pk Melvin MD Meds Allergies and Home Medications Allergies Allergy/AdvReac Type Severity Reaction Status Date / Time azithromycin Allergy Intermediate Tongue Verified 10/22/23 09:05 swelling Home Medication Medication Instructions Recorded metformin 1,000 mg tablet 1,000 mg PO BID 11/18/12 (Glucophage) rosuvastatin 40 mg tablet (Crestor) 40 mg PO QPM 11/18/12 esomeprazole magnesium 40 mg 40 mg PO DAILY 09/03/16 capsule,delayed release (Nexium) ascorbic acid (vitamin C) 500 mg 500 mg PO DAILY 06/28/21 capsule citalopram 20 mg tablet 20 mg PO HS 06/28/21 zinc 50 mg tablet 50 mg PO DAILY 10/11/21 ferrous sulfate 325 mg (65 mg 325 mg PO BID 05/24/22 iron) tablet ondansetron 4 mg disintegrating 4 mg PO Q4H 05/24/22 tablet sodium chloride 0.65 % nasal spray 2 spray intranasal QHS PRN dry 07/25/22 aerosol ([place] Saline) nasal passages #50 mL semaglutide 0.25 mg or 0.5 mg (2 1 mg subcut QWEEK 12/28/22 mg/1.5 mL) subcutaneous pen injector (Ozempic) valsartan 160 mg tablet 320 mg PO HS 12/28/22 vitamin B complex (B 1 tab PO DAILY 12/28/22 Complex-Vitamin B12 tablet) psyllium husk 0.4 gram capsule 0.4 g PO BID constipation #28 caps 01/11/23 (Fiber (psyllium husk)) canagliflozin 100 mg tablet 100 mg PO DAILY 07/15/23 (Invokana) albuterol sulfate 90 mcg/actuation 2 puff inhalation Q4H PRN 09/19/23 aerosol inhaler insulin degludec 200 unit/mL (3 150 unit subcut DAILY 09/19/23 mL) subcutaneous pen (Tresiba FlexTouch U-200 insulin) insulin lispro 100 unit/mL subcut 09/19/23 subcutaneous pen (Humalog KwikPen (U-100) Insulin) acetaminophen 500 mg tablet 1,000 mg (2 x 500 mg) PO TID #90 10/22/23 tabs aspirin 81 mg tablet,delayed 81 mg PO BID #60 tabs 10/22/23 release celecoxib 200 mg capsule 200 mg PO BID #60 caps 10/22/23 dexamethasone 4 mg tablet 4 mg PO DAILY #2 tabs 10/22/23 gabapentin 300 mg capsule 300 mg PO QHS #14 caps 10/22/23 oxycodone 5 mg tablet 5 mg PO Q4H PRN pain #20 tabs 10/22/23 pantoprazole 40 mg tablet,delayed 40 mg PO DAILY #30 tabs 10/22/23 release Current Visit Medications: Current Medications Generic Name Dose Route Start Last Admin Trade Name Adryanq PRN Reason Stop Dose Admin Acetaminophen 1,000 mg 10/22/23 06:00 10/22/23 09:16 Acetaminophen 500 Mg Tab PO 10/22/23 16:00 1,000 mg PREOP VERO Administration Acetaminophen 1,000 mg 10/22/23 07:31 Acetaminophen 500 Mg Tab PO 11/21/23 08:29 TID PRN Analgesia Celecoxib 400 mg 10/22/23 06:00 10/22/23 09:16 Celecoxib 200 Mg Cap PO 10/22/23 16:00 400 mg PREOP VERO Administration Docusate Sodium 100 mg 10/22/23 07:31 Docusate Sodium 100 Mg Cap PO 11/21/23 07:30 BID PRN PRN Constipation Gabapentin 300 mg 10/22/23 06:00 10/22/23 09:16 Gabapentin 300 Mg Cap PO 10/22/23 16:00 300 mg PREOP VERO Administration Tranexamic Acid 1,000 mg/ 60 mls @ 360 mls/hr 10/22/23 06:00 Sodium Chloride IVPB 10/22/23 16:00 PREOP VERO Ringer's Solution 1,000 mls @ 80 mls/hr 10/22/23 06:00 10/22/23 09:19 IV 10/22/23 23:59 80 mls/hr INFUSION VERO Administration Cefazolin Sodium/Dextrose 2 gm in 50 mls @ 100 mls/hr 10/22/23 06:00 Ancef Duplex IVPB 10/22/23 23:59 PREOP VERO IV Miscellaneous Supplies 1 each 10/22/23 06:00 Iv Access IV 10/22/23 23:59 DIRECTED VREO Oxycodone HCl 0 mg 10/22/23 07:31 Oxycodone 5 Mg Tab PO 11/21/23 07:30 Q3H PRN PRN Pain Polyethylene Glycol 17 gm 10/22/23 07:31 Polyethylene Glycol 3350 17 Gm Packet PO 11/21/23 07:30 BID PRN PRN Constipation Sodium Chloride 0 ml 10/22/23 06:00 Normal Saline Flush 10 Ml Syr IV 10/22/23 23:59 PRN PRN Sodium Chloride 0 ml 10/22/23 06:00 Normal Saline 10 Ml Vial IJ 10/22/23 23:59 DIRECTED PRN Sterile Water 0 ml 10/22/23 06:00 Water,Injection,Sterile 10 Ml Vial IJ 10/22/23 23:59 DIRECTED PRN PFSH Active Problems Active Problems: Problem Status Onset Code Asthma J45.909 Chest pain R07.9 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 Hip abductor tendinitis M76.899 Primary osteoarthritis of right knee M17.11 Vomiting R11.10 Iron deficiency E61.1 Cough R05.9 Diabetic neuropathy E11.40 Muscle weakness M62.81 Balance problem R26.89 Shortness of breath R06.02 Internal hemorrhoid K64.8 Colon polyp K63.5 Dyspnea R06.00 Diverticulosis K57.90 Chest pain R07.9 Screening for colon cancer Z12.11 Tear of medial meniscus of right knee S83.241A Trigger finger, right middle finger M65.331 Medical History Medical History Cecal volvulus Cecal volvulus Fibroepithelial polyp (~12/2022) Family history of colon cancer sister age 74 Mitral valve regurgitation Per Dr. Stephens note mild present since 2009 Tension headache Nausea Urinary incontinence, mixed YARELIS on CPAP Denies using CPAP currently - reports mask is too large Vitamin B12 deficiency Diabetic retinopathy Microalbuminuria Diabetes mellitus, type II, insulin dependent Recurrent falls Ataxia Fatty infiltration of liver Fatigue Dyspnea on exertion Foot pain, right Shingles Anemia, iron deficiency Tubular adenoma of colon Chronic anxiety PTSD (post-traumatic stress disorder) Pt. denies this dx Hypertension Sleep apnea does not use CPAP machine recently, due to ill-fitting mask Gastroesophageal reflux disease Retinopathy Hyperlipidemia Depression Benign hypertension Diabetes mellitus Narcolepsy Surgical History Surgical History S/P laparoscopy with lysis of adhesions History of colonoscopy (~12/2022) Hx of arthroscopy of right knee Hx of laparoscopy Removed left ovary. Per pt, was to check for endometriosis. Hx of tubal ligation History of esophagogastroduodenoscopy (EGD) S/P excision of lipoma excision of lipoma on back History of hysterectomy History of carpal tunnel release Trigger Finger release LMF, LRF Tobacco Smoking/Tobacco Use Status: Former Tobacco Use Alcohol Alcohol Intake: current Alcohol intake frequency: holidays/special occasions only Substance Use Substance use: Never Substance use type: does not use Vital Signs and Lab Results Vital Signs Most Recent Vital Signs in EMR: Most Recent Vital Signs Temp Pulse Resp BP Pulse Ox 36.7 C 80 23 182/67 H 98 10/22/23 09:49 10/22/23 09:49 10/22/23 09:49 10/22/23 09:49 10/22/23 09:49 Lab Results Blood Type / Crossmatch: No Data to Display Complete Blood Count: White Blood Count 8.75 10^3/uL (4.4-10.8) 10/10/23 14:18 Red Blood Count 4.13 10^6/uL (3.93-5.22) 10/10/23 14:18 Hemoglobin 10.4 g/dL (11.2-15.7) L 10/10/23 14:18 Hematocrit 33.7 % (36.0-46.0) L 10/10/23 14:18 Platelet Count 320 10^3/uL (130-400) 10/10/23 14:18 Venous Blood Lactate 1.4 mmol/L (0.6-1.4) 10/03/23 08:16 Complete Metabolic Panel: Sodium 144 mmol/L (136-145) 10/10/23 14:18 Potassium 4.4 mmol/L (3.5-5.1) 10/10/23 14:18 Chloride 106 mmol/L (98-107) 10/10/23 14:18 Carbon Dioxide 25.3 mmol/L (21.0-32.0) 10/10/23 14:18 BUN 23 mg/dL (7-18) H 10/10/23 14:18 Creatinine 1.0 mg/dL (0.55-1.02) 10/10/23 14:18 Est GFR (CKD-EPI 2020) 62.13 (mL/min/1.73m2) 10/10/23 14:18 Magnesium 1.8 mg/dL (1.8-2.4) 10/03/23 08:16 Calcium 10.2 mg/dL (8.5-10.1) H 10/10/23 14:18 Albumin 3.9 g/dL (3.4-5.0) 10/03/23 08:16 Glucose 140 mg/dL (74-106) H 10/10/23 14:18 C-Reactive Protein < 0.50 mg/dL (<or=0.5) 10/03/23 08:16 Liver Function Panel: Alanine Aminotransferase (ALT/SGPT) 23 U/L (14-59) 10/03/23 08:16 Aspartate Amino Transf (AST/SGOT) 14 U/L (15-37) L 10/03/23 08:16 Coagulation Panel: No Data to Display Cardiac Panel: Troponin I < 50 ng/L (< or =60) 10/03/23 Arterial Blood Gas: No Data to Display Venous Blood Gas: No Data to Display Pancreas Panel: Lipase 90 U/L (16-77) H 10/03/23 08:16 Thyroid Panel: No Data to Display Infectious Disease: No Data to Display Blood Cultures: No Data to Display Toxicology Panel: No Data to Display Imaging and Studies Imaging and Studies Study information below may be from another EMR and interpreted by another provider. Please see original notes in EMR for more complete details. EKG Summary: 05/17: Sinus rhythm Stress Test Summary: 2020: 1. The resting electrocardiogram was normal. Patient underwent pharmacologic stress 2. Blunted heart rate and blood pressure response to pharmacologic stress 3. Maximum heart rate was 65% of predicted heart rate for age 4. Electrocardiographically the test was nondiagnostic due to inadequate heart rate 5. No symptoms were elicited to suggest angina Patient Name: Vicki Botello Unit #: [id number] Loc: DI Ordering Provider: Lorena Stephens M.D. Status: REG CLI Primary Care Provider: Lorena Stephens M.D. Date of Exam: 10/01/23 Sex: F Admission Date: 10/01/23 : 1955 Age: 68 APPROVED REPORT Exam: Pharmacologic Patient Location: Out-Patient Room/Bed: Stress Nurse: Millicent Salazar RN Ordering Provider:LORENA STEPHENS, Contact Number: [phone] BMI: 30.72 Baseline Rhythm: Sinus Rhythm Indications: Chest pain Medical History Medical History: Diabetic neuropathy, mitral valve regurgitation, YARELIS on CPAP, ataxia, reccurent falls, DMT2, BRAND, PTSD, GERD, HTN, depression Cardiac Medications: Albuterol sulfate, canagliflozin, citalopram, nexium, ferrous sulfate, tresebia, flex touch, levemir, humalog, metformin, zofran, crestor, ozempic, valsartan Allergies: Azithromycin Cardiac Risk Factors: Family hx, HTN, HLD, diabetes, asthma, former smoker Previous Cardiac Procedures: None Pretest Chest Pain Characteristics: None Exercise History: Sedentary Physical Disabilities: Right knee Lung Sounds: Clear to auscultation Heart Sounds: Regular Stress Test Details Test: Pharmacologic stress testing performed using 0.4 mg of regadenoson per 5 mL given IV over 10 seconds. Reason for pharmacologic stress test: Right knee pain. Nuclear Acquisition: Rest Tc-99m/Stress Tc-99m 1 day Rest Isotope: Tc-99m Sestamibi. Dose: 10.0 Date: 10/01/2023 Injection Time: 0930 Stress Isotope: Tc-99m Sestamibi. Dose: 30.0 Date: 10/01/2023 Injection Time: 1104 HR Resting HR Supine: 73 bpmMax Heart Rate (APMHR): 154.195297 bpm Target HR (85% APMHR): 130.144271 bpm Max HR Achieved: 106 bpm % of APMHR: 68.83 Recovery HR: 82 bpm BP Resting BP Supine: 118/62 mmHg Max BP: 130/68 mmHg Recovery BP: 124/58 mmHg ECG Resting ECG: Sinus Rhythm Ectopy: None Stress ECG: Sinus Tachycardia ST Change: Nondiagnostic low heart rate Arrhythmia: None Recovery ECG: Sinus Rhythm Recovery ST Change: Nondiagnostic low heart rate Recovery Arrhythmia: None Clinical Stress Symptoms: Mild SOB Angina Score: None Rate Pressure Product: [id number] Stress ECG Conclusion 1. Normal clinical,HR,BP and ecg responses 2. Nuclear findings reported separately Stress Test Summary [id number] 1 min post Lexiscan [id number] 3 min post Lexiscan [id number] 6 min post Lexiscan [id number] MPI Conclusion Normal myocardial perfusion, no ischemia or infarct Normal LV function, EF 58%. Radiologist Interpretation Radiologist agrees with [employer]'s Interpretation. Radiologist Interpretation by: Anna Macdonald MD Interpretation Date/Time: 10/02/2023 14:08:47 Ordered By: Lorena Stephens M.D. CC: Marin Mejía M.D. Dictated By: Marin Mejía M.D. 10/01/23 1137 <Electronically signed by Marin Mejía M.D. in OV> 10/03/23 0830 Transcribed By: Marin Mejía MD 10/01/23 5527 This is privileged, confidential information intended only for the provider named. Any use or distribution by any person other than this provider is strictly prohibited. If you receive this report in error, please notify us immediately at [phone] and return the original report to us at the address above. Thank-you. Echocardiogram Summary: 06/15: Normal left ventricular wall thickness and chamber size. Estimated ejection fraction is 55 to 60%. There are no segmental wall motion abnormalities Normal right ventricular size and systolic function Both atria are normal in size Aortic valve is sclerotic and trileaflet without stenosis or regurgitation Moderate mitral annular calcification. Trace mitral regurgitation Normal tricuspid valve with trace regurgitation. Normal estimated right ventricular systolic pressure 24.5 mmHg Normal pulmonic valve with trace regurgitation Pulmonary Function Summary: 09/16: no evidence of obstructive or restrictive lung disease, but there is mild diffusion defect. This represents a slightly suboptimal patient effort, but if it is true finding, underlying early developing interstitial lung disease or pulmonary hypertension should be further clinically investigated. When this study was compared to previous one from 06/07/06, the patient has a total of 560 cc's decline in FVC; FEV1 has declined by 490 cc's. Diffusion capacity also had a substantial decline. Clinical correlation therefore recommended. Anesthesia Assessment and Plan Anesthesia History Personal History: No History of Anesthesia Complications Family History: No Family History of Anesthesia Complications Exercise Tolerance Exercise Tolerance: Metabolic Equivalents<4 Pertinent Negatives Pertinent Negatives: No Symptoms of GERD, No Major Cardiovascular Symptoms or Complaints, No Major Pulmonary Symptoms or Complaints and No History of CVA/TIA Cardiac & Pulmonary Exam Cardiac Exam: Normal S1/S2 Heart Sounds Pulmonary Exam: Clear Bilateral Breath Sounds Implantable Cardiac Device Does patient have a Pacemaker or an ICD?: No Airway Exam Known Difficult Airway: No Mallampati Class: 3 Mouth Opening: Narrow (< 3cm) Thyromental Distance: Greater than 3 cm Neck Range of Motion: Full ROM Neck Circumference: Normal Teeth Condition: Removable Dentures/Plates Upper, Removable Dentures/Plates Lower and Edentulous ASA Classification ASA Score: ASA 3 Emergency Case?: No NPO Status NPO Status: NPO Clears >2 hours, Solids >8 hours Anesthesia Plan Resuscitation Status: Full Code Anesthesia Technique: Spinal Anesthesia Airway Planned: Natural Airway Monitors Used: Standard Monitors
[2023-10-22] MEDS: ceFAZolin 2 GM/50 ML BAG IVPB (10:15)
--- NOTE | 2023-10-22 11:11 | W.ANESNERVE ---
Nerve Block Single Injection Procedure Date and Time Date Performed: 10/22/23 Procedure Start: 09:49 Location Where Procedure Performed Procedure Location: Day Surgery Unit Reason Performed: Postoperative Analgesia Requesting Provider: Pk Melvin Timeout Performed Timeout Performed: Yes Monitoring Used ECG, Blood Pressure, SpO2 and See EMR for corresponding vital signs Sterility Sterility: Hand Hygiene, Surgical Cap, Surgical Mask, Sterile Gloves and Chlorhexidine Sedation Given During Procedure Sedation Given (Indicate Dose Given): Versed IV Dose:: 2mg Patient Mental Status Patient Mental Status: Sedate with meaningful communication Nerve Block 1st Nerve Block: Laterality: Right Block Type: Adductor Canal Ultrasound Image Saved?: Yes Needle / Catheter Used: 100mm SonoPlex II Local Anesthetic Bolus (Indicate Dose Given): Lidocaine used for local infiltration of skin, Injected in 3-5ml increments after negative blood aspiration and Bupivacaine 0.25% Dose:: 15mL Additives (Indicate Dose Given): None Ultrasound: Sterile probe cover and gel used Nerve Stimulator: Not Used Paresthesia: None Procedure Tolerated: No Complications and Patient tolerated well Procedure Outcome: Successful Performed By: Pretty Marr Supervised By: Cherrie Whittaker
--- NOTE | 2023-10-22 11:38 | ROE_ITS ---
Date of service: 10/22/23 Time of Service: 10:30 Operative Note Operative Note DATE OF PROCEDURE: 10/22/23 PRE-OP DIAGNOSIS: Right Knee Osteoarthritis POST-OP DIAGNOSIS: same PROCEDURE: Right Total Knee Replacement SURGEON: Pk Melvin [employer] TESTER: Marilynn Hernandez ANESTHESIA TYPE: Spinal Refer to Anesthesia Record ESTIMATED BLOOD LOSS: 50 PATHOLOGY: none sent TOURNIQUET TIME: 0 COMPLICATIONS: None Patient was transported to: PACU Patient's condition: stable Implants: 1. Depuy Attune Cementless Cruciate Retaining Femoral Component, Size 4 2. Depuy Attune Cementless Fixed Bearing Tibial Component, Size 4 3. Depuy Attune 4x5 CR/FB Poly 4. Depuy Attune Patellar Component, Size 35 Indications: I have seen Vicki in clinic for symptoms of knee arthritis, confirmed with radiographic findings. She has exhausted nonoperative methods and was having significant limitations in daily function and desired better function and less pain. I discussed the technical details of a knee replacement. I explained the risks of the procedure to include, but not limited to, bleeding, infection, pain, stiffness, fracture, damage to nerves and vessels, damage to muscles and tendons, loosening, need for repeat procedure, blood clot and cardiopulmonary demise. Despite these risks, Kelsey elected to proceed. Findings: There was significant signs of arthritis throughout the knee. Procedure Description: Kelsey was greeted in the preoperative holding area where the correct side was identified and marked. The consent was reviewed with the patient and signed. The history and physical was updated. All questions were answered. Preoperative medications were administered: Acetaminophen 1000mg, Celebrex 400mg, and Gabapentin 300mg. An adductor canal block was then administered by the anesthesia team in the PACU. Kelsey was taken back to the operating room. A spinal anesthestic was then administered. The patient was placed into the supine position on the operating room table. Posts were placed for positioning during the procedure. All bony prominences were well padded. Prophylactic antibiotics in the form of Cefazolin were administered. 1g of Tranxemic Acid was given intravenously within 30 minutes of incision. The right leg was then prepped with Chloraprep and draped in a standard fashion with impervious stockinette. A second prep with Chlorap rep was performed prior to application of Iodine impregnated skin protection. A timeout to confirm correct identity, side and site, procedure, allergies, anesthesia, and medical concerns was performed. With the knee in some flexion, a midline incision was made overlying the knee. Full thickness skin flaps were raised once the extensor mechanism was encountered. These were raised medially and laterally. Any bleeding was controlled with electrocautery. Once the extensor mechanism was fully exposed, a medial parapatellar arthrotomy was performed in a flexed position. All bleeding from the arthrotomy and the geniculate arteries was coagulated. A medial subperiosteal peel was performed with electrocautery to the midcoronal plane. The fat pad was removed while keeping the patellar tendon protected. The anterior distal femur synovium was removed for later visualization. The ACL and PCL were resected and the anterior horn of the lateral meniscus was transected. The knee was then flexed with the patella everted. Large osteophytes from the tibia were removed. Large osteophytes from the femur were removed. Using a step drill, and based on preoperative templating, the femoral canal was entered. This was done with a step drill without any difficulty. The intramedullary distal femoral cut guide was inserted, set to a 5 degree valgus cut and 9mm cut thickness. The distal femoral cut guide was then held in position and pinned. With the soft tissues protected, the distal cut was performed. This was passed over a few times to ensure a planar cut. I then turned attention to the tibia. The extramedullary guide was placed onto the leg. The distal aspect was slid medial to adjust for position of center of ankle and stay in line with shaft of the tibia. Approximately 3-5 degrees of posterior slope was kept in the proximal cutting guide. The center of the guide was aligned with the PCL. The stylus was used to assess cut thickness. The medial side, most involved side, was set for a 5mm cut, corresponding to 9mm laterally. This was then held in position and pinned into place with 2 additional pins and a cross pin for stability. The medial and lateral collateral ligaments were protected and the cut was performed. With this completed, it was assessed and noted to be of appropriate dimensions. The guide was removed. A spacer block was inserted and the knee was brought into extension. The 5mm spacer block provided full extension, without hyperextension and with stability of both the medial and lateral collateral ligaments was assessed. The pins from the femur and the tibia were then removed. The distal femur was then sized. The anterior stylus was placed onto the lateral ridge of the anterior femur. This indicated a size 4 femur. The ext ernal rotation of the guide was adjusted to 5 degrees to match the epicondylar axis, perpendicular to [place]?s line. The 4-in-1 cutting guide was the placed. The posterior medial femur cut was evaluated and appeared of good thickness. The spacer block was inserted underneath the cutting guide and stability was confirmed in 90 degrees of flexion. An fabiola wing was used to confirm appropriate position of the anterior cut to avoid notching. This cutting guide was ensured to be flush on the cut surface and then pinned into place with headed pins. While protecting the soft tissues, quad tendon, and collateral ligaments, the anterior and posterior cuts were performed with a saw. The central two pins were removed and the posterior and anterior chamfers were cut next. The notch-cutting guide was placed. This was pinned to lateralize the femoral component as much as possible while keeping it flush on the cut surface. This was then pinned into position. A reciprocating saw was used to make the notch cut. A rasp smoothed the cut surfaces. The medial and lateral menisci were removed. A trial femoral component was then inserted, impacted down to the cut surfaces, and the lug holes were drilled. A provisional trial tibial component was placed and the knee was brought through range of motion. There was noted to be excellent extension and flexion. There was no significant instability. The patella was tracking without thumbs. A size 5mm polyethylene component provided the best range of motion and stability with less than 2mm gapping with medial and lateral stress and full extension without significant hyperextension. The tibial cut surface was fully exposed. The tibia was then sized as a 4. The tibia had been previously marked during trialing to correspond to the center of the tibial component to help with rotation. The trial was aligned to this marilynn, approximately rotated to the medial 1/3rd of the tibial tubercle. The trial was pinned into place. The tibia was prepared with a reamer and a keel punch and lug holes. The knee was then brought into extension and the patella was measured as 23mm. Using the patellar clamp and cut guide, this was resected to a flat surface with at least 13mm of thickness remaining. The size 35 patella fit the best. This was oriented and then clamped into position. The lugs were drilled. The trial components were removed. The final components were opened on the back table. The periosteal and capsular tissues, especially posteriorly, around the knee were then systematically injected with a periarticular cocktail consisting of 246mg of Ropivacaine, 0.5mg of Epinephrine, 0.08mg of Clonidine, and 30mg of Ketorolac, diluted to 100cc. On the back table, with the implants opened, the cement was mixed. One batch of high viscosity cement was prepared with vacuum assistance. After the cement was ready a small amount was placed on the cut surface of the patella and the patellar button was clamped into position and held. While the cement was hardening, the cementless knee components were placed. Starting with the tibial component, the tibia was subluxed anteriorly and the lug holes of the component were lined up. The tibia was then impacted with an impactor and mallet until the tibial component was in contact with the tibia. The final polyethylene component was inserted. Then, the femoral component was inserted. The lug holes were aligned and the component was impacted into position. The knee was irrigated with Surgiphor Betadine solution. This was allowed to sit in the knee for 3 minutes and then it was irrigated out with saline. After the cement had finally cured, approximately 15min, the clamp was removed from the patella and the knee was taken through range of motion. The patella was tracking with a no-thumbs technique. The capsule was then reapproximated with a No. 1 Vicryl at multiple locations. The capsule was finally closed with a No. 2 Stratafix, barbed suture. The second dosing of 1g TXA was started. Deep tissues were then reapproximated with 0 Vicryl and 2-0 Vicryl. The skin was closed with a running 3-0 Monocryl in a subcuticular fashion. This was reinforced with skin glue. A Mepilex silver dressing was applied along with a [id number] DEMETRIA wrap. A CryoCuff was applied. Vicki was transferred to the hospital bed without difficulty an suffering no apparent complication. Vicki has a good prognosis. Physical therapy will start today and without restrictions, weight-bearing as tolerated. Aspirin 81mg BID will be used for DVT prophylaxis.
[2023-10-22] MEDS: fentaNYL 100 MCG/2 ML VIAL IVP ×2 (12:18→12:37)
--- NOTE | 2023-10-22 12:29 | W.ANESPOSTOP ---
Postoperative Evaluation Date, Time and Location Date Performed: 10/22/23 Time Performed: 12:30 Patient Location: PACU Vital Signs Most Recent Imported Vital Signs: Most Recent Vital Signs Temp Pulse Resp BP Pulse Ox 36.6 C 79 18 153/56 H 94 10/22/23 12:20 10/22/23 12:20 10/22/23 12:20 10/22/23 12:20 10/22/23 12:20 Pain Score Most Recent Pain Score: Most Recent Pain Score Pain Level 8 10/22/23 12:20 Assessment Mental Status: Awake (Alert & Oriented to Patient Baseline) Airway and Respiratory Function: Patent airway with normal (patient baseline) respiratory exam Cardiovascular Function: Hemodynamically Stable Hydration Status: Adequately Hydrated Nausea & Vomiting: No Nausea or Vomiting Pain: Pain is tolerable per patient Peripheral Nerve Block: Regional nerve block not resolved at time of post operative discharge
[2023-10-22] MEDS: Tranexamic Acid 650 MG TAB 1300 MG PO (14:05)
--- NOTE | 2023-10-22 14:27 | PT.INIE ---
PT Notes Visit Reasons: R TKR Physical Therapy Day Surgery Initial Evaluation Date: 10/22/2023 Referring Doctor: JENNIFER Key PT Orders: PT CONSULT: Limited ability Precautions: WBAT on the R LE with AD. Patient Profile/Admitting Diagnosis: Jacki is a 68-year-old female with degenerative joint disease of the right knee and is status post right total knee arthroplasty on postoperative day 0. PMHX: Medical History (Updated 10/10/23 @ 13:37 by Viridiana Hinds) Cecal volvulus Fibroepithelial polyp (~12/2022) Family history of colon cancer sister age 74 Mitral valve regurgitation Per Dr. Kearns note mild present since 2009 Tension headache Nausea Urinary incontinence, mixed YARELIS on CPAP Denies using CPAP currently - reports mask is too large Lives with [place] Vitamin B12 deficiency Diabetic retinopathy Microalbuminuria Diabetes mellitus, type II, insulin dependent Recurrent falls Ataxia Fatty infiltration of liver Fatigue Dyspnea on exertion Foot pain, right Shingles Anemia, iron deficiency Tubular adenoma of colon Chronic anxiety PTSD (post-traumatic stress disorder) Pt. denies this dxHypertension Sleep apnea does not use CPAP machine recently, due to ill-fitting mask Gastroesophageal reflux disease Retinopathy Hyperlipidemia Depression Benign hypertension Diabetes mellitus Narcolepsy Surgical History (Updated 10/10/23 @ 13:36 by Viridiana Hinds) S/P laparoscopy with lysis of adhesions History of colonoscopy (~12/2022) Hx of arthroscopy of right knee Hx of laparoscopy Removed left ovary. Per pt, was to check for endometriosis. Hx of tubal ligation History of esophagogastroduodenoscopy (EGD) S/P excision of lipoma excision of lipoma on back History of hysterectomy History of carpal tunnel release Trigger Finger release LMF, LRF Social History/Home Situation: Lives with Chilango in a private home with 3 steps to enter with a rail on one side. Independent with all aspects of ADLs without an assistive device although has had increasing difficulty with mobility performance due to worsening arthritis in right knee. Equipment Owned/DME: [facility] Subjective: Reported 2/10 pain in the right knee. Denied headache, chest pain, lightheadedness throughout session. Objective: General Observation: Resting in bed. DEMETRIA wraps to right knee. Cryocuff to right knee. TDS to left leg and foot. Mental Status: A&O x 4 Pain: As above ROM: Right Lower Extremity: Hip flexion WFL. Hip abduction WFL. Knee flexion 10 degrees to 100 degrees. Knee extension -10 degrees. Ankle dorsiflexion WFL. Ankle plantarflexion WFL. Left Lower Extremity: Hip flexion WFL. Hip abduction WFL. Knee flexion WFL. Ankle dorsiflexion WFL. Ankle plantarflexion WFL. Strength: Right Lower Extremity: Hip flexors 4/5. Hip abductors 4/5. Knee flexors 5/5. Knee extensors 3-/5. Knee extension 3 -/5. Ankle dorsiflexors 5/5. Ankle plantarflexors 5/5. Left Lower Extremity:Hip flexors 5/5. Hip abductors 5/5. Knee flexors 5/5. Knee extensors 5/5. Ankle dorsiflexors 5/5. Ankle plantarflexors 5/5. Sensation: Intact to light pressure in bilateral lower extremities Bed Mobility/Transfers: Minimal cueing provided for use of B hands as needed for support, movement sequence, AD management, and posture to reduce fall risk and minimize pain report Supine to sit standby assist Sit to stand contact-guard assist with FWW Stand to sit standby assist with FWW Bed to chair standby assist with FWW Gait: Facilitated safe and correct performance of level surface ambulation covering a distance of 100 feet using front-wheeled walker with step through gait pattern with contact-guard assist only and minimal verbal cueing for AD management, limb advancement, and posture to minimize fall risk and reduce pain level. Stairs: Guided patient with safe and correct negotiation of 3 x 4 inch steps and 2 x 6 inch steps while holding onto bilateral rails with step to gait pattern requiring only standby assist and minimal verbal cueing for increased knee flexion on the right during each ascent, safe movement sequence, and posture to reduce fall risk pain level. Balance: Static Sitting: Normal Dynamic Sitting: Normal Static Standing: Fair Dynamic Standing: Fair Special Tests: Mobility Limitations Standardized Measure [facility] 6 clicks Basic Mobility Inpatient Short Form: Raw Score: 22 CMS Score: 21% deficit Informed Consent/Education: Patient instructed in purpose of PT consult. Packet containing TKA exercise protocol has been given to patient. Education and training on initial set of exercises that can be done at home have been completed with patient. Trained patient with correct performance of exercises below to maximize motor control, joint flexibility, soft tissue extensibility of the R knee musculature: Access Code: [email or web address] URL: [email or web address] Date: 10/22/2023 Prepared by: Leni Childers Exercises - Supine Quad Set - 1 x daily - 7 x weekly - 1 sets - 10 reps - 5 hold - Supine Heel Slide - 1 x daily - 7 x weekly - 1 sets - 10 reps - 5 hold - Supine Ankle Pumps - 1 x daily - 7 x weekly - 1 sets - 10 reps - 5 hold - Small Range Straight Leg Raise - 1 x daily - 7 x weekly - 1 sets - 10 reps - 5 hold - Seated March - 1 x daily - 7 x weekly - 1 sets - 10 reps - 5 hold Assessment: Patient requires use of a front wheeled walker for mobility ADL performance maximize independence and reduce fall risk. Patient presents with clinical signs and symptoms consistent with current/admitting diagnoses that have resulted to mobility limitations, gait instability, generalized weakness, and impairment of motor control as demonstrated by the following impairment level findings: 1. Decreased strength to R knee major muscle groups 2. Impaired standing balance 3. Limitation of joint range of motion in R knee Impairments are contributing to the following functional limitations: 1. Inability to safely ambulate without assistive device 2. Increase completion time for mobility ADL performance 3. Increased fall risk Patient is assessed as a 26343 moderate complexity based on the following: History: 68-year-old female with impairment level findings, functional limitations, and past medical history as indicated above Examination: Demonstrable impairment in strength, balance, and mobility level with underlying impairments and functional limitations as documented above Presentation: Evolving Decision Makin moderate Goals: N/A. PT evaluation and 1-2 treatment sessions only for functional mobility training using recommended AD and for HEP instruction. Plan of Care/Treatment Plan: N/A. PT evaluation and 1-2 treatment session only for functional mobility training using recommended AD and for HEP instruction. DISCHARGE RECOMMENDATIONS: Home when medically cleared by orthopedic surgeon. Recommend outpatient PT services in order to optimize functional mobility outcomes and facilitate return to independent community ambulation without an assistive device. TREATMENT CODE/TIME: 9716 2 x 20 minutes for 1 unit, 12779 x 20 minutes for 1 unit (14:27-15:06). Thank you for the opportunity to participate in the care of this patient. Please sign an return this page within 30 days if you agree with the above POC. Thank you! Physician Signature Date [facility] Thank you for the opportunity to participate in the care of this patient. Leni Childers PT, DPT, CLT [facility] [place], [place]
== END 2023-10-22 15:33 | disposition home or self-care (01) ==
LOC: SUR 08:38
PROVIDERS: PCP Family Medicine; Visit Provider Student in an Organized Health Care Education/Training Program
PROC: (CPT 27447; principal; 2023-10-22 11:00)
DX: M17.11 Unilateral primary osteoarthritis, right knee (principal); E11.40 Type 2 diabetes mellitus with diabetic neuropathy, unspecified; Z79.84 Long term (current) use of oral hypoglycemic drugs; Z79.4 Long term (current) use of insulin; J45.909 Unspecified asthma, uncomplicated
CPT/HCPCS: 27447; C1776; 76942; 97162; 97530; J0665; J0690; J1100; J2001; J2250; J2371; J2401; J2405; J2704; J3010

== ENCOUNTER 2023-10-28 21:52 | Emergency (ER) | payer MEDICARE, SELFPAY ==
--- NOTE | 2023-10-28 21:55 | W.ED.GENAD ---
Discharge Plan Disposition Patient Disposition: Home Discharge Details Clinical Impression: Constipation due to pain medication Primary Care Provider: Lorena Kearns ED Provider: Kim Benitez Home Meds and New Rx's Prescriptions: No Action zinc 50 mg tablet 50 mg PO DAILY [place] Saline 0.65 % aerosol,spray 2 spray intranasal QHS PRN (Reason: dry nasal passages) Qty: 50 12RF Invokana 100 mg tablet 100 mg PO DAILY citalopram 20 mg tablet 20 mg PO HS ascorbic acid (vitamin C) 500 mg capsule 500 mg PO DAILY ondansetron 4 mg tablet,disintegrating 4 mg PO Q4H ferrous sulfate 325 mg (65 mg iron) tablet 325 mg PO BID valsartan 160 mg tablet 320 mg PO HS vitamin B complex [B Complex-Vitamin B12] Tablet 1 tab PO DAILY psyllium husk [Fiber (psyllium husk)] 0.4 gram capsule 0.4 g PO BID Qty: 28 0RF Rx Instructions: Take 1 tablet by mouth in the morning, and 1 tablet by mouth in the evening oxycodone 5 mg tablet 5 mg PO Q4H MDD 6 tabs PRN (Reason: pain) Qty: 20 0RF polyethylene glycol 3350 [Miralax] 17 gram powder in packet 34 g PO BID PRN (Reason: constipation) Qty: 30 0RF bisacodyl [Dulcolax (bisacodyl)] 10 mg suppository 10 mg PA DAILY PRN (Reason: constipation) Qty: 12 0RF docusate sodium 283 mg/5 mL enema 283 mg PA DAILY PRN (Reason: constipation) Qty: 25 0RF metformin [Glucophage] 1,000 MG tablet 1,000 mg PO BID rosuvastatin [Crestor] 40 MG tablet 40 mg PO QPM esomeprazole magnesium [Nexium] 40 MG capsule,delayed release(DR/EC) 40 mg PO DAILY acetaminophen 500 mg tablet 1,000 mg PO TID Qty: 90 3RF celecoxib 200 mg capsule 200 mg PO BID Qty: 60 0RF gabapentin 300 mg capsule 300 mg PO QHS Qty: 14 0RF pantoprazole 40 mg tablet,delayed release (DR/EC) 40 mg PO DAILY Qty: 30 0RF albuterol sulfate 90 mcg/actuation HFA aerosol inhaler 2 puff INHALATION Q4H PRN Patient Comments: INHALE 2 PUFFS BY MOUTH EVERY 4 TO 6 HOURS NEEDED FOR 14 DAYS insulin lispro [Humalog KwikPen Insulin] 100 unit/mL insulin pen SUBCUT Patient Comments: Inject 20-30 unit subcutaneously three times a day DX:E11.9 insulin degludec [Tresiba FlexTouch U-200] 200 unit/mL (3 mL) insulin pen 150 unit SUBCUT DAILY Discharge Instructions Instructions: Constipation (ED) Additional Instructions: MiraLAX 1 capful with 8 ounces of water 2 times per day until you are pooping normally. You can decrease this to 1 capful per day or one half capful per day as needed. Colace or Dulcolax can be used as well to soften your stool. Return to ED for fever of 100.4 or above, belly pain localized to 1 area, protracted vomiting with no bowel movements, any other concerns. Discharge Data Discharge Date/Time-TO BE ENTERED AT DEPARTURE: 10/29/23 01:49 HPI General Date/Time Provider Initiated Documentation: 10/28/23 21:55. HPI Narrative: This 68-year-old female patient presents on referral from orthopedics with a chief complaint of constipation after recent total knee replacement 6 days ago. The patient states she has not had a bowel movement since before the replacement. She has not been eating much either. She is having an occasional bran muffin or ham sandwich. She has been taking stool softeners including Dulcolax, MiraLAX, etc. She reports that her stomach has not been feeling great but cannot really characterize this. She says when she got to the ER she started to dry heave. At that point she passed a bunch of diarrhea and soiled herself. Initially told me that her belly felt better and then a few minutes later said that she feels nauseous again. She has no fever, URI symptoms, chest pain, or shortness of breath. There is no abdominal cramping. She has no dysuria. No pedal edema or calf pain. She has no headache, sore throat, for any rashes, stiff neck, weakness, or dizziness. Related Data Home Medications Medication Instructions Recorded Confirmed metformin 1,000 mg tablet 1,000 mg PO BID 11/18/12 10/28/23 (Glucophage) rosuvastatin 40 mg tablet (Crestor) 40 mg PO QPM 11/18/12 10/28/23 esomeprazole magnesium 40 mg 40 mg PO DAILY 09/03/16 10/28/23 capsule,delayed release (Nexium) ascorbic acid (vitamin C) 500 mg 500 mg PO DAILY 06/28/21 10/28/23 capsule citalopram 20 mg tablet 20 mg PO HS 06/28/21 10/28/23 zinc 50 mg tablet 50 mg PO DAILY 10/11/21 10/28/23 ferrous sulfate 325 mg (65 mg 325 mg PO BID 05/24/22 10/28/23 iron) tablet ondansetron 4 mg disintegrating 4 mg PO Q4H 05/24/22 10/28/23 tablet sodium chloride 0.65 % nasal spray 2 spray intranasal QHS PRN dry 07/25/22 10/28/23 aerosol ([place] Saline) nasal passages #50 mL valsartan 160 mg tablet 320 mg PO HS 12/28/22 10/28/23 vitamin B complex (B 1 tab PO DAILY 12/28/22 10/28/23 Complex-Vitamin B12 tablet) psyllium husk 0.4 gram capsule 0.4 g PO BID constipation #28 caps 01/11/23 10/22/23 (Fiber (psyllium husk)) canagliflozin 100 mg tablet 100 mg PO DAILY 07/15/23 10/28/23 (Invokana) albuterol sulfate 90 mcg/actuation 2 puff inhalation Q4H PRN 09/19/23 10/28/23 aerosol inhaler insulin degludec 200 unit/mL (3 150 unit subcut DAILY 09/19/23 10/28/23 mL) subcutaneous pen (Tresiba FlexTouch U-200 insulin) insulin lispro 100 unit/mL subcut 09/19/23 10/16/23 subcutaneous pen (Humalog KwikPen (U-100) Insulin) acetaminophen 500 mg tablet 1,000 mg (2 x 500 mg) PO TID #90 10/22/23 10/28/23 tabs celecoxib 200 mg capsule 200 mg PO BID #60 caps 10/22/23 10/28/23 gabapentin 300 mg capsule 300 mg PO QHS #14 caps 10/22/23 10/28/23 pantoprazole 40 mg tablet,delayed 40 mg PO DAILY #30 tabs 10/22/23 10/28/23 release oxycodone 5 mg tablet 5 mg PO Q4H PRN pain #20 tabs 10/26/23 10/28/23 bisacodyl 10 mg rectal suppository 10 mg PA DAILY PRN constipation 10/28/23 10/28/23 (Dulcolax (bisacodyl)) #12 ea docusate sodium 283 mg/5 mL enema 283 mg (5 mL) PA DAILY PRN 10/28/23 10/28/23 constipation #25 mL polyethylene glycol 3350 17 gram 34 g PO BID PRN constipation #30 ea 10/28/23 10/28/23 oral powder packet (Miralax) Previous Rx's Medication Instructions Recorded sodium chloride 0.65 % nasal spray 2 spray intranasal QHS PRN dry 07/25/22 aerosol ([place] Saline) nasal passages #50 mL psyllium husk 0.4 gram capsule 0.4 g PO BID constipation #28 caps 01/11/23 (Fiber (psyllium husk)) acetaminophen 500 mg tablet 1,000 mg (2 x 500 mg) PO TID #90 10/22/23 tabs celecoxib 200 mg capsule 200 mg PO BID #60 caps 10/22/23 gabapentin 300 mg capsule 300 mg PO QHS #14 caps 10/22/23 pantoprazole 40 mg tablet,delayed 40 mg PO DAILY #30 tabs 10/22/23 release oxycodone 5 mg tablet 5 mg PO Q4H PRN pain #20 tabs 10/26/23 bisacodyl 10 mg rectal suppository 10 mg PA DAILY PRN constipation 10/28/23 (Dulcolax (bisacodyl)) #12 ea docusate sodium 283 mg/5 mL enema 283 mg (5 mL) PA DAILY PRN 10/28/23 constipation #25 mL polyethylene glycol 3350 17 gram 34 g PO BID PRN constipation #30 ea 10/28/23 oral powder packet (Miralax) Allergies Allergy/AdvReac Type Severity Reaction Status Date / Time azithromycin Allergy Intermediate Tongue Verified 10/28/23 22:22 swelling General KAMLESH: 3 Review of Systems Narrative: See HPI Exam Const General: no acute distress, well developed, well groomed and not in acute distress Nutritional Appearance: well nourished Orientation: alert and oriented x3 HENMT Head: normocephalic and atraumatic Ears: external ears normal Mouth: oropharynx normal and moist mucous membranes Eyes Conjunctivae: conjunctivae normal Neck Neck: full ROM and supple Chest Chest: normal inspection of the chest Resp Effort & Inspection: normal respiratory effort Auscultation: clear to auscultation bilaterally Cardio Rate: regular rate Rhythm: regular rhythm Heart Sounds: no murmurs and no rubs GI Inspection: normal to inspection Palpation: soft, nontender and other (non distended) Percussion: normal to percussion Auscultation: normal bowel sounds Skin General skin exam: no rashes or lesions noted and other (pink, warm, dry) Neuro General: patient alert, patient awake and patient oriented x3 Speech: speech normal Motor: other (ROJAS) Sensory Exam: no sensory deficits noted Extrem General: normal to inspection, full ROM and pedal edema present Right lower extremity: knee (Patient's knee swollen/ecchymotic w/clean dressing; looks good, not hot) Psych Mental Status: mental status grossly normal Speech and Movement: speech and movement normal Affect: normal affect Medical Decision Making An EKG in the ED showed no QT prolongation so I am giving her 8 mg of IV Zofran and a liter of normal saline. We will check a KUB and some labs. 2325. Patient is mildly anemic compared to her baseline from August and I suspect this is related to blood loss from her knee replacement. Alk phos is also elevated but this is widely reported following joint surgery. 2330. Patient and her were updated on all of her test results. She does have stool in her pelvic area we will try soapsuds enema. This we will send her home and have her continue with the Colace and MiraLAX. We discussed this extensively. She will return to the ED for fever of 100.4 or above, belly pain localized to 1 area, protracted vomiting, any other concerns. Medical Records Medical records reviewed: Yes I reviewed the patient's medical records. Imaging Data Radiologic Study: Imaging: X-Ray (decent amt distal stool evident) Lab Data Lab results reviewed: Yes I reviewed the patient's lab results. Lab results narrative: See above note in MDM ECG Data Attestation: I personally reviewed and interpreted this ECG (s) as follows: (NSR 80, no interum change vs 10/03/23, nl intervals and EKG) Quality:SDOH Health Related Social Needs: No Data to Display PFSH All Active Problems (Updated 10/28/23 @ 23:37 by Kim Benitez MD) Constipation due to pain medication (Acute) Asthma (Chronic) Chest pain (Acute) Post-acute sequelae of COVID-19 (PASC) (Acute) Hip abductor tendinitis (Acute) Primary osteoarthritis of right knee (Chronic) Steroid injection: 04/15/2023 Vomiting (Acute) Iron deficiency (Acute) Cough (Acute) Diabetic neuropathy (Acute) Muscle weakness (Acute) Balance problem (Acute) Shortness of breath (Acute) Internal hemorrhoid (Acute) she denies Colon polyp (Acute) Dyspnea (Acute) Diverticulosis (Acute) Chest pain (Acute) Screening for colon cancer (Acute) Tear of medial meniscus of right knee (Acute) Injected 01/07/2019 Trigger finger, right middle finger (Chronic) Medical History Cecal volvulus Cecal volvulus Fibroepithelial polyp (~12/2022) Family history of colon cancer sister age 74 Mitral valve regurgitation Per Dr. Keanrs note mild present since 2009 Tension headache Nausea Urinary incontinence, mixed YARELIS on CPAP Denies using CPAP currently - reports mask is too large Vitamin B12 deficiency Diabetic retinopathy Microalbuminuria Diabetes mellitus, type II, insulin dependent Recurrent falls Ataxia Fatty infiltration of liver Fatigue Dyspnea on exertion Foot pain, right Shingles Anemia, iron deficiency Tubular adenoma of colon Chronic anxiety PTSD (post-traumatic stress disorder) Pt. denies this dx Hypertension Sleep apnea does not use CPAP machine recently, due to ill-fitting mask Gastroesophageal reflux disease Retinopathy Hyperlipidemia Depression Benign hypertension Diabetes mellitus Narcolepsy Surgical History S/P laparoscopy with lysis of adhesions History of colonoscopy (~12/2022) Hx of arthroscopy of right knee Hx of laparoscopy Removed left ovary. Per pt, was to check for endometriosis. Hx of tubal ligation History of esophagogastroduodenoscopy (EGD) S/P excision of lipoma excision of lipoma on back History of hysterectomy History of carpal tunnel release Trigger Finger release LMF, LRF Family History Sister Cancer colon cancer age 74. Abdominal aortic aneurysm Mother Heart disease Social History Smoking/Tobacco Use Status: Former Tobacco Use Quit Date: 08/26/00 Smoking risk assessment performed?: Yes Alcohol Intake: current Alcohol Intake frequency: holidays/special occasions only Drug use: Never Substance use type: does not use Housing: house Number of Children: 2 current occupation: Disabled Current gender identity: female Do you feel safe at home: Yes Do you feel safe in your relationship?: Yes
--- NOTE | 2023-10-28 22:15 | RT.EKG_ITS ---
APPROVED REPORT Exam: Resting ECG Reason for Exam: malaise post surgery Patient Location: E HR:78 bpm ECG Measurements Heart Rate 78 AXIS ME 132 P 47 QRSd 81 QRS 44 QT 384 T 55 QTc 438 Conclusion Sinus rhythm...normal P axis, V-rate 60- 99 No interum change vs 10/03/23
[2023-10-28 22:18] VITALS: BP 159/46; PULSE 85; RESP 16; TEMP 36.5; O2SAT 98
[2023-10-28] MEDS: Normal Saline 1,000 ML 1000 ML IV (22:57)
[2023-10-28] MEDS: Ondansetron 4 MG/2 ML VIAL 8 MG IVP (22:57)
[2023-10-28 22:59] LABS: Abs Immature Grans 0.14 10^3/uL (0.0-0.06); Absolute Basophil Count 0.05 10^3/uL (0.0-0.2); Absolute Eosinophil Count 0.22 10^3/uL (0.0-0.7); Absolute Lymphocyte Count 0.74 10^3/uL (1.2-3.4); Absolute Monocyte Count 0.67 10^3/uL (0.1-0.8); Basophils % 0.6; Eosinophils % 2.6; HCT 28.1 % (36.0-46.0); HGB 8.5 g/dL (11.2-15.7); Immature Grans % 1.6; Lymphocytes % 8.7; MCH 24.4 pg (27.0-33.0); MCHC 30.2 % (32.0-36.0); MCV 81 fL (80-95); MPV 10.5 fL (8.0-11.0); Monocytes % 7.9; Neutrophils % 78.6; Nucleated RBC 0.4 % (0.0-0.3); Platelet Count 322 10^3/uL (130-400); RBC 3.49 10^6/uL (3.93-5.22); RDW 15.5 % (11.7-14.6); RDW-SD 45.1 fL; WBC 8.52 10^3/uL (4.4-10.8)
[2023-10-28 23:14] LABS: ALT 44 U/L (14-59); AST 28 U/L (15-37); Albumin 2.8 g/dL (3.4-5.0); Alkaline Phosphatase 277 U/L (46-116); Anion Gap 10.4 mmol/L (3-11); BUN 21 mg/dL (7-18); Bilirubin, Total 1.2 mg/dL (0.2-1.0); CO2 24.6 mmol/L (21.0-32.0); CREATININE 1.1 mg/dL (0.55-1.02); Calcium 9.3 mg/dL (8.5-10.1); Chloride 101 mmol/L (98-107); Diff Comment RBC Morph Reviewed; Estimated GFR 55.42 (mL/min/1.73m2); Glucose 165 mg/dL (74-106); Hypochromasia 1+; Microcytosis 1+; Poikilocytes 1+; Polychromasia Present; Potassium 4.6 mmol/L (3.5-5.1); Sodium 136 mmol/L (136-145); Total Protein 7.6 g/dL (6.4-8.2)
--- NOTE | 2023-10-28 23:18 | DI.RAD_ITS ---
Exam(s) XR ABDOMEN FLAT PLATE EXAM: 2D digital imaging was performed. CLINICAL HISTORY: eval constipation; 2 recent surg, laparoscopy 3 wk. COMPARISON: CR ABDOMEN 2 VIEW FLAT, UPRIGHT from 04/18/2011 TECHNIQUE: Supine views of the abdomen was performed. Two images were obtained. FINDINGS: LUNG BASES: Clear. BOWEL GAS PATTERN: There are mildly dilated loops of small bowel probably reflecting an ileus. There is a moderate amount of stool in the colon. FREE AIR: None. CALCIFICATIONS: No radiopaque calcifications. OSSEOUS STRUCTURES: Normal for age. OTHER FINDINGS: None. IMPRESSION: Moderate amount of stool in the colon suggesting constipation. DATA REPOSITORY: RADIATION DOSE DELIVERED:
--- NOTE | 2023-10-28 23:57 | DI.VRAD_ITS ---
PROCEDURE INFORMATION: Exam: XR Abdomen Exam date and time: 10/28/2023 11:14 PM Age: 68 years old Clinical indication: Prior surgery; Surgery date: <1 month; Patient HX: Eval constipation; 2 recent surg, laparoscopy 3 wk TECHNIQUE: Imaging protocol: Radiologic exam of the abdomen. Views: Frontal supine view of the abdomen. 1 View. COMPARISON: CT ABDOMEN PELVIS W 10/03/2023 9:14 AM FINDINGS: Gastrointestinal tract: There is stool and gas throughout much of the visualized portion of the colon, nondilated, suspicious for constipation. Numerous loops of small bowel are mildly distended with gas, potentially signifying ileus. Obstruction unlikely on this study but not excluded. Bones/joints: Unremarkable. IMPRESSION: There is stool and gas throughout much of the visualized portion of the colon, nondilated, suspicious for constipation. Numerous loops of small bowel are mildly distended with gas, potentially signifying ileus. Obstruction unlikely on this study but not excluded. Dictated and Authenticated by: Son Weston MD. Ordering:BELEN Alvarez MD
[2023-10-29] MEDS: ACETAMINOPHEN 1,000 MG/100 ML BTL 400 MG IVPB (00:05)
[2023-10-29 01:28] VITALS: BP 159/46; PULSE 85; RESP 16; TEMP 36.5; O2SAT 98
--- NOTE | 2023-10-29 01:29 | ED.PROG_ITS ---
Date of service: 10/29/23 Time of Service: 01:50 Medical Decision Making I received sign out regarding this patient. At that point, the patient was in the process of getting soap suds enema and awaiting X-ray result. Soap suds enema was administered and per RN, the patient retained about 500 ml - 600 ml. Per RN the tip of the enema tube had stool on it signifying that the stool is rather high up, too high for digital disimpaction. X-ray is resulted and per V-rad it showed: There is stool and gas throughout much of the visualized portion of the colon, nondilated, suspicious for constipation. Numerous loops of small bowel are mildly distended with gas, potentially signifying ileus. Obstruction unlikely on this study but not excluded. The patient was subsequently able to have a bowel movement and per RN passed a stool about the size of 3 gold balls combined. At this point the patient is eager to go home. Discharge paperwork had been printed already. She is given instruction on use of [id number] MiraLAX, 17 g dissolved in 8 ounces of water, juice or soda to be taken in 30 minutes daily up to desired bowel movement effect. Told the patient to follow-up with her primary care doctor as well but urged her to return to the emergency department immediately with any worsening symptoms or any other concerns. Patient is to be discharged shortly. Quality:SDOH Health Related Social Needs: No Data to Display Discharge Plan Disposition Patient Disposition: Home Discharge Details Clinical Impression: Constipation due to pain medication Primary Care Provider: Lorena Kearns ED Provider: Kim Benitez Home Meds and New Rx's Prescriptions: No Action zinc 50 mg tablet 50 mg PO DAILY [place] Saline 0.65 % aerosol,spray 2 spray intranasal QHS PRN (Reason: dry nasal passages) Qty: 50 12RF Invokana 100 mg tablet 100 mg PO DAILY citalopram 20 mg tablet 20 mg PO HS ascorbic acid (vitamin C) 500 mg capsule 500 mg PO DAILY ondansetron 4 mg tablet,disintegrating 4 mg PO Q4H ferrous sulfate 325 mg (65 mg iron) tablet 325 mg PO BID valsartan 160 mg tablet 320 mg PO HS vitamin B complex [B Complex-Vitamin B12] Tablet 1 tab PO DAILY psyllium husk [Fiber (psyllium husk)] 0.4 gram capsule 0.4 g PO BID Qty: 28 0RF Rx Instructions: Take 1 tablet by mouth in the morning, and 1 tablet by mouth in the evening oxycodone 5 mg tablet 5 mg PO Q4H MDD 6 tabs PRN (Reason: pain) Qty: 20 0RF polyethylene glycol 3350 [Miralax] 17 gram powder in packet 34 g PO BID PRN (Reason: constipation) Qty: 30 0RF bisacodyl [Dulcolax (bisacodyl)] 10 mg suppository 10 mg [place] DAILY PRN (Reason: constipation) Qty: 12 0RF docusate sodium 283 mg/5 mL enema 283 mg [place] DAILY PRN (Reason: constipation) Qty: 25 0RF metformin [Glucophage] 1,000 MG tablet 1,000 mg PO BID rosuvastatin [Crestor] 40 MG tablet 40 mg PO QPM esomeprazole magnesium [Nexium] 40 MG capsule,delayed release(DR/EC) 40 mg PO DAILY acetaminophen 500 mg tablet 1,000 mg PO TID Qty: 90 3RF celecoxib 200 mg capsule 200 mg PO BID Qty: 60 0RF gabapentin 300 mg capsule 300 mg PO QHS Qty: 14 0RF pantoprazole 40 mg tablet,delayed release (DR/EC) 40 mg PO DAILY Qty: 30 0RF albuterol sulfate 90 mcg/actuation HFA aerosol inhaler 2 puff INHALATION Q4H PRN Patient Comments: INHALE 2 PUFFS BY MOUTH EVERY 4 TO 6 HOURS NEEDED FOR 14 DAYS insulin lispro [Humalog KwikPen Insulin] 100 unit/mL insulin pen SUBCUT Patient Comments: Inject 20-30 unit subcutaneously three times a day DX:E11.9 insulin degludec [Tresiba FlexTouch U-200] 200 unit/mL (3 mL) insulin pen 150 unit SUBCUT DAILY Discharge Instructions Instructions: Constipation (ED) Additional Instructions: MiraLAX 1 capful with 8 ounces of water 2 times per day until you are pooping normally. You can decrease this to 1 capful per day or one half capful per day as needed. Colace or Dulcolax can be used as well to soften your stool. Return to ED for fever of 100.4 or above, belly pain localized to 1 area, protracted vomiting with no bowel movements, any other concerns.
== END 2023-10-29 01:49 | disposition home or self-care (01) ==
PROVIDERS: Emergency Provider Emergency Medicine; PCP Family Medicine
DX: K59.03 Drug induced constipation (principal); I10 Essential (primary) hypertension; E78.5 Hyperlipidemia, unspecified
CPT/HCPCS: 00123; 80053; 93005; 96361; 96374; 96375; 99284; 74018; 85025; 93010; J0131; J2405

== ENCOUNTER 2023-11-04 13:24 | Outpatient (CLI) | payer MEDICARE, SELFPAY ==
--- NOTE | 2023-11-04 13:00 | DI.RAD_ITS ---
Exam(s) XR KNEE RT 1V XR STANDING ALIGNMENT EXAM: XR STANDING ALIGNMENT and XR knee RT 1 V CLINICAL HISTORY: 1ST POST OP R TKA. TECHNIQUE: 2D digital imaging was performed. Five images were obtained. COMPARISON: CR XR KNEE RT 1V from 10/10/2023 CR XR STANDING ALIGNMENT from 10/10/2023 FINDINGS: BONES: The hips are well maintained. There are stable postsurgical changes of a right total knee rep lacement. There is a joint effusion present. There is mild soft tissue swelling which persists arou nd the knee. Vascular calcifications are present. The left knee is well maintained. The ankles are well maintained.There is no significant leg length discrepancy. SOFT TISSUE: Vascular calcifications are present. IMPRESSION: Stable right total knee replacement. Joint effusion and soft tissue swelling around the right knee. DATA REPOSITORY: RADIATION DOSE DELIVERED:
== END 2023-11-04 13:25 | disposition home or self-care (01) ==
LOC: DIORS 13:24
PROVIDERS: PCP Family Medicine; Visit Provider Student in an Organized Health Care Education/Training Program
DX: Z96.651 Presence of right artificial knee joint (principal); Z47.1 Aftercare following joint replacement surgery
CPT/HCPCS: 73560; 77073

== ENCOUNTER → 2023-12-06 08:47 | Outpatient (BNVA) | payer MEDICARE, SELFPAY | PROVIDERS: PCP Family Medicine; Referring Provider Family Medicine | DX: Z47.1 Aftercare following joint replacement surgery (principal); Z96.651 Presence of right artificial knee joint ==

== ENCOUNTER → 2024-01-13 09:21 | Outpatient (BNVA) | payer MEDICARE, SELFPAY | PROVIDERS: PCP Family Medicine; Referring Provider Family Medicine; Visit Provider Student in an Organized Health Care Education/Training Program | DX: Z47.1 Aftercare following joint replacement surgery (principal); Z96.651 Presence of right artificial knee joint ==

== ENCOUNTER 2024-02-17 19:57 | Outpatient (REF) | payer MEDICARE, SELFPAY ==
[2024-02-17 19:31] LABS: HCT 32.6 % (36.0-46.0); HGB 10.1 g/dL (11.2-15.7); MCH 25.3 pg (27.0-33.0); MCV 82 fL (80-95); Platelet Count 248 10^3/uL (130-400); RBC 3.99 10^6/uL (3.93-5.22); RDW 14.2 % (11.7-14.6); RDW-SD 41.5 fL; WBC 6.89 10^3/uL (4.4-10.8)
[2024-02-17 20:06] LABS: COMMENT (LAB VIEW ONLY) 66.83 mg/dL; Microalb ug/mg Crea 16.6 ug/mg Cr
[2024-02-17 20:33] LABS: Ferritin 14 ng/mL (8-252); Folate 17.4 ng/mL (8.6-20.0); Vitamin B12 1889 pg/mL (193-986)
== END 2024-02-17 19:58 | disposition home or self-care (01) ==
LOC: NCHCN 19:57
PROVIDERS: PCP Family Medicine; Visit Provider Family Medicine
DX: D64.9 Anemia, unspecified (principal); E11.9 Type 2 diabetes mellitus without complications; E53.8 Deficiency of other specified B group vitamins
CPT/HCPCS: 85027; 82043; 82570; 82607; 82728; 82746

== ENCOUNTER 2024-04-02 21:17 | Outpatient (CLI) | payer MEDICARE, SELFPAY ==
[2024-04-02 14:27] LABS: HCT 28.7 % (36.0-46.0); HGB 8.6 g/dL (11.2-15.7); MCH 24.9 pg (27.0-33.0); MCV 83 fL (80-95); MPV 11.8 fL (8.0-11.0); Platelet Count 280 10^3/uL (130-400); RBC 3.45 10^6/uL (3.93-5.22); RDW 16.1 % (11.7-14.6); RDW-SD 48.2 fL; WBC 7.95 10^3/uL (4.4-10.8)
[2024-04-02 15:28] LABS: Ferritin 10 ng/mL (8-252)
== END 2024-04-02 21:18 | disposition home or self-care (01) ==
LOC: LBO 21:17
PROVIDERS: PCP Family Medicine; Visit Provider Family Medicine
DX: D50.9 Iron deficiency anemia, unspecified (principal)
CPT/HCPCS: 36415; 85027; 82728

== ENCOUNTER 2024-04-22 02:39 | Outpatient (RCR) | payer MEDICARE, SELFPAY ==
[2024-04-15] MEDS: IRON SUCROSE COMPLEX 300 MG in Normal Saline 250 ML 176.667 MG IVPB (12:18)
[2024-04-15] MEDS: Normal Saline Flush 10 ML SYR IVP (12:19)
[2024-04-22] MEDS: IRON SUCROSE COMPLEX 300 MG in Normal Saline 250 ML 176.667 MG IVPB (12:09)
[2024-04-22] MEDS: Normal Saline Flush 10 ML SYR IVP (12:09)
== END 2024-04-25 23:59 | disposition home or self-care (01) ==
LOC: INF 02:39
PROVIDERS: PCP Family Medicine; Visit Provider Family Medicine
DX: D50.9 Iron deficiency anemia, unspecified (principal)
CPT/HCPCS: 96365; 96366; J1756

== ENCOUNTER 2024-04-29 01:21 | Outpatient (RCR) | payer MEDICARE, SELFPAY ==
[2024-04-29] MEDS: Normal Saline Flush 10 ML SYR IVP (12:20)
[2024-04-29] MEDS: IRON SUCROSE COMPLEX 300 MG in Normal Saline 250 ML 176.667 MG IVPB (12:20)
== END 2024-05-25 23:59 | disposition home or self-care (01) ==
LOC: INF 01:21
PROVIDERS: PCP Family Medicine; Visit Provider Family Medicine
DX: D50.9 Iron deficiency anemia, unspecified (principal)
CPT/HCPCS: 96365; 96366; J1756

== ENCOUNTER 2024-06-12 06:30 | Day surgery (SDC) | payer MEDICARE, SELFPAY ==
--- NOTE | 2024-06-12 05:49 | W.ANESPRE ---
General Info Date of Service Date Performed: 06/12/24 Height: 5 ft 4 in Weight: 86.7 kg Body Mass Index (BMI): 32.8 Surgical Procedure: Operation Date: 06/12/24 08:40 Proposed Procedure Side Surgeon p Cataract Extraction with IOL Implant Right Alvin Perrin MD Meds Allergies and Home Medications Allergies Allergy/AdvReac Type Severity Reaction Status Date / Time azithromycin Allergy Intermediate Tongue Verified 06/12/24 06:52 swelling Home Medication ?Medication ?Instructions ?Recorded metformin 1,000 mg tablet 1,000 mg PO BID 11/18/12 (Glucophage) rosuvastatin 40 mg tablet (Crestor) 40 mg PO QPM 11/18/12 esomeprazole magnesium 40 mg 40 mg PO DAILY 09/03/16 capsule,delayed release (Nexium) ascorbic acid (vitamin C) 500 mg 500 mg PO DAILY 06/28/21 capsule citalopram 20 mg tablet 20 mg PO HS 06/28/21 zinc 50 mg tablet 50 mg PO DAILY 10/11/21 ferrous sulfate 325 mg (65 mg 325 mg PO BID 05/24/22 iron) tablet sodium chloride 0.65 % nasal spray 2 spray intranasal QHS PRN dry 07/25/22 aerosol ([place] Saline) nasal passages #50 mL valsartan 160 mg tablet 320 mg PO HS 12/28/22 vitamin B complex (B 1 tab PO DAILY 12/28/22 Complex-Vitamin B12 tablet) canagliflozin 100 mg tablet 100 mg PO DAILY 07/15/23 (Invokana) albuterol sulfate 90 mcg/actuation 2 puff inhalation Q4H PRN 09/19/23 aerosol inhaler insulin degludec 200 unit/mL (3 150 unit subcut DAILY 09/19/23 mL) subcutaneous pen (Tresiba FlexTouch U-200 insulin) insulin lispro 100 unit/mL 5 unit subcut DIRECTED 09/19/23 subcutaneous pen (Humalog KwikPen (U-100) Insulin) pantoprazole 40 mg tablet,delayed 40 mg PO DAILY #30 tabs 10/22/23 release polyethylene glycol 3350 17 gram 34 g PO BID PRN constipation #30 ea 10/28/23 oral powder packet (Miralax) acetaminophen 500 mg tablet 1,000 mg PO TID PRN 06/11/24 PFSH Active Problems Active Problems: Problem Status Onset Code Posterior subcapsular age-related cataract, right eye Acute H25.041 Cortical age-related cataract, right eye Acute H25.011 Nuclear age-related cataract, right eye Acute H25.11 History of total right knee replacement Acute 10/22/23 Z96.651 Asthma Chronic J45.909 Chest pain Acute R07.9 Post-acute sequelae of COVID-19 (PASC) Acute U09.9 Hip abductor tendinitis Acute M76.899 Vomiting Acute R11.10 Iron deficiency Acute E61.1 Cough Acute R05.9 Diabetic neuropathy Acute E11.40 Muscle weakness Acute M62.81 Balance problem Acute R26.89 Shortness of breath Acute R06.02 Internal hemorrhoid Acute K64.8 Colon polyp Acute K63.5 Dyspnea Acute R06.00 Diverticulosis Acute K57.90 Chest pain Acute R07.9 Screening for colon cancer Acute Z12.11 Tear of medial meniscus of right knee Acute S83.241A Trigger finger, right middle finger Chronic M65.331 Medical History Medical History Cecal volvulus Cecal volvulus Fibroepithelial polyp (~12/2022) Family history of colon cancer sister age 74 Mitral valve regurgitation Per Dr. Stephens note mild present since 2009 Tension headache Nausea Urinary incontinence, mixed YARELIS on CPAP Denies using CPAP currently - reports mask is too large Vitamin B12 deficiency Diabetic retinopathy Microalbuminuria Diabetes mellitus, type II, insulin dependent Recurrent falls Ataxia Fatty infiltration of liver Fatigue Dyspnea on exertion Foot pain, right Shingles Anemia, iron deficiency Tubular adenoma of colon Chronic anxiety PTSD (post-traumatic stress disorder) Pt. denies this dx Hypertension Sleep apnea does not use CPAP machine recently, due to ill-fitting mask Gastroesophageal reflux disease Retinopathy Hyperlipidemia Depression Benign hypertension Diabetes mellitus Narcolepsy Surgical History Surgical History S/P laparoscopy with lysis of adhesions History of colonoscopy (~12/2022) Hx of arthroscopy of right knee Hx of laparoscopy Removed left ovary. Per pt, was to check for endometriosis. Hx of tubal ligation History of esophagogastroduodenoscopy (EGD) S/P excision of lipoma excision of lipoma on back History of hysterectomy History of carpal tunnel release Trigger Finger release LMF, LRF Tobacco Smoking/Tobacco Use Status: Former Tobacco Use Alcohol Alcohol Intake: current Alcohol intake frequency: holidays/special occasions only Substance Use Substance use: Never Substance use type: does not use Vital Signs and Lab Results Vital Signs Most Recent Vital Signs in EMR: Temp Pulse Resp BP Pulse Ox 36.5 C 63 18 136/80 98 06/12/24 06:55 06/12/24 06:55 06/12/24 06:55 06/12/24 06:55 06/12/24 06:55 Lab Results Blood Type / Crossmatch: No Data to Display Complete Blood Count: No Data to Display Complete Metabolic Panel: No Data to Display Liver Function Panel: No Data to Display Coagulation Panel: No Data to Display Cardiac Panel: No Data to Display Arterial Blood Gas: No Data to Display Venous Blood Gas: No Data to Display Pancreas Panel: No Data to Display Thyroid Panel: No Data to Display Infectious Disease: No Data to Display Blood Cultures: No Data to Display Toxicology Panel: No Data to Display Imaging and Studies Imaging and Studies Study information below may be from another EMR and interpreted by another provider. Please see original notes in EMR for more complete details. EKG Summary: 10/28/23 Conclusion Sinus rhythm...normal P axis, V-rate 60- 99 No interum change vs 10/03/2305/17: Sinus rhythm Stress Test Summary: 2020: 1. The resting electrocardiogram was normal. Patient underwent pharmacologic stress 2. Blunted heart rate and blood pressure response to pharmacologic stress 3. Maximum heart rate was 65% of predicted heart rate for age 4. Electrocardiographically the test was nondiagnostic due to inadequate heart rate 5. No symptoms were elicited to suggest angina Patient Name: Vicki Botello Unit #: [id number] Loc: Ordering Provider: Lorena Stephens M.D. Status: REG [facility] Primary Care Provider: Lorena Stephens M.D. Date of Exam: 10/01/23 Sex: F Admission Date: 10/01/23 : 1955 Age: 68 APPROVED REPORT Exam: Pharmacologic Patient Location: Out-Patient Room/Bed: Stress Nurse: Millicent Martin, RN Ordering Provider:LORENA STEPHENS, Contact Number: [phone] BMI: 30.72 Baseline Rhythm: Sinus Rhythm Indications: Chest pain Medical History Medical History: Diabetic neuropathy, mitral valve regurgitation, YARELIS on CPAP, ataxia, reccurent falls, DMT2, BRAND, PTSD, GERD, HTN, depression Cardiac Medications: Albuterol sulfate, canagliflozin, citalopram, nexium, ferrous sulfate, tresebia, flex touch, levemir, humalog, metformin, zofran, crestor, ozempic, valsartan Allergies: Azithromycin Cardiac Risk Factors: Family hx, HTN, HLD, diabetes, asthma, former smoker Previous Cardiac Procedures: None Pretest Chest Pain Characteristics: None Exercise History: Sedentary Physical Disabilities: Right knee Lung Sounds: Clear to auscultation Heart Sounds: Regular Stress Test Details Test: Pharmacologic stress testing performed using 0.4 mg of regadenoson per 5 mL given IV over 10 seconds. Reason for pharmacologic stress test: Right knee pain. Nuclear Acquisition: Rest Tc-99m/Stress Tc-99m 1 day Rest Isotope: Tc-99m Sestamibi. Dose: 10.0 Date: 10/01/2023 Injection Time: 0930 Stress Isotope: Tc-99m Sestamibi. Dose: 30.0 Date: 10/01/2023 Injection Time: 1104 HR Resting HR Supine: 73 bpmMax Heart Rate (APMHR): 154.126887 bpm Target HR (85% APMHR): 130.270194 bpm Max HR Achieved: 106 bpm % of APMHR: 68.83 Recovery HR: 82 bpm BP Resting BP Supine: 118/62 mmHg Max BP: 130/68 mmHg Recovery BP: 124/58 mmHg ECG Resting ECG: Sinus Rhythm Ectopy: None Stress ECG: Sinus Tachycardia ST Change: Nondiagnostic low heart rate Arrhythmia: None Recovery ECG: Sinus Rhythm Recovery ST Change: Nondiagnostic low heart rate Recovery Arrhythmia: None Clinical Stress Symptoms: Mild SOB Angina Score: None Rate Pressure Product: [id number] Stress ECG Conclusion 1. Normal clinical,HR,BP and ecg responses 2. Nuclear findings reported separately Stress Test Summary [id number] 1 min post Lexiscan [id number] 3 min post Lexiscan [id number] 6 min post Lexiscan [id number] MPI Conclusion Normal myocardial perfusion, no ischemia or infarct Normal LV function, EF 58%. Radiologist Interpretation Radiologist agrees with Furnace Fitter's Interpretation. Radiologist Interpretation by: Anna Macdonald MD Interpretation Date/Time: 10/02/2023 14:08:47 Ordered By: Lorena Stephens M.D. CC: Marin Mejía M.D. Dictated By: Marin Mejía M.D. 10/01/23 1137 <Electronically signed by Marin Mejía M.D. in OV> 10/03/23 0830 Transcribed By: Marin Mejía MD 10/01/23 6810 Echocardiogram Summary: 10/02/22 Conclusion Normal left ventricular wall thickness and chamber size. Estimated ejection fraction is 65%. Wall motion is normal Normal right ventricular size and systolic function Both atria are normal in size The aortic valve is mildly sclerotic without stenosis or regurgitation Moderate mitral annular calcification. Mild mitral regurgitation Normal tricuspid valve with mild regurgitation. Estimated right ventricular systolic pressure is 20 mmHg 06/15: Normal left ventricular wall thickness and chamber size. Estimated ejection fraction is 55 to 60%. There are no segmental wall motion abnormalities Normal right ventricular size and systolic function Both atria are normal in size Aortic valve is sclerotic and trileaflet without stenosis or regurgitation Moderate mitral annular calcification. Trace mitral regurgitation Normal tricuspid valve with trace regurgitation. Normal estimated right ventricular systolic pressure 24.5 mmHg Normal pulmonic valve with trace regurgitation Pulmonary Function Summary: 09/16: no evidence of obstructive or restrictive lung disease, but there is mild diffusion defect. This represents a slightly suboptimal patient effort, but if it is true finding, underlying early developing interstitial lung disease or pulmonary hypertension should be further clinically investigated. When this study was compared to previous one from 06/07/06, the patient has a total of 560 cc's decline in FVC; FEV1 has declined by 490 cc's. Diffusion capacity also had a substantial decline. Clinical correlation therefore recommended. Anesthesia Assessment and Plan Anesthesia History Personal History: No History of Anesthesia Complications Family History: No Family History of Anesthesia Complications Exercise Tolerance Exercise Tolerance: Metabolic Equivalents<4 Cardiac & Pulmonary Exam Cardiac Exam: Normal S1/S2 Heart Sounds Pulmonary Exam: Clear Bilateral Breath Sounds Cardiac and Pulmonary Comment:: Post nasal gtt, no fever Implantable Cardiac Device Does patient have a Pacemaker or an ICD?: No Airway Exam Known Difficult Airway: No Mallampati Class: 3 Mouth Opening: Narrow (< 3cm) Thyromental Distance: Greater than 3 cm Neck Range of Motion: Full ROM Neck Circumference: Normal Teeth Condition: Removable Dentures/Plates Upper, Removable Dentures/Plates Lower and Edentulous ASA Classification ASA Score: ASA 3 Emergency Case?: No NPO Status NPO Status: NPO Clears >2 hours, Solids >8 hours Anesthesia Plan Resuscitation Status: Full Code Anesthesia Technique: MAC Anesthesia Airway Planned: Natural Airway Monitors Used: Standard Monitors Preoperative Comments:: Blood sugar 141
[2024-06-12 06:55] VITALS: BP 136/80; PULSE 63; RESP 18; TEMP 36.5; O2SAT 98
[2024-06-12] MEDS: Tropicam./Phenyleph. (1/2.5%) 5 ML BTL ×3 (07:08→07:30)
[2024-06-12 07:34] VITALS: BMI 32.8
[2024-06-12] MEDS: Tetracaine 0.5% 4 ML BTL (08:16)
[2024-06-12] MEDS: Povidone-Iodine Ophth 30 ML BTL (08:17)
[2024-06-12] MEDS: Lidocaine 1% Pres-Free 5 ML VIAL (08:24)
[2024-06-12] MEDS: Balanced Salt Soln.-PLUS 500 ML BAG OP (08:24)
[2024-06-12] MEDS: Duovisc Viscoelastic System EACH 1 EACH (08:25)
[2024-06-12] MEDS: Prednisolone 1%, Moxifloxacin 0.5%, Bromfenac 0.09% 5.6ML BTL 5.6 ML (08:35)
[2024-06-12 08:42] VITALS: BP 118/61; PULSE 74; RESP 18; TEMP 36.2; O2SAT 94
--- NOTE | 2024-06-12 08:42 | W.PM.DSUDISC ---
Date of service: 06/12/24 Time of Service: 08:42 Discharge Plan Disposition Patient Disposition: Home Discharge Details Attending Provider: Alvin Perrin Primary Care Provider: Lorena Kearns Home Meds and New Rx's Prescriptions: No Action zinc 50 mg tablet 50 mg PO DAILY [place] Saline 0.65 % aerosol,spray 2 spray intranasal QHS PRN (Reason: dry nasal passages) Qty: 50 12RF Invokana 100 mg tablet 100 mg PO DAILY citalopram 20 mg tablet 20 mg PO HS ascorbic acid (vitamin C) 500 mg capsule 500 mg PO DAILY ferrous sulfate 325 mg (65 mg iron) tablet 325 mg PO BID valsartan 160 mg tablet 320 mg PO HS vitamin B complex [B Complex-Vitamin B12] Tablet 1 tab PO DAILY polyethylene glycol 3350 [Miralax] 17 gram powder in packet 34 g PO BID PRN (Reason: constipation) Qty: 30 0RF metformin [Glucophage] 1,000 MG tablet 1,000 mg PO BID rosuvastatin [Crestor] 40 MG tablet 40 mg PO QPM esomeprazole magnesium [Nexium] 40 MG capsule,delayed release(DR/EC) 40 mg PO DAILY pantoprazole 40 mg tablet,delayed release (DR/EC) 40 mg PO DAILY Qty: 30 0RF albuterol sulfate 90 mcg/actuation HFA aerosol inhaler 2 puff INHALATION Q4H PRN Patient Comments: INHALE 2 PUFFS BY MOUTH EVERY 4 TO 6 HOURS NEEDED FOR 14 DAYS insulin lispro [Humalog KwikPen Insulin] 100 unit/mL insulin pen 5 unit SUBCUT DIRECTED Patient Comments: Inject 20-30 unit subcutaneously three times a day DX:E11.9 insulin degludec [Tresiba FlexTouch U-200] 200 unit/mL (3 mL) insulin pen 150 unit SUBCUT DAILY acetaminophen 500 mg tablet 1,000 mg PO TID PRN Discharge Instructions Stand Alone Forms: [facility] Post-Op [facility] Baez ([facility]) Discharge Orders Discharge Orders: Discharge Order (Routine); Ordered 06/12/24 Ordered By: Alvin Perrin DS: Diagnosis Discharge Diagnosis (1) Posterior subcapsular age-related cataract, right eye: Status: Resolved (2) Cortical age-related cataract, right eye: Status: Resolved (3) Nuclear age-related cataract, right eye: Status: Resolved
--- NOTE | 2024-06-12 08:43 | ROE_ITS ---
Date of service: 06/12/24 Time of Service: 08:43 Operative Note Operative Note DATE OF PROCEDURE: 06/12/24 PRE-OP DIAGNOSIS: Nuclear/cortical/posterior subcapsular cataract, right eye POST-OP DIAGNOSIS: same PROCEDURE: Cataract extraction using phacoemulsification with intraocular lens implant, right eye SURGEON: Alvin Perrin ANESTHESIA TYPE: Local By Surgeon and MAC Refer to Anesthesia Record ESTIMATED BLOOD LOSS: 0 PATHOLOGY: none sent COMPLICATIONS: None Patient was transported to: same day Patient's condition: stable Implants: Alfredo Clareon [id number] Indications: Progressive decreased vision due to cataract, right eye Procedure Description: CATARACT SURGERY OPERATIVE REPORT PREOPERATIVE DIAGNOSIS: Nuclear/cortical/posterior subcapsular cataract, right eye POSTOPERATIVE DIAGNOSIS: Same OPERATION: Cataract extraction using phacoemulsification with posterior chamber intraocular lens implant, right eye. IOL: IOL Field [employer] Worker/Model: Alfredo Clareon [id number] IOL Power: + 21.0 diopters IOL Serial Number: [id number] Optic Diameter: 6.0mm Haptic/Overall Diameter: 13.0mm PHACO INFO: Alfredo Vicept Therapeuticsurion Vision System with OZil and Active Fluidics Cumulative Dispersed Energy (CDE): 3.66 seconds SURGEON: Alvin Perrin MD, NATALIE ANESTHESIA: Monitored Anesthesia Care (MAC), with local sub-tenon's anesthetic infiltration COMPLICATIONS: None SPECIMENS: None INDICATIONS FOR PROCEDURE: The patient is a 69-year-old lady with history of diminished visual acuity in her right eye secondary to the development of nuclear/cortical/posterior subcapsular cataract. She is significantly symptomatic that she desires ca taract surgery and attempt to improve and maximize her vision. The option of cataract surgery was offered to the patient and she wished to proceed. See office notes for detailed information. PROCEDURE: The correct surgical eye was identified and marked as the right eye and the pupil was dilated in the preoperative area using mydriatics and cycloplegics. The dilated pupil size was 7.0 mm. Oral sedation was administered in the form of an Imprimis MKO Melt (midazolam 3mg/ketamine 25mg/ondansetron 2mg). The patient was brought to the operating room where cardiopulmonary monitoring was instituted and surgical time-out was performed, confirming the correct operative eye and IOL power. Topical anesthesia was administered and ophthalmic povidone-iodine 5% was instilled into the conjunctival fornices. The darian-ocular area was prepped with Betadine 10% solution and draped in the usual sterile fashion for intraocular surgery, including an aperture drape. A Tegaderm transparent film dressing was cut in half and used to cover the lashes and lid margins. Care was taken to sequester the lashes and lid margins under the Tegaderm dressing. A lid speculum was placed between the lids of the operative eye and the Alfredo LuxOR Revalia operating microscope was maneuvered into position. Maria Isabel scissors were then used to make a conjunctival buttonhole approximately 6mm posterior to the limbus in the inferonasal quadrant. Blunt dissection was carried out to expose bare sclera, and a blunt-tipped sub-tenon?s anesthesia cannula was introduced and passed posteriorly along the globe where non- preserved plain lidocaine was injected into posterior sub-Tenon?s space. A sideport knife was used to make a paracentesis port. Intraocular phenylephrine/lidocaine was injected into the anterior chamber. The anterior chamber was then filled with viscoelastic. A keratome knife was used to construct a two--plane clear corneal tunnel extending 2.0mm into clear cornea. A flap was raised on the anterior capsule and capsulorhexis forceps were used to complete a continuous curvilinear capsulorhexis of 5.0 mm. Balanced salt solution was then used to perform cortical cleaving hydrodissection and nuclear hydrodelineation until the lens could be freely rotated within the capsular bag. The lens nucleus was then disassembled and removed within the capsular bag and iris plane using phacoemulsification. Residual cortical material was removed using the I/A handpiece. The posterior capsule was carefully polished to remove as much residual lens epithelial cells as safely possible. The capsular bag was then inflated and the anterior chamber deepened with cohesive viscoelastic. The lens implant described above was inserted into the capsular bag using the Alfredo Autonome Injector. A Kuglen hook was used to dial the IOL into position. Residual viscoelastic was then removed first from posterior to the IOL, then from the anterior chamber using the I/A handpiece. The lens implant was noted to center nicely within the capsular bag. The incisions were stromally hydrated, and the anterior chamber was reformed using BSS. Then 0.5cc of moxifloxacin 1.0mg/ml were injected into the capsular bag and anterior chamber. The incisions were checked with a Weck spear and found to be secure. Several drops of ophthalmic povidone-iodine 5% were then applied to the eye followed by two drops of combination steroid/NSAID/antibiotic solution. The drapes were removed and a clear plastic protective eye shield was placed over the eye. The patient was then returned to Same Day Surgery in stable condition.
--- NOTE | 2024-06-12 08:57 | W.ANESPOSTOP ---
Postoperative Evaluation Date, Time and Location Date Performed: 06/12/24 Time Performed: 08:50 Patient Location: Day Surgery Unit Vital Signs Most Recent Imported Vital Signs: Most Recent Vital Signs Temp Pulse Resp BP Pulse Ox 36.2 C L 74 18 118/61 94 06/12/24 08:42 06/12/24 08:42 06/12/24 08:42 06/12/24 08:42 06/12/24 08:42 Pain Score Most Recent Pain Score: Most Recent Pain Score Pain Level 0 06/12/24 08:42 Assessment Mental Status: Awake (Alert & Oriented to Patient Baseline) Airway and Respiratory Function: Patent airway with normal (patient baseline) respiratory exam Cardiovascular Function: Hemodynamically Stable Hydration Status: Adequately Hydrated Nausea & Vomiting: No Nausea or Vomiting Pain: Pt. Denies Any Pain Peripheral Nerve Block: Patient did not receive a nerve block
[2024-06-12 09:08] VITALS: BP 95/76; PULSE 71; RESP 18; TEMP 36; O2SAT 94
== END 2024-06-12 09:10 | disposition home or self-care (01) ==
PROVIDERS: PCP Family Medicine; Visit Provider Ophthalmology
PROC: (CPT 66984; principal; 2024-06-12 08:30)
DX: H25.041 Posterior subcapsular polar age-related cataract, right eye (principal); H25.011 Cortical age-related cataract, right eye; H25.11 Age-related nuclear cataract, right eye; G47.33 Obstructive sleep apnea (adult) (pediatric); I10 Essential (primary) hypertension
CPT/HCPCS: 66984; 00123; V2632; J2003

== ENCOUNTER 2024-06-19 06:34 | Day surgery (SDC) | payer MEDICARE, SELFPAY ==
[2024-06-19 06:52] VITALS: BP 114/70; PULSE 62; RESP 18; TEMP 36.5; O2SAT 97
[2024-06-19] MEDS: Tropicam./Phenyleph. (1/2.5%) 5 ML BTL OS ×3 (06:59→07:15)
--- NOTE | 2024-06-19 07:00 | W.ANESPRE ---
General Info Date of Service Date Performed: 06/19/24 Height: 5 ft 4 in Weight: 86.7 kg Body Mass Index (BMI): 32.8 Surgical Procedure: Operation Date: 06/19/24 08:40 Proposed Procedure Side Surgeon p Cataract Extraction with IOL Implant Left Alvin Perrin MD Meds Allergies and Home Medications Allergies Allergy/AdvReac Type Severity Reaction Status Date / Time azithromycin Allergy Intermediate Tongue Verified 06/17/24 15:09 swelling Home Medication ?Medication ?Instructions ?Recorded metformin 1,000 mg tablet 1,000 mg PO BID 11/18/12 (Glucophage) rosuvastatin 40 mg tablet (Crestor) 40 mg PO QPM 11/18/12 esomeprazole magnesium 40 mg 40 mg PO DAILY 09/03/16 capsule,delayed release (Nexium) ascorbic acid (vitamin C) 500 mg 500 mg PO DAILY 06/28/21 capsule citalopram 20 mg tablet 20 mg PO HS 06/28/21 zinc 50 mg tablet 50 mg PO DAILY 10/11/21 ferrous sulfate 325 mg (65 mg 325 mg PO BID 05/24/22 iron) tablet sodium chloride 0.65 % nasal spray 2 spray intranasal QHS PRN dry 07/25/22 aerosol ([place] Saline) nasal passages #50 mL valsartan 160 mg tablet 320 mg PO HS 12/28/22 vitamin B complex (B 1 tab PO DAILY 12/28/22 Complex-Vitamin B12 tablet) canagliflozin 100 mg tablet 100 mg PO DAILY 07/15/23 (Invokana) albuterol sulfate 90 mcg/actuation 2 puff inhalation Q4H PRN 09/19/23 aerosol inhaler insulin degludec 200 unit/mL (3 150 unit subcut DAILY 09/19/23 mL) subcutaneous pen (Tresiba FlexTouch U-200 insulin) insulin lispro 100 unit/mL 5 unit subcut DIRECTED 09/19/23 subcutaneous pen (Humalog KwikPen (U-100) Insulin) pantoprazole 40 mg tablet,delayed 40 mg PO DAILY #30 tabs 10/22/23 release polyethylene glycol 3350 17 gram 34 g PO BID PRN constipation #30 ea 10/28/23 oral powder packet (Miralax) acetaminophen 500 mg tablet 1,000 mg PO TID PRN 06/11/24 Current Visit Medications: Current Medications Generic Name Dose Route Start Last Admin Trade Name Freq PRN Reason Stop Dose Admin Acetaminophen 1,000 mg 06/19/24 06:00 Acetaminophen 500 Mg Tab PO 07/19/24 05:59 Q4H PRN PRN Balanced Salt Solution 500 ml 06/19/24 06:00 Balanced Salt Soln.-Plus 500 Ml Bag OP 07/19/24 05:59 DIRECTED [facility] Miscellaneous Medication 0 ml 06/19/24 06:00 Prednisolone 1%, Moxifloxacin 0.5%, Bromfenac 0.09% 5.6ml Btl OS 07/19/24 05:59 DIRECTED [facility] Miscellaneous Medication 0 ml 06/19/24 06:00 Tropicam./Phenyleph. (1/2.5%) 5 Ml Btl OS 07/19/24 05:59 DIRECTED [facility] Tetracaine HCl 0 ml 06/19/24 06:00 Tetracaine 0.5% 4 Ml Btl OS 07/19/24 05:59 DIRECTED [facility] PFSH Active Problems Active Problems: Problem Status Onset Code Cortical age-related cataract, left eye Acute H25.012 Nuclear age-related cataract, left eye Acute H25.12 Posterior subcapsular age-related cataract, right eye Resolved H25.041 Cortical age-related cataract, right eye Resolved H25.011 Nuclear age-related cataract, right eye Resolved H25.11 History of total right knee replacement Acute 10/22/23 Z96.651 Asthma Chronic J45.909 Chest pain Acute R07.9 Post-acute sequelae of COVID-19 (PASC) Acute U09.9 Hip abductor tendinitis Acute M76.899 Vomiting Acute R11.10 Iron deficiency Acute E61.1 Cough Acute R05.9 Diabetic neuropathy Acute E11.40 Muscle weakness Acute M62.81 Balance problem Acute R26.89 Shortness of breath Acute R06.02 Internal hemorrhoid Acute K64.8 Colon polyp Acute K63.5 Dyspnea Acute R06.00 Diverticulosis Acute K57.90 Chest pain Acute R07.9 Screening for colon cancer Acute Z12.11 Tear of medial meniscus of right knee Acute S83.241A Trigger finger, right middle finger Chronic M65.331 Medical History Medical History Cecal volvulus Cecal volvulus Fibroepithelial polyp (~12/2022) Family history of colon cancer sister age 74 Mitral valve regurgitation Per Dr. Stephens note mild present since 2009 Tension headache Nausea Urinary incontinence, mixed YARELIS on CPAP Denies using CPAP currently - reports mask is too large Vitamin B12 deficiency Diabetic retinopathy Microalbuminuria Diabetes mellitus, type II, insulin dependent Recurrent falls Ataxia Fatty infiltration of liver Fatigue Dyspnea on exertion Foot pain, right Shingles Anemia, iron deficiency Tubular adenoma of colon Chronic anxiety PTSD (post-traumatic stress disorder) Pt. denies this dx Hypertension Sleep apnea does not use CPAP machine recently, due to ill-fitting mask Gastroesophageal reflux disease Retinopathy Hyperlipidemia Depression Benign hypertension Diabetes mellitus Narcolepsy Surgical History Surgical History S/P laparoscopy with lysis of adhesions History of colonoscopy (~12/2022) Hx of arthroscopy of right knee Hx of laparoscopy Removed left ovary. Per pt, was to check for endometriosis. Hx of tubal ligation History of esophagogastroduodenoscopy (EGD) S/P excision of lipoma excision of lipoma on back History of hysterectomy History of carpal tunnel release Trigger Finger release LMF, LRF Tobacco Smoking/Tobacco Use Status: Former Tobacco Use Alcohol Alcohol Intake: current Alcohol intake frequency: holidays/special occasions only Substance Use Substance use: Never Substance use type: does not use Vital Signs and Lab Results Lab Results Blood Type / Crossmatch: No Data to Display Complete Blood Count: No Data to Display Complete Metabolic Panel: No Data to Display Liver Function Panel: No Data to Display Coagulation Panel: No Data to Display Cardiac Panel: No Data to Display Arterial Blood Gas: No Data to Display Venous Blood Gas: No Data to Display Pancreas Panel: No Data to Display Thyroid Panel: No Data to Display Infectious Disease: No Data to Display Blood Cultures: No Data to Display Toxicology Panel: No Data to Display Imaging and Studies Imaging and Studies Study information below may be from another EMR and interpreted by another provider. Please see original notes in EMR for more complete details. EKG Summary: 10/28/23 Conclusion Sinus rhythm...normal P axis, V-rate 60- 99 No interum change vs 10/03/2305/17: Sinus rhythm Stress Test Summary: 2020: 1. The resting electrocardiogram was normal. Patient underwent pharmacologic stress 2. Blunted heart rate and blood pressure response to pharmacologic stress 3. Maximum heart rate was 65% of predicted heart rate for age 4. Electrocardiographically the test was nondiagnostic due to inadequate heart rate 5. No symptoms were elicited to suggest angina Patient Name: Vicki Botello Unit #: [id number] Loc: Ordering Provider: Lorena Stephens M.D. Status: [facility] Primary Care Provider: Lorena Stephens M.D. Date of Exam: 10/01/23 Sex: F Admission Date: 10/01/23 : 1955 Age: 68 APPROVED REPORT Exam: Pharmacologic Patient Location: Out-Patient Room/Bed: Stress Nurse: Millicent Salazar RN Ordering Provider:LORENA STEPHENS, Contact Number: [phone] BMI: 30.72 Baseline Rhythm: Sinus Rhythm Indications: Chest pain Medical History Medical History: Diabetic neuropathy, mitral valve regurgitation, YARELIS on CPAP, ataxia, reccurent falls, DMT2, BRAND, PTSD, GERD, HTN, depression Cardiac Medications: Albuterol sulfate, canagliflozin, citalopram, nexium, ferrous sulfate, tresebia, flex touch, levemir, humalog, metformin, zofran, crestor, ozempic, valsartan Allergies: Azithromycin Cardiac Risk Factors: Family hx, HTN, HLD, diabetes, asthma, former smoker Previous Cardiac Procedures: None Pretest Chest Pain Characteristics: None Exercise History: Sedentary Physical Disabilities: Right knee Lung Sounds: Clear to auscultation Heart Sounds: Regular Stress Test Details Test: Pharmacologic stress testing performed using 0.4 mg of regadenoson per 5 mL given IV over 10 seconds. Reason for pharmacologic stress test: Right knee pain. Nuclear Acquisition: Rest Tc-99m/Stress Tc-99m 1 day Rest Isotope: Tc-99m Sestamibi. Dose: 10.0 Date: 10/01/2023 Injection Time: 0930 Stress Isotope: Tc-99m Sestamibi. Dose: 30.0 Date: 10/01/2023 Injection Time: 1104 HR Resting HR Supine: 73 bpmMax Heart Rate (APMHR): 154.643421 bpm Target HR (85% APMHR): 130.381631 bpm Max HR Achieved: 106 bpm % of APMHR: 68.83 Recovery HR: 82 bpm BP Resting BP Supine: 118/62 mmHg Max BP: 130/68 mmHg Recovery BP: 124/58 mmHg ECG Resting ECG: Sinus Rhythm Ectopy: None Stress ECG: Sinus Tachycardia ST Change: Nondiagnostic low heart rate Arrhythmia: None Recovery ECG: Sinus Rhythm Recovery ST Change: Nondiagnostic low heart rate Recovery Arrhythmia: None Clinical Stress Symptoms: Mild SOB Angina Score: None Rate Pressure Product: [id number] Stress ECG Conclusion 1. Normal clinical,HR,BP and ecg responses 2. Nuclear findings reported separately Stress Test Summary [id number] 1 min post Lexiscan [id number] 3 min post Lexiscan [id number] 6 min post Lexiscan [id number] MPI Conclusion Normal myocardial perfusion, no ischemia or infarct Normal LV function, EF 58%. Radiologist Interpretation Radiologist agrees with Utility Tractor Operator's Interpretation. Radiologist Interpretation by: Anna Macdonald MD Interpretation Date/Time: 10/02/2023 14:08:47 Ordered By: Lorena Stephens M.D. CC: Marin Mejía M.D. Dictated By: Marin Mejía M.D. 10/01/23 1137 <Electronically signed by Marin Mejía M.D. in OV> 10/03/23 0830 Transcribed By: Marin Mejía MD 10/01/23 113 Echocardiogram Summary: 10/02/22 Conclusion Normal left ventricular wall thickness and chamber size. Estimated ejection fraction is 65%. Wall motion is normal Normal right ventricular size and systolic function Both atria are normal in size The aortic valve is mildly sclerotic without stenosis or regurgitation Moderate mitral annular calcification. Mild mitral regurgitation Normal tricuspid valve with mild regurgitation. Estimated right ventricular systolic pressure is 20 mmHg 06/15: Normal left ventricular wall thickness and chamber size. Estimated ejection fraction is 55 to 60%. There are no segmental wall motion abnormalities Normal right ventricular size and systolic function Both atria are normal in size Aortic valve is sclerotic and trileaflet without stenosis or regurgitation Moderate mitral annular calcification. Trace mitral regurgitation Normal tricuspid valve with trace regurgitation. Normal estimated right ventricular systolic pressure 24.5 mmHg Normal pulmonic valve with trace regurgitation Pulmonary Function Summary: 09/16: no evidence of obstructive or restrictive lung disease, but there is mild diffusion defect. This represents a slightly suboptimal patient effort, but if it is true finding, underlying early developing interstitial lung disease or pulmonary hypertension should be further clinically investigated. When this study was compared to previous one from 06/07/06, the patient has a total of 560 cc's decline in FVC; FEV1 has declined by 490 cc's. Diffusion capacity also had a substantial decline. Clinical correlation therefore recommended. Anesthesia Assessment and Plan Anesthesia History Personal History: No History of Anesthesia Complications Family History: No Family History of Anesthesia Complications Exercise Tolerance Exercise Tolerance: Metabolic Equivalents<4 Cardiac & Pulmonary Exam Cardiac Exam: Normal S1/S2 Heart Sounds Pulmonary Exam: Clear Bilateral Breath Sounds Cardiac and Pulmonary Comment:: Post nasal gtt, no fever Implantable Cardiac Device Does patient have a Pacemaker or an ICD?: No Airway Exam Known Difficult Airway: No Mallampati Class: 3 Mouth Opening: Narrow (< 3cm) Thyromental Distance: Greater than 3 cm Neck Range of Motion: Full ROM Neck Circumference: Normal Teeth Condition: Removable Dentures/Plates Upper, Removable Dentures/Plates Lower and Edentulous ASA Classification ASA Score: ASA 3 Emergency Case?: No NPO Status NPO Status: NPO Clears >2 hours, Solids >8 hours Anesthesia Plan Resuscitation Status: Full Code Anesthesia Technique: MAC Anesthesia Airway Planned: Natural Airway Monitors Used: Standard Monitors Preoperative Comments:: No MKO this case per patient
[2024-06-19 07:04] VITALS: BMI 32.8
[2024-06-19] MEDS: Duovisc Viscoelastic System EACH 1 EACH (08:51)
[2024-06-19] MEDS: Lidocaine 1% Pres-Free 5 ML VIAL (08:51)
[2024-06-19] MEDS: Balanced Salt Soln.-PLUS 500 ML BAG OP (08:53)
[2024-06-19] MEDS: Povidone-Iodine Ophth 30 ML BTL (08:53)
[2024-06-19] MEDS: Prednisolone 1%, Moxifloxacin 0.5%, Bromfenac 0.09% 5.6ML BTL OS (08:53)
[2024-06-19] MEDS: Tetracaine 0.5% 4 ML BTL OS (08:54)
--- NOTE | 2024-06-19 09:11 | W.PM.DSUDISC ---
Date of service: 06/19/24 Time of Service: 09:11 Discharge Plan Disposition Patient Disposition: Home Discharge Details Attending Provider: Alvin Perrin Primary Care Provider: Lorena Kearns Home Meds and New Rx's Prescriptions: No Action zinc 50 mg tablet 50 mg PO DAILY [place] Saline 0.65 % aerosol,spray 2 spray intranasal QHS PRN (Reason: dry nasal passages) Qty: 50 12RF Invokana 100 mg tablet 100 mg PO DAILY citalopram 20 mg tablet 20 mg PO HS ascorbic acid (vitamin C) 500 mg capsule 500 mg PO DAILY ferrous sulfate 325 mg (65 mg iron) tablet 325 mg PO BID valsartan 160 mg tablet 320 mg PO HS vitamin B complex [B Complex-Vitamin B12] Tablet 1 tab PO DAILY polyethylene glycol 3350 [Miralax] 17 gram powder in packet 34 g PO BID PRN (Reason: constipation) Qty: 30 0RF metformin [Glucophage] 1,000 MG tablet 1,000 mg PO BID rosuvastatin [Crestor] 40 MG tablet 40 mg PO QPM esomeprazole magnesium [Nexium] 40 MG capsule,delayed release(DR/EC) 40 mg PO DAILY pantoprazole 40 mg tablet,delayed release (DR/EC) 40 mg PO DAILY Qty: 30 0RF albuterol sulfate 90 mcg/actuation HFA aerosol inhaler 2 puff INHALATION Q4H PRN Patient Comments: INHALE 2 PUFFS BY MOUTH EVERY 4 TO 6 HOURS NEEDED FOR 14 DAYS insulin lispro [Humalog KwikPen Insulin] 100 unit/mL insulin pen 5 unit SUBCUT DIRECTED Patient Comments: Inject 20-30 unit subcutaneously three times a day DX:E11.9 insulin degludec [Tresiba FlexTouch U-200] 200 unit/mL (3 mL) insulin pen 150 unit SUBCUT DAILY acetaminophen 500 mg tablet 1,000 mg PO TID PRN Discharge Instructions Stand Alone Forms: [facility] Post-Op [facility]ano Baez ([facility]) Discharge Orders Discharge Orders: Discharge Order (Routine); Ordered 06/19/24 Ordered By: Alvin Perrin DS: Diagnosis Discharge Diagnosis (1) Cortical age-related cataract, left eye: Status: Resolved (2) Nuclear age-related cataract, left eye: Status: Resolved
--- NOTE | 2024-06-19 09:12 | ROE_ITS ---
Date of service: 06/19/24 Time of Service: 09:12 Operative Note Operative Note DATE OF PROCEDURE: 06/19/24 PRE-OP DIAGNOSIS: Nuclear/cortical cataract, left eye POST-OP DIAGNOSIS: same PROCEDURE: Cataract extraction using phacoemulsification with intraocular lens implant, left eye SURGEON: Alvin Perrin ANESTHESIA TYPE: Local By Surgeon and MAC Refer to Anesthesia Record PATHOLOGY: none sent COMPLICATIONS: None Patient was transported to: same day Patient's condition: stable Implants: Alfredo Clareon [id number] Indications: Progressive decreased vision due to cataract, left eye Procedure Description: CATARACT SURGERY OPERATIVE REPORT PREOPERATIVE DIAGNOSIS: Nuclear/cortical cataract, left eye POSTOPERATIVE DIAGNOSIS: Same OPERATION: Cataract extraction using phacoemulsification with posterior chamber intraocular lens implant, left eye. IOL: IOL Warp Tester/Model: Alfredo Clareon [id number] IOL Power: + 21.0 diopters IOL Serial Number: [id number] Optic Diameter: 6.0mm Haptic/Overall Diameter: 13.0mm PHACO INFO: Alfredo [employer] internation S.L.urion Vision System with OZil and Active Fluidics Cumulative Dispersed Energy (CDE): 5.60 seconds SURGEON: Alvin Perrin MD, NATALIE ANESTHESIA: Monitored Anesthesia Care (MAC), with local sub-tenon's anesthetic infiltration COMPLICATIONS: None SPECIMENS: None INDICATIONS FOR PROCEDURE: The patient is a 69-year-old lady with history of diminished visual acuity in both eyes secondary to the development of bilateral nuclear/cortical cataract. She has already undergone cataract surgery in the right eye and is doing well postoperatively. She now presents for cataract surgery in the left eye. See office notes for detailed information. PROCEDURE: The correct surgical eye was identified and marked as the left eye and the pupil was dilated in the preoperative area using mydriatics and cycloplegics. The dilated pupil size was 6.0 mm. The patient elected to proceed without oral sedation. The patient was brought to the operating room where cardiopulmonary monitoring was instituted and surgical time-out was performed, confirming the correct operative eye and IOL power. Topical anesthesia was administered and ophthalmic povidone-iodine 5% was instilled into the conjunctival fornices. The darian-ocular area was prepped with Betadine 10% solution and draped in the usual sterile fashion for intraocular surgery, including an aperture drape. A Tegaderm transparent film dressing was cut in half and used to cover the lashes and lid margins. Care was taken to sequester the lashes and lid margins under the Tegaderm dressing. A lid speculum was placed between the lids of the operative eye and the Alfredo AbcamOR Revalia operating microscope was maneuvered into position. Maria Isabel scissors were then used to make a conjunctival buttonhole approximately 6mm posterior to the limbus in the inferonasal quadrant. Blunt dissection was carried out to expose bare sclera, and a blunt-tipped sub-tenon?s anesthesia cannula was introduced and passed posteriorly along the globe where non- preserved plain lidocaine was injected into posterior sub-Tenon?s space. A sideport knife was used to make a paracentesis port. Intraocular phenylephrine/lidocaine was injected into the anterior chamber. The anterior chamber was then filled with viscoelastic. A keratome knife was used construct a two-plane clear corneal tunnel extending 2.0mm into clear cornea. A flap was raised on the anterior capsule and capsulorhexis forceps were used to complete a continuous curvilinear capsulorhexis of 5.0 mm. Balanced salt solution was then used to perform cortical cleaving hydrodi ssection and nuclear hydrodelineation until the lens could be freely rotated within the capsular bag. The lens nucleus was then disassembled and removed within the capsular bag and iris plane using phacoemulsification. Residual cortical material was removed using the irrigation/aspiration handpiece. The posterior capsule was carefully polished to remove as much residual lens epithelial cells as safely possible. The capsular bag was then inflated and the anterior chamber deepened with viscoelastic. The lens implant described above was inserted into the capsular bag using the Alfredo Autonome Injector. A Kuglen hook was used to dial the IOL into position. Residual viscoelastic was then removed first from posterior to the IOL, then from the anterior chamber using the I/A handpiece. The lens implant was noted to center nicely within the capsular bag. The incisions were stromally hydrated, and the anterior chamber was reformed using BSS. Then 0.5cc of moxifloxacin 1.0mg/ml were injected into the capsular bag and anterior chamber. The incisions were checked with a Weck spear and found to be secure. Several drops of ophthalmic povidone-iodine 5% were then applied to the eye followed by two drops of combination steroid/NSAID/antibiotic solution. The drapes were removed and a clear plastic protective eye shield was placed over the eye. The patient was then returned to Same Day Surgery in stable condition.
[2024-06-19 09:15] VITALS: BP 138/53; PULSE 73; RESP 18; TEMP 36.1; O2SAT 96
--- NOTE | 2024-06-19 09:33 | W.ANESPOSTOP ---
Postoperative Evaluation Date, Time and Location Date Performed: 06/19/24 Time Performed: 09:16 Patient Location: Day Surgery Unit Vital Signs Most Recent Imported Vital Signs: Most Recent Vital Signs Temp Pulse Resp BP Pulse Ox 36.1 C L 73 18 138/53 L 96 06/19/24 09:15 06/19/24 09:15 06/19/24 09:15 06/19/24 09:15 06/19/24 09:15 Pain Score Most Recent Pain Score: Most Recent Pain Score Pain Level 0 06/19/24 09:15 Assessment Mental Status: Awake (Alert & Oriented to Patient Baseline) Airway and Respiratory Function: Patent airway with normal (patient baseline) respiratory exam Cardiovascular Function: Hemodynamically Stable Hydration Status: Adequately Hydrated Nausea & Vomiting: No Nausea or Vomiting Pain: Pt. Denies Any Pain Peripheral Nerve Block: Other (Local by Dr. Perrin)
== END 2024-06-19 09:25 | disposition home or self-care (01) ==
LOC: SUR 06:34
PROVIDERS: PCP Family Medicine; Visit Provider Ophthalmology
PROC: (CPT 66984; principal; 2024-06-19 08:30)
DX: H25.012 Cortical age-related cataract, left eye (principal); H25.12 Age-related nuclear cataract, left eye; G47.30 Sleep apnea, unspecified; Z98.41 Cataract extraction status, right eye
CPT/HCPCS: 66984; 00123; V2632; J2003

== ENCOUNTER 2024-08-18 11:40 | Emergency (ER) | payer MEDICARE, SELFPAY ==
--- NOTE | 2024-08-18 11:30 | RT.EKG_ITS ---
APPROVED REPORT Exam: Resting ECG Reason for Exam: chest pain Patient Location: E HR:61 bpm ECG Measurements Heart Rate 61 AXIS MT 138 P 44 QRSd 84 QRS 26 QT 419 T 47 QTc 422 Conclusion Sinus rhythm, rate 61 No interval abnormalities No STEMI Compared to priors, no significant changes
[2024-08-18 11:42] VITALS: BP 130/75; PULSE 64; RESP 18; TEMP 37.1; O2SAT 97
[2024-08-18 11:53] VITALS: RESP 16
--- NOTE | 2024-08-18 12:11 | W.ED.GENAD ---
Discharge Plan Disposition Patient Disposition: Home Condition: Stable Discharge Details Clinical Impression: Chest pain of unknown etiology, Shortness of breath, Asthma, Anemia Primary Care Provider: Lorena Kearns ED Provider: Azul Benitez Home Meds and New Rx's Prescriptions: No Action zinc 50 mg tablet 50 mg PO DAILY [place] Saline 0.65 % aerosol,spray 2 spray intranasal QHS PRN (Reason: dry nasal passages) Qty: 50 12RF Invokana 100 mg tablet 100 mg PO DAILY citalopram 20 mg tablet 20 mg PO HS ascorbic acid (vitamin C) 500 mg capsule 500 mg PO DAILY ferrous sulfate 325 mg (65 mg iron) tablet 325 mg PO BID polyethylene glycol 3350 [Miralax] 17 gram powder in packet 34 g PO BID PRN (Reason: constipation) Qty: 30 0RF metformin [Glucophage] 1,000 MG tablet 1,000 mg PO BID rosuvastatin [Crestor] 40 MG tablet 40 mg PO QPM pantoprazole 40 mg tablet,delayed release (DR/EC) 40 mg PO DAILY Qty: 30 0RF valsartan 320 mg tablet 320 mg PO DAILY albuterol sulfate 90 mcg/actuation HFA aerosol inhaler 2 puff INHALATION Q4H PRN Patient Comments: INHALE 2 PUFFS BY MOUTH EVERY 4 TO 6 HOURS NEEDED FOR 14 DAYS insulin lispro [Humalog KwikPen Insulin] 100 unit/mL insulin pen 5 unit SUBCUT DIRECTED Patient Comments: Inject 20-30 unit subcutaneously three times a day DX:[id number] insulin degludec [Tresiba FlexTouch U-200] 200 unit/mL (3 mL) insulin pen 150 unit SUBCUT DAILY acetaminophen 500 mg tablet 1,000 mg PO TID PRN Discharge Instructions Instructions: Chest Pain (DC) Additional Instructions: You were seen in the emergency department today for evaluation of chest pain and nausea. In our department a full physical examination performed, had reassuring laboratory studies and EKG, and a normal chest x-ray. Your blood pressure during your time in the emergency department was normal and at this time we would not make any changes to your blood pressure medicines, as we do not want to cause your blood pressure to become too low. You need to follow-up with your primary care provider to discuss next steps, and certainly can return to the emergency department if you have chest pain that worsens or changes, have worsening shortness of breath, or any other symptoms that cause you concern. Thank you for allowing us to be part of your care. HPI General Mode of arrival: ambulatory. Date/Time Provider Initiated Documentation: 08/18/24 11:50. Limitations to Documentation: no limitations. Information obtained by: patient, family and old records reviewed. HPI Narrative: HPI: This is a 69-year-old female patient with a past medical history significant for asthma, hypertension, and chronic chest pain and shortness of breath, presenting for evaluation of 1 week of chest pain. She reports that this pain is different than her typical chest achiness, feels that the burning sensation, is associated with morning nausea. The patient reports that she has not identified any palliating or propagating factors to her chest pain, and specifically does not feel worse with deep breath, movement or position. She endorses ongoing shortness of breath and feels like it is difficult to catch her breath. She has not had any upper respiratory symptoms, cough that is new or different for her. She states that she has not had abdominal pain, has been using home Zofran as needed for nausea. Yesterday the patient was at work and took her blood pressure, and noted it to be 180 systolic. She called her primary care provider this morning who recommended that she come to the emergency department for evaluation. Exam: Gen: Awake and alert, in no apparent distress HEENT: Non-icteric sclera Neck: Supple Lungs: No apparent respiratory distress, normal respiratory effort. Lung sounds clear and equal bilaterally without wheezes, rhonchi, rales CV: Appears well perfused, heart with regular rate and rhythm, no chest wall tenderness to palpation. Abdomen: Non-distended, soft, nontender to palpation without rigidity, rebound, guarding MSK: Moves 4 extremities without apparent limitation in ROM Skin: Visualized skin without rashes, cyanosis. Neuro: Normal Gait, no obvious focal deficits or facial asymmetry. Speaks in full, clear sentences. Psych: Appropriate for situation. MDM: This is a 69-year-old female patient presenting for evaluation of chest pain and shortness of breath. Differential includes but is not limited to ACS including STEMI, NSTEMI, unstable angina, certainly considered pericarditis and myocarditis, GERD, pancreatitis, esophagitis. No wheezing to suggest reactive airway disease exacerbation, no tachycardia or hypoxia to suggest other serious pulmonary abnormalities such as pulmonary embolism, pneumothorax, pleural effusion or pulmonary edema. Consider chest wall pain and pleurisy, costochondritis. No infectious symptoms to significantly increase my concern for URI, pneumonia, bronchitis. EKG was obtained, showing a sinus rhythm with a rate of 61, with no evidence for acute ischemia. We will obtain laboratory studies to include CBC, CMP, magnesium, troponin, BNP, and I will provide the patient with Tylenol and Zofran for initial management of symptoms. ED Course: I reviewed the patient's laboratory studies, which showed no leukocytosis, show a stable anemia with a hemoglobin of 8.7, not changed from priors, and no thrombocytopenia. Chemistry panel reveals no significant electrolyte abnormalities or kidney dysfunction, though I do note that her BUN/creatinine ratio is greater than 20-1, and the patient did endorse some poor hydration at home. The patient had no evidence of liver dysfunction, initial troponin is 6 and as her symptoms have been present for 1 week, she does not require delta troponin at this time. BNP is low, as is her lipase. I independently reviewed the patient's chest x-ray which shows no evidence of abnormality to account for the patient's symptoms. On reassessment she states that she is feeling well, and her blood pressure has been within normal limits with a systolic of 120-130's throughout her time in the emergency department. Based on this I do not see an indication to change her medications, and did certified lactation counselor her to follow-up with her outpatient providers for next steps in workup and management. At this time, the patient has had a full medical evaluation and is safe for discharge to home. They are hemodynamically stable, ambulatory, and tolerating PO. They are understanding of the follow-up plan and return precautions. They left our facility without incident. Azul Benitez MD Related Data Home Medications ?Medication ?Instructions ?Recorded ?Confirmed metformin 1,000 mg tablet 1,000 mg PO BID 11/18/12 08/18/24 (Glucophage) rosuvastatin 40 mg tablet (Crestor) 40 mg PO QPM 11/18/12 08/18/24 ascorbic acid (vitamin C) 500 mg 500 mg PO DAILY 06/28/21 08/18/24 capsule citalopram 20 mg tablet 20 mg PO HS 06/28/21 08/18/24 zinc 50 mg tablet 50 mg PO DAILY 10/11/21 08/18/24 ferrous sulfate 325 mg (65 mg 325 mg PO BID 05/24/22 08/18/24 iron) tablet sodium chloride 0.65 % nasal spray 2 spray intranasal QHS PRN dry 07/25/22 08/18/24 aerosol ([place] Saline) nasal passages #50 mL canagliflozin 100 mg tablet 100 mg PO DAILY 07/15/23 08/18/24 (Invokana) albuterol sulfate 90 mcg/actuation 2 puff inhalation Q4H PRN 09/19/23 08/18/24 aerosol inhaler insulin degludec 200 unit/mL (3 150 unit subcut DAILY 09/19/23 08/18/24 mL) subcutaneous pen (Tresiba FlexTouch U-200 insulin) insulin lispro 100 unit/mL 5 unit subcut DIRECTED 09/19/23 08/18/24 subcutaneous pen (Humalog KwikPen (U-100) Insulin) pantoprazole 40 mg tablet,delayed 40 mg PO DAILY #30 tabs 10/22/23 08/18/24 release polyethylene glycol 3350 17 gram 34 g PO BID PRN constipation #30 ea 10/28/23 08/18/24 oral powder packet (Miralax) acetaminophen 500 mg tablet 1,000 mg PO TID PRN 06/11/24 08/18/24 valsartan 320 mg tablet 320 mg PO DAILY 08/18/24 08/18/24 Previous Rx's ?Medication ?Instructions ?Recorded sodium chloride 0.65 % nasal spray 2 spray intranasal QHS PRN dry 07/25/22 aerosol ([place] Saline) nasal passages #50 mL pantoprazole 40 mg tablet,delayed 40 mg PO DAILY #30 tabs 10/22/23 release polyethylene glycol 3350 17 gram 34 g PO BID PRN constipation #30 ea 10/28/23 oral powder packet (Miralax) Allergies Allergy/AdvReac Type Severity Reaction Status Date / Time azithromycin Allergy Intermediate Tongue Verified 08/18/24 11:46 swelling General Stated Complaint: Chest Pain KAMLESH: 3 Course Vital Signs Vital signs: Vital Signs Temperature 37.1 C 08/18/24 11:42 Pulse 64 08/18/24 11:42 Respiratory Rate 18 08/18/24 11:42 Blood Pressure 130/75 08/18/24 11:42 Pulse Oximetry 97 08/18/24 11:42 Temperature 37.1 C 08/18/24 11:42 Temperature Source Temporal Artery Scan 08/18/24 11:42 Pulse 64 08/18/24 11:42 Respiratory Rate 16 08/18/24 11:53 Respiratory Effort Normal, Non-Labored 08/18/24 11:53 Respiratory Depth Normal 08/18/24 11:53 Respiratory Pattern Normal 08/18/24 11:53 Blood Pressure 130/75 08/18/24 11:42 Blood Pressure Position Sitting 08/18/24 11:42 Pulse Oximetry 97 08/18/24 11:42 Oxygen Delivery Method Room Air 08/18/24 11:42 Oxygen Flow Rate 0 08/18/24 11:42 Pain Level 2 08/18/24 11:42 Medical Decision Making Quality:SDOH Health Related Social Needs: No Data to Display PFSH All Active Problems (Updated 08/18/24 @ 13:15 by Azul Benitez MD) Anemia (Chronic) Chest pain of unknown etiology (Acute) History of total right knee replacement (Acute 10/22/23) Asthma (Chronic) Chest pain (Acute) Post-acute sequelae of COVID-19 (PASC) (Acute) Hip abductor tendinitis (Acute) Vomiting (Acute) Iron deficiency (Acute) Cough (Acute) Diabetic neuropathy (Acute) Muscle weakness (Acute) Balance problem (Acute) Shortness of breath (Acute) Internal hemorrhoid (Acute) she denies Colon polyp (Acute) Dyspnea (Acute) Diverticulosis (Acute) Chest pain (Acute) Screening for colon cancer (Acute) Tear of medial meniscus of right knee (Acute) Injected 01/07/2019 Trigger finger, right middle finger (Chronic) Medical History (Updated 08/18/24 @ 13:15 by Azul Benitez MD) Cecal volvulus Cecal volvulus Fibroepithelial polyp (~12/2022) Family history of colon cancer sister age 74 Mitral valve regurgitation Per Dr. Kearns note mild present since 2009 Tension headache Nausea Urinary incontinence, mixed YARELIS on CPAP Denies using CPAP currently - reports mask is too large Vitamin B12 deficiency Diabetic retinopathy Microalbuminuria Diabetes mellitus, type II, insulin dependent Recurrent falls Ataxia Fatty infiltration of liver Fatigue Dyspnea on exertion Foot pain, right Shingles Anemia, iron deficiency Tubular adenoma of colon Chronic anxiety PTSD (post-traumatic stress disorder) Pt. denies this dx Hypertension Sleep apnea does not use CPAP machine recently, due to ill-fitting mask Gastroesophageal reflux disease Retinopathy Hyperlipidemia Depression Benign hypertension Diabetes mellitus Narcolepsy Surgical History (Updated 06/19/24 @ 09:11 by Alvin Perrin MD) Status post cataract extraction and insertion of intraocular lens of right eye S/P laparoscopy with lysis of adhesions History of colonoscopy (~12/2022) Hx of arthroscopy of right knee Hx of laparoscopy Removed left ovary. Per pt, was to check for endometriosis. Hx of tubal ligation History of esophagogastroduodenoscopy (EGD) S/P excision of lipoma excision of lipoma on back History of hysterectomy History of carpal tunnel release Trigger Finger release LMF, LRF Family History Sister Cancer colon cancer age 74. Abdominal aortic aneurysm Mother Heart disease Social History Smoking/Tobacco Use Status: Former Tobacco Use Quit Date: 08/26/00 Smoking risk assessment performed?: Yes Alcohol Intake: current Alcohol Intake frequency: holidays/special occasions only Drug use: Never Substance use type: does not use Housing: house Number of Children: 2 current occupation: Disabled Current gender identity: female Do you feel safe at home: Yes Do you feel safe in your relationship?: Yes
[2024-08-18] MEDS: Acetaminophen 500 MG TAB 1000 MG PO (12:15)
[2024-08-18] MEDS: Ondansetron 4 MG/2 ML VIAL IVP (12:20)
[2024-08-18 12:26] LABS: Abs Immature Grans 0.03 10^3/uL (0.0-0.06); Absolute Basophil Count 0.02 10^3/uL (0.0-0.2); Absolute Eosinophil Count 0.17 10^3/uL (0.0-0.7); Absolute Monocyte Count 0.42 10^3/uL (0.1-0.8); Absolute Neutrophil Count 3.39 10^3/uL (1.2-6.7); Basophils % 0.4 %; Eosinophils % 3.1 %; HCT 29.3 % (36.0-46.0); HGB 8.7 g/dL (11.2-15.7); Immature Grans % 0.6 %; Lymphocytes % 25.8 %; MCH 24.5 pg (27.0-33.0); MCHC 29.7 % (32.0-36.0); MCV 83 fL (80-95); MPV 11.8 fL (8.0-11.0); Monocytes % 7.7 %; Neutrophils % 62.4 %; Platelet Count 248 10^3/uL (130-400); RBC 3.55 10^6/uL (3.93-5.22); RDW 15.9 % (11.7-14.6); RDW-SD 47.7 fL; WBC 5.43 10^3/uL (4.4-10.8)
--- NOTE | 2024-08-18 12:50 | DI.RAD_ITS ---
Exam(s) XR CHEST 2V PA LATERAL EXAM: XR CHEST 2V PA LATERAL CLINICAL HISTORY: Chest pain TECHNIQUE: 2D digital imaging was performed. Two views. COMPARISON: CR XR PORTABLE CHEST AP from 09/19/2023 FINDINGS: HEART: Normal size. Aorta: Not dilated. PULMONARY VASCULATURE: Normal. MEDIASTINUM: Unremarkable. LUNGS: Clear. PLEURAL SPACE: No pleural effusion or pneumothorax. BONE:Unremarkable for age. SOFT TISSUES: Unremarkable. IMPRESSION: No acute abnormality. DATA REPOSITORY: RADIATION DOSE DELIVERED:
[2024-08-18 12:54] LABS: ALT 31 U/L (14-59); AST 18 U/L (15-37); Albumin 3.5 g/dL (3.4-5.0); Alkaline Phosphatase 90 U/L (46-116); Anion Gap 7.8 mmol/L (3-11); BUN 27 mg/dL (7-18); Bilirubin, Total 0.44 mg/dL (0.2-1.0); CO2 23.2 mmol/L (21.0-32.0); CREATININE 1.1 mg/dL (0.55-1.02); Chloride 109 mmol/L (98-107); Estimated GFR 55.07 (mL/min/1.73m2); Glucose 235 mg/dL (74-106); Lipase 57 U/L (<78); NT-proBNP 116 pg/mL (<300); Potassium 4.4 mmol/L (3.5-5.1); Sodium 140 mmol/L (136-145); Total Protein 7.3 g/dL (6.4-8.2); Troponin I 6 ng/L (<or=51)
[2024-08-18 13:34] VITALS: BP 126/68; RESP 16
== END 2024-08-18 13:34 | disposition home or self-care (01) ==
LOC: ER 13:38
PROVIDERS: Emergency Provider Emergency Medicine; PCP Family Medicine
DX: R07.9 Chest pain, unspecified (principal); R06.02 Shortness of breath; I10 Essential (primary) hypertension; E78.5 Hyperlipidemia, unspecified; J45.909 Unspecified asthma, uncomplicated; D64.9 Anemia, unspecified; E11.319 Type 2 diabetes mellitus with unspecified diabetic retinopathy without macular edema; Z79.4 Long term (current) use of insulin; Z79.84 Long term (current) use of oral hypoglycemic drugs; Z87.891 Personal history of nicotine dependence
CPT/HCPCS: 36415; 80053; 83690; 93005; 96374; 99285; 71046; 83735; 83880; 84484; 85025; 93010; 99284; J2405

== ENCOUNTER 2024-10-01 00:20 | Outpatient (CLI) | payer MEDICARE, SELFPAY ==
--- NOTE | 2024-10-01 | DI.MAMMO_ITS ---
Exam(s) MAMMO SCREENING EXAM: MAMMO SCREENING CLINICAL HISTORY: Screening, Z12.31 TECHNIQUE: Mammograms were interpreted according to the usual protocol including computer analysis w [employer] CAD system, tomosynthesis and C-view imaging. COMPARISON: 2015 through 2023 FINDINGS: The breasts are composed of scattered fibroglandular densities, Breast Density category B. No suspicious masses or suspicious microcalcifications are seen. No skin thickening or abnormal axillary lymph nodes are seen. There has been no significant change from prior exams. IMPRESSION: BI-RADS Category 1, Negative mammogram Yearly screening mammography is recommended. Breast Density - Category B, scattered fibroglandular densities. A negative radiographic report should not delay biopsy if a dominant or clinically suspicious mass is present. Up to ten percent of cancers are not identified on mammography. A negative report may reinforce clinical impression. Adenosis and dense breasts may obscure an underlying neoplasm. False positive reports average 6 to 10%. Patient will receive a letter notifying them of these results.
== END 2024-10-01 00:40 ==
LOC: DI 00:20
PROVIDERS: PCP Family Medicine; Visit Provider Family Medicine
DX: Z12.31 Encounter for screening mammogram for malignant neoplasm of breast (principal)
CPT/HCPCS: 77063; 77067

== ENCOUNTER 2024-10-22 13:25 | Outpatient (CLI) | payer MEDICARE, SELFPAY ==
--- NOTE | 2024-10-22 09:15 | DI.RAD_ITS ---
Exam(s) XR KNEE RT 2V AP,LAT EXAM: XR KNEE RT 2V AP,LAT INDICATION: ANNUAL F/U R TKA. COMPARISON: CR XR KNEE RT 1V from 11/04/2023 TECHNIQUE: 2D digital imaging was performed. Two views. FINDINGS: Stable alignment of total knee prosthesis. No abnormal surrounding bony lucencies. DATA REPOSITORY: RADIATION DOSE DELIVERED:
== END 2024-10-22 13:26 | disposition home or self-care (01) ==
LOC: DIORS 13:25
PROVIDERS: PCP Family Medicine; Visit Provider Physician Assistant
DX: Z47.1 Aftercare following joint replacement surgery (principal); Z96.651 Presence of right artificial knee joint
CPT/HCPCS: 99213; 73560

== ENCOUNTER 2024-10-28 16:12 | Outpatient (REF) | payer MEDICARE, SELFPAY ==
[2024-10-28 19:27] LABS: HCT 32.7 % (36.0-46.0); MCH 25.3 pg (27.0-33.0); MCHC 30.6 % (32.0-36.0); MCV 83 fL (80-95); MPV 12.9 fL (8.0-11.0); Platelet Count 255 10^3/uL (130-400); RBC 3.95 10^6/uL (3.93-5.22); RDW 17.1 % (11.7-14.6); Reticulocyte 1.9 % (0.5-2.4); WBC 6.33 10^3/uL (4.4-10.8)
[2024-10-28 19:35] LABS: Iron 48 ug/dL (50-170); Total Iron Binding Capacity 262 ug/dL (250-450); Transferrin Sat 18 % (15-50)
[2024-10-28 19:48] LABS: Ferritin 146 ng/mL (8-252)
[2024-10-30 20:12] LABS: Fructosamine 306 mcmol/L (200 - 285)
== END 2024-10-28 16:13 | disposition home or self-care (01) ==
LOC: NCHCN 16:12
PROVIDERS: Orthopaedic Surgery Sports Medicine; PCP Family Medicine; Visit Provider Family Medicine
DX: R50.9 Fever, unspecified (principal)
CPT/HCPCS: 85027; 82728; 82985; 83540; 83550; 85045

== ENCOUNTER 2024-11-16 21:51 | Outpatient (REF) | payer MEDICARE, SELFPAY ==
[2024-11-16 21:55] LABS: HCT 34.2 % (36.0-46.0); HGB 10.4 g/dL (11.2-15.7); MCH 25.6 pg (27.0-33.0); MCHC 30.4 % (32.0-36.0); MCV 84 fL (80-95); MPV 13.2 fL (8.0-11.0); RBC 4.07 10^6/uL (3.93-5.22); RDW 17.2 % (11.7-14.6); RDW-SD 52.3 fL; WBC 7.47 10^3/uL (4.4-10.8)
[2024-11-16 22:23] LABS: Platelet Count 207 10^3/uL (130-400)
[2024-11-16 22:25] LABS: Ferritin 71 ng/mL (8-252)
== END 2024-11-16 21:52 | disposition home or self-care (01) ==
LOC: NCHCN 21:51
PROVIDERS: PCP Family Medicine; Visit Provider Family Medicine
DX: D64.9 Anemia, unspecified (principal)
CPT/HCPCS: 85027; 82728

== ENCOUNTER 2024-12-11 18:49 | Outpatient (REF) | payer MEDICARE, SELFPAY ==
[2024-12-11 16:53] LABS: COMMENT (LAB VIEW ONLY) 68.83 mg/dL; Microalb ug/mg Crea 72.5 ug/mg Cr
== END 2024-12-11 18:50 | disposition home or self-care (01) ==
LOC: NCHCN 18:49
PROVIDERS: PCP Family Medicine; Visit Provider Family Medicine
DX: E11.9 Type 2 diabetes mellitus without complications (principal)
CPT/HCPCS: 82043; 82570

== ENCOUNTER 2024-12-21 14:12 | Outpatient (CLI) | payer MEDICARE, SELFPAY ==
[2024-12-21 14:02] LABS: HGB 10.1 g/dL (11.2-15.7); MCH 25.8 pg (27.0-33.0); MCHC 31.6 % (32.0-36.0); MCV 82 fL (80-95); MPV 11.7 fL (8.0-11.0); Platelet Count 275 10^3/uL (130-400); RBC 3.91 10^6/uL (3.93-5.22); RDW 16.6 % (11.7-14.6); RDW-SD 49.3 fL; WBC 6.81 10^3/uL (4.4-10.8)
[2024-12-21 14:32] LABS: ALT 34 U/L (14-59); AST 18 U/L (15-37); Albumin 3.9 g/dL (3.4-5.0); Alkaline Phosphatase 88 U/L (46-116); Anion Gap 12.9 mmol/L (3-11); BUN 43 mg/dL (7-18); Bilirubin, Total 0.9 mg/dL (0.2-1.0); CO2 21.1 mmol/L (21.0-32.0); CREATININE 1.2 mg/dL (0.55-1.02); Calcium 9.4 mg/dL (8.5-10.1); Chloride 108 mmol/L (98-107); Estimated GFR 49.61 (mL/min/1.73m2); Ferritin 27 ng/mL (8-252); Glucose 151 mg/dL (74-106); Potassium 4.9 mmol/L (3.5-5.1); Sodium 142 mmol/L (136-145); TSH (W/Ref FT4) 0.93 uIU/mL (0.36-3.74); Total Protein 7.7 g/dL (6.4-8.2)
[2024-12-21 15:08] LABS: Iron 86 ug/dL (50-170); Total Iron Binding Capacity 329 ug/dL (250-450); Transferrin Sat 26 % (15-50)
== END 2024-12-21 14:13 | disposition home or self-care (01) ==
LOC: LBO 14:12
PROVIDERS: PCP Family Medicine; Visit Provider Family Medicine
DX: D50.0 Iron deficiency anemia secondary to blood loss (chronic) (principal)
CPT/HCPCS: 36415; 80053; 85027; 82728; 83540; 83550; 84443

== ENCOUNTER 2025-01-12 14:41 | Emergency (ER) | payer MEDICARE, SELFPAY ==
[2025-01-12] VITALS (9 sets, daily range): BP systolic 136–176; BP diastolic 43–82; PULSE 70–82; RESP 10–24; TEMP 36.8; O2SAT 96–98
--- NOTE | 2025-01-12 15:00 | RT.EKG_ITS ---
APPROVED REPORT Exam: Resting ECG Reason for Exam: fatigue Patient Location: E HR:70 bpm ECG Measurements Heart Rate 70 AXIS MD 147 P 54 QRSd 87 QRS 29 QT 399 T 52 QTc 431 Conclusion Sinus rhythm. 70 normal axis no stemi
[2025-01-12 15:52] LABS: Bilirubin Negative (Negative); Blood Negative (Negative); Clarity Clear (Clear); Glucose >=1000 mg/dL (Negative); Ketones Negative (Negative); Leukocyte Esterase Negative (Negative); Nitrite Negative (Negative); Urobilinogen 0.2 mg/dL (Up to 0.2)
[2025-01-12 15:59] LABS: Bacteria Rare HPF (Negative); C & S Indicated? No; Casts Negative LPF (Negative); Crystals Negative HPF (Negative); Epithelial Cells Rare HPF (Negative); Mucus Negative (Negative); RBC Negative HPF (0-2); WBC Negative HPF (0-5)
[2025-01-12 15:59] LABS: Abs Immature Grans 0.23 10^3/uL (0.0-0.06); Absolute Basophil Count 0.04 10^3/uL (0.0-0.2); Absolute Eosinophil Count 0.18 10^3/uL (0.0-0.7); Absolute Lymphocyte Count 1.75 10^3/uL (1.2-3.4); Absolute Monocyte Count 0.65 10^3/uL (0.1-0.8); Absolute Neutrophil Count 5.22 10^3/uL (1.2-6.7); Basophils % 0.5 %; Eosinophils % 2.2 %; HCT 29.3 % (36.0-46.0); HGB 8.9 g/dL (11.2-15.7); Immature Grans % 2.9 %; Lymphocytes % 21.7 %; MCH 25.5 pg (27.0-33.0); MCHC 30.4 % (32.0-36.0); MCV 84 fL (80-95); MPV 11.4 fL (8.0-11.0); Monocytes % 8.1 %; Neutrophils % 64.6 %; Nucleated RBC 0.2 % (0.0-0.3); Platelet Count 285 10^3/uL (130-400); RBC 3.49 10^6/uL (3.93-5.22); RDW 17.6 % (11.7-14.6); RDW-SD 48.9 fL; WBC 8.07 10^3/uL (4.4-10.8)
[2025-01-12 16:30] LABS: PTT Activated 25.9 sec (20.6-30.2); Prothrombin Time 9.9 sec (9.1-11.1)
[2025-01-12 16:35] LABS: ALT 32 U/L (14-59); AST 22 U/L (15-37); Albumin 3.8 g/dL (3.4-5.0); Alkaline Phosphatase 90 U/L (46-116); Anion Gap 11.7 mmol/L (3-11); BUN 37 mg/dL (7-18); Bilirubin, Total 0.5 mg/dL (0.2-1.0); CO2 22.3 mmol/L (21.0-32.0); CREATININE 1.1 mg/dL (0.55-1.02); Chloride 108 mmol/L (98-107); Estimated GFR 55.07 (mL/min/1.73m2); Glucose 95 mg/dL (74-106); Lipase 57 U/L (<78); NT-proBNP 110 pg/mL (<300); Potassium 4.2 mmol/L (3.5-5.1); Sodium 142 mmol/L (136-145); Total Protein 7.7 g/dL (6.4-8.2)
--- NOTE | 2025-01-12 19:02 | ED.GENADUL_ITS ---
Discharge Plan Disposition Patient Disposition: Home Discharge Details Clinical Impression: Fatigue, Anemia Primary Care Provider: Lorena Kearns ED Provider: Camilo Ann Home Meds and New Rx's Prescriptions: No Action zinc 50 mg tablet 50 mg PO DAILY dapagliflozin propanediol [Farxiga] 5 mg tablet 5 mg PO DAILY Morris Saline 0.65 % aerosol,spray 2 spray intranasal QHS PRN (Reason: dry nasal passages) Qty: 50 12RF citalopram 20 mg tablet 20 mg PO HS ascorbic acid (vitamin C) 500 mg capsule 500 mg PO DAILY ferrous sulfate 325 mg (65 mg iron) tablet 325 mg PO BID polyethylene glycol 3350 [Miralax] 17 gram powder in packet 34 g PO BID PRN (Reason: constipation) Qty: 30 0RF metformin [Glucophage] 1,000 MG tablet 1,000 mg PO BID rosuvastatin [Crestor] 40 MG tablet 40 mg PO QPM pantoprazole 40 mg tablet,delayed release (DR/EC) 40 mg PO DAILY Qty: 30 0RF valsartan 320 mg tablet 320 mg PO DAILY albuterol sulfate 90 mcg/actuation HFA aerosol inhaler 2 puff INHALATION Q4H PRN Patient Comments: INHALE 2 PUFFS BY MOUTH EVERY 4 TO 6 HOURS NEEDED FOR 14 DAYS insulin lispro [Humalog KwikPen Insulin] 100 unit/mL insulin pen 5 unit SUBCUT DIRECTED Patient Comments: Inject 20-30 unit subcutaneously three times a day DX:E11.9 insulin degludec [Tresiba FlexTouch U-200] 200 unit/mL (3 mL) insulin pen 150 unit SUBCUT DAILY acetaminophen 500 mg tablet 1,000 mg PO TID PRN Discharge Instructions Additional Instructions: Your lab work is reassuring for no emergent problems. There is no need for blood transfusion today. Your blood count is lower, and you should follow-up closely with your fur blowing machine attendant to discuss the infusion and the symptoms that you have been having since that time. If you feel like you are not getting better or having any acute worsening or new symptoms, please return to the emergency department. Discharge Data Discharge Date/Time-TO BE ENTERED AT DEPARTURE: 01/12/25 17:20 HPI General Date/Time Provider Initiated Documentation: 01/12/25 14:54 . Limitations to Documentation: no limitations . Information obtained by: patient and family . HPI Narrative: 69-year-old female with past medical history of chronic GI bleeding, iron deficiency anemia presents for evaluation of fatigue. She reports that she has been receiving regular iron infusions.. She reports that she got an iron infusion on Saturday though it was a different one than she normally gets. She does not know what was different about it. She states that she has not been feeling better. She reports that she has fatigue nausea headache. No fever or vomiting. No chest pain. She contacted her fur blowing machine attendant who advised that she come get blood work to make sure that she did not need a blood transfusion. She has not previously had a blood transfusion. Related Data Home Medications ?Medication ?Instructions ?Recorded ?Confirmed metformin 1,000 mg tablet 1,000 mg PO BID 11/18/12 10/22/24 (Glucophage) rosuvastatin 40 mg tablet (Crestor) 40 mg PO QPM 11/18/12 10/22/24 ascorbic acid (vitamin C) 500 mg 500 mg PO DAILY 06/28/21 10/22/24 capsule citalopram 20 mg tablet 20 mg PO HS 06/28/21 10/22/24 zinc 50 mg tablet 50 mg PO DAILY 10/11/21 10/22/24 ferrous sulfate 325 mg (65 mg 325 mg PO BID 05/24/22 10/22/24 iron) tablet sodium chloride 0.65 % nasal spray 2 spray intranasal QHS PRN dry 07/25/22 10/22/24 aerosol (Morris Saline) nasal passages #50 mL albuterol sulfate 90 mcg/actuation 2 puff inhalation Q4H PRN 09/19/23 10/22/24 aerosol inhaler insulin degludec 200 unit/mL (3 150 unit subcut DAILY 09/19/23 10/22/24 mL) subcutaneous pen (Tresiba FlexTouch U-200 insulin) insulin lispro 100 unit/mL 5 unit subcut DIRECTED 09/19/23 10/22/24 subcutaneous pen (Humalog KwikPen (U-100) Insulin) pantoprazole 40 mg tablet,delayed 40 mg PO DAILY #30 tabs 10/22/23 10/22/24 release polyethylene glycol 3350 17 gram 34 g PO BID PRN constipation #30 ea 10/28/23 10/22/24 oral powder packet (Miralax) acetaminophen 500 mg tablet 1,000 mg PO TID PRN 06/11/24 10/22/24 valsartan 320 mg tablet 320 mg PO DAILY 08/18/24 10/22/24 dapagliflozin propanediol 5 mg 5 mg PO DAILY 10/22/24 10/22/24 tablet (Farxiga) Previous Rx's ?Medication ?Instructions ?Recorded sodium chloride 0.65 % nasal spray 2 spray intranasal QHS PRN dry 07/25/22 aerosol (Morris Saline) nasal passages #50 mL pantoprazole 40 mg tablet,delayed 40 mg PO DAILY #30 tabs 10/22/23 release polyethylene glycol 3350 17 gram 34 g PO BID PRN constipation #30 ea 10/28/23 oral powder packet (Miralax) Allergies Allergy/AdvReac Type Severity Reaction Status Date / Time azithromycin Allergy Intermediate Tongue Verified 10/22/24 09:20 swelling General Stated Complaint: GenMedical KAMLESH: 3 Exam Narrative Exam Narrative: Review of Systems: All systems reviewed & are unremarkable except as noted in HPI and below Well-developed, no acute distress Afebrile NCAT PERRL, normal conjunctiva RRR, no murmur Unlabored respiratory effort, clear bilaterally Nondistended abdomen , soft nontender tearful, anxious Course Vital Signs Vital signs: Vital Signs Pulse 82 01/12/25 14:48 Respiratory Rate 16 01/12/25 14:48 Blood Pressure 147/82 H 01/12/25 14:48 Pulse Oximetry 98 01/12/25 14:48 Temperature 36.8 C 01/12/25 17:20 Temperature Source Oral 01/12/25 17:01 Pulse 82 01/12/25 17:20 Pulse 76 01/12/25 15:52 Respiratory Rate 16 01/12/25 17:20 Respiratory Effort Normal, Non-Labored 01/12/25 15:56 Respiratory Depth Normal 01/12/25 15:56 Respiratory Pattern Normal 01/12/25 15:56 Blood Pressure 176/57 H 01/12/25 17:20 Blood Pressure Mean 96 01/12/25 17:01 Blood Pressure Position Supine 01/12/25 14:50 Pulse Oximetry 96 01/12/25 17:20 Oxygen Delivery Method Room Air 01/12/25 17:01 Oxygen Flow Rate 0 01/12/25 17:01 Pain Level 0 01/12/25 14:50 Lab/Test Results Lab/Test Results: Laboratory Tests Range/Units 01/12/25 01/12/25 01/12/25 15:32 15:50 16:10 WBC (4.4-10.8) 10^3/uL 8.07 RBC (3.93-5.22) 10^6/uL 3.49 L Hgb (11.2-15.7) g/dL 8.9 L Hct (36.0-46.0) % 29.3 L MCV (80-95) fL 84 MCH (27.0-33.0) pg 25.5 L MCHC (32.0-36.0) % 30.4 L RDW (11.7-14.6) % 17.6 H Plt Count (130-400) 10^3/uL 285 MPV (8.0-11.0) fL 11.4 H Immature Gran % % 2.9 Neutrophils % % 64.6 Lymphocytes % % 21.7 Monocytes % % 8.1 Eosinophils % % 2.2 Basophils % % 0.5 Nucleated RBC % (0.0-0.3) % 0.2 Absolute Neutrophils (1.2-6.7) 10^3/uL 5.22 Absolute Lymphocytes (1.2-3.4) 10^3/uL 1.75 Absolute Monocytes (0.1-0.8) 10^3/uL 0.65 Absolute Eosinophils (0.0-0.7) 10^3/uL 0.18 Absolute Basophils (0.0-0.2) 10^3/uL 0.04 PT (9.1-11.1) sec 9.9 INR (0.9-1.1) 1.0 APTT (20.6-30.2) sec 25.9 Sodium (136-145) mmol/L 142 Potassium (3.5-5.1) mmol/L 4.2 Chloride (98-107) mmol/L 108 H Carbon Dioxide (21.0-32.0) mmol/L 22.3 Anion Gap (3-11) mmol/L 11.7 H BUN (7-18) mg/dL 37 H Creatinine (0.55-1.02) mg/dL 1.1 H Est GFR (CKD-EPI 2020) (mL/min/1.73m2) 55.07 Glucose (74-106) mg/dL 95 Calcium (8.5-10.1) mg/dL 10.0 Magnesium (1.8-2.4) mg/dL 2.0 Total Bilirubin (0.2-1.0) mg/dL 0.5 AST (15-37) U/L 22 ALT (14-59) U/L 32 Alkaline Phosphatase (46-116) U/L 90 NT-Pro-B Natriuret Pep (<300) pg/mL 110 Total Protein (6.4-8.2) g/dL 7.7 Albumin (3.4-5.0) g/dL 3.8 Lipase (<78) U/L 57 Urine Color (Yellow) Yellow Urine Clarity (Clear) Clear Urine pH (5-8) 5.0 Ur Specific [place] (1.005-1.025) 1.010 Urine Protein (Neg-Trace) mg/dL Negative Urine Ketones (Negative) mg/dL Negative Urine Blood (Negative) Negative Urine Nitrite (Negative) Negative Urine Bilirubin (Negative) Negative Urine Urobilinogen (Up to 0.2) mg/dL 0.2 Ur Leukocyte Esterase (Negative) Negative Urine RBC (0-2) HPF Negative Urine WBC (0-5) HPF Negative Ur Epithelial Cells (Negative) HPF Rare Urine Crystals (Negative) HPF Negative Urine Bacteria (Negative) HPF Rare Urine Casts (Negative) LPF Negative Urine Mucus (Negative) Negative Ur Culture Indicated? No Urine Glucose (Negative) mg/dL >=1000 H ABO/Rh O Negative Antibody Screen NEGATIVE Medical Decision Making Emergent evaluation of fatigue feeling. Initial differential includes infectious etiology, viral syndrome, anemia. Patient has longstanding known anemia due to GI bleeding, and receives iron infusions, but has not received a blood transfusion. Unclear what infusion she did receive on Saturday, but apparently it did not make her feel better like she normally does. Very hemodynamically she is stable and afebrile. Her examination is benign. Lab work was obtained, no leukocytosis. Her blood counts are slightly low 8.9 and 29.3, but not low enough to warrant an emergent blood transfusion. Normal platelet count. Her chemistry is unremarkable. Urinalysis is not infected. Her flu testing is also negative. EKG reviewed and independently interpreted: Sinus 70 normal axis no STEMI. The patient is at bedside, discussed findings on today's workup. Has been feels reassured and reports that they have close contact with her fur blowing machine attendant at [facility]. Recommend at this time that she is stable for discharge home and that they can follow-up closely with a fur blowing machine attendant for any further ongoing issues is no emergent condition was identified today. Quality:[facility] Health Related Social Needs: No Data to Display PFSH All Active Problems (Updated 01/12/25 @ 16:58 by Camilo Ann MD) Anemia (Chronic) Fatigue (Acute) History of total right knee replacement (Acute 10/22/23) Asthma (Chronic) Chest pain (Acute) Post-acute sequelae of COVID-19 (PASC) (Acute) Hip abductor tendinitis (Acute) Vomiting (Acute) Iron deficiency (Acute) Cough (Acute) Diabetic neuropathy (Acute) Muscle weakness (Acute) Balance problem (Acute) Shortness of breath (Acute) Internal hemorrhoid (Acute) she denies Colon polyp (Acute) Dyspnea (Acute) Diverticulosis (Acute) Chest pain (Acute) Screening for colon cancer (Acute) Tear of medial meniscus of right knee (Acute) Injected 01/07/2019 Trigger finger, right middle finger (Chronic) Medical History (Updated 01/12/25 @ 16:58 by Camilo Ann MD) Cecal volvulus Cecal volvulus Fibroepithelial polyp (~12/2022) Family history of colon cancer sister age 74 Mitral valve regurgitation Per Dr. Kearns note mild present since 2009 Tension headache Nausea Urinary incontinence, mixed YARELIS on CPAP Denies using CPAP currently - reports mask is too large Vitamin B12 deficiency Diabetic retinopathy Microalbuminuria Diabetes mellitus, type II, insulin dependent Recurrent falls Ataxia Fatty infiltration of liver Fatigue Dyspnea on exertion Foot pain, right Shingles Anemia, iron deficiency Tubular adenoma of colon Chronic anxiety PTSD (post-traumatic stress disorder) Pt. denies this dx Hypertension Sleep apnea does not use CPAP machine recently, due to ill-fitting mask Gastroesophageal reflux disease Retinopathy Hyperlipidemia Depression Benign hypertension Diabetes mellitus Narcolepsy Surgical History (Updated 06/19/24 @ 09:11 by Alvin Perrin MD) Status post cataract extraction and insertion of intraocular lens of right eye S/P laparoscopy with lysis of adhesions History of colonoscopy (~12/2022) Hx of arthroscopy of right knee Hx of laparoscopy Removed left ovary. Per pt, was to check for endometriosis. Hx of tubal ligation History of esophagogastroduodenoscopy (EGD) S/P excision of lipoma excision of lipoma on back History of hysterectomy History of carpal tunnel release Trigger Finger release LMF, LRF Family History Sister Cancer colon cancer age 74. Abdominal aortic aneurysm Mother Heart disease Social History Smoking/Tobacco Use Status: Former Tobacco Use Quit Date: 08/26/00 Smoking risk assessment performed?: Yes Alcohol Intake: current Alcohol Intake frequency: holidays/special occasions only Drug use: Never Substance use type: does not use Housing: house Number of Children: 2 current occupation: Disabled Current gender identity: female Do you feel safe at home: Yes Do you feel safe in your relationship?: Yes
[2025-01-14 10:50] LABS: Iron 183 ug/dL (50-170); Total Iron Binding Capacity 350 ug/dL (250-450); Transferrin Sat 52 % (15-50)
[2025-01-14 11:04] LABS: Ferritin 671 ng/mL (8-252)
[2025-01-15 09:54] LABS: Transferrin 248 mg/dL (201-352)
== END 2025-01-12 17:20 | disposition home or self-care (01) ==
PROVIDERS: Emergency Provider Emergency Medicine; PCP Family Medicine
DX: R53.83 Other fatigue (principal); D50.9 Iron deficiency anemia, unspecified; E11.9 Type 2 diabetes mellitus without complications; I10 Essential (primary) hypertension; E78.5 Hyperlipidemia, unspecified; Z79.4 Long term (current) use of insulin
CPT/HCPCS: 80053; 83690; 86850; 86900; 86901; 87426; 93005; 99284; 81003; 81015; 82728; 83540; 83550; 83735; 83880; 84466; 85025; 85610; 85730; 93010

== ENCOUNTER 2025-01-14 18:02 | Emergency (ER) | payer MEDICARE, SELFPAY ==
[2025-01-14] VITALS (25 sets, daily range): BP systolic 101–151; BP diastolic 32–61; PULSE 67–98; RESP 15–33; TEMP 36.6; O2SAT 92–98
--- NOTE | 2025-01-14 18:15 | RT.EKG_ITS ---
APPROVED REPORT Exam: Resting ECG Reason for Exam: SOB Patient Location: E HR:83 bpm ECG Measurements Heart Rate 83 AXIS PA 150 P 58 QRSd 87 QRS 43 QT 382 T 36 QTc 450 Conclusion Sinus rhythm, rate 83 No interval abnormalities No STEMI No significant changes from prior
--- NOTE | 2025-01-14 18:30 | DI.RAD_ITS ---
Exam(s) XR CHEST 2V PA LATERAL EXAM: XR CHEST 2V PA LATERAL CLINICAL HISTORY: Shortness of breath TECHNIQUE: 2D digital imaging was performed. Two views. COMPARISON: CR XR CHEST 2V PA LATERAL from 08/18/2024 FINDINGS: HEART: Normal size. Aorta: Not dilated. PULMONARY VASCULATURE: Normal. MEDIASTINUM: Unremarkable. LUNGS: Clear. PLEURAL SPACE: No pleural effusion or pneumothorax. BONE:Unremarkable for age. SOFT TISSUES: Unremarkable. IMPRESSION: No acute abnormality. DATA REPOSITORY: RADIATION DOSE DELIVERED:
--- NOTE | 2025-01-14 18:50 | W.ED.GENAD ---
Discharge Plan Disposition Patient Disposition: Home Condition: Stable Discharge Details Clinical Impression: Anemia Primary Care Provider: Lorena Kearns ED Provider: Azul Benitez Home Meds and New Rx's Prescriptions: No Action zinc 50 mg tablet 50 mg PO DAILY dapagliflozin propanediol [Farxiga] 5 mg tablet 5 mg PO DAILY citalopram 20 mg tablet 20 mg PO HS ascorbic acid (vitamin C) 500 mg capsule 500 mg PO DAILY ferrous sulfate 325 mg (65 mg iron) tablet 325 mg PO BID metformin [Glucophage] 1,000 MG tablet 1,000 mg PO BID rosuvastatin [Crestor] 40 MG tablet 40 mg PO QPM pantoprazole 40 mg tablet,delayed release (DR/EC) 40 mg PO DAILY Qty: 30 0RF valsartan 320 mg tablet 320 mg PO DAILY insulin lispro [Humalog KwikPen Insulin] 100 unit/mL insulin pen 5 unit SUBCUT DIRECTED Patient Comments: Inject 20-30 unit subcutaneously three times a day DX:E11.9 insulin degludec [Tresiba FlexTouch U-200] 200 unit/mL (3 mL) insulin pen 150 unit SUBCUT DAILY Discharge Instructions Instructions: Anemia caused by low iron Additional Instructions: You were seen in the emergency department today for evaluation of fatigue and easy shortness of breath while exerting yourself, which is likely due to your low red blood cell count. You had laboratory studies that show that your red blood cell count is low but not so low that you require transfusion. There was no evidence that your blood is hemolyzing (breaking apart in your blood vessels), and we did discuss your mild dehydration. It is also possible that you are experiencing some bleeding in your GI tract, which can cause low hemoglobin over time. For this reason you need to continue to take all of your medications, especially your pantoprazole, and I have placed a referral to general surgery for you to be evaluated for endoscopy/colonoscopy to identify any sources of bleeding. Please follow-up with your primary care provider in the next few days to discuss this visit and any symptoms that change, worsen, or persist. Thank you for allowing us to be part of your care. Referrals: Vin Gonzalez MD [ [facility] STAFF PHYSICIAN] - 1 week HPI General Mode of arrival: ambulatory. Date/Time Provider Initiated Documentation: 01/14/25 18:26. Limitations to Documentation: no limitations. Information obtained by: patient, family and old records reviewed. HPI Narrative: This is a 69-year-old female patient with a history of anemia, asthma, iron deficiency, diverticulosis, who is presenting for evaluation of anemia, fatigue, and air hunger. She was seen in our department 2 days ago for similar symptoms, and at that time had a CBC that showed her hemoglobin was downtrending despite iron infusions, 8.7 at that time. She called her primary care provider who told her to return to the emergency department as she may require further testing to determine the source of her bleeding. The patient reports that she feels fatigued and gets winded with minimal exertion. She has not noted any external bleeding, states that she has not had any hematemesis or bright red blood per rectum. States that she has had dark stools in the past, but none for the last several weeks. She does not note any blood in her urine, and has been taking her oral iron as prescribed. She denies chest pain. Related Data Home Medications ?Medication ?Instructions ?Recorded ?Confirmed metformin 1,000 mg tablet 1,000 mg PO BID 11/18/12 01/14/25 (Glucophage) rosuvastatin 40 mg tablet (Crestor) 40 mg PO QPM 11/18/12 01/14/25 ascorbic acid (vitamin C) 500 mg 500 mg PO DAILY 06/28/21 01/14/25 capsule citalopram 20 mg tablet 20 mg PO HS 06/28/21 01/14/25 zinc 50 mg tablet 50 mg PO DAILY 10/11/21 01/14/25 ferrous sulfate 325 mg (65 mg 325 mg PO BID 05/24/22 01/14/25 iron) tablet insulin degludec 200 unit/mL (3 150 unit subcut DAILY 09/19/23 01/14/25 mL) subcutaneous pen (Tresiba FlexTouch U-200 insulin) insulin lispro 100 unit/mL 5 unit subcut DIRECTED 09/19/23 01/14/25 subcutaneous pen (Humalog KwikPen (U-100) Insulin) pantoprazole 40 mg tablet,delayed 40 mg PO DAILY #30 tabs 10/22/23 01/14/25 release valsartan 320 mg tablet 320 mg PO DAILY 08/18/24 01/14/25 dapagliflozin propanediol 5 mg 5 mg PO DAILY 10/22/24 01/14/25 tablet (Farxiga) Previous Rx's ?Medication ?Instructions ?Recorded pantoprazole 40 mg tablet,delayed 40 mg PO DAILY #30 tabs 10/22/23 release Allergies Allergy/AdvReac Type Severity Reaction Status Date / Time azithromycin Allergy Intermediate Tongue Verified 01/14/25 18:13 swelling General Stated Complaint: GenMedical KAMLESH: 3 Exam Narrative Exam Narrative: Gen: Awake and alert, in no apparent distress HEENT: Non-icteric sclera, no conjunctival pallor Neck: Supple Lungs: No apparent respiratory distress, normal respiratory effort. Lung sounds clear and equal bilaterally without wheezes, rhonchi, rales CV: Appears well perfused, heart is regular rate and rhythm, strong distal pulses Abdomen: Non-distended, soft, nontender Rectal: Supervised by NILDA Ricks, non-thrombosed external hemorrhoids, no melana or BRBPR MSK: Moves 4 extremities without apparent limitation in ROM Skin: Visualized skin without rashes, cyanosis. Neuro: Normal Gait, no obvious focal deficits or facial asymmetry. Speaks in full, clear sentences. Psych: Appropriate for situation. Course Vital Signs Vital signs: Vital Signs Temperature 36.6 C 01/14/25 18:17 Pulse 82 01/14/25 18:17 Respiratory Rate 22 01/14/25 18:17 Blood Pressure 151/61 H 01/14/25 18:17 Pulse Oximetry 95 01/14/25 18:17 Temperature 36.6 C 01/14/25 18:17 Temperature Source Oral 01/14/25 18:17 Pulse 82 01/14/25 18:17 Respiratory Rate 22 01/14/25 18:17 Blood Pressure 151/61 H 01/14/25 18:17 Blood Pressure Position Supine 01/14/25 18:17 Pulse Oximetry 95 01/14/25 18:17 Oxygen Delivery Method Room Air 01/14/25 18:17 Oxygen Flow Rate 0 01/14/25 18:17 Pain Level 0 01/14/25 18:17 Medical Decision Making This is a 69-year-old female patient presenting for evaluation of anemia. Differential includes but is not limited to iron deficiency anemia, certainly considered hemolysis, and active blood loss, though the patient denies symptoms of GI bleed at this time I did consider upper GI bleed, peptic ulcer disease, diverticulosis, internal hemorrhoids. I considered symptomatic anemia as the cause of her fatigue, but also considered NSTEMI, pneumonia, pneumothorax, pulmonary edema. We obtained an EKG, which shows sinus rhythm without evidence of ischemia, interval abnormality, or ectopy, and with no significant changes from priors. We will obtain laboratory studies to include CBC, CMP, magnesium, troponin, INR, type and screen, LDH, and haptoglobin. - I reviewed the patient's laboratory studies, which reveal no leukocytosis, stable anemia with a hemoglobin of 8.7, and no thrombocytopenia. INR 0.9, LDH is not elevated. The metabolic panel shows no electrolyte derangements, BUN slightly elevated at 33, with a creatinine of 1.2. No evidence for liver dysfunction, troponin was negative and without delta change on 1 hour recheck. Chest x-ray without abnormalities to account for the patient's shortness of breath and I suspect that it is due to her anemia. I did provide her with a 500 cc fluid bolus given her reported concern for dehydration, and made a referral to general surgery for endoscopy and colonoscopy given her potential for GI bleed. At this time, the patient has had a full medical evaluation and is safe for discharge to home. They are hemodynamically stable, ambulatory, and tolerating PO. They are understanding of the follow-up plan and return precautions. They left our facility without incident. Azul Benitez MD Medical Records Medical records reviewed: Yes I reviewed the patient's medical records. Lab Data Lab results reviewed: Yes I reviewed the patient's lab results. Quality:[facility] Health Related Social Needs: No Data to Display [facility] All Active Problems (Updated 01/14/25 @ 20:39 by Azul Benitez MD) Anemia (Chronic) Fatigue (Acute) History of total right knee replacement (Acute 10/22/23) Asthma (Chronic) Chest pain (Acute) Post-acute sequelae of COVID-19 (PASC) (Acute) Hip abductor tendinitis (Acute) Vomiting (Acute) Iron deficiency (Acute) Cough (Acute) Diabetic neuropathy (Acute) Muscle weakness (Acute) Balance problem (Acute) Shortness of breath (Acute) Internal hemorrhoid (Acute) she denies Colon polyp (Acute) Dyspnea (Acute) Diverticulosis (Acute) Chest pain (Acute) Screening for colon cancer (Acute) Tear of medial meniscus of right knee (Acute) Injected 01/07/2019 Trigger finger, right middle finger (Chronic) Medical History (Updated 01/14/25 @ 20:39 by Azul Benitez MD) Cecal volvulus Cecal volvulus Fibroepithelial polyp (~12/2022) Family history of colon cancer sister age 74 Mitral valve regurgitation Per Dr. Kearns note mild present since 2009 Tension headache Nausea Urinary incontinence, mixed YARELIS on CPAP Denies using CPAP currently - reports mask is too large Vitamin B12 deficiency Diabetic retinopathy Microalbuminuria Diabetes mellitus, type II, insulin dependent Recurrent falls Ataxia Fatty infiltration of liver Fatigue Dyspnea on exertion Foot pain, right Shingles Anemia, iron deficiency Tubular adenoma of colon Chronic anxiety PTSD (post-traumatic stress disorder) Pt. denies this dx Hypertension Sleep apnea does not use CPAP machine recently, due to ill-fitting mask Gastroesophageal reflux disease Retinopathy Hyperlipidemia Depression Benign hypertension Diabetes mellitus Narcolepsy Surgical History (Updated 06/19/24 @ 09:11 by Alvin Perrin MD) Status post cataract extraction and insertion of intraocular lens of right eye S/P laparoscopy with lysis of adhesions History of colonoscopy (~12/2022) Hx of arthroscopy of right knee Hx of laparoscopy Removed left ovary. Per pt, was to check for endometriosis. Hx of tubal ligation History of esophagogastroduodenoscopy (EGD) S/P excision of lipoma excision of lipoma on back History of hysterectomy History of carpal tunnel release Trigger Finger release LMF, LRF Family History Sister Cancer colon cancer age 74. Abdominal aortic aneurysm Mother Heart disease Social History Smoking/Tobacco Use Status: Former Tobacco Use Quit Date: 08/26/00 Smoking risk assessment performed?: Yes Alcohol Intake: current Alcohol Intake frequency: holidays/special occasions only Drug use: Never Substance use type: does not use Housing: house Number of Children: 2 current occupation: Disabled Current gender identity: female Do you feel safe at home: Yes Do you feel safe in your relationship?: Yes
[2025-01-14 18:52] LABS: Abs Immature Grans 0.14 10^3/uL (0.0-0.06); Absolute Basophil Count 0.03 10^3/uL (0.0-0.2); Absolute Eosinophil Count 0.15 10^3/uL (0.0-0.7); Absolute Lymphocyte Count 1.83 10^3/uL (1.2-3.4); Absolute Neutrophil Count 4.43 10^3/uL (1.2-6.7); Basophils % 0.4 %; Eosinophils % 2.1 %; HCT 28.5 % (36.0-46.0); HGB 8.7 g/dL (11.2-15.7); Immature Grans % 1.9 %; Lymphocytes % 25.5 %; MCH 25.9 pg (27.0-33.0); MCHC 30.5 % (32.0-36.0); MCV 85 fL (80-95); MPV 11.1 fL (8.0-11.0); Monocytes % 8.4 %; Neutrophils % 61.7 %; Nucleated RBC 0.3 % (0.0-0.3); Platelet Count 250 10^3/uL (130-400); RBC 3.36 10^6/uL (3.93-5.22); RDW 18.6 % (11.7-14.6); RDW-SD 50.4 fL; WBC 7.18 10^3/uL (4.4-10.8)
[2025-01-14] MEDS: Ondansetron 4 MG/2 ML VIAL IVP (19:03)
[2025-01-14 19:04] LABS: INR 0.9 (0.9-1.1); Prothrombin Time 9.5 sec (9.1-11.1)
[2025-01-14 19:11] LABS: ALT 35 U/L (14-59); AST 22 U/L (15-37); Albumin 3.8 g/dL (3.4-5.0); Alkaline Phosphatase 83 U/L (46-116); Anion Gap 12.5 mmol/L (3-11); BUN 33 mg/dL (7-18); Bilirubin, Total 0.4 mg/dL (0.2-1.0); CO2 21.5 mmol/L (21.0-32.0); CREATININE 1.2 mg/dL (0.55-1.02); Calcium 9.5 mg/dL (8.5-10.1); Chloride 107 mmol/L (98-107); Estimated GFR 49.61 (mL/min/1.73m2); Glucose 139 mg/dL (74-106); Magnesium 1.8 mg/dL (1.8-2.4); Sodium 141 mmol/L (136-145); Total Protein 7.3 g/dL (6.4-8.2); Troponin I 12 ng/L (<or=51)
[2025-01-14 19:25] LABS: LDH 143 U/L (81-234)
[2025-01-14] MEDS: Normal Saline 500 ML IV (19:42)
--- NOTE | 2025-01-14 19:47 | DI.VRAD_ITS ---
PROCEDURE INFORMATION: Exam: XR Chest Exam date and time: 01/14/2025 7:21 PM Age: 69 years old Clinical indication: Shortness of breath TECHNIQUE: Imaging protocol: Radiologic exam of the chest. Views: 2 views. COMPARISON: CR XR CHEST 2V PA LATERAL 08/18/2024 12:46 PM FINDINGS: Lungs: Unremarkable. No consolidation. Pleural spaces: Unremarkable. No pleural effusion. No pneumothorax. Heart/Mediastinum: Unremarkable. No cardiomegaly. Bones/joints: Unremarkable. IMPRESSION: No evidence for acute abnormality in the chest. Dictated and Authenticated by: Karla Forman MD. Orderin [facility]. Jose Liang MD
[2025-01-14 20:07] LABS: Troponin I 15 ng/L (<or=51)
[2025-01-18 09:29] LABS: Haptoglobin 142 mg/dL (32-197)
== END 2025-01-14 20:41 | disposition home or self-care (01) ==
PROVIDERS: Emergency Provider Emergency Medicine; PCP Family Medicine
DX: R53.83 Other fatigue (principal); D64.9 Anemia, unspecified; I10 Essential (primary) hypertension; E78.5 Hyperlipidemia, unspecified; E11.319 Type 2 diabetes mellitus with unspecified diabetic retinopathy without macular edema; Z79.4 Long term (current) use of insulin; Z79.84 Long term (current) use of oral hypoglycemic drugs; Z87.891 Personal history of nicotine dependence
CPT/HCPCS: 36415; 80053; 86850; 86900; 86901; 93005; 96361; 96374; 99285; 71046; 83010; 83615; 83735; 84484; 85025; 85610; 93010; J2405

== ENCOUNTER 2025-01-20 09:07 | Emergency (ER) | payer SELFPAY ==
[2025-01-20 09:16] VITALS: BP 144/75; PULSE 66; RESP 18; TEMP 36.6; O2SAT 94
--- NOTE | 2025-01-20 10:11 | DI.RAD_ITS ---
Exam(s) XR HUMERUS RT XR SHOULDER RT COMPLETE 2+V EXAM: XR SHOULDER RT COMPLETE 2+V CLINICAL HISTORY: right shoulder and arm pain. TECHNIQUE: 2D digital imaging was performed. Five views of the right shoulder. AP and lateral view s of the humerus COMPARISON: CR XR HUMERUS RT from 01/20/2025 FINDINGS: BONES: No acute fracture is present. No bony destructive lesion is seen. JOINTS: No dislocation present. Degenerative changes at the acromioclavicular and glenohumeral joint s. Elbow is unremarkable. SOFT TISSUE: Normal. IMPRESSION: Degenerative changes. No acute abnormality. DATA REPOSITORY: RADIATION DOSE DELIVERED:
--- NOTE | 2025-01-20 12:30 | ED.GENADUL_ITS ---
Discharge Plan Discharge Details Chief Complaint: Orthopedic Primary Care Provider: Lorena Kearns ED Provider: Andria Rodrigues Home Meds and New Rx's Prescriptions: No Action zinc 50 mg tablet 50 mg PO DAILY dapagliflozin propanediol [Farxiga] 5 mg tablet 5 mg PO DAILY citalopram 20 mg tablet 20 mg PO HS ascorbic acid (vitamin C) 500 mg capsule 500 mg PO DAILY ferrous sulfate 325 mg (65 mg iron) tablet 325 mg PO BID metformin [Glucophage] 1,000 MG tablet 1,000 mg PO BID rosuvastatin [Crestor] 40 MG tablet 40 mg PO QPM pantoprazole 40 mg tablet,delayed release (DR/EC) 40 mg PO DAILY Qty: 30 0RF valsartan 320 mg tablet 320 mg PO DAILY insulin lispro [Humalog KwikPen Insulin] 100 unit/mL insulin pen 5 unit SUBCUT DIRECTED Patient Comments: Inject 20-30 unit subcutaneously three times a day DX:E11.9 insulin degludec [Tresiba FlexTouch U-200] 200 unit/mL (3 mL) insulin pen 150 unit SUBCUT DAILY HPI General Date/Time Provider Initiated Documentation: 01/20/25 09:22 . HPI Narrative: 69-year-old female presents with a fall, tripping on an uneven sidewalk and landing on her right side. No head injury or loss of consciousness. Pain with right shoulder movement. No neck pain or coagulopathy history. Ambulated post- event. Related Data Home Medications ?Medication ?Instructions ?Recorded ?Confirmed metformin 1,000 mg tablet 1,000 mg PO BID 11/18/12 01/20/25 (Glucophage) rosuvastatin 40 mg tablet (Crestor) 40 mg PO QPM 11/18/12 01/20/25 ascorbic acid (vitamin C) 500 mg 500 mg PO DAILY 06/28/21 01/20/25 capsule citalopram 20 mg tablet 20 mg PO HS 06/28/21 01/20/25 zinc 50 mg tablet 50 mg PO DAILY 10/11/21 01/20/25 ferrous sulfate 325 mg (65 mg 325 mg PO BID 05/24/22 01/20/25 iron) tablet insulin degludec 200 unit/mL (3 150 unit subcut DAILY 09/19/23 01/20/25 mL) subcutaneous pen (Tresiba FlexTouch U-200 insulin) insulin lispro 100 unit/mL 5 unit subcut DIRECTED 09/19/23 01/20/25 subcutaneous pen (Humalog KwikPen (U-100) Insulin) pantoprazole 40 mg tablet,delayed 40 mg PO DAILY #30 tabs 10/22/23 01/20/25 release valsartan 320 mg tablet 320 mg PO DAILY 08/18/24 01/20/25 dapagliflozin propanediol 5 mg 5 mg PO DAILY 10/22/24 01/20/25 tablet (Farxiga) Previous Rx's ?Medication ?Instructions ?Recorded pantoprazole 40 mg tablet,delayed 40 mg PO DAILY #30 tabs 10/22/23 release Allergies Allergy/AdvReac Type Severity Reaction Status Date / Time azithromycin Allergy Intermediate Tongue Verified 01/20/25 09:22 swelling General Stated Complaint: Orthopedic KAMLESH: 3 Exam Narrative Exam Narrative: General Appearance: Alert and oriented. Vital signs: Within normal limits. HEENT: Pupils equal, round, reactive to light and accommodation. Respiratory: Within normal limits. Back, Musculoskeletal: No tenderness in cervical, thoracic, or lumbar spine. Extremities: No tenderness in hips or lower extremities bilaterally. Tenderness over right humerus and shoulder, but not right elbow. Skin: Warm and dry, no rash. Neurological: Neurovascularly intact. Course Vital Signs Vital signs: Vital Signs Temperature 36.6 C 01/20/25 09:16 Pulse 66 01/20/25 09:16 Respiratory Rate 18 01/20/25 09:16 Blood Pressure 144/75 H 01/20/25 09:16 Pulse Oximetry 94 01/20/25 09:16 Temperature 36.6 C 01/20/25 09:16 Temperature Source Oral 01/20/25 09:16 Pulse 66 01/20/25 09:16 Respiratory Rate 18 01/20/25 09:16 Blood Pressure 144/75 H 01/20/25 09:16 Blood Pressure Position Sitting 01/20/25 09:16 Pulse Oximetry 94 01/20/25 09:16 Oxygen Delivery Method Room Air 01/20/25 09:16 Oxygen Flow Rate 0 01/20/25 09:16 Pain Level 2 01/20/25 09:30 Medical Decision Making Results: X-ray of shoulder and humerus show no acute abnormality. Radiology interpretation of my review Initial Assessment: 69-year-old female presents with fall in parking lot, tripped on uneven sidewalk, landed on right side. No head injury or loss of consciousness. Pain with right shoulder movement, no neck pain or coagulopathy history. Alert and oriented, GCS 15. Tenderness over right humerus and shoulder, no tenderness in right elbow. Neurovascularly intact. ED Course: - X-ray of shoulder and humerus shows no acute abnormality per radiology interpretation and my review. - Encouraged Tylenol and rest. - Reviewed return precautions; patient expressed understanding. Final Assessment: Fall-related injury with pain in right shoulder. X-ray shows no acute abnormality. Patient neurovascularly intact. Encouraged Tylenol and rest. Reviewed return precautions. Clinical Impression: - Fall-related injury Disposition: - Discharge: Patient requests to leave; waiting in car. MDM Components Evaluation: - Number of Differential Diagnoses or Management Options: Fall-related injury - Amount and Complexity of Data Reviewed: X-ray of shoulder and humerus - Risk of Complication and Morbidity or Mortality: Low risk based on X-ray results and patient's neurovascular status. Quality:SDOH Health Related Social Needs: No Data to Display PFSH All Active Problems (Updated 01/14/25 @ 20:39 by Azul Benitez MD) Anemia (Chronic) Fatigue (Acute) History of total right knee replacement (Acute 10/22/23) Asthma (Chronic) Chest pain (Acute) Post-acute sequelae of COVID-19 (PASC) (Acute) Hip abductor tendinitis (Acute) Vomiting (Acute) Iron deficiency (Acute) Cough (Acute) Diabetic neuropathy (Acute) Muscle weakness (Acute) Balance problem (Acute) Shortness of breath (Acute) Internal hemorrhoid (Acute) she denies Colon polyp (Acute) Dyspnea (Acute) Diverticulosis (Acute) Chest pain (Acute) Screening for colon cancer (Acute) Tear of medial meniscus of right knee (Acute) Injected 01/07/2019 Trigger finger, right middle finger (Chronic) Medical History (Updated 01/14/25 @ 20:39 by Azul Benitez MD) Cecal volvulus Cecal volvulus Fibroepithelial polyp (~12/2022) Family history of colon cancer sister age 74 Mitral valve regurgitation Per Dr. Kearns note mild present since 2009 Tension headache Nausea Urinary incontinence, mixed YARELIS on CPAP Denies using CPAP currently - reports mask is too large Vitamin B12 deficiency Diabetic retinopathy Microalbuminuria Diabetes mellitus, type II, insulin dependent Recurrent falls Ataxia Fatty infiltration of liver Fatigue Dyspnea on exertion Foot pain, right Shingles Anemia, iron deficiency Tubular adenoma of colon Chronic anxiety PTSD (post-traumatic stress disorder) Pt. denies this dx Hypertension Sleep apnea does not use CPAP machine recently, due to ill-fitting mask Gastroesophageal reflux disease Retinopathy Hyperlipidemia Depression Benign hypertension Diabetes mellitus Narcolepsy Surgical History (Updated 06/19/24 @ 09:11 by Alvin Perrin MD) Status post cataract extraction and insertion of intraocular lens of right eye S/P laparoscopy with lysis of adhesions History of colonoscopy (~12/2022) Hx of arthroscopy of right knee Hx of laparoscopy Removed left ovary. Per pt, was to check for endometriosis. Hx of tubal ligation History of esophagogastroduodenoscopy (EGD) S/P excision of lipoma excision of lipoma on back History of hysterectomy History of carpal tunnel release Trigger Finger release LMF, LRF Family History Sister Cancer colon cancer age 74. Abdominal aortic aneurysm Mother Heart disease Social History Smoking/Tobacco Use Status: Former Tobacco Use Quit Date: 08/26/00 Smoking risk assessment performed?: Yes Alcohol Intake: current Alcohol Intake frequency: holidays/special occasions only Drug use: Never Substance use type: does not use Housing: house Number of Children: 2 current occupation: Disabled Current gender identity: female Do you feel safe at home: Yes Do you feel safe in your relationship?: Yes
== END 2025-01-20 10:24 | disposition home or self-care (01) ==
PROVIDERS: Emergency Provider Physician Assistant; PCP Family Medicine
DX: M25.511 Pain in right shoulder (principal); W19.XXXA Unspecified fall, initial encounter
CPT/HCPCS: 99284; 99283; 73030; 73060

== ENCOUNTER → 2025-01-26 10:56 | Outpatient (BNVA) | payer MEDICARE, SELFPAY | PROVIDERS: PCP Family Medicine; Referring Provider Family Medicine; Visit Provider Student in an Organized Health Care Education/Training Program | DX: D64.9 Anemia, unspecified (principal) | CPT/HCPCS: 99215; G2212 ==

== ENCOUNTER 2025-01-26 12:38 | Outpatient (CLI) | payer MEDICARE, SELFPAY ==
[2025-01-26 12:07] LABS: Abs Immature Grans 0.03 10^3/uL (0.0-0.06); Absolute Basophil Count 0.03 10^3/uL (0.0-0.2); Absolute Eosinophil Count 0.15 10^3/uL (0.0-0.7); Absolute Lymphocyte Count 1.67 10^3/uL (1.2-3.4); Absolute Monocyte Count 0.57 10^3/uL (0.1-0.8); Absolute Neutrophil Count 5.25 10^3/uL (1.2-6.7); Basophils % 0.4 %; Eosinophils % 1.9 %; HCT 34.5 % (36.0-46.0); HGB 10.3 g/dL (11.2-15.7); Immature Grans % 0.4 %; Lymphocytes % 21.7 %; MCH 25.8 pg (27.0-33.0); MCHC 29.9 % (32.0-36.0); MCV 87 fL (80-95); MPV 11.7 fL (8.0-11.0); Monocytes % 7.4 %; Neutrophils % 68.2 %; Platelet Count 291 10^3/uL (130-400); RBC 3.99 10^6/uL (3.93-5.22); RDW 18.9 % (11.7-14.6); RDW-SD 59.8 fL; Reticulocyte 2.6 % (0.5-2.4)
[2025-01-26 12:50] LABS: Ferritin 229 ng/mL (8-252)
[2025-01-26 13:21] LABS: Iron 37 ug/dL (50-170); Total Iron Binding Capacity 260 ug/dL (250-450); Transferrin Sat 14 % (15-50)
== END 2025-01-26 12:39 | disposition home or self-care (01) ==
LOC: LBO 12:38
PROVIDERS: PCP Family Medicine; Visit Provider Nurse Practitioner Family
DX: D50.9 Iron deficiency anemia, unspecified (principal)
CPT/HCPCS: 99215; G2212; 82728; 83540; 83550; 85025; 85045

== ENCOUNTER 2025-02-08 00:04 | Outpatient (CLI) | payer MEDICARE, SELFPAY ==
--- NOTE | 2025-02-08 | DI.US_ITS ---
Exam(s) US AAA SCREENING EXAM: US AAA SCREENING CLINICAL HISTORY: Iron Defic Anemia D50.0 Fam HX of Ischemic HD Z82.49 COMPARISON: US US ABDOMEN from 09/07/2020 FINDINGS: Abdominal Aorta: Proximal: 2.1 x 2.6 cm Mid: 1.4 x 1.6 cm Distal: 1.4 x 1.4 cm Iliac's: Right: 0.8 x 1.1 cm Left: 0.9 x 1.0 cm No significant atherosclerotic disease is seen. IMPRESSION: No evidence of abdominal aortic aneurysm. DATA REPOSITORY:
== END 2025-02-08 00:24 ==
LOC: DI 00:04
PROVIDERS: PCP Family Medicine; Visit Provider Family Medicine
DX: Z13.6 Encounter for screening for cardiovascular disorders (principal); Z82.49 Family history of ischemic heart disease and other diseases of the circulatory system
CPT/HCPCS: 76706

== ENCOUNTER 2025-03-18 09:10 | Outpatient (CLI) | payer MEDICARE, SELFPAY ==
[2025-03-18 09:23] LABS: Abs Immature Grans 0.02 10^3/uL (0.0-0.06); HCT 34.1 % (36.0-46.0); HGB 10.5 g/dL (11.2-15.7); Immature Grans % 0.4 %; MCH 25.5 pg (27.0-33.0); MCHC 30.8 % (32.0-36.0); MCV 83 fL (80-95); MPV 11.6 fL (8.0-11.0); Platelet Count 231 10^3/uL (130-400); RBC 4.11 10^6/uL (3.93-5.22); RDW 16.3 % (11.7-14.6); RDW-SD 49.2 fL; WBC 5.11 10^3/uL (4.4-10.8)
[2025-03-18 10:20] LABS: Ferritin 34 ng/mL (8-252)
[2025-03-18 10:28] LABS: Iron 47 ug/dL (50-170); Total Iron Binding Capacity 284 ug/dL (250-450); Transferrin Sat 17 % (15-50)
== END 2025-03-18 09:11 | disposition home or self-care (01) ==
PROVIDERS: PCP Family Medicine; Visit Provider Nurse Practitioner Family
DX: D50.8 Other iron deficiency anemias (principal); R53.82 Chronic fatigue, unspecified; D50.9 Iron deficiency anemia, unspecified
CPT/HCPCS: 36415; 82728; 83540; 83550; 85025; 85045

== ENCOUNTER 2025-03-24 17:19 | Outpatient (REF) | payer MEDICARE, SELFPAY ==
[2025-03-24 21:05] LABS: Iron 51 ug/dL (50-170); Total Iron Binding Capacity 311 ug/dL (250-450); Transferrin Sat 16 % (15-50)
[2025-03-24 22:04] LABS: HCT 34.8 % (36.0-46.0); HGB 10.8 g/dL (11.2-15.7); MCH 25.4 pg (27.0-33.0); MCHC 31.0 % (32.0-36.0); MCV 82 fL (80-95); MPV 12.8 fL (8.0-11.0); Platelet Count 281 10^3/uL (130-400); RBC 4.26 10^6/uL (3.93-5.22); RDW 16.3 % (11.7-14.6); RDW-SD 48.3 fL; WBC 7.30 10^3/uL (4.4-10.8)
[2025-03-24 22:16] LABS: ALT 35 U/L (14-59); AST 26 U/L (15-37); Albumin 4.2 g/dL (3.4-5.0); Alkaline Phosphatase 80 U/L (46-116); Anion Gap 13.8 mmol/L (3-11); BUN 24 mg/dL (7-18); Bilirubin, Total 0.8 mg/dL (0.2-1.0); CO2 22.2 mmol/L (21.0-32.0); Calcium 9.3 mg/dL (8.5-10.1); Chloride 105 mmol/L (98-107); Estimated GFR 61.75 (mL/min/1.73m2); Ferritin 33 ng/mL (8-252); Glucose 136 mg/dL (74-106); Potassium 4.4 mmol/L (3.5-5.1); Sodium 141 mmol/L (136-145); Total Protein 7.5 g/dL (6.4-8.2)
== END 2025-03-24 17:20 | disposition home or self-care (01) ==
LOC: NCHCN 17:19
PROVIDERS: PCP Family Medicine; Visit Provider Nurse Practitioner Family
DX: D50.0 Iron deficiency anemia secondary to blood loss (chronic) (principal)
CPT/HCPCS: 80053; 85027; 82728; 83540; 83550

== ENCOUNTER 2025-05-18 04:57 | Outpatient (CLI) | payer MEDICARE, SELFPAY ==
[2025-05-18 14:31] LABS: Abs Immature Grans 0.02 10^3/uL (0.0-0.06); HCT 35.5 % (36.0-46.0); HGB 11.3 g/dL (11.2-15.7); Immature Grans % 0.3 %; MCH 26.2 pg (27.0-33.0); MCHC 31.8 % (32.0-36.0); MCV 82 fL (80-95); MPV 12.1 fL (8.0-11.0); Platelet Count 232 10^3/uL (130-400); RBC 4.31 10^6/uL (3.93-5.22); RDW 15.7 % (11.7-14.6); RDW-SD 47.3 fL; WBC 6.90 10^3/uL (4.4-10.8)
[2025-05-18 16:28] LABS: Ferritin 241 ng/mL (8-252)
[2025-05-18 16:47] LABS: Iron 64 ug/dL (50-170); Total Iron Binding Capacity 219 ug/dL (250-450); Transferrin Sat 29 % (15-50)
== END 2025-05-18 04:58 ==
LOC: LBO 05-19 04:57
PROVIDERS: PCP Family Medicine; Visit Provider Nurse Practitioner Family
DX: D50.0 Iron deficiency anemia secondary to blood loss (chronic) (principal)
CPT/HCPCS: 36415; 82728; 83540; 83550; 85025; 85045

== ENCOUNTER 2025-07-13 14:50 | Outpatient (CLI) | payer MEDICARE, SELFPAY ==
[2025-07-13 15:19] LABS: Abs Immature Grans 0.08 10^3/uL (0.0-0.06); HCT 36.2 % (36.0-46.0); HGB 11.8 g/dL (11.2-15.7); Immature Grans % 0.8 %; MCH 26.6 pg (27.0-33.0); MCHC 32.6 % (32.0-36.0); MCV 82 fL (80-95); MPV 11.4 fL (8.0-11.0); Platelet Count 229 10^3/uL (130-400); RBC 4.44 10^6/uL (3.93-5.22); RDW 14.8 % (11.7-14.6); RDW-SD 43.9 fL; WBC 10.47 10^3/uL (4.4-10.8)
[2025-07-13 15:37] LABS: Ferritin 138 ng/mL (7-271)
[2025-07-13 15:52] LABS: Iron 61 ug/dL (50-170); Total Iron Binding Capacity 249 ug/dL (250-425); Transferrin Sat 24 % (15-50)
== END 2025-07-13 14:51 | disposition home or self-care (01) ==
LOC: LBO 14:51
PROVIDERS: PCP Family Medicine; Visit Provider Nurse Practitioner Family
DX: D50.0 Iron deficiency anemia secondary to blood loss (chronic) (principal)
CPT/HCPCS: 36415; 82728; 83540; 83550; 85025; 85045

== ENCOUNTER → 2025-08-12 00:35 | Outpatient (CLI) | payer MEDICARE, SELFPAY ==
--- NOTE | 2025-08-12 10:11 | DI.RAD_ITS ---
Exam(s) XR FOOT LT COMPLETE EXAM: XR FOOT LT COMPLETE CLINICAL HISTORY: Left foot pain,M79.672. TECHNIQUE: 2D digital imaging was performed. Three views. COMPARISON: CR XR FOOT RT COMPLETE from 05/17/2021 FINDINGS: BONES: No acute fracture is present. No bony destructive lesion is seen. JOINTS: No dislocation present. Mild 1st metatarsal varus and hallux valgus. Minimal degenerative changes. Mild flattening of the plantar arch. SOFT TISSUE: Normal. IMPRESSION: Mild 1st metatarsal varus and hallux valgus. Minimal degenerative changes. Mild flattening of the plantar arch. DATA REPOSITORY: RADIATION DOSE DELIVERED:
== END ==
PROVIDERS: PCP Family Medicine; Visit Provider Podiatrist
DX: M72.2 Plantar fascial fibromatosis (principal); M79.672 Pain in left foot; M20.12 Hallux valgus (acquired), left foot
CPT/HCPCS: 20550; J0702; J1100; 73630